=== PATIENT | male | born 1960 | race Caucasian/White ===

== ENCOUNTER 2016-04-18 17:17 | Inpatient (IN) | payer OTHER ==
[~2016-04-18] VITALS: Ht 188 cm; Wt 90.8 kg
[2016-04-18] MEDS ORDERED: LEVAQUIN 750MG / 150ML D5W IV STA (17:47)
[2016-04-18] MEDS ORDERED: SODIUM CHLORIDE 0.9% 1000ML 2,000 ML IV STA (17:47)
[2016-04-18] MEDS ORDERED: CEFEPIME IV 1,000 MG in DEXTROSE 5% 100ML 100 ML IV STA (17:47)
[2016-04-18] MEDS ORDERED: ACETAMINOPHEN 500 MG TAB PO STA (17:47)
[2016-04-18] MEDS ORDERED: OPTIRAY 320 IV PRN (18:00)
--- NOTE | 2016-04-18 18:06 | DIAGNOSTIC IMAGING REPORT ---
CHEST ONE VIEW PORTABLE CLINICAL HISTORY: fever COMPARISON STUDY: No previous studies for comparison. FINDINGS: The heart is at the upper limits of normal in size. There are bilateral airspace opacities involving the left lung base and right mid and lower lung zone. Given the history of fever, the findings are viewed as suspicious for a pneumonia. Imaging subsequent to treatment is recommended in follow-up.[ No significant pleural effusions are visualized. IMPRESSION: Bilateral pulmonary airspace opacities, suspicious for pneumonia given the history of fever. Clinical and radiographic follow-up is recommended. Electronically signed by: Horacio Samaniego M.D. 04/18/2016 6:04 PM Dictated Date/Time: 04/18/2016 6:03 PM
[2016-04-18] MEDS ORDERED: VANCOMYCIN INJ 1,900 MG in SODIUM CHLORIDE 0.9% 500ML 500 ML IV STA (18:13)
[2016-04-18 18:24] LABS: COMPLETE YES; HEMATOCRIT 37.9 % (42-52); IG% 0.1 %; LYMPH % 8.4 %; LYMPH ABS # 0.69 K/uL (1.2-3.4); MEAN CELL VOLUME 87.1 fL (80-100); MEAN CORPUSCULAR HEMOGLOBIN 29.7 pg (25-34); MEAN PLATELET VOLUME 9.7 fL (7.4-10.4); MONO % 6.6 %; NEUT % 84.9 %; PLATELET COUNT 229 K/uL (130-400); RED BLOOD COUNT 4.35 M/uL (4.7-6.1); WHITE BLOOD COUNT 8.18 K/uL (4.8-10.8)
[2016-04-18 18:32] LABS: VENOUS BLOOD GAS PCO2 56 mmHg (38.0-50.0); VENOUS BLOOD GAS PO2 25 mmHg
[2016-04-18 18:33] LABS: PROTHROMBIN TIME (PATIENT) 10.7 SECONDS (9.0-12.0); VEN BLD GAS O2 SATURATION < 60.0 %
[2016-04-18 18:46] LABS: ALT/SGPT 91 U/L (12-78); AST/SGOT 90 U/L (15-37); BLOOD UREA NITROGEN 14 mg/dl (7-18); BUN/CREATININE RATIO 14.5 (10-20); CALCIUM 8.2 mg/dl (8.5-10.1); CARBON DIOXIDE 28 mmol/L (21-32); CHLORIDE 94 mmol/L (98-107); CREATININE 0.96 mg/dl (0.60-1.40); GLUCOSE 161 mg/dl (70-99); SODIUM 132 mmol/L (136-145)
[2016-04-18 19:01] LABS: ALKALINE PHOSPHATASE 55 U/L (45-117); CKMB/CK RATIO 0.9 (0-3.0)
--- NOTE | 2016-04-18 19:13 | DIAGNOSTIC IMAGING REPORT ---
CT ANGIOGRAM OF THE CHEST CLINICAL HISTORY: Fever, shortness of breath. COMPARISON STUDY: Chest x-ray dated 04/18/2016 TECHNIQUE: Following the IV administration of 116 mL of [id number]-320, CT angiogram of the thorax was performed from the thoracic inlet to the lung bases utilizing the pulmonary embolus protocol. Images are reviewed in the axial, sagittal, and coronal planes. IV contrast was administered without complication. MIP imaging was performed. CT DOSE: 635.50 mGycm FINDINGS: There is a partially visualized 2 cm upper pole left renal cyst. There is hepatic steatosis. There are mildly enlarged mediastinal and hilar lymph nodes, likely reactive. Follow-up subsequent to treatment should be considered. There was no evidence of thoracic aortic dilatation. There were no pulmonary artery filling defects to indicate acute pulmonary embolism. No pleural effusions are visualized. The study is somewhat limited due to respiratory motion artifact. There are right upper lobe, right middle lobe, right lower lobe, and left lower lobe airspace opacities, suspicious for multifocal pneumonia. There is lower lobe bronchial wall thickening and mucous plugging. Clinical and imaging follow-up is recommended. IMPRESSION: 1. No CT evidence of acute pulmonary embolism 2. Bilateral pulmonary airspace opacities, suspicious for a multifocal pneumonia. 3. Mediastinal and hilar lymphadenopathy, possibly reactive given the suspected bilateral pneumonia 4. Clinical and imaging follow-up is recommended. 5. Hepatic steatosis Electronically signed by: Horacio Samaniego M.D. 04/18/2016 7:12 PM Dictated Date/Time: 04/18/2016 7:07 PM
[2016-04-18] MEDS ORDERED: METH10CO PO (19:38)
[2016-04-18] MEDS ORDERED: ALBUTEROL 0.083% NEBU SOLN 3 ML VIAL INH STA (19:40)
[2016-04-18] MEDS ORDERED: OSELTAMIVIR PHOSPHATE 75 MG CAP PO STA (19:53)
[2016-04-18 19:54] LABS: URINE APPEARANCE CLEAR (CLEAR); URINE BILIRUBIN NEG (NEG); URINE COLOR YELLOW; URINE EPITHELIAL CELL AUTO 0-5 /lpf (0-5); URINE NITRITE NEG (NEG); URINE PH 5.5 (4.5-7.5); URINE SPECIFIC GRAVITY 1.015 (1.000-1.030); UROBILINOGEN NEG (NEG); ZZUR CULT IF INDIC CLEAN CATCH NO
[2016-04-18 19:57] LABS: MANUAL MICROSCOPIC REQUIRED? NO; REVIEW REQ? NO
[2016-04-18] MEDS ORDERED: CONSULT PHARMACY STA (20:11)
[2016-04-18] MEDS ORDERED: ACETAMINOPHEN 325 MG TAB PO PRN (20:15)
[2016-04-18] MEDS ORDERED: LEVALBUTEROL/IPRATROPIUM NEB INH SCH (20:15)
--- NOTE | 2016-04-18 20:32 | History and Physical ---
History & Physical Date & Time of Service: Apr 18, 2016 at 20:18 Chief Complaint: Oxygen Level Is Low, Tight Chest Primary Care Physician: Domo Simmons M.D. History of Present Illness Source: patient, clinic records, hospital records 55 year old male with history of opioid dependence on Methadone, hypretension, presenting with cough and shortness of breath x [address] Simmons for Primary Care. Patient was at his usual state of health until last Friday when he developed dry cough, fever/chills, malaise. This progressed in the next few days and was noted to have shortness of breath as well. [facility] today and was found to hypoxic, hence directed to the ER. At the ER, patient was 76% on room air, febrile at 38.8. Patient was placed on non rebreather, given Neb treatment and started on Cefepime, Levaquin. O2 sats was 92% on non rebreather. On exam, patient was resting in bed, appears somewhat weak, not in distress. Speaks in sentences with mild effort, no accessory muscle use. States breathing has somewhat improved. Denies chest pain, headache, dizziness, nausea. No other symptoms. Past Medical/Surgical History Medical Problems: (1) Pneumonia Status: Resolved (2) Sepsis Status: Resolved Family History No pertinent family history Social History Smoking Status: Former Smoker Allergies Coded Allergies: No Known Allergies (Unverified , 04/18/16) Home Medications Scheduled Methadone Hcl (Methadone Hcl Intensol), 164 MG PO QAM Review of Systems Constitutional-(+) as noted above Eyes- no acute visual changes ENT- no sinus drainage; no pharyngitis Pulmonary-(+) as noted above Cardiac- no chest pain, no palpitations, no orthopnea, no dependent edema GI- no nausea, no vomiting, no diarrhea, no melena, no hematochezia - no dysuria, no hematuria Musculoskeletal- no arthralgias, no myalgias Derm- no rashes, no new skin lesions, no changing skin lesions Hematologic- no unusual bruising, no unusual bleeding Lymphatics- no adenopathy Endocrine- no polyuria or polydipsia; no heat or cold intolerance Neuro- no headaches, no focal neurologic symptoms Psych- no anxiety, no depression Physical Exam Vital Signs Date Time Temp Pulse Resp B/P Pulse Ox O2 Delivery O2 Flow Rate FiO2 04/18/16 20:00 75 20 144/89 92 Non-Rebreather 15.0 04/18/16 19:45 75 22 145/89 86 Mask 10.0 Nebulizer 04/18/16 19:15 38.0 78 18 107/58 93 Non-Rebreather 15.0 04/18/16 18:27 74 18 141/78 96 Nasal Cannula 15.0 04/18/16 17:58 81 04/18/16 17:48 78 Room Air 04/18/16 17:43 76 Room Air 04/18/16 17:36 38.8 89 18 140/71 76 Room Air General Appearance: WD/WN, no apparent distress Head: normocephalic, atraumatic Eyes: normal inspection, EOMI, sclerae normal ENT: normal ENT inspection, pharynx normal, + pertinent finding (poor hearing) Neck: supple, no adenopathy, thyroid normal, no JVD, trachea midline Respiratory/Chest: chest non-tender, no respiratory distress, no accessory muscle use, + crackles (bilaterally, no wheezing) Cardiovascular: regular rate, rhythm, no edema, no JVD, no murmur Abdomen/GI: normal bowel sounds, non tender, soft Back: normal inspection, no CVA tenderness Extremities/Musculoskelatal: normal inspection, no calf tenderness, normal capillary refill, no pedal edema Neurologic/Psych: + pertinent finding (no focal neuro deficits noted, difficult to perform full neuro exam as patient on non rebreather) Skin: normal color, warm/dry, no rash Lymphatic: no adenopathy Diagnostics Laboratory Results Results Past 24 Hours Test 04/18/16 18:10 04/18/16 18:33 04/18/16 19:30 04/18/16 20:11 Range/Units White Blood Count 8.18 4.8-10.8 K/uL Red Blood Count 4.35 4.7-6.1 M/uL Hemoglobin 12.9 14.0-18.0 g/dL Hematocrit 37.9 42-52 % Mean Corpuscular Volume 87.1 80-100 fL Mean Corpuscular Hemoglobin 29.7 25-34 pg Mean Corpuscular Hemoglobin Concent 34.0 32-36 g/dl Platelet Count 229 130-400 K/uL Mean Platelet Volume 9.7 7.4-10.4 fL Neutrophils (%) (Auto) 84.9 % Lymphocytes (%) (Auto) 8.4 % Monocytes (%) (Auto) 6.6 % Eosinophils (%) (Auto) 0.0 % Basophils (%) (Auto) 0.0 % Neutrophils # (Auto) 6.94 1.4-6.5 K/uL Lymphocytes # (Auto) 0.69 1.2-3.4 K/uL Monocytes # (Auto) 0.54 0.11-0.59 K/uL Eosinophils # (Auto) 0.00 0-0.5 K/uL Basophils # (Auto) 0.00 0-0.2 K/uL RDW Standard Deviation 44.1 36.4-46.3 fL RDW Coefficient of Variation 13.7 11.5-14.5 % Immature Granulocyte % (Auto) 0.1 % Immature Granulocyte # (Auto) 0.01 0.00-0.02 K/uL Prothrombin Time 10.7 9.0-12.0 SECONDS Prothromb Time International Ratio 1.0 0.9-1.1 Venous Blood pH 7.35 7.36-7.41 Venous Blood Partial Pressure CO2 56 38.0-50.0 mmHg Venous Blood Partial Pressure O2 25 mmHg Venous Blood HCO3 30 mmol/L Venous Blood Oxygen Saturation < 60.0 % Venous Blood Base Excess 3.0 mmol/L Sodium Level 132 136-145 mmol/L Potassium Level 4.0 3.5-5.1 mmol/L Chloride Level 94 98-107 mmol/L Carbon Dioxide Level 28 21-32 mmol/L Anion Gap 10.0 3-11 mmol/L Blood Urea Nitrogen 14 7-18 mg/dl Creatinine 0.96 0.60-1.40 mg/dl Est Creatinine Clear Calc Drug Dose 102.3 ml/min Estimated GFR () 103.4 Estimated GFR (Non- 89.3 BUN/Creatinine Ratio 14.5 10-20 Random Glucose 161 70-99 mg/dl Calcium Level 8.2 8.5-10.1 mg/dl Magnesium Level 2.0 1.8-2.4 mg/dl Total Bilirubin 0.5 0.2-1 mg/dl Direct Bilirubin 0.2 0-0.2 mg/dl Aspartate Amino Transf (AST/SGOT) 90 15-37 U/L Alanine Aminotransferase (ALT/SGPT) 91 12-78 U/L Alkaline Phosphatase 55 45-117 U/L Total Creatine Kinase 858 39-308 U/L Creatine Kinase MB 7.4 0.5-3.6 ng/ml Creatine Kinase MB Ratio 0.9 0-3.0 Troponin I < 0.015 0-0.045 ng/ml Total Protein 7.6 6.4-8.2 gm/dl Albumin 3.6 3.4-5.0 gm/dl Influenza Type A Antigen Neg for Influ A NEG Influenza Type B Antigen Neg for Influ B NEG Urine Color YELLOW Urine Appearance CLEAR CLEAR Urine pH 5.5 4.5-7.5 Urine Specific [place] 1.015 1.000-1.030 Urine Protein NEG NEG Urine Glucose (UA) NEG NEG Urine Ketones NEG NEG Urine Occult Blood TRACE NEG Urine Nitrite NEG NEG Urine Bilirubin NEG NEG Urine Urobilinogen NEG NEG Urine Leukocyte Esterase NEG NEG Urine WBC (Auto) 1-5 0-5 /hpf Urine RBC (Auto) 0-4 0-4 /hpf Urine Hyaline Casts (Auto) 1-5 0-5 /lpf Urine Epithelial Cells (Auto) 0-5 0-5 /lpf Urine Bacteria (Auto) NEG NEG Microbiology Results 04/18/16 Blood Culture, Received Pending 04/18/16 Blood Culture, Received Pending Diagnostic Radiology CT chest IMPRESSION: 1. No CT evidence of acute pulmonary embolism 2. Bilateral pulmonary airspace opacities, suspicious for a multifocal pneumonia. 3. Mediastinal and hilar lymphadenopathy, possibly reactive given the suspected bilateral pneumonia 4. Clinical and imaging follow-up is recommended. 5. Hepatic steatosis EKG EKG normal sinus rhythm, prolonged qt 526, no signs of acute ischemia Impression Assessment and Plan 55 year old male with history of opioid dependence on Methadone, hypretension, presenting with cough and shortness of breath x 4 days. ACUTE HYPOXIC RESPIRATORY FAILURE SECONDARY TO MULTIFOCAL PNEUMONIA - management of pneumonia as noted below. - Nebs q4h continue Non rebreather, may need Bipap if tachypneic SEPSIS SECONDARY TO MULTIFOCAL PNEUMONIA - ff up blood, sputum, urine cultures - lactic acid pending - 2 liters given at the ER, continue NSS at 125cc/hr - empiric Vanco, Zosyn, Doxycycline for now (avoid Fluoroquinolones for prolonged QTc of 526) HISTORY OF OPIOID DEPENDENCE - on Methadone dose confirmed with DVT PROPHYLAXIS - Lovenox FULL CODE per patient DISPOSITION pending lives at home with family VTE Prophylaxis VTE Risk Assessment Done? Y/N: Yes Risk Level: Moderate
[2016-04-18] MEDS ORDERED: [UNRECOGNIZED DRUG - OTHER] PRN (20:45)
[2016-04-18] MEDS ORDERED: PIPERACILL/TAZOBAC CONSULT ACTIVE PRN (20:45)
[2016-04-18] MEDS ORDERED: VANCOMYCIN CONSULT ACTIVE PRN (20:45)
[2016-04-18 21:00] VITALS: BP 139/77; PULSE 67; TEMP 37; O2SAT 95; Ht 188 cm; Wt 90.8 kg
[2016-04-18] MEDS ORDERED: PIPERACILL/TAZOBAC IV 4.5 GM in DEXTROSE 5% 100ML IV ONE (21:45)
[2016-04-18 21:55] VITALS: PULSE 65; O2SAT 96
[2016-04-18 22:00] VITALS: BP 127/72; PULSE 65; O2SAT 96
--- NOTE | 2016-04-18 22:09 | Pharmacy Progress Note ---
Pharmacy Antibiotic Consult Date of Service: Apr 18, 2016. Pharmacy Dosing Scope Pharmacy is consulted to initiate vancomycin, Zosyn,and doxycycline IV dosing therapy, order appropriate labs and adjust drug dose/frequency. Subjective The patient is a 55 year old male admitted on Apr 18, 2016 at 20:02. Objective Height (Feet): 6 Height (Inches): 2.00 Weight (Kilograms): 93.800 Lab Results (24hrs): Laboratory Tests Test 04/18/16 18:10 BUN/Creatinine Ratio 14.5 Blood Urea Nitrogen 14 mg/dl Creatinine 0.96 mg/dl White Blood Count 8.18 K/uL Red Blood Count 4.35 M/uL Hemoglobin 12.9 g/dL Hematocrit 37.9 % Mean Corpuscular Volume 87.1 fL Mean Corpuscular Hemoglobin 29.7 pg Mean Corpuscular Hemoglobin Concent 34.0 g/dl Platelet Count 229 K/uL Mean Platelet Volume 9.7 fL Neutrophils (%) (Auto) 84.9 % Lymphocytes (%) (Auto) 8.4 % Monocytes (%) (Auto) 6.6 % Eosinophils (%) (Auto) 0.0 % Basophils (%) (Auto) 0.0 % Neutrophils # (Auto) 6.94 K/uL Lymphocytes # (Auto) 0.69 K/uL Monocytes # (Auto) 0.54 K/uL Eosinophils # (Auto) 0.00 K/uL Basophils # (Auto) 0.00 K/uL Micro Results: 04/18 serology neg influenza A&B 04/18 nasal swab pending 04/18 blood x2 pending 04/18 clean catch urine pending Recent Pertinent Medications Item Value Date Time Piperacillin Sod/ 120 ml @ 240 mls/hr 04/19/16 0400 Tazobactam Sod Q6H/IV 4.5 gm/Dextrose Vancomycin HCl 528 ml @ 200 mls/hr 04/19/16 0200 1400 mg/Sodium Q8@0200,1000,1800/IV Chloride Piperacillin Sod/ 120 ml @ 200 mls/hr 04/18/16 2145 Tazobactam Sod NOW ONCE/IV 4.5 gm/Dextrose Doxycycline 110 ml @ 55 mls/hr 04/18/162128 Hyclate 100 mg/ Q12/IV Dextrose Oseltamivir 75 mg 04/18/161952 Phosphate NOW STAT/PO 04/18/162003 (Tamiflu Cap) Vancomycin HCl 538 ml @ 200 mls/hr 04/18/16 1813 1900 mg/Sodium ONE STAT/IV 04/18/16 1904 Chloride Cefepime HCl 1000 111.3 ml @ 200 mls/hr 04/18/16 1747 mg/Dextrose NOW STAT/IV 04/18/16 1823 Assessment & Plan Loading dose: vancomycin 1900 mg IV X 1 dose (~20 mg/kg modified load) then: vancomycin 1400 mg IV every 8 hours. Goal peak level estimate: between 25-40 mcg/mL. Goal trough level estimate: between 15-20 mcg/mL. Trough has been ordered for: 04/20/16 before 0200 dose. Doxycycline 100 mg IV q12h, no adjustment needed for renal function. Zosyn 4.5 Gm IV q6h for sepsis/pneumonia, each dose to run over 30 minutes. ( Did not use extended infusion due to multiple IV meds/doses) Pharmacy will continue to follow and will adjust dose/frequency as necessary. Thank you
[2016-04-18] MEDS: NSS + 20MEQ KCL 1000ML 1,000 ML IV SCH (22:12)
[2016-04-18] MEDS ORDERED: LEVALBUTEROL 1.25MG/3ML NEB INH PRN (22:15)
[2016-04-18] MEDS ORDERED: INFLUENZA VIRUS QUAD VACCINE 0.5 ML SYR IM. ONE (22:15)
[2016-04-18] MEDS ORDERED: INFLUENZA ADMINISTRATION CHARGE ONE (22:15)
[2016-04-18 22:51] VITALS: O2SAT 95
[2016-04-18] MEDS: DOXYCYCLINE HYCLATE 100 MG in DEXTROSE 5% 100ML IV SCH (23:19)
[2016-04-18] MEDS: IPRATROPIUM BROMIDE NEB SOLN 0.02% 2.5 ML VIAL INH SCH (23:38)
[2016-04-18] MEDS: LEVALBUTEROL 1.25MG/0.5ML NEB INH SCH (23:38)
[2016-04-18 23:40] VITALS: PULSE 68; O2SAT 97
--- NOTE | 2016-04-18 23:55 | EMERGENCY ROOM VISIT NOTE ---
History Report prepared by Archana: Alexandria Truong Under the Supervision of: Dr. Landry Malloy D.O. First contact with patient: 17:40 Chief Complaint: RESPIRATORY PROBLEMS Stated Complaint: OXYGEN LEVEL IS LOW, TIGHT CHEST History of Present Illness The patient is a 55 year old male who presents to the Emergency Room with complaints of worsening shortness of breath that started 4 days ago. The patient is also experiencing a persistent productive cough that also started 4 days ago. The patient is also experiencing a headache, rhinorrhea, sore throat, and joint aches. Additionally, the patient is experiencing chest pain with coughing but otherwise denies any chest pain. He denies nausea, vomiting, abdominal pain, and lower extremity pain or edema. The patient's states that the patient developed a fever yesterday. She also noticed increased confusion today. The patient's states that she tried to hydrate him with Gatorade. The patient denies any recent sick contacts, but his states that they have 9 kids at home so she is not sure. The patient's states that the patient was on life support in [place] several years ago for pneumonia and sepsis. The patient's states that the patient does not have any history of blood clots. The patient denies any history of asthma or COPD. Source of History: patient, spouse/significant other () Onset: 4 days ago Position: chest Quality: other (shortness of breath) Timing: worsening Associated Symptoms: + chest pain (only with coughing ), + cough (productive ), + headache, + sorethroat, No abdominal pain, No nausea, No vomiting Note: rhinorrhea, joint aches, no lower extremity pain or edema Review of Systems See HPI for pertinent positives & negatives. A total of 10 systems reviewed and were otherwise negative. Past Medical & Surgical Medical Problems: (1) Acute respiratory failure with hypoxia (2) Pneumonia (3) Sepsis Family History No pertinent family history Social History Smoking Status: Former Smoker Marital Status: Housing Status: lives with family Current/Historical Medications Scheduled Methadone Hcl (Methadone Hcl Intensol), 164 MG PO QAM Allergies Coded Allergies: No Known Allergies (Unverified , 04/18/16) Physical Exam Vital Signs Date Time Temp Pulse Resp B/P Pulse Ox O2 Delivery O2 Flow Rate FiO2 04/18/16 20:00 75 20 144/89 92 Non-Rebreather 15.0 04/18/16 19:45 75 22 145/89 86 Mask 10.0 Nebulizer 04/18/16 19:15 38.0 78 18 107/58 93 Non-Rebreather 15.0 04/18/16 18:27 74 18 141/78 96 Nasal Cannula 15.0 04/18/16 17:58 81 04/18/16 17:48 78 Room Air 04/18/16 17:43 76 Room Air 04/18/16 17:36 38.8 89 18 140/71 76 Room Air Physical Exam GENERAL: alert, sitting up in bed, ill appearing, significant distress, non- toxic EYE EXAM: normal conjunctiva OROPHARYNX: no exudate, no erythema, lips, buccal mucosa, and tongue normal and mucous membranes are moist NECK: supple, no nuchal rigidity, no adenopathy, non-tender LUNGS: Diminished at the bases. Normal chest wall mechanics HEART: no murmurs, S1 normal and S2 normal ABDOMEN: abdomen soft, non-tender, normo-active bowel sounds, no masses, no rebound or guarding. BACK: Back is symmetrical on inspection and there is no deformity, no midline tenderness, no CVA tenderness. SKIN: no rashes and no bruising UPPER EXTREMITIES: upper extremities are grossly normal. LOWER EXTREMITIES: No pitting edema, calves equal bilaterally. NEURO EXAM: Alert, following commands, no focal deficits. Medical Decision & Procedures ER Provider Diagnostic Interpretation: Xray results per the radiologist and my interpretation. Other results have been interpreted by the radiologist and reviewed by me. CHEST ONE VIEW PORTABLE IMPRESSION: Bilateral pulmonary airspace opacities, suspicious for pneumonia given the history of fever. Clinical and radiographic follow-up is recommended. Electronically signed by: Horacio Samaniego M.D. 04/18/2016 6:04 PM Dictated Date/Time: 04/18/2016 6:[address] ANGIOGRAM OF THE CHEST IMPRESSION: 1. No CT evidence of acute pulmonary embolism 2. Bilateral pulmonary airspace opacities, suspicious for a multifocal pneumonia. 3. Mediastinal and hilar lymphadenopathy, possibly reactive given the suspected bilateral pneumonia 4. Clinical and imaging follow-up is recommended. 5. Hepatic steatosis Electronically signed by: Horacio Samaniego M.D. 04/18/2016 7:12 PM Dictated Date/Time: 04/18/2016 7:07 PM Laboratory Results 04/18/16 18:10 Red Blood Count 4.35, Mean Corpuscular Volume 87.1, Mean Corpuscular Hemoglobin 29.7, Mean Corpuscular Hemoglobin Concent 34.0, Mean Platelet Volume 9.7, Neutrophils (%) (Auto) 84.9, Lymphocytes (%) (Auto) 8.4, Monocytes (%) (Auto) 6.6, Eosinophils (%) (Auto) 0.0, Basophils (%) (Auto) 0.0, Neutrophils # (Auto) 6.94, Lymphocytes # (Auto) 0.69, Monocytes # (Auto) 0.54, Eosinophils # (Auto) 0.00, Basophils # (Auto) 0.00 04/18/16 18:10 Test 04/18/16 18:10 04/18/16 18:33 04/18/16 19:30 White Blood Count 8.18 K/uL (4.8-10.8) Red Blood Count 4.35 M/uL (4.7-6.1) Hemoglobin 12.9 g/dL (14.0-18.0) Hematocrit 37.9 % (42-52) Mean Corpuscular Volume 87.1 fL (80-100) Mean Corpuscular Hemoglobin 29.7 pg (25-34) Mean Corpuscular Hemoglobin Concent 34.0 g/dl (32-36) Platelet Count 229 K/uL (130-400) Mean Platelet Volume 9.7 fL (7.4-10.4) Neutrophils (%) (Auto) 84.9 % Lymphocytes (%) (Auto) 8.4 % Monocytes (%) (Auto) 6.6 % Eosinophils (%) (Auto) 0.0 % Basophils (%) (Auto) 0.0 % Neutrophils # (Auto) 6.94 K/uL (1.4-6.5) Lymphocytes # (Auto) 0.69 K/uL (1.2-3.4) Monocytes # (Auto) 0.54 K/uL (0.11-0.59) Eosinophils # (Auto) 0.00 K/uL (0-0.5) Basophils # (Auto) 0.00 K/uL (0-0.2) RDW Standard Deviation 44.1 fL (36.4-46.3) RDW Coefficient of Variation 13.7 % (11.5-14.5) Immature Granulocyte % (Auto) 0.1 % Immature Granulocyte # (Auto) 0.01 K/uL (0.00-0.02) Prothrombin Time 10.7 SECONDS (9.0-12.0) Prothromb Time International Ratio 1.0 (0.9-1.1) Venous Blood pH 7.35 (7.36-7.41) Venous Blood Partial Pressure CO2 56 mmHg (38.0-50.0) Venous Blood Partial Pressure O2 25 mmHg Venous Blood HCO3 30 mmol/L Venous Blood Oxygen Saturation < 60.0 % Venous Blood Base Excess 3.0 mmol/L Anion Gap 10.0 mmol/L (3-11) Est Creatinine Clear Calc Drug Dose 102.3 ml/min Estimated GFR () 103.4 Estimated GFR (Non- 89.3 BUN/Creatinine Ratio 14.5 (10-20) Calcium Level 8.2 mg/dl (8.5-10.1) Magnesium Level 2.0 mg/dl (1.8-2.4) Total Bilirubin 0.5 mg/dl (0.2-1) Direct Bilirubin 0.2 mg/dl (0-0.2) Aspartate Amino Transf (AST/SGOT) 90 U/L (15-37) Alanine Aminotransferase (ALT/SGPT) 91 U/L (12-78) Alkaline Phosphatase 55 U/L (45-117) Total Creatine Kinase 858 U/L (39-308) Creatine Kinase MB 7.4 ng/ml (0.5-3.6) Creatine Kinase MB Ratio 0.9 (0-3.0) Troponin I < 0.015 ng/ml (0-0.045) Total Protein 7.6 gm/dl (6.4-8.2) Albumin 3.6 gm/dl (3.4-5.0) Influenza Type A Antigen Neg for Influ A (NEG) Influenza Type B Antigen Neg for Influ B (NEG) Urine Color YELLOW Urine Appearance CLEAR (CLEAR) Urine pH 5.5 (4.5-7.5) Urine Specific [place] 1.015 (1.000-1.030) Urine Protein NEG (NEG) Urine Glucose (UA) NEG (NEG) Urine Ketones NEG (NEG) Urine Occult Blood TRACE (NEG) Urine Nitrite NEG (NEG) Urine Bilirubin NEG (NEG) Urine Urobilinogen NEG (NEG) Urine Leukocyte Esterase NEG (NEG) Urine WBC (Auto) 1-5 /hpf (0-5) Urine RBC (Auto) 0-4 /hpf (0-4) Urine Hyaline Casts (Auto) 1-5 /lpf (0-5) Urine Epithelial Cells (Auto) 0-5 /lpf (0-5) Urine Bacteria (Auto) NEG (NEG) Date/Time Source Procedure Growth Status 04/18/16 00:00 Nasal MRSA DNA Surveillance Screen - Final Specimen Positive for MRSA by DNA Probe Complete Laboratory results per my review. Medications Administered Medications (Trade) Dose Ordered Sig/Juli Route Start Time Stop Time Status Last Admin Dose Admin Cefepime HCl 1000 mg/Dextrose 111.3 ml @ 200 mls/hr NOW STAT IV 04/18/16 17:47 04/18/16 18:20 DC 04/18/16 18:23 200 MLS/HR Sodium Chloride (Nss 1000ml) 2,000 ml @ 999 mls/hr Q2H1M STAT IV 04/18/16 17:47 04/18/16 19:47 DC 04/18/16 18:22 999 MLS/HR Acetaminophen 1000 mg 1,000 mg NOW STAT PO 04/18/16 17:47 04/18/16 17:49 DC 04/18/16 18:22 1,000 MG Vancomycin HCl/ Sodium Chloride (Vancomycin Inj/ Nss 500ml) 538 ml @ 200 mls/hr ONE STAT IV 04/18/16 18:13 04/18/16 20:54 DC 04/18/16 19:04 200 MLS/HR Albuterol Sulfate (Ventolin 0.083% 2.5MG/3ML Neb) 2.5 mg NOW STAT INH 04/18/16 19:40 04/18/16 19:41 DC 04/18/16 19:47 2.5 MG Oseltamivir Phosphate (Tamiflu Cap) 75 mg NOW STAT PO 04/18/16 19:53 04/18/16 19:54 DC 04/18/16 20:04 75 MG ECG Indication: SOB/dyspnea Rate (beats per minute): 76 Rhythm: sinus rhythm Findings: prolonged QT, no ectopy, other (normal axis) ED Course ED COURSE: Vital signs were reviewed and showed febrile. The patients medical record was reviewed The above diagnostic studies were performed and reviewed. ED treatments and interventions as stated above. 174: The patient was evaluated in room A1. A complete history and physical examination was performed. 174: Ordered Tylenol Tab 1000 mg PO, Sodium Chloride 2000 ml @ 999 mls/hr IV, Levofloxacin 750 mg IV, Cefepime HCl 1000 mg/Dextrose 111.3 ml @ 200 mls/hr IV 175: I reassessed the patient. They are putting an IV in currently. 1756: An 18 gauge IV is in place. A code sepsis was called based on the patient' s presentation. 1803: I reevaluated the patient, he is resting comfortably. They are trying to get a second IV site. 1812: Ordered Vancomycin HCl 1900 mg/Sodium Chloride 538 ml @ 200 mls/hr IV 1820: Two 18 gauge IVs are in place. The patient is feeling a little better. 1917: Upon reevaluation, the patient is resting comfortably. I discussed my findings with the patient and his . They understand and agrees with the treatment plan. Based on the patients age, coexisting illnesses, exam and lab findings the decision to treat as an inpatient was made. The patient remained stable while under my care. The patient will be evaluated for further management. 1932: I reviewed the patient's case with Dr. Xu Celaya. She will evaluate the patient for further management. 1938: I reevaluated the patient. He is sleeping, but his oxygen saturation is 88 -89%. 1939: Ordered Albuterol Sulfate 2.5 mg INH 1951: I reassessed the patient. He is receiving a nebulizer treatment now. 1952: Ordered Tamiflu Cap 75 mg PO 1957: I reevaluated the patient. The nebulizer treatment is done and the patient 's oxygen saturation is 91% on the non-rebreather. Medicine is at bedside. Medical Decision Differential diagnoses includes but is not limited to pneumonia, bronchitis, COPD/Asthma exacerbation, pneumothorax, pulmonary embolism, congestive heart failure, acute coronary syndrome Patient is a 55-year-old male brought in by his for confusion and trouble breathing. He was initially brought into outpatient clinic and found to be hypoxic with a pulse ox of 65%. Upon arrival to the ER his pulse ox was 70%. He was immediately placed on nonrebreather. He stayed on nonrebreather throughout the duration of his ER stay. Oxygen saturation on the nonrebreather was 88-93%. He was given 2 L normal saline along with cefepime, vancomycin and Tylenol. No significant leukocytosis on labs. BMP shows a sodium of 132. AST and ALTs slightly elevated. UA was negative. INR was negative. Influenza was negative. He was also given Tamiflu. VBG shows normal pH. CO2 is slightly elevated at 56. Patient remained confused while in the ER. Internal medicine was consulted. He is monitored closely. He was given one neb. He was admitted to internal medicine with hypoxia on nonrebreather. Consults Time Called: 1916 Consulting Physician: Dr. Xu Celaya Returned Call: 1932 I reviewed the patient's case with Dr. Xu Celaya. She will evaluate the patient for further management. Impression Primary Impression: Sepsis Additional Impressions: Pneumonia Hypoxia Critical Care I have personally spent 80 minutes of critical care time in the direct management of this patient. This includes bedside care, interpretation of diagnostic studies, and testing, discussion with consultants, patient, and family members, and other required patient management activities. This 80 minutes is in excess of all separately billable procedures. Scribe Attestation The scribe's documentation has been prepared under my direction and personally reviewed by me in its entirety. I confirm that the note above accurately reflects all work, treatment, procedures, and medical decision making performed by me. Departure Information Dispostion Being Evaluated By Hospitalist Referrals Domo Simmons M.D. (PCP) Patient Instructions [facility] Problem Qualifiers Primary Impression: Sepsis Sepsis type: sepsis due to unspecified organism Qualified Codes: A41.9 - Sepsis, unspecified organism Additional Impressions: Pneumonia Pneumonia type: due to unspecified organism Laterality: bilateral Lung location: unspecified part of lung Qualified Codes: J18.9 - Pneumonia, unspecified organism
[2016-04-19] VITALS (30 sets, daily range): BP systolic 115–151; BP diastolic 60–96; PULSE 65–79; TEMP 36.6–37.3; O2SAT 90–100
--- NOTE | 2016-04-19 02:03 | Progress Note ---
Progress Note Date of Service Apr 19, 2016. Progress Note Sock Mender: Case discussed with Dr. Lockhart. I interviewed the patient's and examined him. Chart reviewed. Bilateral PNA - on broad abx and 100% NRB. He is not in resp. distress and O2 sats are 92-100%. I have added Tamiflu and chest percussion therapy as well as PRN bronchodilators. I have also told his he may require intubation but looks surprisingly comfortable so far. Full dictation/consult to follow.
[2016-04-19] MEDS: VANCOMYCIN INJ 1,400 MG in SODIUM CHLORIDE 0.9% 500ML 500 ML IV SCH ×3 (02:11→17:44)
[2016-04-19] MEDS: LEVALBUTEROL 1.25MG/0.5ML NEB INH SCH ×6 (03:40→23:21)
[2016-04-19] MEDS: IPRATROPIUM BROMIDE NEB SOLN 0.02% 2.5 ML VIAL INH SCH ×6 (03:40→23:21)
[2016-04-19] MEDS: PIPERACILL/TAZOBAC IV 4.5 GM in DEXTROSE 5% 100ML IV SCH ×3 (04:38→17:44)
[2016-04-19 05:53] LABS: COMPLETE YES; HEMATOCRIT 34.5 % (42-52); IG% 0.2 %; LYMPH % 11.4 %; MEAN CELL VOLUME 87.8 fL (80-100); MEAN CORPUSCULAR HEMOGLOBIN 29.3 pg (25-34); MEAN CORPUSCULAR HGB CONC 33.3 g/dl (32-36); MEAN PLATELET VOLUME 9.7 fL (7.4-10.4); MONO % 4.2 %; NEUT % 84.2 %; PLATELET COUNT 197 K/uL (130-400); RED BLOOD COUNT 3.93 M/uL (4.7-6.1); WHITE BLOOD COUNT 6.14 K/uL (4.8-10.8)
[2016-04-19 06:25] LABS: CALCIUM 7.6 mg/dl (8.5-10.1); CREATININE 0.63 mg/dl (0.60-1.40); MAGNESIUM 1.9 mg/dl (1.8-2.4)
[2016-04-19] MEDS: NSS + 20MEQ KCL 1000ML 1,000 ML IV SCH ×3 (06:34→17:24)
--- NOTE | 2016-04-19 07:17 | DIAGNOSTIC IMAGING REPORT ---
CHEST ONE VIEW PORTABLE CLINICAL HISTORY: f/u pna pneumonia COMPARISON STUDY: 04/18/2016 FINDINGS: Progressive consolidative change right base. Unchanging parenchymal infiltrative change left base. Mild stable cardiomegaly. Pulmonary procedure remain clear. IMPRESSION: Progressive consolidative infiltrate right base. Unchanging parenchymal infiltrate left base although a minimal degree of medial consolidative change at the left base may be present Electronically signed by: Aryan Miranda M.D. 04/19/2016 7:16 AM Dictated Date/Time: 04/19/2016 7:12 AM
[2016-04-19] MEDS: DOXYCYCLINE HYCLATE 100 MG in DEXTROSE 5% 100ML IV SCH ×2 (07:50→20:34)
[2016-04-19] MEDS ORDERED: PANTOprazole INJ 40 MG in SYRINGE 0 ML IV SCH (09:00)
[2016-04-19] MEDS ORDERED: SODIUM PHOSPHATE 3 MMOL/1 ML INFUSION IV STA ×2 (09:35→11:05)
[2016-04-19] MEDS ORDERED: SODIUM PHOSPHATE INJ 21 MMOL in SODIUM CHLORIDE 0.9% 500ML 500 ML IV ONE ×2 (10:00→12:00)
[2016-04-19] MEDS ORDERED: CALCIUM GLUCONATE 10% 500 MG in SODIUM CHLORIDE 0.9% 50ML 50 ML IV ONE (10:00)
[2016-04-19] MEDS: ENOXAPARIN 40 MG/0.4 ML SYR SQ SCH (10:04)
[2016-04-19] MEDS: OSELTAMIVIR PHOSPHATE 75 MG CAP PO SCH ×2 (10:06→20:35)
[2016-04-19] MEDS: METHADONE ORAL SOLN 2 MG/1ML PO SCH (10:06)
--- NOTE | 2016-04-19 11:55 | Critical Care Consultation ---
Critical Care Consultation Date of Consultation: Apr 19, 2016. Attending Physician: Mary Lou Wahl., S Reason for Consultation: Acute hypoxic resp failure History of Present Illness 55 y/o M with h/o opioid dependence on methadone , HTN had presented to the ER with respiratory distress. He had developed a cough, fevers and chills and malaise about 4 days ago which seemed to worsen in the last few days and he also developed some respiratory distress. He began to feel short of breath and had first gone to the Urgent care centre where his saturations were very low and he was directed to go to the ER. he was febrile with sats at 76% on presentation . Patient was placed on non rebreather, given Neb treatment and started on Cefepime, Levaquin. Chest Xray revealed bilateral air space opacities and he was transferred to the ICU considering his respiratory distress. CTA was on which was negative for pulmonary embolism He is very hard of hearing and appears to be more oriented and almost at baseline per his . he thinks his breathing is improved and he feel somewhat better. denies any fevers/chills, cough or chest pain. He has chronic back pain and is on methadone . He has a h/o pneumonia about 8 years ago at which time he was intubated while at [facility] [place] Past Medical/Surgical History Pneumonia HTN Family History No pertinent family history Social History Smoking Status: Former Smoker Marital Status: Housing Status: lives with family Allergies Coded Allergies: No Known Allergies (Unverified , 04/18/16) Home Medications Scheduled Methadone Hcl (Methadone Hcl Intensol), 164 MG PO QAM Current Inpatient Medications Current Inpatient Medications Medications (Trade) Dose Ordered Sig/Juli Route Start Time Stop Time Status Last Admin Dose Admin Ioversol 125 ml 125 ml UD PRN IV 04/18/16 18:00 04/22/16 17:59 Potassium Chloride/Sodium Chloride (Nss + 20meq KCl 1000ml) 1,000 ml @ 125 mls/hr Q8H IV 04/18/16 21:22 05/18/16 21:21 04/19/16 06:34 125 MLS/HR Acetaminophen (Tylenol Tab) 650 mg Q4H PRN PO 04/18/16 20:15 05/18/16 20:14 Methadone HCl (Methadone HCl) 164 mg DAILY PO 04/19/16 09:00 05/03/16 08:59 04/19/16 10:06 164 MG Vancomycin HCl (Consult) 1 ea UD PRN N/A 04/18/16 20:45 05/18/16 20:44 Piperacillin Sod/ Tazobactam Sod (Consult) 1 ea UD PRN N/A 04/18/16 20:45 05/18/16 20:44 Miscellaneous Information 1 ea UD PRN N/A 04/18/16 20:45 05/18/16 20:44 Levalbuterol (Xopenex 1.25MG/ 0.5ML Neb) 1.25 mg Q4R INH 04/19/16 00:00 05/19/16 00:00 04/19/16 07:16 1.25 MG Ipratropium [place] 0.5 mg 0.5 mg Q4R INH 04/19/16 00:00 05/19/16 00:00 04/19/16 07:16 0.5 MG Doxycycline Hyclate 100 mg/ Dextrose 110 ml @ 55 mls/hr Q12 IV 04/18/16 21:29 04/25/16 21:28 04/19/16 07:50 55 MLS/HR Piperacillin Sod/ Tazobactam Sod 4.5 gm/Dextrose 120 ml @ 240 mls/hr Q6H IV 04/19/16 04:00 04/26/16 03:59 04/19/16 10:17 240 MLS/HR Vancomycin HCl/ Sodium Chloride (Vancomycin Inj/ Nss 500ml) 528 ml @ 200 mls/hr Q8@0200,1000,1800 IV 04/19/16 02:00 04/25/16 17:59 04/19/16 10:17 200 MLS/HR Oseltamivir Phosphate (Tamiflu Cap) 75 mg BID PO 04/19/16 09:00 04/24/16 08:59 04/19/16 10:06 75 MG Levalbuterol (Xopenex 1.25MG/ 3ML Neb) 1.25 mg Q2H PRN INH 04/18/16 22:15 05/18/16 22:14 Enoxaparin Sodium (Lovenox Inj) 40 mg DAILY SQ 04/19/16 09:00 05/19/16 08:59 04/19/16 10:04 40 MG Enteral Nutritional Formula 1 can 1 can TID PO 04/19/16 14:00 05/19/16 13:59 Sodium Phosphate/ Sodium Chloride (Sodium Phosphate Inj/Nss 500ml) 507 ml @ 144.857 mls/hr TODAY@1000 ONCE IV 04/19/16 10:00 04/19/16 13:29 04/19/16 10:17 144.857 MLS/HR Pantoprazole Sodium (Protonix Tab) 40 mg QAM PO 04/20/16 09:00 05/20/16 08:59 Review of Systems Constitutional: + fatigue, No chills, No fever ENT: + hearing loss Respiratory: + cough, + shortness of breath Cardiovascular: No PND, No chest pain Abdomen: No nausea, No pain, No vomiting Musculoskeletal: + joint pain, + muscle pain Genitourinary - Male: No hematuria Neurologic: No memory loss Endocrine: No fatigue Physical Exam Date Time Temp Pulse Resp B/P Pulse Ox O2 Delivery O2 Flow Rate FiO2 04/19/16 09:00 68 23 121/75 91 Mask 15.0 04/19/16 08:00 Mask 12.0 04/19/16 08:00 36.8 70 19 120/67 92 Mask 15.0 04/19/16 07:30 65 20 96 Mask 10.0 04/19/16 06:05 65 20 115/70 98 Non-Rebreather 15.0 04/19/16 04:00 37.3 73 19 132/72 97 Non-Rebreather 15.0 04/19/16 04:00 97 Non-Rebreather 15.0 04/19/16 03:00 72 20 96 Non-Rebreather 100 04/19/16 02:00 68 19 135/77 95 Non-Rebreather 15.0 04/19/16 00:01 95 Non-Rebreather 15.0 04/19/16 00:00 37.2 67 24 117/62 96 Non-Rebreather 15.0 04/18/16 23:40 68 22 97 Non-Rebreather 100 04/18/16 22:51 95 Non-Rebreather 15.0 04/18/16 22:00 65 21 127/72 96 Non-Rebreather 15.0 04/18/16 21:55 65 22 96 04/18/16 21:00 37.0 67 20 139/77 95 Non-Rebreather 15.0 04/18/16 20:47 38.0 71 22 130/69 94 04/18/16 20:45 71 22 130/69 94 Non-Rebreather 15.0 04/18/16 20:00 75 20 144/89 92 Non-Rebreather 15.0 04/18/16 19:45 75 22 145/89 86 Mask 10.0 Nebulizer 04/18/16 19:15 38.0 78 18 107/58 93 Non-Rebreather 15.0 04/18/16 18:27 74 18 141/78 96 Nasal Cannula 15.0 04/18/16 17:58 81 04/18/16 17:48 78 Room Air 04/18/16 17:43 76 Room Air 04/18/16 17:36 38.8 89 18 140/71 76 Room Air General Appearance: well-appearing, WD/WN, mild distress, thin Respiratory: rales, other (coarse breath sounds) Cardiovasular: regular rate/rhythm Abdomen: non tender, normal bowel sounds Back: normal inspection Upper Extremities: no edema Lower Extremities: no edema Laboratory Results Last 24 Hours Test 04/18/16 18:10 04/18/16 18:33 04/18/16 19:30 04/18/16 21:10 White Blood Count 8.18 K/uL Red Blood Count 4.35 M/uL Hemoglobin 12.9 g/dL Hematocrit 37.9 % Mean Corpuscular Volume 87.1 fL Mean Corpuscular Hemoglobin 29.7 pg Mean Corpuscular Hemoglobin Concent 34.0 g/dl Platelet Count 229 K/uL Mean Platelet Volume 9.7 fL Neutrophils (%) (Auto) 84.9 % Lymphocytes (%) (Auto) 8.4 % Monocytes (%) (Auto) 6.6 % Eosinophils (%) (Auto) 0.0 % Basophils (%) (Auto) 0.0 % Neutrophils # (Auto) 6.94 K/uL Lymphocytes # (Auto) 0.69 K/uL Monocytes # (Auto) 0.54 K/uL Eosinophils # (Auto) 0.00 K/uL Basophils # (Auto) 0.00 K/uL RDW Standard Deviation 44.1 fL RDW Coefficient of Variation 13.7 % Immature Granulocyte % (Auto) 0.1 % Immature Granulocyte # (Auto) 0.01 K/uL Prothrombin Time 10.7 SECONDS Prothromb Time International Ratio 1.0 Venous Blood pH 7.35 Venous Blood Partial Pressure CO2 56 mmHg Venous Blood Partial Pressure O2 25 mmHg Venous Blood HCO3 30 mmol/L Venous Blood Oxygen Saturation < 60.0 % Venous Blood Base Excess 3.0 mmol/L Sodium Level 132 mmol/L Potassium Level 4.0 mmol/L Chloride Level 94 mmol/L Carbon Dioxide Level 28 mmol/L Anion Gap 10.0 mmol/L Blood Urea Nitrogen 14 mg/dl Creatinine 0.96 mg/dl Est Creatinine Clear Calc Drug Dose 102.3 ml/min Estimated GFR () 103.4 Estimated GFR (Non- 89.3 BUN/Creatinine Ratio 14.5 Random Glucose 161 mg/dl Calcium Level 8.2 mg/dl Magnesium Level 2.0 mg/dl Total Bilirubin 0.5 mg/dl Direct Bilirubin 0.2 mg/dl Aspartate Amino Transf (AST/SGOT) 90 U/L Alanine Aminotransferase (ALT/SGPT) 91 U/L Alkaline Phosphatase 55 U/L Total Creatine Kinase 858 U/L Creatine Kinase MB 7.4 ng/ml Creatine Kinase MB Ratio 0.9 Troponin I < 0.015 ng/ml Total Protein 7.6 gm/dl Albumin 3.6 gm/dl Influenza Type A Antigen Neg for Influ A Influenza Type B Antigen Neg for Influ B Urine Color YELLOW Urine Appearance CLEAR Urine pH 5.5 Urine Specific [place] 1.015 Urine Protein NEG Urine Glucose (UA) NEG Urine Ketones NEG Urine Occult Blood TRACE Urine Nitrite NEG Urine Bilirubin NEG Urine Urobilinogen NEG Urine Leukocyte Esterase NEG Urine WBC (Auto) 1-5 /hpf Urine RBC (Auto) 0-4 /hpf Urine Hyaline Casts (Auto) 1-5 /lpf Urine Epithelial Cells (Auto) 0-5 /lpf Urine Bacteria (Auto) NEG Lactic Acid Level 0.9 mmol/L Test 04/19/16 05:26 White Blood Count 6.14 K/uL Red Blood Count 3.93 M/uL Hemoglobin 11.5 g/dL Hematocrit 34.5 % Mean Corpuscular Volume 87.8 fL Mean Corpuscular Hemoglobin 29.3 pg Mean Corpuscular Hemoglobin Concent 33.3 g/dl Platelet Count 197 K/uL Mean Platelet Volume 9.7 fL Neutrophils (%) (Auto) 84.2 % Lymphocytes (%) (Auto) 11.4 % Monocytes (%) (Auto) 4.2 % Eosinophils (%) (Auto) 0.0 % Basophils (%) (Auto) 0.0 % Neutrophils # (Auto) 5.17 K/uL Lymphocytes # (Auto) 0.70 K/uL Monocytes # (Auto) 0.26 K/uL Eosinophils # (Auto) 0.00 K/uL Basophils # (Auto) 0.00 K/uL RDW Standard Deviation 44.7 fL RDW Coefficient of Variation 13.8 % Immature Granulocyte % (Auto) 0.2 % Immature Granulocyte # (Auto) 0.01 K/uL Sodium Level 139 mmol/L Potassium Level 4.0 mmol/L Chloride Level 104 mmol/L Carbon Dioxide Level 26 mmol/L Anion Gap 9.0 mmol/L Blood Urea Nitrogen 9 mg/dl Creatinine 0.63 mg/dl Est Creatinine Clear Calc Drug Dose 155.9 ml/min Estimated GFR () 129.5 Estimated GFR (Non- 111.7 BUN/Creatinine Ratio 15.0 Random Glucose 103 mg/dl Calcium Level 7.6 mg/dl Phosphorus Level 2.0 mg/dl Magnesium Level 1.9 mg/dl Total Bilirubin 0.4 mg/dl Direct Bilirubin 0.2 mg/dl Aspartate Amino Transf (AST/SGOT) 62 U/L Alanine Aminotransferase (ALT/SGPT) 64 U/L Alkaline Phosphatase 43 U/L Total Protein 6.2 gm/dl Albumin 2.7 gm/dl Diagnostic Results CHEST ONE VIEW PORTABLE CLINICAL HISTORY: fever COMPARISON STUDY: No previous studies for comparison. FINDINGS: The heart is at the upper limits of normal in size. There are bilateral airspace opacities involving the left lung base and right mid and lower lung zone. Given the history of fever, the findings are viewed as suspicious for a pneumonia. Imaging subsequent to treatment is recommended in follow-up.[ No significant pleural effusions are visualized. IMPRESSION: Bilateral pulmonary airspace opacities, suspicious for pneumonia given the history of fever. Clinical and radiographic follow-up is recommended. [~ rep ct add3]] CT ANGIOGRAM OF THE CHEST CLINICAL HISTORY: Fever, shortness of breath. COMPARISON STUDY: Chest x-ray dated 04/18/2016 TECHNIQUE: Following the IV administration of 116 mL of [id number]-320, CT angiogram of the thorax was performed from the thoracic inlet to the lung bases utilizing the pulmonary embolus protocol. Images are reviewed in the axial, sagittal, and coronal planes. IV contrast was administered without complication. MIP imaging was performed. CT DOSE: 635.50 mGycm FINDINGS: There is a partially visualized 2 cm upper pole left renal cyst. There is hepatic steatosis. There are mildly enlarged mediastinal and hilar lymph nodes, likely reactive. Follow-up subsequent to treatment should be considered. There was no evidence of thoracic aortic dilatation. There were no pulmonary artery filling defects to indicate acute pulmonary embolism. No pleural effusions are visualized. The study is somewhat limited due to respiratory motion artifact. There are right upper lobe, right middle lobe, right lower lobe, and left lower lobe airspace opacities, suspicious for multifocal pneumonia. There is lower lobe bronchial wall thickening and mucous plugging. Clinical and imaging follow-up is recommended. IMPRESSION: 1. No CT evidence of acute pulmonary embolism 2. Bilateral pulmonary airspace opacities, suspicious for a multifocal pneumonia. 3. Mediastinal and hilar lymphadenopathy, possibly reactive given the suspected bilateral pneumonia 4. Clinical and imaging follow-up is recommended. 5. Hepatic steatosis [~ rep ct add3]] CHEST ONE VIEW PORTABLE CLINICAL HISTORY: f/u pna pneumonia COMPARISON STUDY: 04/18/2016 FINDINGS: Progressive consolidative change right base. Unchanging parenchymal infiltrative change left base. Mild stable cardiomegaly. Pulmonary procedure remain clear. IMPRESSION: Progressive consolidative infiltrate right base. Unchanging parenchymal infiltrate left base although a minimal degree of medial consolidative change at the left base may be present Electronically signed by: Aryan Miranda M.D. 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 CXR revealed B/l opacities . Neuro: Chronic pain with opioid dependence - Continue home dose of methadone 164 mg Resp: Acute hypoxic resp failure: - Currently on Oxygen mask with 15 L O2 - Continue Atrovent q4h - Continue Xopenex q2h PRN - percussion vest/flutter valve B/l Pneumonia: CXR 04/18:Bilateral pulmonary airspace opacities, suspicious for pneumonia given the history of fever CXR 04/19: Progressive consolidative infiltrate right base. Unchanging parenchymal infiltrate left base although a minimal degree of medial consolidative change at the left base may be present - Continue IV Zosyn, Vancomycin and Doxycycline - Tamiflu 75 mg BID - BC/Sputum cultures pending GI/FEN: - Boost TID - IVF NSS +20 mEq/L KCL - Protonix for GI prophylaxis Renal: electrolytes: Phos at 0.6 - Naphos added - hypocalcemia: calcium chloride added DVT : lovenox/SCDs Full code PICC line today, [place] Dispo: ICU , monitor resp status Resident Physician Supervision Note: I interviewed and examined the patient. Discussed with Dr. Ingram and agree with findings and plan as documented in the note. Any exceptions or clarifications are listed here: I evaluated the patient last night and early this morning. I spoke to his and she reported that besides being weak with a cough and some SOB, her had some confusion prior to admission. In 2007 he had a long hospitalization for PNA at which time he was reintubated 3 or 4 times at [facility] after being [facility] from [facility]. 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 He also has a hx of dysphagia and Hodgkin's lymphoma. ( doesn't mention lymphoma because she feels it's no longer an issue. Together they have 9 children, one of whom is an RN in the operating room here at [facility]. He had no hemoptysis but appetite was poor. Has coughed up some thick secretions. 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 believes his mental status is improved and almost at baseline. He appears comfortable and is able to speak in full sentences but remains on 15L oxymask. Lungs are ronchorous R>L, no wheeze, heart RRR. Abdomen benign. VS, labs, I/O, meds, micro data, cxr reviewed. Assessment and plan are well documented above. He has acute hypoxemic respiratory failure with bilateral pna. He needs aggressive pulmonary toilette with bronchodilators, percussion, flutter and mobilization. Consider mycomyst. Although he has high O2 requirements, he is not in distress. I have advanced his diet to full liquids and added colace. Continue methadone. Villa. Boost added. Continue broad spectrum abx - follow cultures. Sputum grams stain with GPC and GNR. He is ill enough to give him Tamiflu BID for 5 days despite have a neg. influenza PCR. He is still at risk for needing intubation and I discussed that with his . PICC line today, replete, phos and ca. Critical care time 60min. Documented By: Tomasa Vance
[2016-04-19] MEDS ORDERED: BOOST VANILLA PO SCH ×2 (14:00)
[2016-04-19] MEDS ORDERED: PIPERACILL/TAZOBAC IV 4.5 GM in DEXTROSE 5% 100ML IV SCH (14:45)
--- NOTE | 2016-04-19 15:38 | Progress Note ---
Internal Med Progress Note Date of Service: Apr 19, 2016. Provider Documentation: SUBJECTIVE: Patient is a bit confused, oriented x 2 though Not in respiratory distress Denies any chest pain, SOB, fever, chills, abd pain, nausea, vomiting On Ventimask- 92% OBJECTIVE: Vital Signs-as noted below Exam: General-AAOX2, a bit confused HEENT- Venti mask + Neck-Supple, No JVD Lungs-AEBE decreased, Rhonchi +, No crackles Heart-S1, S2 normal, No murmurs Abdomen-Soft, non tender, non distended, BS present Extremities-No edema Lab data as noted below. ASSESSMENT & PLAN: 55 year old male with history of opioid dependence on Methadone, hypertension, presenting with cough and shortness of breath x 4 days. ACUTE HYPOXIC RESPIRATORY FAILURE SECONDARY TO MULTIFOCAL PNEUMONIA - Management of pneumonia as noted below. - Continue with venti mask. Prior hx of severe pneumonia requiring intubation and prolonged hospitalization at [facility] - Nebs QID SEPSIS SECONDARY TO MULTIFOCAL PNEUMONIA -Afebrile -IV fluids -IV antibiotics- Zosyn, Vanco,Doxy (Day 2) (FQs avoided due to prolonged QTC) -Follow up cultures HISTORY OF OPIOID DEPENDENCE - on Methadone - dose confirmed with DVT PROPHYLAXIS - Lovenox SQ FULL CODE per patient DISPOSITION Continue with ICU monitoring Discussed with Record Center Coordinator by bedside lives at home with family Vital Signs: Date Time Temp Pulse Resp B/P Pulse Ox O2 Delivery O2 Flow Rate FiO2 04/19/16 14:00 67 18 120/68 95 Mask 15.0 04/19/16 13:00 72 21 125/75 91 Mask 15.0 04/19/16 12:00 Mask 15.0 04/19/16 12:00 36.9 79 16 122/72 90 Mask 15.0 04/19/16 11:38 67 20 90 Mask 15.0 04/19/16 11:01 77 20 138/96 91 Mask 15.0 04/19/16 10:00 70 14 148/89 94 Mask 15.0 04/19/16 09:00 68 23 121/75 91 Mask 15.0 04/19/16 08:00 Mask 12.0 04/19/16 08:00 Mask 04/19/16 08:00 36.8 70 19 120/67 92 Mask 15.0 04/19/16 07:30 65 20 96 Mask 10.0 04/19/16 06:05 65 20 115/70 98 Non-Rebreather 15.0 04/19/16 04:00 37.3 73 19 132/72 97 Non-Rebreather 15.0 04/19/16 04:00 97 Non-Rebreather 15.0 04/19/16 03:00 72 20 96 Non-Rebreather 100 04/19/16 02:00 68 19 135/77 95 Non-Rebreather 15.0 04/19/16 00:01 95 Non-Rebreather 15.0 04/19/16 00:00 37.2 67 24 117/62 96 Non-Rebreather 15.0 04/18/16 23:40 68 22 97 Non-Rebreather 100 04/18/16 22:51 95 Non-Rebreather 15.0 04/18/16 22:00 65 21 127/72 96 Non-Rebreather 15.0 04/18/16 21:55 65 22 96 04/18/16 21:00 37.0 67 20 139/77 95 Non-Rebreather 15.0 04/18/16 20:47 38.0 71 22 130/69 94 04/18/16 20:45 71 22 130/69 94 Non-Rebreather 15.0 04/18/16 20:00 75 20 144/89 92 Non-Rebreather 15.0 04/18/16 19:45 75 22 145/89 86 Mask 10.0 Nebulizer 04/18/16 19:15 38.0 78 18 107/58 93 Non-Rebreather 15.0 04/18/16 18:27 74 18 141/78 96 Nasal Cannula 15.0 04/18/16 17:58 81 04/18/16 17:48 78 Room Air 04/18/16 17:43 76 Room Air 04/18/16 17:36 38.8 89 18 140/71 76 Room Air Lab Results: Results Past 24 Hours Test 04/18/16 18:10 04/18/16 18:33 04/18/16 19:30 04/18/16 21:10 Range/Units White Blood Count 8.18 4.8-10.8 K/uL Red Blood Count 4.35 4.7-6.1 M/uL Hemoglobin 12.9 14.0-18.0 g/dL Hematocrit 37.9 42-52 % Mean Corpuscular Volume 87.1 80-100 fL Mean Corpuscular Hemoglobin 29.7 25-34 pg Mean Corpuscular Hemoglobin Concent 34.0 32-36 g/dl Platelet Count 229 130-400 K/uL Mean Platelet Volume 9.7 7.4-10.4 fL Neutrophils (%) (Auto) 84.9 % Lymphocytes (%) (Auto) 8.4 % Monocytes (%) (Auto) 6.6 % Eosinophils (%) (Auto) 0.0 % Basophils (%) (Auto) 0.0 % Neutrophils # (Auto) 6.94 1.4-6.5 K/uL Lymphocytes # (Auto) 0.69 1.2-3.4 K/uL Monocytes # (Auto) 0.54 0.11-0.59 K/uL Eosinophils # (Auto) 0.00 0-0.5 K/uL Basophils # (Auto) 0.00 0-0.2 K/uL RDW Standard Deviation 44.1 36.4-46.3 fL RDW Coefficient of Variation 13.7 11.5-14.5 % Immature Granulocyte % (Auto) 0.1 % Immature Granulocyte # (Auto) 0.01 0.00-0.02 K/uL Prothrombin Time 10.7 9.0-12.0 SECONDS Prothromb Time International Ratio 1.0 0.9-1.1 Venous Blood pH 7.35 7.36-7.41 Venous Blood Partial Pressure CO2 56 38.0-50.0 mmHg Venous Blood Partial Pressure O2 25 mmHg Venous Blood HCO3 30 mmol/L Venous Blood Oxygen Saturation < 60.0 % Venous Blood Base Excess 3.0 mmol/L Sodium Level 132 136-145 mmol/L Potassium Level 4.0 3.5-5.1 mmol/L Chloride Level 94 98-107 mmol/L Carbon Dioxide Level 28 21-32 mmol/L Anion Gap 10.0 3-11 mmol/L Blood Urea Nitrogen 14 7-18 mg/dl Creatinine 0.96 0.60-1.40 mg/dl Est Creatinine Clear Calc Drug Dose 102.3 ml/min Estimated GFR () 103.4 Estimated GFR (Non- 89.3 BUN/Creatinine Ratio 14.5 10-20 Random Glucose 161 70-99 mg/dl Calcium Level 8.2 8.5-10.1 mg/dl Magnesium Level 2.0 1.8-2.4 mg/dl Total Bilirubin 0.5 0.2-1 mg/dl Direct Bilirubin 0.2 0-0.2 mg/dl Aspartate Amino Transf (AST/SGOT) 90 15-37 U/L Alanine Aminotransferase (ALT/SGPT) 91 12-78 U/L Alkaline Phosphatase 55 45-117 U/L Total Creatine Kinase 858 39-308 U/L Creatine Kinase MB 7.4 0.5-3.6 ng/ml Creatine Kinase MB Ratio 0.9 0-3.0 Troponin I < 0.015 0-0.045 ng/ml Total Protein 7.6 6.4-8.2 gm/dl Albumin 3.6 3.4-5.0 gm/dl Influenza Type A Antigen Neg for Influ A NEG Influenza Type B Antigen Neg for Influ B NEG Urine Color YELLOW Urine Appearance CLEAR CLEAR Urine pH 5.5 4.5-7.5 Urine Specific [place] 1.015 1.000-1.030 Urine Protein NEG NEG Urine Glucose (UA) NEG NEG Urine Ketones NEG NEG Urine Occult Blood TRACE NEG Urine Nitrite NEG NEG Urine Bilirubin NEG NEG Urine Urobilinogen NEG NEG Urine Leukocyte Esterase NEG NEG Urine WBC (Auto) 1-5 0-5 /hpf Urine RBC (Auto) 0-4 0-4 /hpf Urine Hyaline Casts (Auto) 1-5 0-5 /lpf Urine Epithelial Cells (Auto) 0-5 0-5 /lpf Urine Bacteria (Auto) NEG NEG Lactic Acid Level 0.9 0.4-2.0 mmol/L Test 04/19/16 05:26 04/19/16 06:11 04/19/16 11:44 Range/Units White Blood Count 6.14 4.8-10.8 K/uL Red Blood Count 3.93 4.7-6.1 M/uL Hemoglobin 11.5 14.0-18.0 g/dL Hematocrit 34.5 42-52 % Mean Corpuscular Volume 87.8 80-100 fL Mean Corpuscular Hemoglobin 29.3 25-34 pg Mean Corpuscular Hemoglobin Concent 33.3 32-36 g/dl Platelet Count 197 130-400 K/uL Mean Platelet Volume 9.7 7.4-10.4 fL Neutrophils (%) (Auto) 84.2 % Lymphocytes (%) (Auto) 11.4 % Monocytes (%) (Auto) 4.2 % Eosinophils (%) (Auto) 0.0 % Basophils (%) (Auto) 0.0 % Neutrophils # (Auto) 5.17 1.4-6.5 K/uL Lymphocytes # (Auto) 0.70 1.2-3.4 K/uL Monocytes # (Auto) 0.26 0.11-0.59 K/uL Eosinophils # (Auto) 0.00 0-0.5 K/uL Basophils # (Auto) 0.00 0-0.2 K/uL RDW Standard Deviation 44.7 36.4-46.3 fL RDW Coefficient of Variation 13.8 11.5-14.5 % Immature Granulocyte % (Auto) 0.2 % Immature Granulocyte # (Auto) 0.01 0.00-0.02 K/uL Sodium Level 139 136-145 mmol/L Potassium Level 4.0 3.5-5.1 mmol/L Chloride Level 104 98-107 mmol/L Carbon Dioxide Level 26 21-32 mmol/L Anion Gap 9.0 3-11 mmol/L Blood Urea Nitrogen 9 7-18 mg/dl Creatinine 0.63 0.60-1.40 mg/dl Est Creatinine Clear Calc Drug Dose 155.9 ml/min Estimated GFR () 129.5 Estimated GFR (Non- 111.7 BUN/Creatinine Ratio 15.0 10-20 Random Glucose 103 70-99 mg/dl Calcium Level 7.6 8.5-10.1 mg/dl Phosphorus Level 2.0 2.5-4.9 mg/dl Magnesium Level 1.9 1.8-2.4 mg/dl Total Bilirubin 0.4 0.2-1 mg/dl Direct Bilirubin 0.2 0-0.2 mg/dl Aspartate Amino Transf (AST/SGOT) 62 15-37 U/L Alanine Aminotransferase (ALT/SGPT) 64 12-78 U/L Alkaline Phosphatase 43 45-117 U/L Total Protein 6.2 6.4-8.2 gm/dl Albumin 2.7 3.4-5.0 gm/dl Bedside Glucose 94 105 70-99 mg/dl Microbiology Results 04/18/16 Blood Culture, Received Pending 04/18/16 Blood Culture, Received Pending 04/19/16 Gram Stain - Final, Resulted 04/19/16 Sputum Culture, Resulted Pending 04/18/16 Urine Culture, Received Pending
[2016-04-19 17:09] LABS: ISTAT ALLEN TEST Pass; ISTAT ARTERIAL BLOOD GAS HCO3 28 meq/L (19-24); ISTAT ARTERIAL BLOOD GAS PCO2 51 mmHg (35-46); ISTAT ARTERIAL BLOOD GAS PO2 66 mmHg (80-95); ISTAT ARTERIAL BLOOD GAS pH 7.34 (7.35-7.45); ISTAT CARBON DIOXIDE 29 mEq/l (24-31); ISTAT DELIVERY SYSTEM Other; ISTAT FIO2 0 %; ISTAT SITE L Radial
[2016-04-19] MEDS ORDERED: ACETYLCYSTEINE 20% INHAL SOLN ***DISPENSED BY RESP. INH SCH (18:00)
[2016-04-19] MEDS: BOOST VANILLA PO SCH ×2 (19:00)
[2016-04-19] MEDS: ACETYLCYSTEINE 20% INHAL SOLN ***DISPENSED BY RESP. INH SCH (20:00)
[2016-04-19] MEDS: DOCUSATE SODIUM 100 MG CAP PO SCH (20:34)
[2016-04-20] VITALS (35 sets, daily range): BP systolic 123–168; BP diastolic 66–106; PULSE 56–75; TEMP 36.5–37.2; O2SAT 89–98
[2016-04-20] MEDS: VANCOMYCIN INJ 1,400 MG in SODIUM CHLORIDE 0.9% 500ML 500 ML IV SCH (01:27)
[2016-04-20] MEDS: PIPERACILL/TAZOBAC IV 4.5 GM in DEXTROSE 5% 100ML IV SCH ×3 (01:29→16:47)
[2016-04-20] MEDS ORDERED: VANCOMYCIN TROUGH SCH (01:30)
[2016-04-20] MEDS: LEVALBUTEROL 1.25MG/0.5ML NEB INH SCH ×6 (04:35→23:47)
[2016-04-20] MEDS: IPRATROPIUM BROMIDE NEB SOLN 0.02% 2.5 ML VIAL INH SCH ×6 (04:35→23:47)
[2016-04-20 06:06] LABS: BASO % 0.1 %; BASO ABS # 0.01 K/uL (0-0.2); COMPLETE YES; EOS % 0.1 %; HEMATOCRIT 33.1 % (42-52); IG% 0.6 %; LYMPH % 17.7 %; MEAN CELL VOLUME 86.9 fL (80-100); MEAN CORPUSCULAR HEMOGLOBIN 29.7 pg (25-34); MEAN CORPUSCULAR HGB CONC 34.1 g/dl (32-36); MEAN PLATELET VOLUME 9.1 fL (7.4-10.4); MONO % 9.6 %; NEUT % 71.9 %; PLATELET COUNT 191 K/uL (130-400); RED BLOOD COUNT 3.81 M/uL (4.7-6.1); WHITE BLOOD COUNT 6.77 K/uL (4.8-10.8)
[2016-04-20 06:36] LABS: BUN/CREATININE RATIO 11.1 (10-20); CALCIUM 8.1 mg/dl (8.5-10.1); CREATININE 0.56 mg/dl (0.60-1.40); MAGNESIUM 1.9 mg/dl (1.8-2.4)
[2016-04-20 06:40] LABS: PHOSPHORUS 2.7 mg/dl (2.5-4.9)
[2016-04-20] MEDS: ACETYLCYSTEINE 20% INHAL SOLN ***DISPENSED BY RESP. INH SCH ×3 (08:38→19:45)
[2016-04-20] MEDS ORDERED: PRAMIPEXOLE DIHYDROCHLORIDE 0.5 MG TAB PO SCH (09:00)
[2016-04-20] MEDS ORDERED: BOOST VANILLA ONE ×2 (09:02)
[2016-04-20] MEDS: DOXYCYCLINE HYCLATE 100 MG in DEXTROSE 5% 100ML IV SCH (09:12)
[2016-04-20] MEDS: NSS + 20MEQ KCL 1000ML 1,000 ML IV SCH ×3 (09:12→21:38)
[2016-04-20] MEDS: DOCUSATE SODIUM 100 MG CAP PO SCH ×2 (09:13→21:18)
[2016-04-20] MEDS: ENOXAPARIN 40 MG/0.4 ML SYR SQ SCH (09:13)
[2016-04-20] MEDS: PANTOprazole SOD 40 MG TAB PO SCH (09:13)
[2016-04-20] MEDS: OSELTAMIVIR PHOSPHATE 75 MG CAP PO SCH ×2 (09:13→21:18)
[2016-04-20] MEDS: SENNA 8.6 MG TAB PO SCH (09:14)
[2016-04-20] MEDS: VANCOMYCIN INJ 1,500 MG in SODIUM CHLORIDE 0.9% 500ML 500 ML IV SCH ×3 (09:14→23:06)
[2016-04-20] MEDS: BOOST VANILLA PO SCH ×2 (09:15)
--- NOTE | 2016-04-20 09:16 | Pharmacy Progress Note ---
Pharmacy Antibiotic Prog Note Date of Service: Apr 20, 2016. Subjective: The patient is currently receiving vancomycin 1400 mg iv q 8 hrs, zosyn 4.5 gm iv q 8 hrs and doxycycline 100 mg iv q 12 hrs to sepsis/PNA The patient is currently on day #3 of V therapy. Objective: Height (Feet): 6 Height (Inches): 2.00 Weight (Kilograms): 96.200 Lab Results (24hrs): Laboratory Tests Test 04/20/16 05:56 BUN/Creatinine Ratio 11.1 Blood Urea Nitrogen 6 mg/dl Creatinine 0.56 mg/dl White Blood Count 6.77 K/uL Red Blood Count 3.81 M/uL Hemoglobin 11.3 g/dL Hematocrit 33.1 % Mean Corpuscular Volume 86.9 fL Mean Corpuscular Hemoglobin 29.7 pg Mean Corpuscular Hemoglobin Concent 34.1 g/dl Platelet Count 191 K/uL Mean Platelet Volume 9.1 fL Neutrophils (%) (Auto) 71.9 % Lymphocytes (%) (Auto) 17.7 % Monocytes (%) (Auto) 9.6 % Eosinophils (%) (Auto) 0.1 % Basophils (%) (Auto) 0.1 % Neutrophils # (Auto) 4.86 K/uL Lymphocytes # (Auto) 1.20 K/uL Monocytes # (Auto) 0.65 K/uL Eosinophils # (Auto) 0.01 K/uL Basophils # (Auto) 0.01 K/uL Micro Results: Item Value Date Time Gram Stain - Final Resulted 04/19/16 0240 Sputum Expectorated Sputum Urine Culture Received 04/18/16 1930 Urine , Clean Catch Pending Blood Culture - Preliminary Resulted 04/18/16 1810 Blood NO GROWTH TO DATE. Blood Culture - Preliminary Resulted 04/18/16 1756 Blood NO GROWTH TO DATE. MRSA DNA Surveillance Screen - Final Complete 04/18/16 0000 Nasal Specimen Positive for MRSA by DNA Probe Assessment & Plan: Patient currently on vancomycin, zosyn, and doxycycline for possible sepsis/ PNA. BC x 2 are no growth, MRSA nasal swab positive, UC and sputum pending, negative influenza A/B. Vancomycin: * Trough level this am was subtherapeutic at ~10 mcg/ml (goal 15-20 mcg/ml for PNA) * Will adjust maintenance dose to 1500 mg (~15 mg/kg) q 7 hrs to achieve an estimated trough of about ~15 mcg/ml * Estimated kinetics based upon level: t1/2~ 5 hrs, ke~0.15 hr-1, CrCl~175 ml/ min * Will plan to obtain a trough prior to the 0600 dose on 04/21 to ensure therapeutic Zosyn: * 4.5 gm iv q 8 hrs appropriate for CrCl >20 ml/min - no changes necessary Doxycycline: * 100 mg iv q 12 hrs - no adjustment needed for renal function Pharmacy will continue to follow and will adjust dose/frequency as necessary. Thank you
[2016-04-20] MEDS: METHADONE ORAL SOLN 2 MG/1ML PO SCH (09:46)
--- NOTE | 2016-04-20 09:46 | DIAGNOSTIC IMAGING REPORT ---
CHEST ONE VIEW PORTABLE CLINICAL HISTORY: pneumonia COMPARISON STUDY: 04/19/2016 FINDINGS: The cardiac and mediastinal contours remain stable. There are bilateral airspace opacities with worsening right upper lobe consolidation. There has been interval placement of a right-sided PICC catheter. The tip projects near the level of the atriocaval junction.[ IMPRESSION: Bilateral airspace opacities consistent with a multifocal pneumonia. Interval placement of a right-sided PICC catheter, the tip of which projects near the atriocaval junction Electronically signed by: Horacio Samaniego M.D. 04/20/2016 9:44 AM Dictated Date/Time: 04/20/2016 9:43 AM
--- NOTE | 2016-04-20 11:09 | CRITICAL CARE PROGRESS NOTE ---
DATE: 04/20/2016 DATE: 04/20/2016. SUBJECTIVE: There were no acute events overnight. Last evening, the patient coughed up some thick sputum after a Mucomyst treatment. He is more alert and appropriate today, although feels like he has been up all night. He is getting chest percussion and frequent bronchodilators. He feels like his breathing is better, but he is coughing less. PHYSICAL EXAMINATION: VITAL SIGNS: Maximum temperature 37.2, blood pressure 137-168/70s-80s, oxygen saturation 92-98%, heart rate 60-70, respiratory rate 14-22, oxygen saturation 92-99% on 15 liters OxyMask. GENERAL: He is awake, alert, oriented to person and place. He is less easily startled or impulsive today. LUNGS: Have improved breath sounds at the right base and rhonchi bilaterally, right greater than left. HEART: Regular rate and rhythm. ABDOMEN: Soft, nondistended, nontender with active bowel sounds. EXTREMITIES: Warm. No edema. LABORATORY DATA: White blood cell count 6.77, hemoglobin 11.3, hematocrit 33.1, platelets 191. Sodium 138, potassium 4, chloride 101, CO2 30, BUN 6, creatinine 0.56. MEDICATIONS: Acetaminophen, Mucomyst, Colace, doxycycline day 2, Lovenox, Boost, Atrovent, Xopenex, methadone, Tamiflu, Protonix, Zosyn, potassium, MiraLax, Senokot, vancomycin. Portable chest x-ray from today shows worsening right upper lobe consolidation. EKG shows normal sinus rhythm. Nonspecific ST-T wave abnormality, corrected QT interval 380 milliseconds. MICROBIOLOGY DATA was reviewed. Sputum Gram stain has gram positive cocci, gram positive bacilli and moderate gram negative bacilli. IMPRESSION: 1. Acute hypoxemic respiratory failure secondary to bilateral multifocal pneumonia. 2. Metabolic encephalopathy. 3. Chronic opioid dependence secondary to back pain. 4. History of Hodgkin's lymphoma. 5. Constipation. 6. Prolonged QTc, resolved. PLAN: 1. Change doxycycline to Levaquin for better pulmonary penetration. This will also cover pseudomonas and atypical organisms. Follow QTc. 2. Continue bronchodilators. Added Mucomyst last evening q. 8 hours. Continue percussion therapy, flutter valve. 3. Consider intubation with bronchoscopy secondary to worsening chest x-ray, although clinically he looks a little bit better. He just drank some Boost so certainly will not intubate him now. Check an arterial blood gas. 4. Continue Zosyn and vancomycin as well as Tamiflu. Provide DVT prophylaxis. 5. Add MiraLax. I inadvertently ordered Mirapex and this was given before I noticed the error. Watch for any side effects. I will discuss this with his . His was updated at the bedside today when I saw him. This was prior to his chest x-ray which appears worse, particularly in the right upper lobe. We discussed intubation this morning as well. I will update her later in the day today. I tried to find out why he was so difficult to extubate the last time he was on the ventilator and she could not be specific but it seems he was reintubated at least 3 times. ARIANA
[2016-04-20] MEDS: LEVOFLOXACIN / D5W 750 MG in PREMIXED IN D5W 150 ML IV SCH (11:45)
--- NOTE | 2016-04-20 12:41 | Progress Note ---
Internal Med Progress Note Date of Service: Apr 20, 2016. Provider Documentation: SUBJECTIVE: Patient is clinically better cough, SOB has improved. Still on venti mask. Mental status is better- oriented x 2 today Not in respiratory distress Denies any chest pain, SOB, fever, chills, abd pain, nausea, vomiting On Ventimask- 92% OBJECTIVE: Vital Signs-as noted below Exam: General-AAOX2, a bit confused HEENT- Venti mask + Neck-Supple, No JVD Lungs-AEBE decreased, Rhonchi +, No crackles Heart-S1, S2 normal, No murmurs Abdomen-Soft, non tender, non distended, BS present Extremities-No edema Lab data as noted below. ASSESSMENT & PLAN: 55 year old male with history of opioid dependence on Methadone, hypertension, presenting with cough and shortness of breath x 4 days. ACUTE HYPOXIC RESPIRATORY FAILURE SECONDARY TO MULTIFOCAL PNEUMONIA - Management of pneumonia as noted below. - Continue with venti mask. 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 HISTORY OF OPIOID DEPENDENCE - On Methadone - Dose confirmed with DVT PROPHYLAXIS - Lovenox SQ FULL CODE per patient DISPOSITION Continue with ICU monitoring Discussed with [employer] Lives at home with family Vital Signs: Date Time Temp Pulse Resp B/P Pulse Ox O2 Delivery O2 Flow Rate FiO2 04/20/16 12:00 36.5 63 14 131/72 91 Mask 15.0 04/20/16 12:00 Mask 15.0 04/20/16 11:25 66 20 96 Mask 15.0 04/20/16 11:00 64 13 139/78 95 Mask 15.0 04/20/16 10:00 61 14 130/75 95 Mask 15.0 04/20/16 09:00 64 14 131/74 90 Mask 15.0 04/20/16 08:38 61 20 97 Mask 15.0 04/20/16 08:00 36.8 65 16 126/79 97 Mask 15.0 04/20/16 08:00 Mask 15.0 04/20/16 07:00 64 17 127/71 95 Mask 15.0 04/20/16 06:00 36.7 67 13 137/83 98 15.0 04/20/16 05:26 70 14 142/81 97 04/20/16 05:01 73 22 168/106 92 04/20/16 05:00 67 12 94 04/20/16 04:35 71 20 96 Mask 15.0 04/20/16 04:08 93 Mask 15.0 100 04/20/16 04:00 66 16 141/76 98 04/20/16 03:00 71 15 137/81 95 15.0 04/20/16 02:00 69 16 137/68 94 04/20/16 01:00 69 15 135/66 91 04/20/16 00:00 37.2 75 18 130/72 93 04/20/16 00:00 93 Mask 15.0 100 04/19/16 23:21 74 20 93 Mask 15.0 04/19/16 23:00 68 15 124/60 94 04/19/16 22:00 73 22 128/66 97 04/19/16 21:58 73 24 128/66 96 Mask 15.0 04/19/16 21:00 73 18 121/62 93 Mask 15.0 04/19/16 20:15 74 20 93 Mask 15.0 04/19/16 20:00 94 Mask 15.0 04/19/16 20:00 36.6 73 20 122/68 90 Mask 15.0 04/19/16 19:03 76 16 132/66 90 Mask 15.0 04/19/16 18:05 74 16 151/82 95 Mask 15.0 04/19/16 17:58 71 20 96 Mask 15.0 04/19/16 17:30 74 100 100 04/19/16 17:00 65 16 133/81 93 Mask 15.0 04/19/16 16:00 94 Mask 15.0 04/19/16 16:00 36.6 69 16 121/67 91 Mask 15.0 04/19/16 15:05 74 20 93 Mask 15.0 04/19/16 15:03 69 18 142/77 94 Mask 15.0 04/19/16 14:00 67 18 120/68 95 Mask 15.0 04/19/16 13:00 72 21 125/75 91 Mask 15.0 Lab Results: Results Past 24 Hours Test 04/19/16 16:54 04/19/16 16:55 04/19/16 20:42 04/19/16 23:15 Range/Units Bedside Glucose 88 129 101 70-99 mg/dl Blood Gas Sample Site L Radial Bedside Blood Gas pH (LAB) 7.34 7.35-7.45 Bedside Blood Gas pCO2 (LAB) 51 35-46 mmHg Bedside Blood Gas pO2 (LAB) 66 80-95 mmHg Bedside Blood Gas HCO3 (LAB) 28 19-24 meq/L Bedside Blood Gas Total CO2 29 24-31 mEq/l Bedside Blood Gas Base Excess (LAB) 2.0 -9-1.8 meq/L Bedside Blood Gas O2 Saturation 91.0 90-95 % Fidel Test Pass Oxygen Delivery Device Other Bedside FiO2 0 % Test 04/20/16 01:25 04/20/16 05:56 04/20/16 11:44 Range/Units Vancomycin Level Trough 9.9 SEE COMMENT mcg/ml White Blood Count 6.77 4.8-10.8 K/uL Red Blood Count 3.81 4.7-6.1 M/uL Hemoglobin 11.3 14.0-18.0 g/dL Hematocrit 33.1 42-52 % Mean Corpuscular Volume 86.9 80-100 fL Mean Corpuscular Hemoglobin 29.7 25-34 pg Mean Corpuscular Hemoglobin Concent 34.1 32-36 g/dl Platelet Count 191 130-400 K/uL Mean Platelet Volume 9.1 7.4-10.4 fL Neutrophils (%) (Auto) 71.9 % Lymphocytes (%) (Auto) 17.7 % Monocytes (%) (Auto) 9.6 % Eosinophils (%) (Auto) 0.1 % Basophils (%) (Auto) 0.1 % Neutrophils # (Auto) 4.86 1.4-6.5 K/uL Lymphocytes # (Auto) 1.20 1.2-3.4 K/uL Monocytes # (Auto) 0.65 0.11-0.59 K/uL Eosinophils # (Auto) 0.01 0-0.5 K/uL Basophils # (Auto) 0.01 0-0.2 K/uL RDW Standard Deviation 43.9 36.4-46.3 fL RDW Coefficient of Variation 13.7 11.5-14.5 % Immature Granulocyte % (Auto) 0.6 % Immature Granulocyte # (Auto) 0.04 0.00-0.02 K/uL Sodium Level 138 136-145 mmol/L Potassium Level 4.0 3.5-5.1 mmol/L Chloride Level 101 98-107 mmol/L Carbon Dioxide Level 30 21-32 mmol/L Anion Gap 7.0 3-11 mmol/L Blood Urea Nitrogen 6 7-18 mg/dl Creatinine 0.56 0.60-1.40 mg/dl Est Creatinine Clear Calc Drug Dose 175.3 ml/min Estimated GFR () 135.9 Estimated GFR (Non- 117.3 BUN/Creatinine Ratio 11.1 10-20 Random Glucose 97 70-99 mg/dl Calcium Level 8.1 8.5-10.1 mg/dl Phosphorus Level 2.7 2.5-4.9 mg/dl Magnesium Level 1.9 1.8-2.4 mg/dl Bedside Glucose 145 70-99 mg/dl
[2016-04-20 15:01] LABS: ISTAT ALLEN TEST Pass; ISTAT ARTERIAL BLOOD GAS HCO3 30 meq/L (19-24); ISTAT ARTERIAL BLOOD GAS PCO2 54 mmHg (35-46); ISTAT ARTERIAL BLOOD GAS PO2 58 mmHg (80-95); ISTAT ARTERIAL BLOOD GAS pH 7.35 (7.35-7.45); ISTAT CARBON DIOXIDE 32 mEq/l (24-31); ISTAT DELIVERY SYSTEM SimpleMask; ISTAT SITE L Radial
[2016-04-21] VITALS (30 sets, daily range): BP systolic 131–165; BP diastolic 77–98; PULSE 55–74; TEMP 36.4–36.8; O2SAT 89–98
[2016-04-21] MEDS: PIPERACILL/TAZOBAC IV 4.5 GM in DEXTROSE 5% 100ML IV SCH ×2 (02:00→11:09)
[2016-04-21] MEDS: LEVALBUTEROL 1.25MG/0.5ML NEB INH SCH ×6 (03:16→23:18)
[2016-04-21] MEDS: IPRATROPIUM BROMIDE NEB SOLN 0.02% 2.5 ML VIAL INH SCH ×6 (03:16→23:18)
[2016-04-21 05:28] LABS: BASO % 0.2 %; BASO ABS # 0.01 K/uL (0-0.2); COMPLETE YES; EOS % 1.3 %; HEMATOCRIT 33.9 % (42-52); IG% 0.4 %; LYMPH % 20.4 %; LYMPH ABS # 0.94 K/uL (1.2-3.4); MEAN CELL VOLUME 87.4 fL (80-100); MEAN CORPUSCULAR HEMOGLOBIN 28.9 pg (25-34); MEAN PLATELET VOLUME 9.4 fL (7.4-10.4); MONO % 10.8 %; NEUT % 66.9 %; PLATELET COUNT 201 K/uL (130-400); RED BLOOD COUNT 3.88 M/uL (4.7-6.1); WHITE BLOOD COUNT 4.61 K/uL (4.8-10.8)
[2016-04-21] MEDS ORDERED: VANCOMYCIN TROUGH ONE (05:30)
[2016-04-21] MEDS: NSS + 20MEQ KCL 1000ML 1,000 ML IV SCH ×2 (05:47→13:20)
[2016-04-21 06:04] LABS: BUN/CREATININE RATIO 13.3 (10-20); CALCIUM 8.3 mg/dl (8.5-10.1); CREATININE 0.49 mg/dl (0.60-1.40); POTASSIUM 4.1 mmol/L (3.5-5.1)
[2016-04-21 06:09] LABS: PHOSPHORUS 3.3 mg/dl (2.5-4.9)
[2016-04-21] MEDS: VANCOMYCIN INJ 1,500 MG in SODIUM CHLORIDE 0.9% 500ML 500 ML IV SCH (06:09)
[2016-04-21] MEDS: ACETYLCYSTEINE 20% INHAL SOLN ***DISPENSED BY RESP. INH SCH ×3 (07:34→19:56)
--- NOTE | 2016-04-21 07:41 | DIAGNOSTIC IMAGING REPORT ---
SINGLE VIEW CHEST CLINICAL HISTORY: Follow-up pneumonia. FINDINGS: An AP, portable, upright chest radiograph is compared to study dated 04/20/2016 and correlated with chest CT dated 04/18/2016. The examination is degraded by portable technique and patient rotation. A right PICC line is unchanged in position. The cardiomediastinal silhouette is unremarkable. Elevation of the right hemidiaphragm is unchanged. Airspace consolidation throughout the right lung and at the left lung base has not significantly changed from yesterday. Trace pleural effusions are suspected. No pneumothorax is seen. The bony thorax is grossly intact. Degenerative change is noted throughout the thoracic spine. IMPRESSION: Multifocal bilateral airspace consolidation, right greater than left is unchanged from yesterday and typical in appearance for multifocal pneumonia. Radiographic follow-up to resolution is recommended. Electronically signed by: Benjamín Valenzuela M.D. 04/21/2016 7:40 AM Dictated Date/Time: 04/21/2016 7:38 AM
[2016-04-21] MEDS: OSELTAMIVIR PHOSPHATE 75 MG CAP PO SCH ×2 (11:08→21:18)
[2016-04-21] MEDS: METHADONE ORAL SOLN 2 MG/1ML PO SCH (11:08)
[2016-04-21] MEDS: PANTOprazole SOD 40 MG TAB PO SCH (11:08)
[2016-04-21] MEDS: POLYETHYLENE (MIRALAX) 17 GM PACK PO SCH (11:09)
[2016-04-21] MEDS: DOCUSATE SODIUM 100 MG CAP PO SCH ×2 (11:09→21:18)
[2016-04-21] MEDS: SENNA 8.6 MG TAB PO SCH (11:09)
[2016-04-21] MEDS: ENOXAPARIN 40 MG/0.4 ML SYR SQ SCH (11:09)
[2016-04-21] MEDS: LEVOFLOXACIN / D5W 750 MG in PREMIXED IN D5W 150 ML IV SCH (11:10)
--- NOTE | 2016-04-21 11:39 | Pharmacy Progress Note ---
Pharmacy Antibiotic Prog Note Date of Service: Apr 21, 2016. Subjective: The patient is currently receiving vancomycin 1500 mg iv q 7 hrs, levaquin 750 mg iv daily, zosyn 4.5 gm iv q 8 hrs, and tamiflu 75 mg bid The patient is currently on day # 4 of IV therapy. Objective: Height (Feet): 6 Height (Inches): 2.00 Weight (Kilograms): 96.200 Levels: Item Value Date Time Vancomycin Level Trough 20.5 mcg/ml 04/21/16 0523 Lab Results (24hrs): Laboratory Tests Test 04/21/16 05:23 BUN/Creatinine Ratio 13.3 Blood Urea Nitrogen 7 mg/dl Creatinine 0.49 mg/dl White Blood Count 4.61 K/uL Red Blood Count 3.88 M/uL Hemoglobin 11.2 g/dL Hematocrit 33.9 % Mean Corpuscular Volume 87.4 fL Mean Corpuscular Hemoglobin 28.9 pg Mean Corpuscular Hemoglobin Concent 33.0 g/dl Platelet Count 201 K/uL Mean Platelet Volume 9.4 fL Neutrophils (%) (Auto) 66.9 % Lymphocytes (%) (Auto) 20.4 % Monocytes (%) (Auto) 10.8 % Eosinophils (%) (Auto) 1.3 % Basophils (%) (Auto) 0.2 % Neutrophils # (Auto) 3.08 K/uL Lymphocytes # (Auto) 0.94 K/uL Monocytes # (Auto) 0.50 K/uL Eosinophils # (Auto) 0.06 K/uL Basophils # (Auto) 0.01 K/uL Micro Results: Item Value Date Time Gram Stain - Final Complete 04/19/16 0240 Sputum Expectorated Sputum Urine Culture - Final Complete 04/18/16 1930 Urine , Clean Catch NO GROWTH - LESS THAN 1,000 COLONIES/ML Blood Culture - Preliminary Resulted 04/18/16 1810 Blood NO GROWTH TO DATE. Blood Culture - Preliminary Resulted 04/18/16 1756 Blood NO GROWTH TO DATE. MRSA DNA Surveillance Screen - Final Complete 04/18/16 0000 Nasal Specimen Positive for MRSA by DNA Probe Assessment & Plan: Patient receiving vancomycin, levaquin, and zosyn for sepsis/PNA. Was previously on doxycycline now changed to levaquin for better pulmonary penetration and additional coverage. Sputum from 04/19 with many Gm+ cocci, moderate Gm- bacilli and rare Gm+ bacilli. Nasal swab positive for MRSA. Vancomycin: * Trough level this am was ~20.5 mcg/ml (upper end of goal range of 15-20 mcg/ ml for PNA) * Will slightly decrease dose to 1350 mg (~14 mg/kg) iv q 7 hrs to achieve a trough within therapeutic range * Renal function appears to remain stable, today Scr 0.49 mg/dL (CrCl ~200 ml/ min) * Plan to obtain trough in next 2-3 days if vancomycin is to continued Zosyn: * 4.5 gm iv q 8 hrs appropriate for CrCl >20 ml/min - no changes necessary Levaquin: * 750 mg iv q 24 hrs appropriate for CrCl >50 ml/min - no changes necessary Pharmacy will continue to follow and will adjust dose/frequency as necessary. Thank you
--- NOTE | 2016-04-21 12:28 | Progress Note ---
Internal Med Progress Note Date of Service: Apr 21, 2016. Provider Documentation: SUBJECTIVE: Patient is clinically better cough, SOB has improved. Still on venti mask Mental status is better- oriented x 2 today. Denies any chest pain, SOB, fever, chills, abd pain, nausea, vomiting On Ventimask- 97%, but drops TO 85% while sitting Eager to be discharged OBJECTIVE: Vital Signs-as noted below Exam: General-AAOX2, no respiratory distress HEENT- Venti mask + Hard of hearing + Neck-Supple, No JVD Lungs-AEBE decreased, Rhonchi +, No crackles Heart-S1, S2 normal, No murmurs Abdomen-Soft, non tender, non distended, BS present Extremities-No edema Lab data as noted below. ASSESSMENT & PLAN: 55 year old male with history of opioid dependence on Methadone, hypertension, presenting with cough and shortness of breath x 4 days. ACUTE HYPOXIC RESPIRATORY FAILURE SECONDARY TO MULTIFOCAL PNEUMONIA : - Management of pneumonia as noted below. - Continue with venti mask - 97%, but drops to 87% . Prior hx of severe pneumonia requiring intubation and prolonged hospitalization at [facility] - May require bronchoscopy as CXR worse- right upper lobe consolidation and still requiring venti mask. But as clinically improved, will hold off for now. - Nebs QID SEPSIS SECONDARY TO MULTIFOCAL PNEUMONIA Sepsis resolved -Afebrile -IV fluids -IV antibiotics- Zosyn, Vanco,Doxy (Day 4)--> Doxy changed to levofloxacin (QTC - normal) -Blood cultures- negative -CXR on 04/20/16- B/L Opacities, Worse right upper lobe consolidation , but clinically better -May require bronchoscopy as CXR worse- right upper lobe consolidation and still requiring venti mask. But as clinically improved, will hold off for now. -Pulmonary on board. Appreciate inputs. HISTORY OF OPIOID DEPENDENCE - On Methadone - Dose confirmed with DVT PROPHYLAXIS - Lovenox SQ FULL CODE per patient DISPOSITION Continue with ICU monitoring Discussed with Weather Reporter /Family by bedside. Lives at home with family Vital Signs: Date Time Temp Pulse Resp B/P Pulse Ox O2 Delivery O2 Flow Rate FiO2 04/21/16 12:00 Mask 12.0 04/21/16 11:40 61 16 94 Mask 12.0 04/21/16 11:01 61 18 140/87 93 Mask 12.0 04/21/16 10:07 74 25 165/98 97 Mask 15.0 04/21/16 08:01 36.4 68 16 139/84 89 Mask 15.0 04/21/16 08:00 Mask 12.0 04/21/16 07:35 60 20 93 Mask 12.0 04/21/16 07:01 58 14 161/88 91 Mask 12.0 04/21/16 06:01 59 11 155/82 98 Mask 12.0 04/21/16 05:01 61 13 145/85 94 Mask 12.0 04/21/16 04:04 89 Mask 12.0 100 04/21/16 04:01 59 12 150/82 97 Mask 13.0 04/21/16 03:16 58 16 95 Mask 15.0 04/21/16 03:07 61 16 131/85 98 Mask 15.0 04/21/16 03:00 60 15 131/85 97 Mask 15.0 04/21/16 01:00 60 17 140/83 95 Mask 15.0 04/21/16 00:25 36.8 65 14 142/87 97 Mask 15.0 04/21/16 00:22 89 Mask 12.0 100 04/20/16 23:47 62 18 96 Mask 15.0 04/20/16 23:00 60 16 136/86 96 Mask 15.0 04/20/16 22:00 61 15 137/81 96 Mask 15.0 04/20/16 21:00 62 13 136/84 93 04/20/16 20:13 89 Mask 15.0 100 04/20/16 20:01 36.8 62 20 140/100 93 Mask 15.0 04/20/16 19:52 57 20 95 Mask 10.0 04/20/16 19:46 58 20 133/80 95 04/20/16 19:00 57 14 133/80 94 04/20/16 18:00 62 21 132/82 94 Mask 10.0 04/20/16 17:00 64 16 136/82 92 Mask 10.0 04/20/16 16:01 56 20 94 Mask 12.0 04/20/16 16:00 Mask 12.0 04/20/16 16:00 36.8 61 16 123/76 97 Mask 12.0 04/20/16 15:00 58 14 125/82 93 Mask 12.0 04/20/16 14:00 61 16 130/76 96 Mask 12.0 04/20/16 13:00 62 15 131/76 96 Mask 13.0 Lab Results: Results Past 24 Hours Test 04/20/16 14:48 04/21/16 05:23 Range/Units Blood Gas Sample Site L Radial Bedside Blood Gas pH (LAB) 7.35 7.35-7.45 Bedside Blood Gas pCO2 (LAB) 54 35-46 mmHg Bedside Blood Gas pO2 (LAB) 58 80-95 mmHg Bedside Blood Gas HCO3 (LAB) 30 19-24 meq/L Bedside Blood Gas Total CO2 32 24-31 mEq/l Bedside Blood Gas Base Excess (LAB) 4.0 -9-1.8 meq/L Bedside Blood Gas O2 Saturation 89.0 90-95 % Fidel Test Pass Oxygen Delivery Device SimpleMask White Blood Count 4.61 4.8-10.8 K/uL Red Blood Count 3.88 4.7-6.1 M/uL Hemoglobin 11.2 14.0-18.0 g/dL Hematocrit 33.9 42-52 % Mean Corpuscular Volume 87.4 80-100 fL Mean Corpuscular Hemoglobin 28.9 25-34 pg Mean Corpuscular Hemoglobin Concent 33.0 32-36 g/dl Platelet Count 201 130-400 K/uL Mean Platelet Volume 9.4 7.4-10.4 fL Neutrophils (%) (Auto) 66.9 % Lymphocytes (%) (Auto) 20.4 % Monocytes (%) (Auto) 10.8 % Eosinophils (%) (Auto) 1.3 % Basophils (%) (Auto) 0.2 % Neutrophils # (Auto) 3.08 1.4-6.5 K/uL Lymphocytes # (Auto) 0.94 1.2-3.4 K/uL Monocytes # (Auto) 0.50 0.11-0.59 K/uL Eosinophils # (Auto) 0.06 0-0.5 K/uL Basophils # (Auto) 0.01 0-0.2 K/uL RDW Standard Deviation 43.9 36.4-46.3 fL RDW Coefficient of Variation 13.8 11.5-14.5 % Immature Granulocyte % (Auto) 0.4 % Immature Granulocyte # (Auto) 0.02 0.00-0.02 K/uL Sodium Level 141 136-145 mmol/L Potassium Level 4.1 3.5-5.1 mmol/L Chloride Level 102 98-107 mmol/L Carbon Dioxide Level 32 21-32 mmol/L Anion Gap 7.0 3-11 mmol/L Blood Urea Nitrogen 7 7-18 mg/dl Creatinine 0.49 0.60-1.40 mg/dl Est Creatinine Clear Calc Drug Dose 200.4 ml/min Estimated GFR () 143.6 Estimated GFR (Non- 123.9 BUN/Creatinine Ratio 13.3 10-20 Random Glucose 105 70-99 mg/dl Calcium Level 8.3 8.5-10.1 mg/dl Phosphorus Level 3.3 2.5-4.9 mg/dl Magnesium Level 2.0 1.8-2.4 mg/dl Vancomycin Level Trough 20.5 SEE COMMENT mcg/ml
[2016-04-21] MEDS: VANCOMYCIN INJ 1,350 MG in SODIUM CHLORIDE 0.9% 250ML 250 ML IV SCH ×2 (13:19→20:16)
--- NOTE | 2016-04-21 16:14 | CRITICAL CARE PROGRESS NOTE ---
DATE: 04/21/2016 HISTORY OF PRESENT ILLNESS: Mr. Sotomayor is a 55-year-old father of 9 kids with a history of opioid dependence from chronic back pain. He presented to the Emergency Department on April 18 after being at an urgent care center where he was found to be hypoxemic and febrile. He was seen in the Emergency Department and found to have multifocal pneumonia requiring a 100% nonrebreather facemask. He was admitted to the intensive care unit and started on Zosyn, vancomycin and doxycycline. He had a prolonged QT interval and was mildly encephalopathic. He was placed on q. 4 hour bronchodilators as well as q. 8 hours Mucomyst with chest percussion therapy. Over the course of the next 24 hours, his chest x-ray worsened; however, his clinical picture did not change. He was never tachycardic, hypotensive or in acute respiratory distress. There were no acute events overnight. Today, he was out of bed and sitting in a chair for a while. His oxygen saturations seem to vary and he is presently on a 6 liter nasal cannula. His daughter, who was at the bedside and who is an RN in the operating room here at [facility] feels that he is less confused. His agrees. He complained of being hungry. I should also note that he is very hard of hearing (practically deaf) and in order to communicate with him, it is best to have his hearing aid in and to face him directly so he can read lips. He is not coughing up any secretions. He denies shortness of breath. PHYSICAL EXAMINATION: VITAL SIGNS: Maximum temperature 36.8, heart rate 50s-70s, respiratory rate 17-20, blood pressure 130-155/80s, oxygen saturations 90% on 6 liters nasal cannula. 24-hour fluid balance positive 178 mL. GENERAL: He is awake, alert and oriented to person and place. NEUROLOGIC: He is less impulsive and moves all 4 extremities. He can carry on a conversation by reading lips. LUNGS: Have rales and occasional rhonchi from the right base to the midlung field. Left lung is clear with the exception of very minimal rales in the base. HEART: Regular rate and rhythm. ABDOMEN: Soft, nondistended, nontender. Active bowel sounds. EXTREMITIES: No edema. LABORATORY DATA: White blood cell count 4.61, hemoglobin 11.2, hematocrit 33.9, platelets 201, sodium 141, potassium 4.1, chloride 102, CO2 32, BUN 7, creatinine 0.49. Blood sugar 105, calcium 8.3. HIV negative. Influenza negative. Urine legionella antigen pending. IMAGING DATA: Portable chest x-ray from this morning was reviewed and shows multifocal bilateral airspace consolidation, right greater than left, unchanged compared to yesterday. MEDICATIONS AND INFUSIONS: Acetaminophen, acetylcysteine, Colace, Lovenox, Atrovent, Xopenex, Levaquin day 2, methadone, Tamiflu day 3, Protonix, Zosyn day 3, normal saline with 20 mEq of potassium per liter at 125 mL per hour, senna, vancomycin day 3. MICROBIOLOGY: Blood cultures April 18, no growth to date. Urine cultures April 18, no growth. Expectorated sputum April 19 culture, moderate normal sacha. IMPRESSION: 1. Acute hypoxemic respiratory failure. 2. Multifocal pneumonia. 3. Prolonged QT interval, resolved. 4. Hard of hearing. 5. Metabolic encephalopathy, improved. 6. Methicillin-resistant Staphylococcus aureus positive in the nares. 7. History of clostridium difficile colitis during a prolonged hospitalization for pneumonia in 2006. PLAN: NEURO: Continue methadone. He is on his outpatient dose presently. PULMONARY: Continue aggressive pulmonary toilet with flutter valve, chest percussion, bronchodilators, and Mucomyst. Mobilize. I discussed intubation and bronchoscopy with he and his yesterday and again this morning. He seems to be improving this afternoon and is on 6 liters nasal cannula. I will hold on that for now. INFECTIOUS DISEASE: no organism has been recovered. Continue Levaquin, Zosyn and vancomycin. Urinary legionella antigen is pending. Change Zosyn to cefepime. I do not think he needs the anaerobic coverage. CARDIOVASCULAR: No acute active issues. GI: I ordered him a diet today and he is getting Boost. Continue Protonix for GI prophylaxis. RENAL: Net fluid balance is fairly even. Decrease IV fluids to 75 mL per hour until he is eating well. HEMATOLOTY: No acute active issues. Continue Lovenox for DVT prophylaxis. The patient's care was discussed in detail with his and daughter. He can be a little bit difficult to communicate with due to his hearing loss but he reads lips fairly well. He may be ready for transfer out of the ICU later today or tomorrow. Thank you for asking me to see this nice gentleman. Please call me with any questions or concerns. ARIANA
[2016-04-21] MEDS: CEFEPIME IV 2,000 MG in DEXTROSE 5% 100ML 100 ML IV SCH (20:16)
[2016-04-22] VITALS (28 sets, daily range): BP systolic 148–179; BP diastolic 85–103; PULSE 52–71; TEMP 36.4–36.5; O2SAT 86–98
[2016-04-22] MEDS: NSS + 20MEQ KCL 1000ML 1,000 ML IV SCH ×3 (01:38→23:18)
[2016-04-22] MEDS: LEVALBUTEROL 1.25MG/0.5ML NEB INH SCH ×6 (03:32→23:27)
[2016-04-22] MEDS: IPRATROPIUM BROMIDE NEB SOLN 0.02% 2.5 ML VIAL INH SCH ×6 (03:32→23:27)
[2016-04-22] MEDS: VANCOMYCIN INJ 1,350 MG in SODIUM CHLORIDE 0.9% 250ML 250 ML IV SCH ×4 (03:34→23:16)
[2016-04-22] MEDS: CEFEPIME IV 2,000 MG in DEXTROSE 5% 100ML 100 ML IV SCH ×3 (04:37→20:26)
[2016-04-22 05:43] LABS: BASO % 0.2 %; BASO ABS # 0.01 K/uL (0-0.2); COMPLETE YES; EOS % 1.2 %; HEMATOCRIT 35.3 % (42-52); LYMPH % 20.4 %; LYMPH ABS # 1.01 K/uL (1.2-3.4); MEAN CELL VOLUME 86.1 fL (80-100); MEAN CORPUSCULAR HEMOGLOBIN 28.5 pg (25-34); MEAN CORPUSCULAR HGB CONC 33.1 g/dl (32-36); MEAN PLATELET VOLUME 9.2 fL (7.4-10.4); MONO % 11.7 %; NEUT % 64.5 %; PLATELET COUNT 229 K/uL (130-400); WHITE BLOOD COUNT 4.94 K/uL (4.8-10.8)
[2016-04-22 06:08] LABS: CALCIUM 8.2 mg/dl (8.5-10.1); CREATININE 0.48 mg/dl (0.60-1.40); MAGNESIUM 2.2 mg/dl (1.8-2.4); PHOSPHORUS 3.3 mg/dl (2.5-4.9); POTASSIUM 3.9 mmol/L (3.5-5.1)
--- NOTE | 2016-04-22 07:32 | DIAGNOSTIC IMAGING REPORT ---
CHEST ONE VIEW PORTABLE CLINICAL HISTORY: pnea pneumonia COMPARISON STUDY: 04/21/2016 FINDINGS: Progressive consolidative infiltrative change right hemithorax. Left lung is generally clear. The plaque atelectasis left base. Central catheters. Vena cava. IMPRESSION: Somewhat progressive consolidative change right hemithorax Electronically signed by: Aryan Miranda M.D. 04/22/2016 7:31 AM Dictated Date/Time: 04/22/2016 7:30 AM
[2016-04-22] MEDS: ACETYLCYSTEINE 20% INHAL SOLN ***DISPENSED BY RESP. INH SCH ×3 (08:39→19:42)
[2016-04-22] MEDS ORDERED: BISACODYL 5 MG TABEC PO ONE (09:00)
[2016-04-22] MEDS ORDERED: MAGNESIUM HYDROXIDE SUSP 30 ML UDC PO PRN (09:00)
[2016-04-22 10:08] LABS: LEGIONELLA ANTIGEN NOT DETECTED
[2016-04-22] MEDS: ENOXAPARIN 40 MG/0.4 ML SYR SQ SCH (10:30)
[2016-04-22] MEDS: OSELTAMIVIR PHOSPHATE 75 MG CAP PO SCH ×2 (10:31→20:37)
[2016-04-22] MEDS: SENNA 8.6 MG TAB PO SCH (10:31)
[2016-04-22] MEDS: DOCUSATE SODIUM 100 MG CAP PO SCH ×2 (10:31→20:37)
[2016-04-22] MEDS: POLYETHYLENE (MIRALAX) 17 GM PACK PO SCH (10:31)
[2016-04-22] MEDS: METHADONE HCL 10 MG TAB PO SCH ×3 (10:33→20:38)
--- NOTE | 2016-04-22 11:18 | Critical Care Progress Note ---
Critical Care Progress Note Date of Service Apr 22, 2016. ICU Day ICU Day Number: [address] Spence Subjective Patient states that he feels like he is better today but does not particularly like the mask as it gives him anxiety no pain however notes that the catheter is very uncomfortable - still without bm since admission questions and concerns were addressed Objective General: not in acute distress, resting in bed, mask is on and 92% Skin: no rashes noted, no suspicious lesions, no areas of inflammations/ lacerations/ erythema noted CVS: S1/ S2 noted, RRR, no rubs/ murmurs noted, no cyanosis RVS: coarse breath sounds in particular with expiratory, no wheezes noted, no accessory muscle use Neck:inspection WNL, full ROM of neck ABD: BSx4, no pain/ tenderness on palpation, slight distention MSK: inspection of all limbs WNL, motor and sensation intact in all limbs, no swelling/ pain on palpation of joints NVS: alert and oriented Lymph: No lymphadenopathy palpable Assessment & Plan 1. Acute hypoxemic respiratory failure secondary to multifocal PNA 2. Prolonged QTc ( >500) has resolved 3. MRSA positive 4. History of clostridium difficile colitis during a prolonged hospitalization for pneumonia in 2006. 5. Narcotic controlled chronic lower back pain NVS - alert - continue to monitor for signs of delirium - methadone 40 mg q 6 h from once daily with hope for better pain control CVS - continue to monitor - EKG as QTc has not been checked since the patient has been on Leva RVS - will trial patient on high flow with NC as has difficulty with the mask - CXR is relatively unchanged - flutter valave, percussion, bronchodilators and mucomyst continued. ID - has been on four full days of abx - Cefepime changed from zosyn 03/22 - Levaquin changed from doxy 03/22 - Vanco day 05/20 - legionella pending - no isolates noted on cultures as of yet GI - currently on docusate and senna - additionally add scheduled bisacoydal until BM then PRN - Milk of mag prn - protonix d/c - Boost available and advance diet as tolerated RENAL - net negative - d/c catheter - continue to monitor I&O FEN - continue to monitor BMP HEME - Lovenox for DVt prophylaxis - Access: PICC Resident Physician Supervision Note: Dr. Lockwood was resident physician during care of patient. I separately evaluated patient and did history and exam. I discussed the case with the resident and generally agree with the findings and plan. Issue likely has pre-existing structural lung disease given significant pneumonia with prolonged hospitalization. Malignancy is not out of the differential at this point, at this time I would continue antibiotics for 10-14 day course. He still gets rather hypoxic with minimal exertion, will keep him in the unit for at least 1 more day and hope his pulmonary status continues to improve. Would not de-escalate at this time, patient is at risk for pseudomonas , we'll continue the to antipseudomonal's as well as MRSA coverage. I have personally spent 35 minutes of critical care time in the direct management of this patient. This is a life/limb threatening event. This includes time spent evaluating patient, direct bedside care, chart review, placing orders, interpretation of diagnostic studies, discussion with consultants, patient, and family members, as well as other required patient management activities. This time is exclusive of all separately billable procedures, and teaching time and separate from and in addition to any other critical care service time. Documented By: Sonny Spence, DO Data Medications: Current Inpatient Medications Medications (Trade) Dose Ordered Sig/Juli Route Start Time Stop Time Status Last Admin Dose Admin Ioversol 125 ml 125 ml UD PRN IV 04/18/16 18:00 04/22/16 17:59 Potassium Chloride/Sodium Chloride (Nss + 20meq KCl 1000ml) 1,000 ml @ 75 mls/hr [id number] IV 04/18/16 21:22 05/18/16 21:21 04/22/16 01:38 75 MLS/HR Acetaminophen (Tylenol Tab) 650 mg Q4H PRN PO 04/18/16 20:15 05/18/16 20:14 Vancomycin HCl (Consult) 1 ea UD PRN N/A 04/18/16 20:45 05/18/16 20:44 Levalbuterol (Xopenex 1.25MG/ 0.5ML Neb) 1.25 mg Q4R INH 04/19/16 00:00 05/19/16 00:00 04/22/16 07:23 1.25 MG Ipratropium Preston (Atrovent 0.02% 0.5MG/2.5ML Neb) 0.5 mg Q4R INH 04/19/16 00:00 05/19/16 00:00 04/22/16 07:23 0.5 MG Oseltamivir Phosphate (Tamiflu Cap) 75 mg BID PO 04/19/16 09:00 04/24/16 08:59 04/22/16 10:31 75 MG Levalbuterol (Xopenex 1.25MG/ 3ML Neb) 1.25 mg Q2H PRN INH 04/18/16 22:15 05/18/16 22:14 04/19/16 17:58 1.25 MG Enoxaparin Sodium (Lovenox Inj) 40 mg DAILY SQ 04/19/16 09:00 05/19/16 08:59 04/22/16 10:30 40 MG Docusate Sodium (coLACE CAP) 100 mg BID PO 04/19/16 21:00 05/19/16 20:59 04/22/16 10:31 100 MG Acetylcysteine (Mucomyst 20% Inh Soln) 3 ml TIDR INH 04/19/16 21:00 05/19/16 20:59 04/22/16 08:39 3 ML Senna (Senokot Tab) 8.6 mg QAM PO 04/20/16 09:00 05/20/16 08:59 04/22/16 10:31 8.6 MG Polyethylene 17 gm 17 gm DAILY PO 04/21/16 09:00 05/21/16 08:59 04/22/16 10:31 17 GM Levofloxacin 750 mg/Prmx 150 ml @ 100 mls/hr Q24H IV 04/20/16 12:00 04/27/16 10:59 04/21/16 11:10 100 MLS/HR Vancomycin HCl 1350 mg/Sodium Chloride 277 ml @ 125 mls/hr Q7H IV 04/21/16 13:00 04/25/16 12:59 04/22/16 10:32 125 MLS/HR Cefepime HCl/ Dextrose (Maxipime IV/D5 100ml) 112.5 ml @ 200 mls/hr Q8H IV 04/21/16 20:00 04/28/16 19:59 04/22/16 04:37 200 MLS/HR Methadone HCl (Dolophine Tab) 40 mg Q6H PO 04/22/16 09:00 05/06/16 08:59 04/22/16 10:33 40 MG Bisacodyl (Dulcolax Tab) 5 mg BID PO 04/22/16 21:00 05/22/16 20:59 Magnesium Hydroxide (Milk Of Magnesia Susp) 30 ml Q6H PRN PO 04/22/16 09:00 05/22/16 08:59 I & O: 24-Hour Column 04/22/16 07:59 Intake Total 4355 ml Output Total 6250 ml Balance -1895 ml Vital Signs: Date Time Temp Pulse Resp B/P Pulse Ox O2 Delivery O2 Flow Rate FiO2 04/22/16 10:55 Mask 04/22/16 10:50 60 16 150/90 94 High Flow Oxygen 04/22/16 08:00 High Flow Oxygen 04/22/16 08:00 63 16 174/94 98 High Flow Oxygen 04/22/16 07:23 63 20 91 Mask 10.0 04/22/16 06:01 59 17 158/86 93 04/22/16 05:01 67 20 166/92 92 04/22/16 04:26 94 Mask 10.0 04/22/16 04:01 36.5 67 19 156/85 89 04/22/16 03:33 60 16 91 Mask 10.0 04/22/16 03:01 57 23 174/89 88 Mask 10.0 04/22/16 02:01 67 18 179/91 94 Mask 10.0 04/22/16 01:01 63 14 159/86 97 Mask 10.0 04/22/16 00:13 94 Mask 10.0 04/22/16 00:01 59 18 165/87 94 Mask 10.0 04/21/16 23:18 55 14 94 Mask 10.0 04/21/16 23:01 57 22 153/78 95 Mask 10.0 04/21/16 22:01 61 14 133/77 94 Mask 10.0 04/21/16 21:00 62 21 138/82 95 Mask 10.0 04/21/16 20:21 95 Mask 12.0 96 04/21/16 20:01 36.4 61 17 161/87 93 Mask 10.0 04/21/16 19:56 58 18 94 Mask 10.0 04/21/16 18:01 63 16 147/83 95 Mask 10.0 04/21/16 17:00 73 25 90 Nasal Cannula 6.0 04/21/16 16:01 36.4 66 15 143/77 90 Nasal Cannula 6.0 04/21/16 16:00 Nasal Cannula 6.0 Humidified Oxygen 04/21/16 15:05 65 20 92 Nasal Cannula 6.0 04/21/16 14:01 63 17 134/84 95 Mask 10.0 04/21/16 13:01 66 20 150/79 94 Mask 12.0 04/21/16 12:01 36.6 73 16 153/82 96 Mask 12.0 04/21/16 12:00 Mask 12.0 04/21/16 11:40 61 16 94 Mask 12.0 Laboratory Results: Last 24 Hours Test 04/21/16 12:37 04/22/16 05:24 HIV (1&2) Ab and P24 Ag, 4th Gener NEG White Blood Count 4.94 K/uL Red Blood Count 4.10 M/uL Hemoglobin 11.7 g/dL Hematocrit 35.3 % Mean Corpuscular Volume 86.1 fL Mean Corpuscular Hemoglobin 28.5 pg Mean Corpuscular Hemoglobin Concent 33.1 g/dl Platelet Count 229 K/uL Mean Platelet Volume 9.2 fL Neutrophils (%) (Auto) 64.5 % Lymphocytes (%) (Auto) 20.4 % Monocytes (%) (Auto) 11.7 % Eosinophils (%) (Auto) 1.2 % Basophils (%) (Auto) 0.2 % Neutrophils # (Auto) 3.18 K/uL Lymphocytes # (Auto) 1.01 K/uL Monocytes # (Auto) 0.58 K/uL Eosinophils # (Auto) 0.06 K/uL Basophils # (Auto) 0.01 K/uL RDW Standard Deviation 41.8 fL RDW Coefficient of Variation 13.1 % Immature Granulocyte % (Auto) 2.0 % Immature Granulocyte # (Auto) 0.10 K/uL Sodium Level 143 mmol/L Potassium Level 3.9 mmol/L Chloride Level 104 mmol/L Carbon Dioxide Level 34 mmol/L Anion Gap 5.0 mmol/L Blood Urea Nitrogen 8 mg/dl Creatinine 0.48 mg/dl Est Creatinine Clear Calc Drug Dose 204.5 ml/min Estimated GFR () 144.8 Estimated GFR (Non- 124.9 BUN/Creatinine Ratio 17.0 Random Glucose 107 mg/dl Calcium Level 8.2 mg/dl Phosphorus Level 3.3 mg/dl Magnesium Level 2.2 mg/dl
--- NOTE | 2016-04-22 12:57 | Progress Note ---
Internal Med Progress Note Date of Service: Apr 22, 2016. Provider Documentation: SUBJECTIVE: Patient is clinically better --> cough, SOB has improved. Venti mask --> High flow oxygen Awake, alert, oriented x 3. OOB to chair No BM since admission Denies any chest pain, SOB, fever, chills, abd pain, nausea, vomiting On high flow oxygen - 95% Eager to be discharged OBJECTIVE: Vital Signs-as noted below Exam: General-AAOX3, no respiratory distress HEENT- High flow oxygen + Hard of hearing + Neck-Supple, No JVD Lungs-AEBE decreased, Rhonchi +, No crackles Heart-S1, S2 normal, No murmurs Abdomen-Soft, non tender, non distended, BS present Extremities-No edema Lab data as noted below. ASSESSMENT & PLAN: 55 year old male with history of opioid dependence on Methadone, hypertension, presenting with cough and shortness of breath x 4 days. ACUTE HYPOXIC RESPIRATORY FAILURE SECONDARY TO MULTIFOCAL PNEUMONIA : - Unable to wean him off ventimask--> changed to high flow oxygen today. Unclear etiology of prolonged need for higher concentration of oxygen. May be severity of multifocal pneumonia ? Prior hx of severe pneumonia requiring intubation and prolonged hospitalization at [facility] - Management of pneumonia as noted below. - May require bronchoscopy as CXR worse- right upper lobe consolidation and still requiring high flow oxygen. But as clinically improved, will hold off for now per d/w pulmonary - Nebs QID SEPSIS SECONDARY TO MULTIFOCAL PNEUMONIA Sepsis resolved -Afebrile -IV fluids -IV antibiotics- Zosyn--> Changed to IV Cefepime, Vanco (Day 05/20), Doxy--> changed to levofloxacin on 04/19/16 (QTC normalized) -Blood cultures- negative -CXR on 04/20/16- B/L Opacities, Worse right upper lobe consolidation , but clinically better -May require bronchoscopy as CXR worse- right upper lobe consolidation and still requiring high flow oxygen. But as clinically improved, will hold off for now. -Pulmonary on board. Appreciate inputs. -ID on board. HISTORY OF OPIOID DEPENDENCE - On Methadone - Dose confirmed with CONSTIPATION No BM since admission On docusate/Senna , added bisacodyl DVT PROPHYLAXIS - Lovenox SQ FULL CODE per patient DISPOSITION Continue with ICU monitoring Discussed with family by bedside Still requiring high flow oxygen, difficult to wean him off Lives at home with family Vital Signs: Date Time Temp Pulse Resp B/P Pulse Ox O2 Delivery O2 Flow Rate FiO2 04/22/16 12:22 63 16 95 High Flow Oxygen 04/22/16 12:00 High Flow Oxygen 04/22/16 11:05 69 16 95 Nasal Cannula 50.0 04/22/16 10:55 Mask 04/22/16 10:50 60 16 150/90 94 High Flow Oxygen 04/22/16 08:00 High Flow Oxygen 04/22/16 08:00 63 16 174/94 98 High Flow Oxygen 04/22/16 07:23 63 20 91 Mask 10.0 04/22/16 06:01 59 17 158/86 93 04/22/16 05:01 67 20 166/92 92 04/22/16 04:26 94 Mask 10.0 04/22/16 04:01 36.5 67 19 156/85 89 04/22/16 03:33 60 16 91 Mask 10.0 04/22/16 03:01 57 23 174/89 88 Mask 10.0 04/22/16 02:01 67 18 179/91 94 Mask 10.0 04/22/16 01:01 63 14 159/86 97 Mask 10.0 04/22/16 00:13 94 Mask 10.0 04/22/16 00:01 59 18 165/87 94 Mask 10.0 04/21/16 23:18 55 14 94 Mask 10.0 04/21/16 23:01 57 22 153/78 95 Mask 10.0 04/21/16 22:01 61 14 133/77 94 Mask 10.0 04/21/16 21:00 62 21 138/82 95 Mask 10.0 04/21/16 20:21 95 Mask 12.0 96 04/21/16 20:01 36.4 61 17 161/87 93 Mask 10.0 04/21/16 19:56 58 18 94 Mask 10.0 04/21/16 18:01 63 16 147/83 95 Mask 10.0 04/21/16 17:00 73 25 90 Nasal Cannula 6.0 04/21/16 16:01 36.4 66 15 143/77 90 Nasal Cannula 6.0 04/21/16 16:00 Nasal Cannula 6.0 Humidified Oxygen 04/21/16 15:05 65 20 92 Nasal Cannula 6.0 04/21/16 14:01 63 17 134/84 95 Mask 10.0 04/21/16 13:01 66 20 150/79 94 Mask 12.0 Lab Results: Results Past 24 Hours Test 04/22/16 05:24 Range/Units White Blood Count 4.94 4.8-10.8 K/uL Red Blood Count 4.10 4.7-6.1 M/uL Hemoglobin 11.7 14.0-18.0 g/dL Hematocrit 35.3 42-52 % Mean Corpuscular Volume 86.1 80-100 fL Mean Corpuscular Hemoglobin 28.5 25-34 pg Mean Corpuscular Hemoglobin Concent 33.1 32-36 g/dl Platelet Count 229 130-400 K/uL Mean Platelet Volume 9.2 7.4-10.4 fL Neutrophils (%) (Auto) 64.5 % Lymphocytes (%) (Auto) 20.4 % Monocytes (%) (Auto) 11.7 % Eosinophils (%) (Auto) 1.2 % Basophils (%) (Auto) 0.2 % Neutrophils # (Auto) 3.18 1.4-6.5 K/uL Lymphocytes # (Auto) 1.01 1.2-3.4 K/uL Monocytes # (Auto) 0.58 0.11-0.59 K/uL Eosinophils # (Auto) 0.06 0-0.5 K/uL Basophils # (Auto) 0.01 0-0.2 K/uL RDW Standard Deviation 41.8 36.4-46.3 fL RDW Coefficient of Variation 13.1 11.5-14.5 % Immature Granulocyte % (Auto) 2.0 % Immature Granulocyte # (Auto) 0.10 0.00-0.02 K/uL Sodium Level 143 136-145 mmol/L Potassium Level 3.9 3.5-5.1 mmol/L Chloride Level 104 98-107 mmol/L Carbon Dioxide Level 34 21-32 mmol/L Anion Gap 5.0 3-11 mmol/L Blood Urea Nitrogen 8 7-18 mg/dl Creatinine 0.48 0.60-1.40 mg/dl Est Creatinine Clear Calc Drug Dose 204.5 ml/min Estimated GFR () 144.8 Estimated GFR (Non- 124.9 BUN/Creatinine Ratio 17.0 10-20 Random Glucose 107 70-99 mg/dl Calcium Level 8.2 8.5-10.1 mg/dl Phosphorus Level 3.3 2.5-4.9 mg/dl Magnesium Level 2.2 1.8-2.4 mg/dl
[2016-04-22] MEDS: LEVOFLOXACIN / D5W 750 MG in PREMIXED IN D5W 150 ML IV SCH (13:00)
[2016-04-22] MEDS ORDERED: SODIUM CHLORIDE 0.65% NA SOLN 45 ML (OCEAN) ONE (20:24)
[2016-04-22] MEDS ORDERED: NURSING DECISION MEDICATION ORDER SCH (20:30)
[2016-04-22] MEDS ORDERED: NURSING VERBAL MED ORDER ONE (20:45)
[2016-04-22] MEDS ORDERED: BISACODYL 5 MG TABEC PO SCH (21:00)
[2016-04-22] MEDS ORDERED: SODIUM CHLORIDE 0.65% NA SOLN 45 ML (OCEAN) PRN (21:00)
[2016-04-22] MEDS ORDERED: LORAZEPAM 2 MG/ML 1 ML VIAL IV PRN (22:45)
[2016-04-23] VITALS (20 sets, daily range): BP systolic 124–176; BP diastolic 74–101; PULSE 54–76; TEMP 36–37; O2SAT 89–95
[2016-04-23] MEDS: IPRATROPIUM BROMIDE NEB SOLN 0.02% 2.5 ML VIAL INH SCH ×6 (03:47→23:07)
[2016-04-23] MEDS: LEVALBUTEROL 1.25MG/0.5ML NEB INH SCH ×6 (03:47→23:07)
[2016-04-23] MEDS: CEFEPIME IV 2,000 MG in DEXTROSE 5% 100ML 100 ML IV SCH ×3 (03:54→20:04)
[2016-04-23] MEDS: METHADONE HCL 10 MG TAB PO SCH ×4 (03:54→20:48)
[2016-04-23] MEDS ORDERED: VANCOMYCIN TROUGH SCH (06:30)
[2016-04-23 06:41] LABS: BASO % 0.1 %; BASO ABS # 0.01 K/uL (0-0.2); COMPLETE YES; EOS % 1.4 %; HEMATOCRIT 36.5 % (42-52); IG% 3.1 %; LYMPH % 15.3 %; LYMPH ABS # 1.28 K/uL (1.2-3.4); MEAN CELL VOLUME 84.3 fL (80-100); MEAN CORPUSCULAR HEMOGLOBIN 28.9 pg (25-34); MEAN CORPUSCULAR HGB CONC 34.2 g/dl (32-36); MEAN PLATELET VOLUME 9.6 fL (7.4-10.4); MONO % 9.3 %; NEUT % 70.8 %; PLATELET COUNT 275 K/uL (130-400); RED BLOOD COUNT 4.33 M/uL (4.7-6.1); WHITE BLOOD COUNT 8.37 K/uL (4.8-10.8)
[2016-04-23] MEDS: VANCOMYCIN INJ 1,350 MG in SODIUM CHLORIDE 0.9% 250ML 250 ML IV SCH ×3 (06:45→20:44)
[2016-04-23] MEDS: ACETYLCYSTEINE 20% INHAL SOLN ***DISPENSED BY RESP. INH SCH ×3 (07:20→19:50)
[2016-04-23 07:23] LABS: BUN/CREATININE RATIO 16.2 (10-20); CALCIUM 8.8 mg/dl (8.5-10.1); CREATININE 0.55 mg/dl (0.60-1.40); MAGNESIUM 2.3 mg/dl (1.8-2.4)
[2016-04-23] MEDS: BOOST VANILLA PO SCH ×6 (08:38→20:44)
[2016-04-23] MEDS: POLYETHYLENE (MIRALAX) 17 GM PACK PO SCH (08:45)
[2016-04-23] MEDS: DOCUSATE SODIUM 100 MG CAP PO SCH ×2 (08:45→20:49)
[2016-04-23] MEDS: SENNA 8.6 MG TAB PO SCH (08:45)
[2016-04-23] MEDS: ENOXAPARIN 40 MG/0.4 ML SYR SQ SCH (08:46)
--- NOTE | 2016-04-23 10:50 | Critical Care Progress Note ---
Critical Care Progress Note Date of Service Apr 23, 2016. Attending Dr. Spence Subjective patient is feeling better this morning, was able to tolerate NC overnight Denies any pain at this time questions and concerns were addressed Objective General: not in acute distress, resting in bed, mask is on and 92% Skin: no rashes noted, no suspicious lesions, no areas of inflammations/ lacerations/ erythema noted CVS: S1/ S2 noted, RRR, no rubs/ murmurs noted, no cyanosis RVS: coarse breath sounds in particular with expiratory, no wheezes noted, no accessory muscle use Neck:inspection WNL, full ROM of neck ABD: BSx4, no pain/ tenderness on palpation, slight distention MSK: inspection of all limbs WNL, motor and sensation intact in all limbs, no swelling/ pain on palpation of joints NVS: alert and oriented Lymph: No lymphadenopathy palpable Assessment & Plan 1. Acute hypoxemic respiratory failure secondary to multifocal PNA 2. Prolonged QTc ( >500) has resolved 3. MRSA positive 4. History of clostridium difficile colitis during a prolonged hospitalization for pneumonia in 2006. 5. Narcotic controlled chronic lower back pain NVS - alert - continue to monitor for signs of delirium - methadone 40 mg q 6 h from once daily with hope for better pain control CVS - continue to monitor RVS - Tolerating 4 L on NC - CXR - will repeat with acute change - flutter valave, percussion, bronchodilators and mucomyst continued. ID - has been on four full days of abx - Cefepime changed from zosyn 04/23 - Levaquin changed from doxy 04/23 - Vanco day 06/23 - legionella and HIV negative - no isolates noted on cultures as of yet GI - currently on docusate and senna - additionally add scheduled bisacoydal until BM then PRN - Milk of mag prn - protonix d/c - Boost available and advance diet as tolerated RENAL - net negative - d/c catheter - continue to monitor I&O FEN - continue to monitor BMP HEME - Lovenox for DVt prophylaxis - Access: PICC Patient is hemodynamically stable and candidate for downgrade Resident Physician Supervision Note: Dr. Lockwood was resident physician during care of patient. I separately evaluated patient and did history and exam. I discussed the case with the resident and generally agree with the findings and plan. Patient continues to improve. Significant oxygen requirements at this time however will benefit from ambulation and pulmonary rehabilitation. Again at this point I would continue antibiotics course for 10-14 day. Given likely structural lung disease. Without adequate specimen would continue broad- spectrum as he could very well be at risk for MRSA as well as pseudomonal organisms. Documented By: Sonny Spence DO Data Medications: Current Inpatient Medications Medications (Trade) Dose Ordered Sig/Juli Route Start Time Stop Time Status Last Admin Dose Admin Potassium Chloride/Sodium Chloride (Nss + 20meq KCl 1000ml) 1,000 ml @ 75 mls/hr [id number] IV 04/18/16 21:22 05/18/16 21:21 04/22/16 23:18 75 MLS/HR Acetaminophen (Tylenol Tab) 650 mg Q4H PRN PO 04/18/16 20:15 05/18/16 20:14 Vancomycin HCl (Consult) 1 ea UD PRN N/A 04/18/16 20:45 04/28/16 20:44 Levalbuterol (Xopenex 1.25MG/ 0.5ML Neb) 1.25 mg Q4R INH 04/19/16 00:00 05/19/16 00:00 04/23/16 07:20 1.25 MG Ipratropium [place] (Atrovent 0.02% 0.5MG/2.5ML Neb) 0.5 mg Q4R INH 04/19/16 00:00 05/19/16 00:00 04/23/16 07:19 0.5 MG Levalbuterol (Xopenex 1.25MG/ 3ML Neb) 1.25 mg Q2H PRN INH 04/18/16 22:15 05/18/16 22:14 04/19/16 17:58 1.25 MG Enoxaparin Sodium (Lovenox Inj) 40 mg DAILY SQ 04/19/16 09:00 05/19/16 08:59 04/23/16 08:46 40 MG Docusate Sodium (coLACE CAP) 100 mg BID PO 04/19/16 21:00 05/19/16 20:59 04/23/16 08:45 100 MG Acetylcysteine (Mucomyst 20% Inh Soln) 3 ml TIDR INH 04/19/16 21:00 05/19/16 20:59 04/23/16 07:20 3 ML Senna (Senokot Tab) 8.6 mg QAM PO 04/20/16 09:00 05/20/16 08:59 04/23/16 08:45 8.6 MG Polyethylene 17 gm 17 gm DAILY PO 04/21/16 09:00 05/21/16 08:59 04/23/16 08:45 17 GM Levofloxacin 750 mg/Prmx 150 ml @ 100 mls/hr Q24H IV 04/20/16 12:00 04/28/16 11:59 04/22/16 13:00 100 MLS/HR Vancomycin HCl 1350 mg/Sodium Chloride 277 ml @ 125 mls/hr Q7H IV 04/21/16 13:00 04/28/16 20:00 04/23/16 06:45 125 MLS/HR Cefepime HCl/ Dextrose (Maxipime IV/D5 100ml) 112.5 ml @ 200 mls/hr Q8H IV 04/21/16 20:00 04/28/16 19:59 04/23/16 03:54 200 MLS/HR Methadone HCl (Dolophine Tab) 40 mg Q6H PO 04/22/16 09:00 05/06/16 08:59 04/23/16 08:49 40 MG Magnesium Hydroxide (Milk Of Magnesia Susp) 30 ml Q6H PRN PO 04/22/16 09:00 05/22/16 08:59 Sodium Chloride ([place] Nasal [place]) 1 sprays PRN PRN NA 04/22/16 21:00 05/22/16 20:59 Enteral Nutritional Formula (Boost) 1 can TID PO 04/23/16 09:00 05/23/16 08:59 04/23/16 08:38 1 CAN I & O: 24-Hour Column 04/23/16 08:00 Intake Total 3493 ml Output Total 5650 ml Balance -2157 ml Vital Signs: Date Time Temp Pulse Resp B/P Pulse Ox O2 Delivery O2 Flow Rate FiO2 04/23/16 07:20 57 14 92 Nasal Cannula 4.0 04/23/16 06:01 59 11 166/90 92 04/23/16 05:01 58 16 148/92 91 04/23/16 04:02 73 21 174/94 92 04/23/16 04:00 93 Nasal Cannula 4.0 04/23/16 04:00 36.7 04/23/16 03:47 65 14 91 Nasal Cannula 4.0 04/23/16 03:01 58 20 153/101 89 04/23/16 02:01 54 18 154/98 92 04/23/16 01:01 54 15 158/84 90 04/23/16 00:01 59 18 148/94 93 04/22/16 23:59 36.4 04/22/16 23:59 91 Nasal Cannula 4.0 04/22/16 23:27 58 16 91 Nasal Cannula 4.0 04/22/16 23:01 52 16 161/95 93 04/22/16 22:01 57 14 155/93 91 04/22/16 21:01 61 19 159/86 93 04/22/16 20:02 65 14 159/95 95 04/22/16 20:00 92 Nasal Cannula 4.0 04/22/16 20:00 36.4 04/22/16 19:55 71 18 86 Room Air 04/22/16 19:01 59 13 172/90 92 04/22/16 18:00 58 16 160/94 92 Nasal Cannula 4.0 04/22/16 16:00 High Flow Oxygen 04/22/16 16:00 71 16 148/103 94 04/22/16 15:42 56 20 95 Nasal Cannula 40.0 04/22/16 14:16 67 16 152/88 98 High Flow Oxygen 04/22/16 12:22 63 16 95 High Flow Oxygen 04/22/16 12:00 High Flow Oxygen 04/22/16 11:05 69 16 95 Nasal Cannula 50.0 04/22/16 10:55 Mask 04/22/16 10:50 60 16 150/90 94 High Flow Oxygen Laboratory Results: Last 24 Hours Test 04/23/16 06:23 White Blood Count 8.37 K/uL Red Blood Count 4.33 M/uL Hemoglobin 12.5 g/dL Hematocrit 36.5 % Mean Corpuscular Volume 84.3 fL Mean Corpuscular Hemoglobin 28.9 pg Mean Corpuscular Hemoglobin Concent 34.2 g/dl Platelet Count 275 K/uL Mean Platelet Volume 9.6 fL Neutrophils (%) (Auto) 70.8 % Lymphocytes (%) (Auto) 15.3 % Monocytes (%) (Auto) 9.3 % Eosinophils (%) (Auto) 1.4 % Basophils (%) (Auto) 0.1 % Neutrophils # (Auto) 5.92 K/uL Lymphocytes # (Auto) 1.28 K/uL Monocytes # (Auto) 0.78 K/uL Eosinophils # (Auto) 0.12 K/uL Basophils # (Auto) 0.01 K/uL RDW Standard Deviation 39.7 fL RDW Coefficient of Variation 12.9 % Immature Granulocyte % (Auto) 3.1 % Immature Granulocyte # (Auto) 0.26 K/uL Sodium Level 139 mmol/L Potassium Level 4.0 mmol/L Chloride Level 103 mmol/L Carbon Dioxide Level 28 mmol/L Anion Gap 8.0 mmol/L Blood Urea Nitrogen 9 mg/dl Creatinine 0.55 mg/dl Est Creatinine Clear Calc Drug Dose 178.5 ml/min Estimated GFR () 136.9 Estimated GFR (Non- 118.1 BUN/Creatinine Ratio 16.2 Random Glucose 121 mg/dl Calcium Level 8.8 mg/dl Magnesium Level 2.3 mg/dl Vancomycin Level Trough 15.3 mcg/ml
--- NOTE | 2016-04-23 10:51 | Pharmacy Progress Note ---
Pharmacy Antibiotic Prog Note Date of Service: Apr 23, 2016. Subjective: The patient is currently receiving: * Vancomycin 1350mg IV Q 7 hours; Day # 6 * Cefepime 2gm IV Q 8 hours; Day # 3 (after receiving Zosyn x 3 days) * Levofloxacin 750mg IV Q 24 hrs; Day # 4 (after receiving Doxycycline x 3 days) * All abx therapy started 3 PM The patient is currently on day # 6 of IV ABX therapy for multifocal PNX Objective: Height (Feet): 6 Height (Inches): 2.00 Weight (Kilograms): 92.500 Levels: Item Value Date Time Vancomycin Level Trough 15.3 mcg/ml 04/23/16 0623 Lab Results (24hrs): Laboratory Tests Test 04/23/16 06:23 BUN/Creatinine Ratio 16.2 Blood Urea Nitrogen 9 mg/dl Creatinine 0.55 mg/dl White Blood Count 8.37 K/uL Red Blood Count 4.33 M/uL Hemoglobin 12.5 g/dL Hematocrit 36.5 % Mean Corpuscular Volume 84.3 fL Mean Corpuscular Hemoglobin 28.9 pg Mean Corpuscular Hemoglobin Concent 34.2 g/dl Platelet Count 275 K/uL Mean Platelet Volume 9.6 fL Neutrophils (%) (Auto) 70.8 % Lymphocytes (%) (Auto) 15.3 % Monocytes (%) (Auto) 9.3 % Eosinophils (%) (Auto) 1.4 % Basophils (%) (Auto) 0.1 % Neutrophils # (Auto) 5.92 K/uL Lymphocytes # (Auto) 1.28 K/uL Monocytes # (Auto) 0.78 K/uL Eosinophils # (Auto) 0.12 K/uL Basophils # (Auto) 0.01 K/uL Micro Results: 04/18 positive MRSA nasal swab 04/18 negative Influenza A/B Ag 04/18 urine cx: no growth 04/18: BLCX's x 2: no growth to date 04/19: sputum: moderate normal sacha Assessment & Plan: * Renal fxn appears stable based on SCr, BUN and U.O. * Vitals stable; hypertensive at times, mild bradycardia noted this AM, sat well (low 90's) on 4L NC * Afebrile, WBC and neut # within normal limits * No growth noted in cultures thus far * Per loft worker, Dr Spence, pt will need 10 days ABX therapy, not likely to deescalate his regimen based upon prior h/o prolonged recovery from PNX VANCOMYCIN * Trough level drawn this AM prior to 6th maintenance dose * Trough level is therapeutic, 15.3mcg/mL * Prior doses hung at appropriate times * No change in regimen required at this time as goal trough 15-20mcg/mL * Will reorder trough level in 3-5 days if therapy is to continue CEFEPIME + LEVOFLOXACIN * no changes in dose required at this time, eCrCl > 100cc/min * QTc 453 04/22/16 Pharmacy will continue to follow and will adjust dose/frequency as necessary. Thank you
[2016-04-23] MEDS: LEVOFLOXACIN / D5W 750 MG in PREMIXED IN D5W 150 ML IV SCH (13:55)
--- NOTE | 2016-04-23 18:20 | Progress Note ---
Medicine Progress Note Date & Time of Visit: Apr 23, 2016 at 18:20. Subjective patient states he feels improved today less cough, no sputum walked in the halls with o2 via NC, tolerated well no chest pain, headache, dizziness denies other symptoms Objective Last 8 Hrs Date Time Temp Pulse Resp B/P Pulse Ox O2 Delivery O2 Flow Rate FiO2 04/23/16 16:00 36.7 62 14 161/97 94 Nasal Cannula 4.0 04/23/16 16:00 94 Nasal Cannula 4.0 04/23/16 15:56 76 14 92 Nasal Cannula 4.0 04/23/16 14:00 66 18 157/98 90 Nasal Cannula 4.0 04/23/16 12:22 72 14 94 Nasal Cannula 4.0 04/23/16 12:00 95 Nasal Cannula 4.0 04/23/16 12:00 37.0 62 18 162/99 95 Nasal Cannula 4.0 Physical Exam: General- oriented x 3, not in distress, speaks in sentences with no effort Eyes-anicteric ENT- oropharynx clear Neck- supple, no JVD, no adenopathy Lungs- mild scattered wheeze on the right, clear on the left Heart- regular rhythm; no murmurs Abdomen- normal bowel sounds, soft, nontender Extremities- no pretibial edema, no calf tenderness; peripheral pulses intact Neuro- alert, oriented x 3; no gross focal deficits Skin- warm & dry Laboratory Results: Last 24 Hours Test 04/23/16 06:23 White Blood Count 8.37 K/uL Red Blood Count 4.33 M/uL Hemoglobin 12.5 g/dL Hematocrit 36.5 % Mean Corpuscular Volume 84.3 fL Mean Corpuscular Hemoglobin 28.9 pg Mean Corpuscular Hemoglobin Concent 34.2 g/dl Platelet Count 275 K/uL Mean Platelet Volume 9.6 fL Neutrophils (%) (Auto) 70.8 % Lymphocytes (%) (Auto) 15.3 % Monocytes (%) (Auto) 9.3 % Eosinophils (%) (Auto) 1.4 % Basophils (%) (Auto) 0.1 % Neutrophils # (Auto) 5.92 K/uL Lymphocytes # (Auto) 1.28 K/uL Monocytes # (Auto) 0.78 K/uL Eosinophils # (Auto) 0.12 K/uL Basophils # (Auto) 0.01 K/uL RDW Standard Deviation 39.7 fL RDW Coefficient of Variation 12.9 % Immature Granulocyte % (Auto) 3.1 % Immature Granulocyte # (Auto) 0.26 K/uL Sodium Level 139 mmol/L Potassium Level 4.0 mmol/L Chloride Level 103 mmol/L Carbon Dioxide Level 28 mmol/L Anion Gap 8.0 mmol/L Blood Urea Nitrogen 9 mg/dl Creatinine 0.55 mg/dl Est Creatinine Clear Calc Drug Dose 178.5 ml/min Estimated GFR () 136.9 Estimated GFR (Non- 118.1 BUN/Creatinine Ratio 16.2 Random Glucose 121 mg/dl Calcium Level 8.8 mg/dl Magnesium Level 2.3 mg/dl Vancomycin Level Trough 15.3 mcg/ml Assessment & Plan 55 year old male with history of opioid dependence on Methadone, hypertension, presenting with cough and shortness of breath x 4 days. ACUTE HYPOXIC RESPIRATORY FAILURE SECONDARY TO MULTIFOCAL PNEUMONIA : - improving, now on 4 liters via nasal cannula continue weaning - Management of pneumonia as noted below. SEPSIS SECONDARY TO MULTIFOCAL PNEUMONIA Sepsis resolved -Afebrile -IV antibiotics- Zosyn Doxycycline--> Changed to IV Cefepime, Vanco, Levaquin - (+) Nasal MRSA Blood cultures- negative Sputum culture: normal sacha Urine culture: negative - improving - continue antibiotics, nebs, mucomyst will consult ID HISTORY OF OPIOID DEPENDENCE - On Methadone changed to Methadone 40mg QID CONSTIPATION continue Laxatives DVT PROPHYLAXIS - Lovenox SQ FULL CODE per patient DISPOSITION pending anticipate d/c home when medically stable may need o2 supplementation Current Inpatient Medications: Current Inpatient Medications Medications (Trade) Dose Ordered Sig/Juli Route Start Time Stop Time Status Last Admin Dose Admin Potassium Chloride/Sodium Chloride (Nss + 20meq KCl 1000ml) 1,000 ml @ 75 mls/hr [id number] IV 04/18/16 21:22 05/18/16 21:21 04/22/16 23:18 75 MLS/HR Acetaminophen (Tylenol Tab) 650 mg Q4H PRN PO 04/18/16 20:15 05/18/16 20:14 Vancomycin HCl (Consult) 1 ea UD PRN N/A 04/18/16 20:45 04/28/16 20:44 Levalbuterol (Xopenex 1.25MG/ 0.5ML Neb) 1.25 mg Q4R INH 04/19/16 00:00 05/19/16 00:00 04/23/16 15:56 1.25 MG Ipratropium [place] (Atrovent 0.02% 0.5MG/2.5ML Neb) 0.5 mg Q4R INH 04/19/16 00:00 05/19/16 00:00 04/23/16 15:56 0.5 MG Levalbuterol (Xopenex 1.25MG/ 3ML Neb) 1.25 mg Q2H PRN INH 04/18/16 22:15 05/18/16 22:14 04/19/16 17:58 1.25 MG Enoxaparin Sodium (Lovenox Inj) 40 mg DAILY SQ 04/19/16 09:00 05/19/16 08:59 04/23/16 08:46 40 MG Docusate Sodium (coLACE CAP) 100 mg BID PO 04/19/16 21:00 05/19/16 20:59 04/23/16 08:45 100 MG Acetylcysteine (Mucomyst 20% Inh Soln) 3 ml TIDR INH 04/19/16 21:00 05/19/16 20:59 04/23/16 15:56 3 ML Senna (Senokot Tab) 8.6 mg QAM PO 04/20/16 09:00 05/20/16 08:59 04/23/16 08:45 8.6 MG Polyethylene 17 gm 17 gm DAILY PO 04/21/16 09:00 05/21/16 08:59 04/23/16 08:45 17 GM Levofloxacin 750 mg/Prmx 150 ml @ 100 mls/hr Q24H IV 04/20/16 12:00 04/28/16 11:59 04/23/16 13:55 100 MLS/HR Vancomycin HCl 1350 mg/Sodium Chloride 277 ml @ 125 mls/hr Q7H IV 04/21/16 13:00 04/28/16 20:00 04/23/16 13:56 125 MLS/HR Cefepime HCl/ Dextrose (Maxipime IV/D5 100ml) 112.5 ml @ 200 mls/hr Q8H IV 04/21/16 20:00 04/28/16 19:59 04/23/16 13:55 200 MLS/HR Methadone HCl (Dolophine Tab) 40 mg Q6H PO 04/22/16 09:00 05/06/16 08:59 04/23/16 16:03 40 MG Magnesium Hydroxide (Milk Of Magnesia Susp) 30 ml Q6H PRN PO 04/22/16 09:00 05/22/16 08:59 Sodium Chloride ([place] Nasal [place]) 1 sprays PRN PRN NA 04/22/16 21:00 05/22/16 20:59 Enteral Nutritional Formula (Boost) 1 can TID PO 04/23/16 09:00 05/23/16 08:59 04/23/16 14:00 1 CAN Clonidine HCl ([place] Tab) 0.1 mg Q6H PRN PO 04/23/16 18:30 05/23/16 18:29 UNV
[2016-04-23] MEDS ORDERED: LORAZEPAM 2 MG/ML 1 ML VIAL IV PRN ×2 (20:30→20:45)
[2016-04-23] MEDS ORDERED: LORAZEPAM INJ 0.5 MG in SYRINGE 0.75 ML IV PRN (20:45)
[2016-04-24] VITALS (9 sets, daily range): BP systolic 144–168; BP diastolic 84–92; PULSE 62–85; TEMP 36.3–36.7; O2SAT 90–93
[2016-04-24] MEDS: CLONIDINE HCL 0.1 MG TAB PO PRN ×3 (00:10→20:53)
[2016-04-24] MEDS: METHADONE HCL 10 MG TAB PO SCH ×4 (03:17→20:54)
[2016-04-24] MEDS: CEFEPIME IV 2,000 MG in DEXTROSE 5% 100ML 100 ML IV SCH ×3 (03:19→19:51)
[2016-04-24] MEDS: LEVALBUTEROL 1.25MG/0.5ML NEB INH SCH ×5 (03:29→19:26)
[2016-04-24] MEDS: IPRATROPIUM BROMIDE NEB SOLN 0.02% 2.5 ML VIAL INH SCH ×4 (03:29→19:26)
[2016-04-24] MEDS: VANCOMYCIN INJ 1,350 MG in SODIUM CHLORIDE 0.9% 250ML 250 ML IV SCH ×3 (03:52→17:15)
[2016-04-24] MEDS ORDERED: NURSING VERBAL MED ORDER ONE (06:15)
[2016-04-24 06:45] LABS: MEAN CELL VOLUME 85.8 fL (80-100); MEAN CORPUSCULAR HEMOGLOBIN 29.2 pg (25-34); MEAN CORPUSCULAR HGB CONC 34.1 g/dl (32-36); MEAN PLATELET VOLUME 9.7 fL (7.4-10.4); PLATELET COUNT 318 K/uL (130-400); RED BLOOD COUNT 4.31 M/uL (4.7-6.1); WHITE BLOOD COUNT 11.03 K/uL (4.8-10.8)
[2016-04-24 07:19] LABS: CREATININE 0.56 mg/dl (0.60-1.40)
[2016-04-24 07:20] LABS: BUN/CREATININE RATIO 19.2 (10-20); CALCIUM 8.8 mg/dl (8.5-10.1); POTASSIUM 4.3 mmol/L (3.5-5.1)
[2016-04-24] MEDS: ACETYLCYSTEINE 20% INHAL SOLN ***DISPENSED BY RESP. INH SCH ×3 (07:47→19:26)
[2016-04-24] MEDS: DOCUSATE SODIUM 100 MG CAP PO SCH ×2 (08:17→20:54)
[2016-04-24] MEDS: SENNA 8.6 MG TAB PO SCH (08:17)
[2016-04-24] MEDS: BOOST VANILLA PO SCH ×6 (08:17→19:52)
[2016-04-24] MEDS: POLYETHYLENE (MIRALAX) 17 GM PACK PO SCH (08:18)
[2016-04-24] MEDS: ENOXAPARIN 40 MG/0.4 ML SYR SQ SCH (08:18)
--- NOTE | 2016-04-24 10:47 | Progress Note ---
Progress Note Date of Service Apr 24, 2016. Progress Note ID consult dictated #[id number] A/P: 1. Pna 2. Leukocytosis -continue with current IV abx, all culture negative, if pt is to transition to po abx would suggest po levaquin and doxy to complete 7-10 days -would suggest hcv ab testing with h/o opiate use and elevated lfts on admission -cxr improving, continue supportive care, supplemental O2 -thank you
--- NOTE | 2016-04-24 11:10 | INFECT. DISEASE CONSULTATION ---
DATE OF CONSULTATION: 04/24/2016 REQUESTING PHYSICIAN: Dr. Montalvo. REASON FOR CONSULTATION: Pneumonia. HISTORY OF PRESENT ILLNESS: This is a 55-year-old gentleman who was admitted to the hospital on 04/18/2016 after he had acute onset of cough, fever, chills and general malaise. He was seen at an urgent care center prior on the day of admission and was found to be hypoxic. He was subsequently sent to the Emergency Room. In the ER, he was hypoxic with a pulse ox of 76% on room air. He was also found to have a fever. He was started on empiric antibiotics consisting of cefepime and Levaquin in the Emergency Room. He also was given supplemental oxygen. He remains on oxygen at 4 liters on my examination today. He did undergo blood and sputum cultures. His sputum culture was normal sacha. His blood cultures are negative and final. He has been on multiple antibiotics. Currently, he is on vancomycin, cefepime and Levaquin. He also did receive a course of Tamiflu from 04/19/2016 to 04/23/2016 for suspected influenza. He had his most recent x-ray on 04/22/2016 which did show pneumonia in the right lung, improved from his initial imaging on arrival to the hospital. On my examination, the patient is resting comfortably and does not offer any complaints. PAST MEDICAL HISTORY: Significant for pneumonia. He also has a history of opiate dependence and is currently on chronic methadone maintenance. He also has a history of hypertension. SURGICAL HISTORY: Unknown. FAMILY HISTORY: Noncontributory. SOCIAL HISTORY: Significant for history of tobacco use and opioid dependence. ALLERGIES: He has no known drug allergies. CURRENT MEDICATIONS: Include subcu heparin, lorazepam, clonidine, Boost, methadone, milk of magnesia, cefepime, vancomycin, MiraLax, Levaquin, Senokot, Colace, Mucomyst, Lovenox, Xopenex, Atrovent and Tylenol. PHYSICAL EXAMINATION: VITAL SIGNS: The patient is afebrile and has been since admission on 04/18/2016, pulse 80, respiratory rate 18, blood pressure 166/88, oxygen saturation is 92% on 4 liters nasal cannula. GENERAL: He is resting comfortably on my examination on nasal cannula oxygen. LUNGS: Clear bilaterally. HEART: Regular. ABDOMEN: Soft. EXTREMITIES: There is no lower extremity edema. SKIN: Without rash. LABORATORY STUDIES: CBC today reveals a white blood cell count of 11, hemoglobin 12.6, platelets are 318. Chemistry panel: Sodium is 140, potassium 4.3, chloride 104, bicarbonate 29, BUN 11, creatinine 0.5, glucose is 99. LFTs on admission: AST was mildly elevated at 90, ALT 91, this did improve on 04/19/2016. They have not been repeated. Lactic acid was 0.9 on admission. Urinalysis was unremarkable. Most recent vancomycin trough on 04/23/2016 was 15.3. Flu swab was negative. Legionella antigen is negative. HIV test is negative. Blood cultures are negative and final from 04/18/2016. A urine culture from 04/18/2016 was negative and final. Sputum culture from 04/19/2016 is negative. IMAGING: As reviewed previously. He did have a CTA in the ER which was negative for PE but did show bilateral multifocal pneumonia. Most recent chest x-ray shows infiltrate on the right but clearing of the left lung. ASSESSMENT AND PLAN: Pneumonia. He can be continued on antibiotics. It appears that he has been on antibiotics since 04/19/2016; I would give a total of 7 days. Certainly, he can remain on IV antibiotics for now. If there is a desire to switch to p.o. antibiotics, my recommendation would be to convert his Levaquin to oral Levaquin and add doxycycline, although no MRSA was identified. He can complete a 7- to 10-day course. He may need to continue with supplemental oxygen. Thank you for this consultation.
[2016-04-24] MEDS: LEVOFLOXACIN / D5W 750 MG in PREMIXED IN D5W 150 ML IV SCH (11:12)
[2016-04-24] MEDS ORDERED: AMLODIPINE BESYLATE 5 MG TAB PO ONE (13:45)
--- NOTE | 2016-04-24 15:15 | Progress Note ---
Medicine Progress Note Date & Time of Visit: Apr 24, 2016 at 15:12. Subjective patient seen sitting up in bed, appears comfortable states he feels improved today no dyspnea,no cough/sputum, no chest pain denies headache, dizziness, nausea Objective Last 8 Hrs Date Time Temp Pulse Resp B/P Pulse Ox O2 Delivery O2 Flow Rate FiO2 04/24/16 12:00 Nasal Cannula 4.0 04/24/16 11:45 85 18 93 Nasal Cannula 4.0 04/24/16 11:20 36.3 65 20 168/89 92 Nasal Cannula 5.0 04/24/16 08:00 Nasal Cannula 4.0 04/24/16 07:48 80 18 92 Nasal Cannula 4.0 04/24/16 07:48 36.5 62 20 166/88 91 Nasal Cannula 5.0 Physical Exam: General- oriented x 3, not in distress, speaks in sentences with no effort Eyes-anicteric Neck-no JVD Lungs- mild scattered rhonchi on the right, clear on the left Heart- normal rate, regular rhythm; no murmurs Abdomen- normal bowel sounds, soft, nontender Extremities- no pretibial edema, no calf tenderness Neuro- alert, oriented x 3; no gross focal deficits Skin- warm & dry Laboratory Results: Last 24 Hours Test 04/24/16 06:12 White Blood Count 11.03 K/uL Red Blood Count 4.31 M/uL Hemoglobin 12.6 g/dL Hematocrit 37.0 % Mean Corpuscular Volume 85.8 fL Mean Corpuscular Hemoglobin 29.2 pg Mean Corpuscular Hemoglobin Concent 34.1 g/dl RDW Standard Deviation 41.7 fL RDW Coefficient of Variation 13.2 % Platelet Count 318 K/uL Mean Platelet Volume 9.7 fL Nucleated RBC Absolute Count (auto) 0.02 K/uL Nucleated Red Blood Cells % 0.1 % Sodium Level 140 mmol/L Potassium Level 4.3 mmol/L Chloride Level 104 mmol/L Carbon Dioxide Level 29 mmol/L Anion Gap 7.0 mmol/L Blood Urea Nitrogen 11 mg/dl Creatinine 0.56 mg/dl Est Creatinine Clear Calc Drug Dose 175.3 ml/min Estimated GFR () 135.9 Estimated GFR (Non- 117.3 BUN/Creatinine Ratio 19.2 Random Glucose 99 mg/dl Calcium Level 8.8 mg/dl Assessment & Plan 55 year old male with history of opioid dependence on Methadone, hypertension, presenting with cough and shortness of breath x 4 days. ACUTE HYPOXIC RESPIRATORY FAILURE SECONDARY TO MULTIFOCAL PNEUMONIA : - improving, now on 4 liters via nasal cannula continue weaning off oxygen - Management of pneumonia as noted below. SEPSIS SECONDARY TO MULTIFOCAL PNEUMONIA Sepsis resolved -Afebrile -IV antibiotics- Zosyn Doxycycline--> Changed to IV Cefepime, Vanco, Levaquin - (+) Nasal MRSA Blood cultures- negative Sputum culture: normal sacha Urine culture: negative -continues to improve - continue antibiotics, nebs, mucomyst - appreciate ID consult HYPERTENSION Amlodipine 5mg po daily started monitor BP AHA diet PRN Clonidine HISTORY OF OPIOID DEPENDENCE - On Methadone changed to Methadone 40mg QID CONSTIPATION continue Laxatives DVT PROPHYLAXIS - Lovenox SQ FULL CODE per patient DISPOSITION pending anticipate d/c home when medically stable may need o2 supplementation Current Inpatient Medications: Current Inpatient Medications Medications (Trade) Dose Ordered Sig/Juli Route Start Time Stop Time Status Last Admin Dose Admin Acetaminophen (Tylenol Tab) 650 mg Q4H PRN PO 04/18/16 20:15 05/18/16 20:14 Vancomycin HCl (Consult) 1 ea UD PRN N/A 04/18/16 20:45 04/28/16 20:44 Levalbuterol (Xopenex 1.25MG/ 0.5ML Neb) 1.25 mg Q4R INH 04/19/16 00:00 05/19/16 00:00 04/24/16 11:45 1.25 MG Ipratropium [place] (Atrovent 0.02% 0.5MG/2.5ML Neb) 0.5 mg Q4R INH 04/19/16 00:00 05/19/16 00:00 04/24/16 11:45 0.5 MG Levalbuterol (Xopenex 1.25MG/ 3ML Neb) 1.25 mg Q2H PRN INH 04/18/16 22:15 05/18/16 22:14 04/19/16 17:58 1.25 MG Enoxaparin Sodium (Lovenox Inj) 40 mg DAILY SQ 04/19/16 09:00 05/19/16 08:59 04/24/16 08:18 40 MG Docusate Sodium (coLACE CAP) 100 mg BID PO 04/19/16 21:00 05/19/16 20:59 04/24/16 08:17 100 MG Acetylcysteine (Mucomyst 20% Inh Soln) 3 ml TIDR INH 04/19/16 21:00 05/19/16 20:59 04/24/16 07:47 3 ML Senna (Senokot Tab) 8.6 mg QAM PO 04/20/16 09:00 05/20/16 08:59 04/24/16 08:17 8.6 MG Polyethylene 17 gm 17 gm DAILY PO 04/21/16 09:00 05/21/16 08:59 04/23/16 08:45 17 GM Levofloxacin 750 mg/Prmx 150 ml @ 100 mls/hr Q24H IV 04/20/16 12:00 04/28/16 11:59 04/24/16 11:12 100 MLS/HR Vancomycin HCl 1350 mg/Sodium Chloride 277 ml @ 125 mls/hr Q7H IV 04/21/16 13:00 04/28/16 20:00 04/24/16 11:12 125 MLS/HR Cefepime HCl/ Dextrose (Maxipime IV/D5 100ml) 112.5 ml @ 200 mls/hr Q8H IV 04/21/16 20:00 04/28/16 19:59 04/24/16 11:12 200 MLS/HR Methadone HCl (Dolophine Tab) 40 mg Q6H PO 04/22/16 09:00 05/06/16 08:59 04/24/16 14:41 40 MG Magnesium Hydroxide (Milk Of Magnesia Susp) 30 ml Q6H PRN PO 04/22/16 09:00 05/22/16 08:59 Sodium Chloride ([place] Nasal [place]) 1 sprays PRN PRN NA 04/22/16 21:00 05/22/16 20:59 Enteral Nutritional Formula (Boost) 1 can TID PO 04/23/16 09:00 05/23/16 08:59 04/24/16 14:00 1 CAN Clonidine HCl 0.1 mg 0.1 mg Q6H PRN PO 04/23/16 18:30 05/23/16 18:29 04/24/16 08:17 0.1 MG Lorazepam/Syringe (Ativan Inj/ Syringe) 1 ml @ 1 mls/min Q4H PRN IV 04/23/16 20:45 05/23/16 20:44 Lorazepam (Ativan Inj) 0.5 mg Q4H PRN IV 04/23/16 20:45 05/23/16 20:44 04/23/16 22:55 0.5 MG Heparin Sodium (Porcine) (Heparin 10 Unit/ ml 5 ml Flush) 5 ml PRN PRN FLUSH 04/24/16 06:30 05/24/16 06:29 04/24/16 06:34 5 ML Amlodipine Besylate (Norvasc Tab) 5 mg QAM PO 04/25/16 09:00 05/25/16 08:59
[2016-04-24] MEDS ORDERED: IPRATROPIUM BROMIDE NEB SOLN 0.02% 2.5 ML VIAL INH SCH ×2 (18:00)
[2016-04-24] MEDS ORDERED: LEVALBUTEROL 1.25MG/0.5ML NEB INH SCH ×2 (18:00)
[2016-04-25] VITALS (9 sets, daily range): BP systolic 143–171; BP diastolic 78–91; PULSE 60–82; TEMP 36.4–36.6; O2SAT 90–93
[2016-04-25] MEDS: VANCOMYCIN INJ 1,350 MG in SODIUM CHLORIDE 0.9% 250ML 250 ML IV SCH ×3 (01:21→17:01)
[2016-04-25] MEDS: METHADONE HCL 10 MG TAB PO SCH ×3 (03:00→17:01)
[2016-04-25] MEDS: CEFEPIME IV 2,000 MG in DEXTROSE 5% 100ML 100 ML IV SCH ×2 (04:38→12:35)
[2016-04-25] MEDS: IPRATROPIUM BROMIDE NEB SOLN 0.02% 2.5 ML VIAL INH SCH ×2 (07:16→14:48)
[2016-04-25] MEDS: ACETYLCYSTEINE 20% INHAL SOLN ***DISPENSED BY RESP. INH SCH ×2 (07:16→14:48)
[2016-04-25] MEDS: LEVALBUTEROL 1.25MG/0.5ML NEB INH SCH ×2 (07:16→14:48)
[2016-04-25] MEDS: SENNA 8.6 MG TAB PO SCH (07:51)
[2016-04-25] MEDS: POLYETHYLENE (MIRALAX) 17 GM PACK PO SCH (07:51)
[2016-04-25] MEDS: DOCUSATE SODIUM 100 MG CAP PO SCH (07:51)
[2016-04-25] MEDS: ENOXAPARIN 40 MG/0.4 ML SYR SQ SCH (07:53)
[2016-04-25] MEDS ORDERED: AMLODIPINE BESYLATE 5 MG TAB PO SCH (09:00)
[2016-04-25] MEDS: BOOST VANILLA PO SCH ×4 (09:00→14:00)
[2016-04-25] MEDS ORDERED: ALTEPLASE, RECOMBINANT 1 MG/ML 2 ML VIAL IV ONE (09:30)
[2016-04-25] MEDS ORDERED: LEVOFLOXACIN 750 MG TAB PO SCH (11:00)
--- NOTE | 2016-04-25 15:33 | Progress Note ---
Medicine Progress Note Date & Time of Visit: Apr 25, 2016 at 15:26. Subjective patient seen resting in bed, comfortable ambulated in the halls today with PT, tolerated well on 4 liters, denies shortness of breath, cough no chest pain, abdominal pain denies other symptoms states he is ready and would like to be discharged today family at bedside, comfortable with discharge today as well Objective Last 8 Hrs Date Time Temp Pulse Resp B/P Pulse Ox O2 Delivery O2 Flow Rate FiO2 04/25/16 14:48 82 18 91 Nasal Cannula 4.0 04/25/16 12:20 36.5 60 20 153/88 92 Nasal Cannula 4.0 04/25/16 12:00 Nasal Cannula 04/25/16 08:15 36.4 63 20 165/91 91 Nasal Cannula 4.0 04/25/16 08:00 Nasal Cannula Physical Exam: General- oriented x 3, not in distress, speaks in sentences with no effort Lungs- mild crackles at the right base, clear on the left; no wheezing Heart- normal rate, regular rhythm; no murmurs Abdomen- normal bowel sounds, soft, nontender Extremities- no pretibial edema, no calf tenderness Neuro- alert, oriented x 3; no gross focal deficits Skin- warm & dry Assessment & Plan 55 year old male with history of opioid dependence on Methadone, hypertension, presenting with cough and shortness of breath x 4 days. ACUTE HYPOXIC RESPIRATORY FAILURE SECONDARY TO MULTIFOCAL PNEUMONIA : - remains stable on 4 liters via nasal cannula - Management of pneumonia as noted below. SEPSIS SECONDARY TO MULTIFOCAL PNEUMONIA Sepsis resolved -Afebrile -IV antibiotics- Zosyn Doxycycline--> Changed to IV Cefepime, Vanco, Levaquin ( received x 7 days) - (+) Nasal MRSA Blood cultures- negative Sputum culture: normal sacha Urine culture: negative -continues to improve - ID Dr. Acuña consulted - recommend Levaquin and Doxycycline PO x 3 more days to complete 10 day antibiotic course HYPERTENSION asymptomatic Amlodipine 5mg po daily started monitor BP AHA diet HISTORY OF OPIOID DEPENDENCE - On Methadone continue outpatient regimen and follow up CONSTIPATION given Laxatives DVT PROPHYLAXIS - Lovenox SQ FULL CODE per patient DISPOSITION d/c home today ff up with PCP in 3-5 days Current Inpatient Medications: Current Inpatient Medications Medications (Trade) Dose Ordered Sig/Juli Route Start Time Stop Time Status Last Admin Dose Admin Acetaminophen (Tylenol Tab) 650 mg Q4H PRN PO 04/18/16 20:15 05/18/16 20:14 Vancomycin HCl (Consult) 1 ea UD PRN N/A 04/18/16 20:45 04/28/16 20:44 Levalbuterol (Xopenex 1.25MG/ 3ML Neb) 1.25 mg Q2H PRN INH 04/18/16 22:15 05/18/16 22:14 04/19/16 17:58 1.25 MG Enoxaparin Sodium (Lovenox Inj) 40 mg DAILY SQ 04/19/16 09:00 05/19/16 08:59 04/25/16 07:53 40 MG Docusate Sodium (coLACE CAP) 100 mg BID PO 04/19/16 21:00 05/19/16 20:59 04/25/16 07:51 100 MG Acetylcysteine (Mucomyst 20% Inh Soln) 3 ml TIDR INH 04/19/16 21:00 05/19/16 20:59 04/25/16 14:48 3 ML Senna (Senokot Tab) 8.6 mg QAM PO 04/20/16 09:00 05/20/16 08:59 04/25/16 07:51 8.6 MG Polyethylene 17 gm 17 gm DAILY PO 04/21/16 09:00 05/21/16 08:59 04/25/16 07:51 17 GM Vancomycin HCl 1350 mg/Sodium Chloride 277 ml @ 125 mls/hr Q7H IV 04/21/16 13:00 04/28/16 20:00 04/25/16 07:46 125 MLS/HR Cefepime HCl/ Dextrose (Maxipime IV/D5 100ml) 112.5 ml @ 200 mls/hr Q8H IV 04/21/16 20:00 04/28/16 19:59 04/25/16 12:35 200 MLS/HR Methadone HCl (Dolophine Tab) 40 mg Q6H PO 04/22/16 09:00 05/06/16 08:59 04/25/16 07:52 40 MG Magnesium Hydroxide (Milk Of Magnesia Susp) 30 ml Q6H PRN PO 04/22/16 09:00 05/22/16 08:59 Sodium Chloride ([place] Nasal [place]) 1 sprays PRN PRN NA 04/22/16 21:00 05/22/16 20:59 Enteral Nutritional Formula (Boost) 1 can TID PO 04/23/16 09:00 05/23/16 08:59 04/24/16 19:52 1 CAN Clonidine HCl 0.1 mg 0.1 mg Q6H PRN PO 04/23/16 18:30 05/23/16 18:29 04/24/16 20:53 0.1 MG Lorazepam/Syringe (Ativan Inj/ Syringe) 1 ml @ 1 mls/min Q4H PRN IV 04/23/16 20:45 05/23/16 20:44 Lorazepam (Ativan Inj) 0.5 mg Q4H PRN IV 04/23/16 20:45 05/23/16 20:44 04/23/16 22:55 0.5 MG Heparin Sodium (Porcine) (Heparin 10 Unit/ ml 5 ml Flush) 5 ml PRN PRN FLUSH 04/24/16 06:30 05/24/16 06:29 04/24/16 23:55 5 ML Amlodipine Besylate (Norvasc Tab) 5 mg QAM PO 04/25/16 09:00 05/25/16 08:59 04/25/16 07:52 5 MG Ipratropium [place] (Atrovent 0.02% 0.5MG/2.5ML Neb) 0.5 mg Q6RWA INH 04/24/16 21:00 05/24/16 20:59 04/25/16 14:48 0.5 MG Levalbuterol (Xopenex 1.25MG/ 0.5ML Neb) 1.25 mg Q6RWA INH 04/24/16 21:00 05/24/16 20:59 04/25/16 14:48 1.25 MG Levofloxacin (Levaquin Tab) 750 mg DAILY@11 PO 04/25/16 11:00 04/28/16 19:59 04/25/16 12:35 750 MG
[2016-04-25] MEDS ORDERED: XPNINS1255 INH (15:43)
[2016-04-25] MEDS ORDERED: MRLP17 PO (15:43)
[2016-04-25] MEDS ORDERED: ATRINS INH (15:43)
[2016-04-25] MEDS ORDERED: LEVO1TAB34 PO (15:43)
[2016-04-25] MEDS ORDERED: NRV5 PO (15:43)
[2016-04-25] MEDS ORDERED: DXY100 PO (15:43)
[2016-04-25] MEDS ORDERED: MCMIN20ML INH (15:43)
[2016-04-25] MEDS ORDERED: CLC100 PO (15:43)
--- NOTE | 2016-04-25 15:54 | Discharge Instructions ---
Discharge Instructions Date of Service Apr 25, 2016. Admission Reason for Admission: Acute Respiratory Failure With Hypoxia Discharge Discharge Diagnosis / Problem: ACUTE RESPIRATORY FAILURE, BILATERAL PNEUMONIA Discharge Goals Goal(s): Diagnostic testing, Therapeutic intervention Activity Recommendations Activity Limitations: as noted below (NO HEAVY EXERTION UNTIL RE-EVALUATED BY PRIMARY CARE PHYSICIAN) . Instructions / Follow-Up Instructions / Follow-Up PLEASE REVIEW YOUR NEW MEDICATION LIST AND FOLLOW INSTRUCTIONS CAREFULLY. CALL PRIMARY CARE PHYSICIAN OR RETURN TO ER IMMEDIATELY IF WITH RECURRENCE OF SYMPTOMS, SHORTNESS OF BREATH, FEVER/CHILLS, COUGH, DIARRHEA. FOLLOW UP WITH DR. BROWN ON FRIDAY APRIL 29, 2016 AT 9:50 AM. Current Hospital Diet Patient's current hospital diet: AHA Diet (Heart Healthy) Discharge Diet Recommended Diet: AHA Diet (Heart Healthy) Pending Studies Studies pending at discharge: yes List of pending studies: REPEAT IMAGING OF THE CHEST ADVISED BY PRIMARY CARE PHYSICIAN Medical Emergencies . Who to Call and When: Medical Emergencies: If at any time you feel your situation is an emergency, please call 911 immediately. . Non-Emergent Contact Non-Emergency issues call your: Primary Care Provider Call Non-Emergent contact if: you have a fever, you have any medication questions . Past History Medical & Surgical History: (1) Acute respiratory failure with hypoxia (2) Hypoxia (3) Sciatica (4) Sepsis (5) Depression (6) Pneumonia (7) Neuropathy (8) Biceps tendon rupture (9) Lumbosacral neuritis (10) Unexplained weight loss . "Provider Documentation" section prepared by Parvez Montalvo. VTE Core Measure Inpt VTE Proph given/why not?: Enoxaparin (Lovenox) [place] Drug Monitoring Program Search Results: patient reviewed within database
--- NOTE | 2016-04-25 16:03 | Discharge Summary ---
Discharge Summary Date of Service Apr 25, 2016. Discharge Summary Admission Date: Apr 18, 2016 at 20:02 Discharge Date: Apr 25, 2016 Discharge Disposition: Home Principal Diagnosis: ACUTE HYPOXIC RESPIRATORY FAILURE SECONDARY TO MULTIFOCAL PNEUMONIA Secondary Diagnoses/Problems: PLEASE REFER TO HOSPITAL COURSE BELOW Procedures: PICC LINE PLACEMENT; CT ANGIOGRAM OF THE CHEST CLINICAL HISTORY: Fever, shortness of breath. COMPARISON STUDY: Chest x-ray dated 04/18/2016 TECHNIQUE: Following the IV administration of 116 mL of Optiray-320, CT angiogram of the thorax was performed from the thoracic inlet to the lung bases utilizing the pulmonary embolus protocol. Images are reviewed in the axial, sagittal, and coronal planes. IV contrast was administered without complication. MIP imaging was performed. CT DOSE: 635.50 mGycm FINDINGS: There is a partially visualized 2 cm upper pole left renal cyst. There is hepatic steatosis. There are mildly enlarged mediastinal and hilar lymph nodes, likely reactive. Follow-up subsequent to treatment should be considered. There was no evidence of thoracic aortic dilatation. There were no pulmonary artery filling defects to indicate acute pulmonary embolism. No pleural effusions are visualized. The study is somewhat limited due to respiratory motion artifact. There are right upper lobe, right middle lobe, right lower lobe, and left lower lobe airspace opacities, suspicious for multifocal pneumonia. There is lower lobe bronchial wall thickening and mucous plugging. Clinical and imaging follow-up is recommended. IMPRESSION: 1. No CT evidence of acute pulmonary embolism 2. Bilateral pulmonary airspace opacities, suspicious for a multifocal pneumonia. 3. Mediastinal and hilar lymphadenopathy, possibly reactive given the suspected bilateral pneumonia 4. Clinical and imaging follow-up is recommended. 5. Hepatic steatosis Consultations: PRODUCT ASSEMBLER/PULMONARY: DR. VILLA, INFECTIOUS DISEASE DR. VICTOR Pending Studies/Follow-Up: REPEAT CT CHEST IN ~4 WEEKS TO ENSURE RESOLUTION OF PNEUMONIA; MONITOR BP ( AMLODIPINE STARTED); PLEASE REFER TO HOSPITAL COURSE BELOW. Medication Reconciliation New Medications: Doxycycline Hyclate (Doxycycline Hyclate) 100 Mg Cap 1 CAP PO BID for 3 Days, #6 CAP 0 Refills Levofloxacin (Levaquin) 500 Mg Tab 500 MG PO DAILY for 3 Days, #3 TAB Acetylcysteine (Acetylcysteine) 1 Ml Soln 3 ML INH TIDR for 5 Days, #15 UNIT 1 Refill Amlodipine Besylate (Amlodipine Besylate) 5 Mg Tab 5 MG PO QAM for 30 Days, #30 TAB 2 Refills Docusate Sodium (Docusate Sodium) 100 Mg Cap 100 MG PO BID for 7 Days, #14 CAP 2 Refills Ipratropium [place] (Ipratropium [place]) 0.5 Mg/2.5 Ml Nebu 0.5 MG INH Q6RWA for 5 Days, #30 UNITS 2 Refills may use q4h as needed for shortness of breath, wheezing Levalbuterol (Levalbuterol) 1.25 Mg/0.5 Ml Nebu 1.25 MG INH Q6RWA for 5 Days, #30 UNITS 2 Refills may use q4h as needed for shortness of breath, wheezing Polyethylene (Miralax) 17 Gm Pow 17 GM PO DAILY for 7 Days, #7 PKT 2 Refills Continued Medications: Methadone Hcl (Methadone Hcl Intensol) 10 Mg/Ml Con 164 MG PO QAM Admission Information HPI (per Admitting provider): 55 year old male with history of opioid dependence on Methadone, hypretension, presenting with cough and shortness of breath x [address] Brown for Primary Care. Patient was at his usual state of health until last Friday when he developed dry cough, fever/chills, malaise. This progressed in the next few days and was noted to have shortness of breath as well. Patient [facility] today and was found to hypoxic, hence directed to the ER. At the ER, patient was 76% on room air, febrile at 38.8. Patient was placed on non rebreather, given Neb treatment and started on Cefepime, Levaquin. O2 sats was 92% on non rebreather. On exam, patient was resting in bed, appears somewhat weak, not in distress. Speaks in sentences with mild effort, no accessory muscle use. States breathing has somewhat improved. Denies chest pain, headache, dizziness, nausea. No other symptoms. Physical Exam (per Admitting): General Appearance: WD/WN, no apparent distress Head: normocephalic, atraumatic Eyes: normal inspection, EOMI, sclerae normal ENT: normal ENT inspection, pharynx normal, + pertinent finding (poor hearing) Neck: supple, no adenopathy, thyroid normal, no JVD, trachea midline Respiratory/Chest: chest non-tender, no respiratory distress, no accessory muscle use, + crackles (bilaterally, no wheezing) Cardiovascular: regular rate, rhythm, no edema, no JVD, no murmur Abdomen/GI: normal bowel sounds, non tender, soft Back: normal inspection, no CVA tenderness Extremities/Musculoskelatal: normal inspection, no calf tenderness, normal capillary refill, no pedal edema Neurologic/Psych: + pertinent finding (no focal neuro deficits noted, difficult to perform full neuro exam as patient on non rebreather) Skin: normal color, warm/dry, no rash Lymphatic: no adenopathy Hospital Course 55 year old male with history of opioid dependence on Methadone, hypertension, presenting with cough and shortness of breath x 4 days. ACUTE HYPOXIC RESPIRATORY FAILURE SECONDARY TO MULTIFOCAL PNEUMONIA - admitted with oxygen saturation of 76% on room air, placed on 15Liter Non rebreather admitted to the ICU for close monitoring, stayed there for 5 days - gradually weaned off, remains stable on 4 liters via nasal cannula - Management of pneumonia as noted below. SEPSIS SECONDARY TO MULTIFOCAL PNEUMONIA - Sepsis resolved - was given IV antibiotics- initially Vanco, Zosyn and Doxycycline--> Changed to IV Cefepime, Vanco, Levaquin (received x 7 days) - CT chest: IMPRESSION: 1. No CT evidence of acute pulmonary embolism 2. Bilateral pulmonary airspace opacities, suspicious for a multifocal pneumonia. 3. Mediastinal and hilar lymphadenopathy, possibly reactive given the suspected bilateral pneumonia 4. Clinical and imaging follow-up is recommended. 5. Hepatic steatosis - (+) Nasal MRSA Blood cultures- negative Sputum culture: normal sacha Urine culture: negative -continued to improve - ID Dr. Victor consulted - recommend Levaquin and Doxycycline PO x 3 more days to complete 10 day antibiotic course repeat CT scan of the chest in ~4 weeks to ensure resolution HYPERTENSION asymptomatic Amlodipine 5mg po daily started monitor BP AHA diet HISTORY OF OPIOID DEPENDENCE - On Methadone continue outpatient regimen and follow up CONSTIPATION given Laxatives DVT PROPHYLAXIS - Lovenox SQ FULL CODE per patient DISPOSITION d/c home ff up with PCP in 3-5 days Total time spent on discharge = 50 minutes This includes examination of the patient, discharge planning, medication reconciliation, and communication with other providers. Discharge Instructions Discharge Instructions Date of Service Apr 25, 2016. Admission Reason for Admission: Acute Respiratory Failure With Hypoxia Discharge Discharge Diagnosis / Problem: ACUTE RESPIRATORY FAILURE, BILATERAL PNEUMONIA Discharge Goals Goal(s): Diagnostic testing, Therapeutic intervention Activity Recommendations Activity Limitations: as noted below (NO HEAVY EXERTION UNTIL RE-EVALUATED BY PRIMARY CARE PHYSICIAN) . Instructions / Follow-Up Instructions / Follow-Up PLEASE REVIEW YOUR NEW MEDICATION LIST AND FOLLOW INSTRUCTIONS CAREFULLY. CALL PRIMARY CARE PHYSICIAN OR RETURN TO ER IMMEDIATELY IF WITH RECURRENCE OF SYMPTOMS, SHORTNESS OF BREATH, FEVER/CHILLS, COUGH, DIARRHEA. FOLLOW UP WITH DR. BROWN ON FRIDAY APRIL 29, 2016 AT 9:50 AM. Current Hospital Diet Patient's current hospital diet: AHA Diet (Heart Healthy) Discharge Diet Recommended Diet: AHA Diet (Heart Healthy) Pending Studies Studies pending at discharge: yes List of pending studies: REPEAT IMAGING OF THE CHEST ADVISED BY PRIMARY CARE PHYSICIAN Medical Emergencies . Who to Call and When: Medical Emergencies: If at any time you feel your situation is an emergency, please call 911 immediately. . Non-Emergent Contact Non-Emergency issues call your: Primary Care Provider Call Non-Emergent contact if: you have a fever, you have any medication questions . Past History Medical & Surgical History: (1) Acute respiratory failure with hypoxia (2) Hypoxia (3) Sciatica (4) Sepsis (5) Depression (6) Pneumonia (7) Neuropathy (8) Biceps tendon rupture (9) Lumbosacral neuritis (10) Unexplained weight loss . "Provider Documentation" section prepared by Parvez Montalvo. VTE Core Measure Inpt VTE Proph given/why not?: Enoxaparin (Lovenox) [place] Drug [place] Search Results: patient reviewed within database
[2016-04-25] MEDS ORDERED: NURSING VERBAL MED ORDER ONE (17:45)
[2016-04-25] MEDS ORDERED: METHADONE HCL 10 MG TAB PO ONE (19:00)
[2016-04-29 09:29] LABS: ISTAT CREATININE 0.7 mg/dl (0.6-1.3); ISTAT HEMOGLOBIN 13.6 g/dl (14.0-18.0); ISTAT IONIZED CALCIUM 1.08 mmol/l (1.12-1.32)
== END 2016-04-25 19:34 | disposition home or self-care (01) | DRG 871 ==
LOC: ENRESERVDT → ENRESERVTM → C.EDB 17:19 → C.MSICU 20:02 → C.2T 04-23 19:26
PROVIDERS: ADMIT Internal Medicine; ATTEND Internal Medicine
PROC: 02HV33Z Insertion of Infusion Device into Superior Vena Cava, Percutaneous Approach (ICD-10-PCS; principal; 2016-04-20)
DX: A41.9 Sepsis, unspecified organism (principal); J96.01 Acute respiratory failure with hypoxia; J18.9 Pneumonia, unspecified organism; G93.41 Metabolic encephalopathy; F11.20 Opioid dependence, uncomplicated; C85.90 Non-Hodgkin lymphoma, unspecified, unspecified site; Z87.891 Personal history of nicotine dependence; Z79.899 Other long term (current) drug therapy; K76.0 Fatty (change of) liver, not elsewhere classified; E83.51 Hypocalcemia; K59.00 Constipation, unspecified

== ENCOUNTER → 2016-05-23 | Outpatient (CLI) | payer OTHER ==
[~2016-05-23] MED LIST: ATRINS INH; CLC100 PO; DXY100 PO; MCMIN20ML INH; METH10CO PO; MRLP17 PO; NRV5 PO; XPNINS1255 INH
[2016-05-23 17:51] LABS: BASO % 0.7 %; BASO ABS # 0.04 K/uL (0-0.2); COMPLETE YES; EOS % 8.7 %; IG% 0.2 %; LYMPH % 33.9 %; LYMPH ABS # 2.03 K/uL (1.2-3.4); MEAN CELL VOLUME 89.9 fL (80-100); MEAN CORPUSCULAR HEMOGLOBIN 30.1 pg (25-34); MEAN CORPUSCULAR HGB CONC 33.5 g/dl (32-36); MEAN PLATELET VOLUME 10.1 fL (7.4-10.4); MONO % 8.2 %; NEUT % 48.3 %; PLATELET COUNT 326 K/uL (130-400); RED BLOOD COUNT 4.45 M/uL (4.7-6.1); WHITE BLOOD COUNT 5.99 K/uL (4.8-10.8)
[2016-05-23 17:56] LABS: PARTIAL THROMBOPLASTIN RATIO 0.9; PROTHROMBIN TIME (PATIENT) 10.5 SECONDS (9.0-12.0)
[2016-05-23 18:17] LABS: AST/SGOT 32 U/L (15-37); BLOOD UREA NITROGEN 11 mg/dl (7-18); BUN/CREATININE RATIO 12.5 (10-20); CARBON DIOXIDE 30 mmol/L (21-32); CHLORIDE 102 mmol/L (98-107); CREATININE 0.86 mg/dl (0.60-1.40); GLUCOSE 106 mg/dl (70-99); POTASSIUM 4.1 mmol/L (3.5-5.1); SODIUM 139 mmol/L (136-145)
[2016-05-23 18:30] LABS: ALKALINE PHOSPHATASE 66 U/L (45-117); ALT/SGPT 56 U/L (12-78); IMMUNOGLOBULN M 79.5 mg/dL (40-230)
== END | disposition home or self-care (01) ==
LOC: C.LABBFT 11:42
PROVIDERS: ATTEND Internal Medicine Critical Care Medicine
DX: J32.9 Chronic sinusitis, unspecified (principal); J96.00 Acute respiratory failure, unspecified whether with hypoxia or hypercapnia; R05 Cough; R06.02 Shortness of breath; J69.0 Pneumonitis due to inhalation of food and vomit; J18.9 Pneumonia, unspecified organism; D80.1 Nonfamilial hypogammaglobulinemia

== ENCOUNTER → 2016-05-29 | Day surgery (SDC) | payer OTHER ==
[2016-05-29] VITALS (18 sets, daily range): BP systolic 112–171; BP diastolic 63–119; PULSE 51–72; TEMP 36.3–37.1; O2SAT 93–100
[~2016-05-29] MED LIST changes: +FENTANYL CITRATE 100 MCG 2 ML CARP IV ONE; +FENTANYL CITRATE INJ 50 MCG/1 ML 2 ML VIAL IV ONE; +LIDOCAINE HCL 2% LOCAL 50ML VIAL INFIL ONE; +MIDAZOLAM HCL 5 MG/ML 1 ML VIAL IV ONE; +MIDAZOLAM HCL 5 MG/ML 2ML VIAL IV ONE; +NURSING VERBAL MED ORDER ONE; +SODIUM CHLORIDE 0.9% 1000ML 1,000 ML IV SCH
--- NOTE | 2016-05-29 07:35 | History and Physical ---
History & Physical Date May 29, 2016. History of Present Illness The patient is a 55 year old male with complaints of Past Medical/Surgical History Medical Problems: (1) Acute respiratory failure with hypoxia (2) Biceps tendon rupture (3) Depression (4) Lumbosacral neuritis (5) Neuropathy (6) Pneumonia (7) Sciatica (8) Sepsis (9) Unexplained weight loss Additional History Hepatic Disease: No Endocrine Disorder: No Kidney Disease: No Hypertension: Yes Heart Disease: No Bleeding Tendencies: No Infectious Diseases: No Other: opioid dependence, Thoracic neuritis Allergies Coded Allergies: No Known Allergies (Unverified , 04/18/16) Home Medications Scheduled Acetylcysteine (Acetylcysteine), 3 ML INH TIDR Amlodipine Besylate (Amlodipine Besylate), 5 MG PO QAM Docusate Sodium (Docusate Sodium), 100 MG PO BID Doxycycline Hyclate (Doxycycline Hyclate), 1 CAP PO BID Ipratropium [place] (Ipratropium [place]), 0.5 MG INH Q6RWA Levalbuterol (Levalbuterol), 1.25 MG INH Q6RWA Methadone Hcl (Methadone Hcl Intensol), 164 MG PO QAM Polyethylene (Miralax), 17 GM PO DAILY Physical Examination Skin: warm/dry, no rash Eyes: normal inspection, EOMI, sclerae normal ENT: normal ENT inspection, pharynx normal Head: normocephalic, atraumatic Neck: supple, no adenopathy, trachea midline Respiratory/Chest: lungs clear, normal breath sounds, no respiratory distress Cardiovascular: regular rate, rhythm, no edema, no murmur Abdomen / GI: normal bowel sounds, non tender Back: normal inspection Extremities: normal inspection, normal range of motion Neurologic/Psych: no motor/sensory deficits, alert, normal reflexes, oriented x 3 Diagnosis hypoxic respiratory insufficiency with possible atypical infection ASA Classification: ASA Class II Plan of Treatment bronchoscopy with BAL and conscious sedation
--- NOTE | 2016-05-29 09:12 | History & Physical Bridge Note ---
H&P Re-Evaluation Bridge Note: I have examined the patient, reviewed the History & Physical and in the interval since the performance of the History & Physical I have noted the following changes of clinical significance: No changes noted
--- NOTE | 2016-05-29 09:13 | Bronchoscopy Procedure Note ---
Bronchoscopy Procedure Note Procedure: Bronchoscopy, conscious sedation, BAL RML Consent: Obtained through the patient placed into the chart Preprocedural diagnosis: chronic cough Postprocedural diagnosis: chronic cough Start time: 1055 End time: 1111 Total time: 16 min Analgesia: 2% liquid lidocaine: Via nebulizer 4% gel lidocaine: Via right naris 2% liquid lidocaine: Via bronchoscopy Sedation: Versed IV: 9 mg Fentanyl IV: 225 g Procedure: The Olympus video bronchoscope was used for this procedure initially attempted to pass the scope via the right naris but was unable so bit block was placed and the scope was then inserted via the mouth and retro-flexed to view the posterior naris. Posterior naris/posterior oropharynx: Anatomically within normal limits but signs of chronic rhinitis with bilateral erythema of the inferior and medial turbinate Glottis: Anatomically within normal limits Vocal cords: Proper abduction and abduction, anatomically within normal limits Subglottis/trachea/Michelle: Anatomically within normal limits but mild mucus appreciated throughout Right bronchial tree: Right mainstem bronchus: Anatomically within normal limits Right upper lobe: Anatomically within normal limits Bronchus intermedius: Accessory bronchus going to the RB6 subsegment Right middle lobe: Anatomically within normal limits Right lower lobe: Anatomically within normal limits Findings: diffuse mucus plugs Left bronchial tree: Left mainstem bronchus: Anatomically within normal limits Left upper lobe: Anatomically within normal limits Lingula: Anatomically within normal limits Left lower lobe: Anatomically within normal limits Findings: diffuse mucus plugs Bronchial alveolar lavage: 60cc lavage of the RML performed Complications: None Follow-up: [facility] then the [place] [facility]
--- NOTE | 2016-05-29 10:11 | Procedure Note ---
Pre-Mod Sedation Assessment General Date of Moderate Sedation: May 29, 2016. Vital Signs: Vital Signs Past 12 Hours Date Time Temp Pulse Resp B/P Pulse Ox O2 Delivery O2 Flow Rate FiO2 05/29/16 09:15 36.3 63 18 155/81 97 Room Air Review Cardiovascular: regular rate, rhythm, no edema, no gallop, no JVD, no murmur, normal peripheral pulses Abdomen: normal bowel sounds, non tender, soft, no organomegaly, no pulsatile mass, normal rectal exam Lungs: chest non-tender, lungs clear, normal breath sounds, no respiratory distress, no accessory muscle use Airway Class: I Pre-Sedation Airway Assessment Oral Cavity: WNL Able to Visualize Vocal Cords: Yes Short Thick Neck: No Hx of Sleep Apnea: No Smoking Status: Former Smoker Mallampati Classification: Class II ASA Classification: Class III Procedure Planning Contraindications-for Mod Sed: None Yes Notes The planned sedation has been discussed with the patient and consent obtained. I have identified the patient, determined the appropriateness of sedation and have assessed the patient immediately prior to the procedure. All medicine(s) and interventions are by my order.
--- NOTE | 2016-05-29 11:33 | Procedure Note ---
Post-Moderate Sedation Plan General Date of Moderate Sedation May 29, 2016. Vital Signs: Vital Signs Past 12 Hours Date Time Temp Pulse Resp B/P Pulse Ox O2 Delivery O2 Flow Rate FiO2 05/29/16 10:25 60 18 168/106 97 Room Air 10.0 28 05/29/16 09:15 36.3 63 18 155/81 97 Room Air Review - Discharge Plan Post Moderate Sedation Plan: On clinical assessment, the patient appears to have tolerated the conscious sedation without complications. Patient is recovering as anticipated. Patient will continue to be monitored by nursing and may be discharged when conscious sedation discharge criteria are met.
--- NOTE | 2016-05-29 11:49 | Discharge Instructions ---
Discharge Instructions Date of Service May 29, 2016. Admission Reason for Admission: Aspiration Pneumonia; Chronic Sinusitis; Sob Discharge Discharge Diagnosis / Problem: Chronic Cough Discharge Goals Goal(s): Diagnostic testing Activity Recommendations Activity Limitations: resume your previous activity . Instructions / Follow-Up Instructions / Follow-Up Follow-Up in the [facility] Current Hospital Diet Patient's current hospital diet: Discharge Diet Recommended Diet: N/A Procedures Procedures Performed: Bronchoscopy with BAL RML Pending Studies Studies pending at discharge: yes List of pending studies: Microbiology, fungal and AFB analysis of the right middle lobe bronchial lavage Medical Emergencies . Who to Call and When: Medical Emergencies: If at any time you feel your situation is an emergency, please call 911 immediately. . Non-Emergent Contact Non-Emergency issues call your: Dispatcher Relay Call Non-Emergent contact if: temperature is above 101.5 . . "Provider Documentation" section prepared by Jose C Peña. . VTE Core Measure Inpt VTE Proph given/why not?: Treatment not indicated
[2016-06-24 21:19] LABS: HERPES SIMPLEX CULT SOURCE RESPIRATORY-RML BAL; HERPES SIMPLEX VIRUS CULT NOT ISOLATED (NOT ISOLATED)
== END | disposition home or self-care (01) ==
LOC: C.ACU 08:37
PROVIDERS: ATTEND Internal Medicine Critical Care Medicine
DX: R05 Cough (principal); I10 Essential (primary) hypertension; Z87.01 Personal history of pneumonia (recurrent)

== ENCOUNTER → 2016-06-03 | Outpatient (CLI) | payer OTHER ==
[~2016-06-03] MED LIST changes: -FENTANYL CITRATE 100 MCG 2 ML CARP IV ONE; -FENTANYL CITRATE INJ 50 MCG/1 ML 2 ML VIAL IV ONE; -LIDOCAINE HCL 2% LOCAL 50ML VIAL INFIL ONE; -MIDAZOLAM HCL 5 MG/ML 1 ML VIAL IV ONE; -MIDAZOLAM HCL 5 MG/ML 2ML VIAL IV ONE; -NURSING VERBAL MED ORDER ONE; -SODIUM CHLORIDE 0.9% 1000ML 1,000 ML IV SCH
--- NOTE | 2016-06-03 11:25 | DIAGNOSTIC IMAGING REPORT ---
SINUS CT WITHOUT CONTRAST CLINICAL HISTORY: Chronic sinusitis. COMPARISON STUDY: None. Technique: Helical axial images of the sinuses were obtained without IV contrast. Coronal reformats were viewed. CT DOSE: 602.51 mGy.cm FINDINGS: Visualized portions of the intracranial contents are unremarkable. Orbits are unremarkable. There is no fluid within the mastoid air cells. Middle ears are clear. There is moderate mucosal thickening of the ethmoid and left sphenoid sinuses with mild mucosal thickening of the frontal and maxillary sinuses. Ostiomeatal complexes are patent. Sphenoethmoidal recesses are narrowed as are the frontoethmoidal recesses. There is no mass or air-fluid level within the nasal cavity or the sinuses. There is mild rightward deviation of the nasal septum. IMPRESSION: 1. Mild to moderate mucosal thickening of the sinuses, most evident within the left sphenoid and ethmoid sinuses. No air-fluid levels or bony destruction. 2. Mild rightward deviation of the nasal septum with spur formation. Electronically signed by: Amadou Ng M.D. 06/03/2016 11:23 AM Dictated Date/Time: 06/03/2016 11:19 AM
== END | disposition home or self-care (01) ==
LOC: C.CTS 10:37
PROVIDERS: ATTEND Internal Medicine Critical Care Medicine
DX: J32.9 Chronic sinusitis, unspecified (principal)

== ENCOUNTER → 2016-07-03 | Outpatient (CLI) | payer OTHER ==
--- NOTE | 2016-07-03 14:36 | DIAGNOSTIC IMAGING REPORT ---
FLUOROSCOPIC SNIFF TEST CLINICAL HISTORY: Elevated right hemidiaphragm. COMPARISON STUDY: Chest x-ray dated 04/22/2016. Fluoroscopy time: 0.5 minutes. FINDINGS: Dynamic fluoroscopic imaging of the diaphragm is performed during respiration. There is asymmetric elevation of the right hemidiaphragm as compared to left. There is paradoxical motion of the right hemidiaphragm consistent with diaphragmatic paralysis. Left diaphragmatic excursion is normal. 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 Electronically signed by: Benjamín Valenzuela M.D. 07/03/2016 2:35 PM Dictated Date/Time: 07/03/2016 2:33 PM
== END | disposition home or self-care (01) ==
LOC: C.RAD 14:18
PROVIDERS: ATTEND Internal Medicine Critical Care Medicine
DX: J98.6 Disorders of diaphragm (principal)

== ENCOUNTER 2016-07-04 15:12 | Emergency (ER) | payer OTHER ==
[~2016-07-04] VITALS: Ht 185.4 cm; Wt 95.3 kg
[2016-07-04 15:16] VITALS: TEMP 36.5; Ht 185.4 cm; Wt 95.3 kg
[2016-07-04] MEDS ORDERED: ONDANSETRON INJ 2 MG/ML 2 ML VIAL IV STA (15:22)
[2016-07-04] MEDS ORDERED: SODIUM CHLORIDE 0.9% 1000ML 1,000 ML IV STA (15:22)
[2016-07-04 16:04] LABS: BASO % 0.4 %; BASO ABS # 0.03 K/uL (0-0.2); COMPLETE YES; EOS % 2.1 %; HEMATOCRIT 39.8 % (42-52); IG% 0.1 %; LYMPH % 19.2 %; LYMPH ABS # 1.56 K/uL (1.2-3.4); MEAN CELL VOLUME 87.1 fL (80-100); MEAN CORPUSCULAR HEMOGLOBIN 30.2 pg (25-34); MEAN CORPUSCULAR HGB CONC 34.7 g/dl (32-36); MEAN PLATELET VOLUME 9.6 fL (7.4-10.4); MONO % 7.5 %; NEUT % 70.7 %; PLATELET COUNT 314 K/uL (130-400); RED BLOOD COUNT 4.57 M/uL (4.7-6.1); WHITE BLOOD COUNT 8.14 K/uL (4.8-10.8)
[2016-07-04 16:17] LABS: ALT/SGPT 62 U/L (12-78); AST/SGOT 32 U/L (15-37); BLOOD UREA NITROGEN 10 mg/dl (7-18); BUN/CREATININE RATIO 11.2 (10-20); CALCIUM 9.1 mg/dl (8.5-10.1); CARBON DIOXIDE 28 mmol/L (21-32); CHLORIDE 106 mmol/L (98-107); CREATININE 0.86 mg/dl (0.60-1.40); GLUCOSE 93 mg/dl (70-99); SODIUM 141 mmol/L (136-145)
[2016-07-04 16:20] LABS: ALKALINE PHOSPHATASE 61 U/L (45-117)
--- NOTE | 2016-07-04 16:31 | DIAGNOSTIC IMAGING REPORT ---
PA CHEST WITH ABDOMINAL SERIES CLINICAL HISTORY: Nausea and vomiting. FINDINGS: A PA chest radiograph is compared to study dated 04/22/2016 and correlated with chest CT dated 04/18/2016. The examination is degraded by patient rotation. The cardiomediastinal silhouette is unremarkable. There is mild elevation of the right hemidiaphragm and bibasilar atelectasis. No airspace consolidation or pleural effusion is identified. Biapical scarring is observed. No pneumothorax is seen. The skeletal structures are osteopenic. Degenerative change is noted in the thoracic spine. Supine and erect abdominal radiographs are obtained. No prior studies are available for comparison at the time of dictation. There is a nonobstructed abdominal bowel gas pattern. Mild to moderate colonic fecal retention is observed. No intraperitoneal free air is seen. There are no abnormal abdominal calcifications. There is mild lumbosacral spondylosis. The bony pelvis appears intact. IMPRESSION: 1. Bibasilar atelectasis with no acute cardiopulmonary abnormality. 2. Nonobstructed abdominal bowel gas pattern. Electronically signed by: Benjamín Valenzuela M.D. 07/04/2016 4:29 PM Dictated Date/Time: 07/04/2016 4:27 PM
[2016-07-04 16:41] LABS: URINE APPEARANCE CLEAR (CLEAR); URINE BILIRUBIN NEG (NEG); URINE COLOR DK YELLOW; URINE NITRITE NEG (NEG); URINE SPECIFIC GRAVITY 1.019 (1.000-1.030); UROBILINOGEN NEG (NEG); ZZUR CULT IF INDIC CLEAN CATCH NO
[2016-07-04 16:48] LABS: MANUAL MICROSCOPIC REQUIRED? NO; REVIEW REQ? NO
[2016-07-04 17:27] VITALS: BP 138/75; PULSE 87; O2SAT 97
--- NOTE | 2016-07-04 18:00 | EMERGENCY ROOM VISIT NOTE ---
History Report prepared by Archana: Mariposa Gutierrez Under the Supervision of: Tamanna GayleO. 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 The patient was feeling nauseous all day. He went to an outpatient appointment with pathology and vomited once in the office. He was sent to the ED for further evaluation. The patient denies feeling nauseated at this time. He does report experiencing diarrhea over the past 3 days. He denies abdominal pain, urinary symptoms, cough , rhinorrhea, sore throat, and fevers greater than 100.4. He is not currently taking any antibiotics. No previous abdominal surgeries. He does have a history of aspiration pneumonia with previous intubation. 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 A total of 10 systems reviewed and were otherwise negative. Past Medical & Surgical Medical Problems: (1) Acute respiratory failure with hypoxia (2) Biceps tendon rupture (3) Depression (4) Lumbosacral neuritis (5) Neuropathy (6) Pneumonia (7) Sciatica (8) Sepsis (9) Unexplained weight loss Family History No pertinent family history Social History Smoking Status: Never Smoker Marital Status: Housing Status: lives with family Current/Historical Medications Scheduled Amlodipine Besylate (Amlodipine Besylate), 5 MG PO QAM Methadone Hcl (Methadone Hcl Intensol), 164 MG PO QAM Allergies Coded Allergies: No Known Allergies (Unverified , 07/04/16) Physical Exam Vital Signs Date Time Temp Pulse Resp B/P Pulse Ox O2 Delivery O2 Flow Rate FiO2 07/04/16 17:27 87 20 138/75 97 07/04/16 15:16 36.5 73 20 142/97 94 Room Air Physical Exam GENERAL: alert, sitting up in bed, well appearing, hard of hearing, well nourished, no distress, non-toxic EYE EXAM: normal conjunctiva OROPHARYNX: no exudate, no erythema, lips, buccal mucosa, and tongue normal and mucous membranes are moist NECK: supple, no nuchal rigidity, no adenopathy, non-tender LUNGS: Clear to auscultation. Normal chest wall mechanics HEART: no murmurs, S1 normal and S2 normal ABDOMEN: abdomen soft, non-tender, normo-active bowel sounds, no masses, no rebound or guarding. BACK: Back is symmetrical on inspection and there is no deformity, no midline tenderness, no CVA tenderness. SKIN: no rashes and no bruising UPPER EXTREMITIES: upper extremities are grossly normal. LOWER EXTREMITIES: No pitting edema. NEURO EXAM: Normal sensorium, cranial nerves II-XII grossly intact, normal speech, no gross weakness of arms, no gross weakness of legs. Medical Decision & Procedures ER Provider Diagnostic Interpretation: Radiology results as stated below per my review and the radiologist's interpretation: PA CHEST WITH ABDOMINAL SERIES CLINICAL HISTORY: Nausea and vomiting. FINDINGS: A PA chest radiograph is compared to study dated 04/22/2016 and correlated with chest CT dated 04/18/2016. The examination is degraded by patient rotation. The cardiomediastinal silhouette is unremarkable. There is mild elevation of the right hemidiaphragm and bibasilar atelectasis. No airspace consolidation or pleural effusion is identified. Biapical scarring is observed. No pneumothorax is seen. The skeletal structures are osteopenic. Degenerative change is noted in the thoracic spine. Supine and erect abdominal radiographs are obtained. No prior studies are available for comparison at the time of dictation. There is a nonobstructed abdominal bowel gas pattern. Mild to moderate colonic fecal retention is observed. No intraperitoneal free air is seen. There are no abnormal abdominal calcifications. There is mild lumbosacral spondylosis. The bony pelvis appears intact. IMPRESSION: 1. Bibasilar atelectasis with no acute cardiopulmonary abnormality. 2. Nonobstructed abdominal bowel gas pattern. Electronically signed by: Benjamín Valenzuela M.D. 07/04/2016 4:29 PM Dictated Date/Time: 07/04/2016 4:27 PM Laboratory Results 07/04/16 15:50 Red Blood Count 4.57, Mean Corpuscular Volume 87.1, Mean Corpuscular Hemoglobin 30.2, Mean Corpuscular Hemoglobin Concent 34.7, Mean Platelet Volume 9.6, Neutrophils (%) (Auto) 70.7, Lymphocytes (%) (Auto) 19.2, Monocytes (%) (Auto) 7.5, Eosinophils (%) (Auto) 2.1, Basophils (%) (Auto) 0.4, Neutrophils # (Auto) 5.76, Lymphocytes # (Auto) 1.56, Monocytes # (Auto) 0.61, Eosinophils # (Auto) 0.17, Basophils # (Auto) 0.03 07/04/16 15:50 Test 07/04/16 15:50 07/04/16 16:26 White Blood Count 8.14 K/uL (4.8-10.8) Red Blood Count 4.57 M/uL (4.7-6.1) Hemoglobin 13.8 g/dL (14.0-18.0) Hematocrit 39.8 % (42-52) Mean Corpuscular Volume 87.1 fL (80-100) Mean Corpuscular Hemoglobin 30.2 pg (25-34) Mean Corpuscular Hemoglobin Concent 34.7 g/dl (32-36) Platelet Count 314 K/uL (130-400) Mean Platelet Volume 9.6 fL (7.4-10.4) Neutrophils (%) (Auto) 70.7 % Lymphocytes (%) (Auto) 19.2 % Monocytes (%) (Auto) 7.5 % Eosinophils (%) (Auto) 2.1 % Basophils (%) (Auto) 0.4 % Neutrophils # (Auto) 5.76 K/uL (1.4-6.5) Lymphocytes # (Auto) 1.56 K/uL (1.2-3.4) Monocytes # (Auto) 0.61 K/uL (0.11-0.59) Eosinophils # (Auto) 0.17 K/uL (0-0.5) Basophils # (Auto) 0.03 K/uL (0-0.2) RDW Standard Deviation 41.8 fL (36.4-46.3) RDW Coefficient of Variation 13.1 % (11.5-14.5) Immature Granulocyte % (Auto) 0.1 % Immature Granulocyte # (Auto) 0.01 K/uL (0.00-0.02) Anion Gap 7.0 mmol/L (3-11) Est Creatinine Clear Calc Drug Dose 109.7 ml/min Estimated GFR () 113.1 Estimated GFR (Non- 97.6 BUN/Creatinine Ratio 11.2 (10-20) Calcium Level 9.1 mg/dl (8.5-10.1) Total Bilirubin 0.3 mg/dl (0.2-1) Direct Bilirubin < 0.1 mg/dl (0-0.2) Aspartate Amino Transf (AST/SGOT) 32 U/L (15-37) Alanine Aminotransferase (ALT/SGPT) 62 U/L (12-78) Alkaline Phosphatase 61 U/L (45-117) Total Protein 8.1 gm/dl (6.4-8.2) Albumin 4.2 gm/dl (3.4-5.0) Lipase 90 U/L (73-393) Urine Color DK YELLOW Urine Appearance CLEAR (CLEAR) Urine pH 5.0 (4.5-7.5) Urine Specific Rattan 1.019 (1.000-1.030) Urine Protein TRACE (NEG) Urine Glucose (UA) NEG (NEG) Urine Ketones NEG (NEG) Urine Occult Blood NEG (NEG) Urine Nitrite NEG (NEG) Urine Bilirubin NEG (NEG) Urine Urobilinogen NEG (NEG) Urine Leukocyte Esterase NEG (NEG) Urine WBC (Auto) 1-5 /hpf (0-5) Urine RBC (Auto) 0-4 /hpf (0-4) Urine Hyaline Casts (Auto) 5-10 /lpf (0-5) Urine Epithelial Cells (Auto) 5-10 /lpf (0-5) Urine Bacteria (Auto) NEG (NEG) Laboratory results per my review. Medications Administered Medications (Trade) Dose Ordered Sig/Juli Route Start Time Stop Time Status Last Admin Dose Admin Ondansetron HCl 4 mg 4 mg NOW STAT IV 07/04/16 15:22 07/04/16 15:24 DC 07/04/16 16:29 4 MG Sodium Chloride (Nss 1000ml) 1,000 ml @ 999 mls/hr Q1H1M STAT IV 07/04/16 15:22 07/04/16 16:22 DC 07/04/16 16:28 999 MLS/HR ED Course ED COURSE: Vital signs were reviewed and showed normal vitals. The patients medical record was reviewed The above diagnostic studies were performed and reviewed. ED treatments and interventions as stated above. 1522: The patient was evaluated in room C3. A complete history and physical examination was performed. 1522: NSS 1000 ml @ 999 mls/hr IV, Zofran 4 mg IV 1631: I updated the patient. 1657: Upon reevaluation, the patient is feeling better and resting comfortably. I discussed my findings with the patient and he understands and agrees with the treatment plan. Based on the patients age, coexisting illnesses, exam and lab findings the decision to treat as an outpatient was made. The patient remained stable while under my care. The patient appeared well at the time of discharge. Medical Decision Differential diagnoses includes but is not limited to gastritis, peptic ulcer disease, GERD, gallbladder disease, pancreatitis, small bowel obstruction, acute coronary syndrome, pericarditis, ischemic bowel, irritable bowel disease, irritable bowel syndrome, appendicitis, diverticulitis, malignancy, hernia, urinary tract infection, torsion, perforation, trauma, infectious. Medication Reconciliation: I attest that I have personally reviewed the patient' s current medication list. Patient is a 56-year-old male who presents the ER for an episode of vomiting associated with nausea today which has resolved. Denies any abdominal pain and no previous abdominal surgeries. Vitals are unremarkable. His abdominal exam is completely benign. CBC along with BMP, LFTs, bilirubin and lipase are normal. UA was negative. He has absolutely no abdominal complaints and denies any nausea currently. Obstruction series shows no obvious obstruction or free air. Based on the patient's symptoms he was discharged follow-up with his primary care doctor for repeat abdominal check tomorrow. Discussed with Pt concerning signs and symptoms to watch out for. Pt was instructed to follow up with their PCP and discussed with the patient their option to return to the ED at anytime for persistent or worsening symptoms. The appropriate anticipatory guidance and out-patient management, including indications for return to the emergency department, were explained at length to the patient and understood. Impression Primary Impression: Nausea & vomiting Scribe Attestation The scribe's documentation has been prepared under my direction and personally reviewed by me in its entirety. I confirm that the note above accurately reflects all work, treatment, procedures, and medical decision making performed by me. Departure Information Dispostion Home / Self-Care Referrals No Doctor, Assigned (PCP) Forms HOME CARE DOCUMENTATION FORM, IMPORTANT VISIT INFORMATION Patient Instructions ED Nausea Vomiting, My [facility] Additional Instructions Please follow up with your primary care doctor with in the next 24 hours. Any worsening of your symptoms, please return to the ED immediately. This includes fevers greater than 100.4, persistent nausea vomiting, unable to move your bowels, persistent diarrhea, or any other concerning signs or symptoms from your stand point. Problem Qualifiers Primary Impression: Nausea & vomiting Vomiting type: unspecified Vomiting Intractability: non-intractable Qualified Codes: R11.2 - Nausea with vomiting, unspecified
== END 2016-07-04 17:29 | disposition home or self-care (01) ==
LOC: C.EDB 15:14 → C.EDC 17:29
DX: R11.2 Nausea with vomiting, unspecified (principal); F32.9 Major depressive disorder, single episode, unspecified; M54.17 Radiculopathy, lumbosacral region; Z87.01 Personal history of pneumonia (recurrent); M54.30 Sciatica, unspecified side

== ENCOUNTER → 2016-07-29 | Outpatient (CLI) | payer OTHER ==
[~2016-07-29] MED LIST changes: -ATRINS INH; -CLC100 PO; -DXY100 PO; -MCMIN20ML INH; -MRLP17 PO; -XPNINS1255 INH
--- NOTE | 2016-07-29 13:21 | DIAGNOSTIC IMAGING REPORT ---
VIDEO SWALLOW HISTORY: Dysphagia. Aspiration pneumonitis. J69.0 Aspiration pneumonia appt ached [id number] TECHNIQUE: Video fluoroscopic evaluation of swallowing was performed in the AP and lateral projections by the speech pathology staff. The patient is fed nectar-thick and thin liquid barium, a barium coated wafer, and barium pudding. FLUOROSCOPY TIME: 2 minutes. COMPARISON STUDY: 07/13/2007 FINDINGS: Intermittent trace penetration. Trace aspiration with no significant cough reflex with thin liquids. No aspiration with thicker liquids. IMPRESSION: 1. Aspiration and intermittent penetration with thin liquids. 2. Please see the speech pathologist report for detailed findings and recommendations. Electronically signed by: Aryan Miranda M.D. 07/29/2016 1:20 PM Dictated Date/Time: 07/29/2016 1:19 PM
--- NOTE | 2016-07-29 14:51 | SWALLOWING EVALUATION ---
HISTORY: This 56 year old man was referred for a video swallow study at [facility] in order to rule out aspiration and identify the safest consistencies for optimal oral intake. The patient was referred for the study after and outpatient assessment here at [facility] where dysphagia was identified. He denies any specific swallowing difficulty and reports he has not had any recurrent pneumonia. Per EMR review, he was admitted earlier this year (April 2016) with respiratory failure and had multifactorial pneumonia. Prior to this, the patient reported his last episode of pneumonia was in 2010. PMH is significant for: opioid dependence, hypertension, sciatica, depression, sepsis, neuropathy, tendon rupture in biceps, and lumbosacral neuritis. Current diet is regular. The patient participated in a previous video swallow study in 2007. A mechanical soft diet and thin liquids was recommended. There was evidence of laryngeal penetration without aspiration. Of note, the patient appeared to be highly anxious, impulsive, and tangential. He required frequent redirection to task and had some difficulty following more complex directions. He is hard of hearing and wears hearing aids. PROCEDURE: The patient was seen in the Radiology Department of [facility] for the VFSS. Cursory examination of the oral cavity revealed natural dentition. Movement of the articulators was wnl. The patient was seated on a stool and was viewed in both the Anterior-Posterior (A-P) and Lateral planes. Volitional phonation exercises completed in the A-P plane revealed bilateral vocal fold movement and vocal intensity within functional limits. In the lateral plane, the patient was given the following boluses: 1 tsp. thin liquid barium x 2, single swallow thin liquid barium self-presented from a cup, sequential swallows of thin liquid barium self-presented from a straw, 1 tsp. nectar-thick liquid barium, single swallow nectar-thick liquid barium self-presented from a cup, and 1 tsp. barium pudding. The patient was then repositioned into the A-P plane and given the following boluses: 1 tsp. barium pudding, and 1 club cracker with barium paste. RESULTS: Oral Stage: Lip closure was adequate. The patient was unable to maintain a cohesive liquid bolus upon command as evidenced by premature spillage of less than half the bolus. Mastication was mildly slow. Lingual motion for bolus transport was brisk. There was trace retention lining the tongue and palate after the swallow. The initiation of the pharyngeal swallow triggered when the bolus head reached pyriforms. Pharyngeal Stage: Soft palate elevation was complete. Laryngeal elevation revealed partial superior movement of the thyroid cartilage and partial approximation of the arytenoids to the epiglottic base. Anterior hyoid excursion and epiglottic deflection were partially reduced. Laryngeal vestibular closure was incomplete, as evidenced by a narrow (and at times wide) column of contrast located in a vestibule at the height of the swallow. The pharyngeal stripping wave was present yet diminished. Pharyngeal contraction was incomplete. There was partial distention and duration of the opening to the pharyngoesophageal segment (PES). Tongue base retraction was reduced, with a narrow column of contrast located between the tongue base and pharyngeal wall. There was a collection of retention located in the valleculae, along the posterior pharyngeal wall, and in the pyriforms after the swallow. There was laryngeal penetration of thin liquids to the level of the vocal folds, with evidence of SILENT aspiration below the vocal folds with larger cup sips (impulsive with large gulps) and with serial swallows via straw. When small cup sips were taken, there was no evidence of aspiration. He continued to have laryngeal penetration but this was not as significant as with larger sips. There was laryngeal penetration without aspiration of nectar thick liquids. A liquid wash was effective to assist in clearing a majority of the pharyngeal retention of both the pudding and cracker boluses. He required verbal and demonstration cues in order to keep his chin in a neutral position for the study but was unable to complete, therefore tactile cues were utilized. Did not attempt to complete a chin tuck maneuver, as the patient was having difficulty following complex directions for the study. Aspiration is attributed to his delayed swallow reflex and generalized pharyngeal weakness. Esophageal stage: There was complete esophageal clearance. SUMMARY/RECOMMENDATIONS: This patient presents with mild to moderate eduard-pharyngeal dysphagia. He is a HIGH risk for aspiration due to his impulsivity and aforementioned pharyngeal weakness. The following is recommended: 1. Regular diet and thin liquids. 2. STRICT Aspiration precautions. NO straws. Fully upright while eating and 30 minutes after meals. Stringent oral care to include brushing all surfaces of the mouth and tongue prior to and after meals, as well as before bed. This is to reduce oral bacteria that can be aspirated in saliva. 3. Safe swallow strategies: Small bites, SMALL single sips of liquids. Alternate solids and liquids. Slow rate. Eat meals in a distraction free area. 4. Continue with outpatient speech therapy to focus on implementing diet and safe swallow strategy recommendations. A summary of the results and recommendations was discussed with the patient and he immediately following the study with verbal understanding. Thank you for referral of this patient. Please contact me at if any additional information is needed.
== END | disposition home or self-care (01) ==
LOC: C.RAD 11:17
PROVIDERS: ATTEND Internal Medicine Critical Care Medicine
DX: J69.0 Pneumonitis due to inhalation of food and vomit (principal)

== ENCOUNTER 2017-02-27 15:04 | Emergency (ER) | payer OTHER ==
[~2017-02-27] VITALS: Ht 185.4 cm; Wt 95.0 kg
[2017-02-27 15:06] VITALS: TEMP 36.4; Ht 185.4 cm; Wt 95.0 kg
--- NOTE | 2017-02-27 16:36 | EMERGENCY ROOM VISIT NOTE ---
ED Visit Note First contact with patient: 16:08 CHIEF COMPLAINT: Infection of the right third toe HISTORY OF PRESENT ILLNESS: This 56-year-old male patient presents to the emergency department a few hours after they noticed a hard, red, tender area on the tip of the right third toe. The patient states last summer, he dropped a brick on his right toes. He states he suffered a fracture of the right second toe, and he has been experiencing some redness and decreased sensation in the right third toe. He was at his pain management appointment today with Dr. Coughlin, and pointed out the open wound on the toe. His pain management doctor advised him to be evaluated here in the emergency department, as he was unwilling to give the patient his pain injection until osteomyelitis was ruled out. It is slowly getting larger, more painful and tender. No fever, chills, or loss of appetite. There has been mild drainage from the area. The patient has not seen his PCP for evaluation of wound. Tetanus is not up to date. He states he was unaware of the open wound with drainage until his appointment today. The patient is not diabetic. He denies history of neuropathy. The patient has no history of subcutaneous abscesses. REVIEW OF SYSTEMS: A 10 system review of systems was performed with positives and pertinent negatives listed in the history of present illness. All other systems were reviewed and are negative. ALLERGIES: None MEDICATIONS: Amlodipine, methadone PMH: Hypertension SOCIAL HISTORY: The patient lives locally with family. He denies drug, alcohol , tobacco use. PHYSICAL EXAM: Vital Signs: Reviewed Nurse's notes, vital signs stable, patient is afebrile. GENERAL: This is a 56-year-old white male, no acute distress, non toxic in appearance, well-developed well-nourished. HEART: RRR, no murmurs, gallops, or rubs noted. LUNGS: CTA bilaterally. SKIN: There is an erythematous indurated area on the right third which measures about 1 cm in diameter. It is not fluctuant and there is an ulcerated area in the middle which is draining clear fluid. There is a zone of inflammation around it but no lymphangitis. No obvious cellulitis noted on examination, specifically, the areas of concern on CT scan. Erythema overlying the distal aspect of the right 3rd toe, not radiating to the proximal toe or into the foot. Capillary refill less than 2 seconds. MUSCULOSKELETAL: There is no limitation of the range of motion of the right toe, foot, or ankle. RADIOLOGY: RIGHT THIRD TOE 3 VIEWS HISTORY: right middle toe infection, trauma several months ago COMPARISON: None. FINDINGS: There is no fracture or dislocation. Soft tissue swelling within the distal right third toe. There is erosion of the distal tuft of the right third toe with sclerosis within the residual distal phalanx. Punctate focus of soft tissue gas appears to correspond to the soft tissue ulceration seen within the distal toe. No radiopaque foreign bodies. IMPRESSION: Erosion/destruction of the distal tuft of the right third toe consistent with osteomyelitis. Electronically signed by: Jak Dumas M.D. 02/27/2017 5:08 PM Dictated Date/Time: 02/27/2017 5:[address] SCAN OF THE RIGHT FOREFOOT WITHOUT IV CONTRAST CLINICAL HISTORY: Osteomyelitis. COMPARISON STUDY: Radiographs of the right third toe dated 02/27/2017. TECHNIQUE: High-resolution CT scan of the right forefoot is performed. Images are reviewed in the axial, sagittal, and coronal planes. IV contrast was not administered for this examination. A dose lowering technique was utilized adhering to the principles of ALARA. CT DOSE: 175.94 mGy.cm FINDINGS: The skeletal structures appear osteopenic. No acute fracture is seen. Moderate arthritic change is present throughout the midfoot. There is erosive change identified involving the tuft of the third distal phalanx. The appearance is typical for osteomyelitis. No additional foci of erosive change are identified throughout the forefoot. There is overlying soft tissue edema in the third toe, likely representing cellulitis. A small ulceration is suggested at the tip of the third toe. There is no evidence of organized fluid collection on this unenhanced examination to suggest abscess. Moderate soft tissue edema is seen in the forefoot, greatest along the plantar surface. IMPRESSION: 1. Erosive change is seen involving the tuft of the third distal phalanx. The appearance is typical for osteomyelitis. Clinical correlation will be required. 2. No additional foci of bony abnormality are identified. No fracture is seen. 3. Soft tissue edema is present in the forefoot, greatest in the third toe. This likely represents cellulitis. Clinical correlation will be required. Dictated: 02/27/2017 7:04 PM Transcribed: 02/27/2017 7:26 PM [email or web address] Electronically signed by: Benjamín Valenzuela M.D. 02/27/2017 7:29 PM Dictated Date/Time: 02/27/2017 7:04 PM EMERGENCY DEPARTMENT COURSE: I examined the patient. X-ray was ordered and performed. This did show signs of probable osteomyelitis. I discussed the case with Dr. Harmon, who did see and evaluate the patient. Labs were drawn and CT scan was ordered, as the clinical examination is not terribly impressive for severe infection. The patient was given a dose of Zosyn. He was also given a Tdap vaccination, as his is not up to date. CT findings were also consistent with osteomyelitis. I did consult with orthopedics. I spoke with Dr. Munguia regarding patient condition, physical examination findings, lab and imaging evaluation, and treatment provided here in the ED. He does feel that the patient can be appropriately managed outpatient with oral antibiotics as there are no obvious signs of cellulitis. He states he will follow-up with the patient within the next week, or sooner if the patient begins experiencing worsening symptoms. Discharge instructions reviewed, the patient was provided with home packs for the Augmentin and Bactrim he will be started on. The patient was discharged home in stable condition. I attest that I have personally reviewed the patient's current medication list. Patient was found to have normal blood pressure on screening and does not require follow-up. DIFFERENTIAL DIAGNOSIS: Abscess, infection, osteomyelitis, cellulitis, sepsis, malignancy, and others DIAGNOSIS: Infection of the distal phalanx of the right third toe, possible osteomyelitis Problem List Medical Problems: (1) Pneumonia Status: Resolved (2) Sepsis Status: Resolved Current/Historical Medications Scheduled Amlodipine Besylate (Amlodipine Besylate), 5 MG PO QAM Amoxicillin & Pot Clavulanate (Augmentin 875-125 mg), 1 TAB PO BID Methadone Hcl (Methadone Hcl Intensol), 164 MG PO QAM Sulfa/Trimethoprim (Bactrim Ds 800MG/160MG), 1 TAB PO BID Allergies Coded Allergies: No Known Allergies (Unverified , 02/27/17) Vital Signs Date Time Temp Pulse Resp B/P (MAP) Pulse Ox O2 Delivery O2 Flow Rate FiO2 02/27/17 20:53 82 140/89 02/27/17 18:50 70 18 163/99 96 Room Air 02/27/17 17:40 66 18 166/94 93 Room Air 02/27/17 15:06 36.4 73 18 142/80 100 Room Air Laboratory Results 02/27/17 18:20 Red Blood Count 4.44, Mean Corpuscular Volume 93.7, Mean Corpuscular Hemoglobin 32.0, Mean Corpuscular Hemoglobin Concent 34.1, Mean Platelet Volume 9.5, Neutrophils (%) (Auto) 56.5, Lymphocytes (%) (Auto) 27.5, Monocytes (%) (Auto) 9.0, Eosinophils (%) (Auto) 6.3, Basophils (%) (Auto) 0.5, Neutrophils # (Auto) 5.18, Lymphocytes # (Auto) 2.53, Monocytes # (Auto) 0.83, Eosinophils # (Auto) 0.58, Basophils # (Auto) 0.05 02/27/17 18:20 Test 02/27/17 18:20 White Blood Count 9.19 K/uL (4.8-10.8) Red Blood Count 4.44 M/uL (4.7-6.1) Hemoglobin 14.2 g/dL (14.0-18.0) Hematocrit 41.6 % (42-52) Mean Corpuscular Volume 93.7 fL (80-100) Mean Corpuscular Hemoglobin 32.0 pg (25-34) Mean Corpuscular Hemoglobin Concent 34.1 g/dl (32-36) Platelet Count 387 K/uL (130-400) Mean Platelet Volume 9.5 fL (7.4-10.4) Neutrophils (%) (Auto) 56.5 % Lymphocytes (%) (Auto) 27.5 % Monocytes (%) (Auto) 9.0 % Eosinophils (%) (Auto) 6.3 % Basophils (%) (Auto) 0.5 % Neutrophils # (Auto) 5.18 K/uL (1.4-6.5) Lymphocytes # (Auto) 2.53 K/uL (1.2-3.4) Monocytes # (Auto) 0.83 K/uL (0.11-0.59) Eosinophils # (Auto) 0.58 K/uL (0-0.5) Basophils # (Auto) 0.05 K/uL (0-0.2) RDW Standard Deviation 46.4 fL (36.4-46.3) RDW Coefficient of Variation 13.6 % (11.5-14.5) Immature Granulocyte % (Auto) 0.2 % Immature Granulocyte # (Auto) 0.02 K/uL (0.00-0.02) Erythrocyte Sedimentation Rate 21 mm/hr (0-14) Anion Gap 7.0 mmol/L (3-11) Est Creatinine Clear Calc Drug Dose 134.7 ml/min Estimated GFR () 123.1 Estimated GFR (Non- 106.2 BUN/Creatinine Ratio 16.1 (10-20) Calcium Level 9.3 mg/dl (8.5-10.1) C-Reactive Protein 0.59 mg/dl (0-0.29) Medications Administered Medications (Trade) Dose Ordered Sig/Juli Route Start Time Stop Time Status Last Admin Dose Admin Piperacillin Sod/ Tazobactam Sod (Zosyn Iv) 3.375 gm NOW STAT IV 02/27/17 17:37 02/27/17 17:41 DC 02/27/17 18:49 3.375 GM Diphtheria/ Pertussis/Tetanus Vacc (Adacel Inj) 0.5 ml ONCE ONCE IM. 02/27/17 19:00 02/27/17 19:01 DC 02/27/17 19:07 0.5 ML Departure Information Impression Primary Impression: Osteomyelitis Dispostion Home / Self-Care Condition GOOD Prescriptions Sulfa/Trimethoprim (Bactrim Ds 800MG/160MG) Tab 1 TAB PO BID for 10 Days, #20 TAB Prov: Sierra Burks PA-C 02/27/17 Amoxicillin & Pot Clavulanate (Augmentin 875-125 mg) 1 Tab Tab 1 TAB PO BID for 10 Days, #20 TAB Prov: Sierra Burks PA-C 02/27/17 Referrals Domo Simmons M.D. (PCP) Kimani Munguia D.O. Patient Instructions My [facility], Osteomyelitis Dc Additional Instructions You were seen in the ED today for skin/bone infection of the right 3rd toe. Imaging was suspicious for osteomyelitis, however, clinical examination was not significant for cellulitis or obvious deep infection. Amoxicillin Clavulanate (Augmentin) 875mg: Take one pill twice daily for 10 days for your infection. All antibiotics can cause diarrhea. If this occurs and you feel worse or it does not resolve in 1-2 days follow up with your doctor or return to the Emergency Department as this could be signs of serious underlying problems. Any medication can cause an allergic reaction, stop the pills immediately and return to the ER for rash, hives, breathing difficulties, or swelling. Trimethoprim-Sulfamethoxazole(Bactrim DS): Take one pill twice daily for 10 days for your toe infection. All antibiotics can cause diarrhea. If this occurs and you feel worse or it does not resolve in 1-2 days follow up with your doctor or return to the Emergency Department as this could be signs of serious underlying problems. Any medication can cause an allergic reaction, stop the pills immediately and return to the ER for rash, hives, breathing difficulties, or swelling. Ibuprofen(Motrin, Advil) may be used for fever or pain. Use 600mg every six hours as needed. Take with food. Avoid using more than 2400mg in a 24 hour period. Do not use 2400mg per day for more than three consecutive days without physician direction. Prolonged inappropriate use can lead to stomach upset or ulcers. (AND/OR) Acetaminophen(Tylenol) may be used for fever or pain. Use 1000mg every six hours as needed. Avoid using more than 3000mg in a 24 hour period. Please follow-up with Dr. Munguia within the next week. As discussed, if you experience any worsening redness, swelling, purulent drainage, fever, chills, nausea, or vomiting, you should contact his office immediately, and if he is unable to see you quickly, come to the ED for further evaluation and work-up. Call [facility] tomorrow morning to schedule the follow-up. Problem Qualifiers Primary Impression: Osteomyelitis Osteomyelitis type: subacute Osteomyelitis location: foot Laterality: right Qualified Codes: M86.271 - Subacute osteomyelitis, right ankle and foot
--- NOTE | 2017-02-27 17:10 | DIAGNOSTIC IMAGING REPORT ---
RIGHT THIRD TOE 3 VIEWS HISTORY: right middle toe infection, trauma several months ago COMPARISON: None. FINDINGS: There is no fracture or dislocation. Soft tissue swelling within the distal right third toe. There is erosion of the distal tuft of the right third toe with sclerosis within the residual distal phalanx. Punctate focus of soft tissue gas appears to correspond to the soft tissue ulceration seen within the distal toe. No radiopaque foreign bodies. IMPRESSION: Erosion/destruction of the distal tuft of the right third toe consistent with osteomyelitis. Electronically signed by: Jak Dumas M.D. 02/27/2017 5:08 PM Dictated Date/Time: 02/27/2017 5:07 PM
[2017-02-27] MEDS ORDERED: PIPERACILLIN/TAZOBACTAM 3.375 GM/100ML D5W IV STA (17:37)
--- NOTE | 2017-02-27 17:40 | EMERGENCY ROOM VISIT NOTE ---
ED Visit Note First contact with patient: 16:08 Patient was seen by our PA/SPECIAL NEEDS LIBRARIAN. I was involved in the patient's care and did evaluate the patient myself. I was involved in the care throughout the ER stay. The patient presents with discomfort and drainage from his toe that has been ongoing for months. On exam, there was some mild erythema distally with some subtle crusted drainage. No real warmth to touch, no pain to palpation. Films of the toe suggest possible osteomyelitis. The patient will have a CT of the toe to look further for the possibility of osteomyelitis. Laboratory testing has been ordered, and antibiotics will be given. A culture of the area has been obtained. Orthopedics will likely be consulted.
[2017-02-27 18:38] LABS: BASO % 0.5 %; BASO ABS # 0.05 K/uL (0-0.2); EOS % 6.3 %; EOS ABS # 0.58 K/uL (0-0.5); HEMATOCRIT 41.6 % (42-52); HEMOGLOBIN 14.2 g/dL (14.0-18.0); IG# 0.02 K/uL (0.00-0.02); LYMPH % 27.5 %; LYMPH ABS # 2.53 K/uL (1.2-3.4); MEAN CELL VOLUME 93.7 fL (80-100); MEAN CORPUSCULAR HGB CONC 34.1 g/dl (32-36); MEAN PLATELET VOLUME 9.5 fL (7.4-10.4); MONO ABS # 0.83 K/uL (0.11-0.59); NEUT % 56.5 %; NEUT ABS # 5.18 K/uL (1.4-6.5); PLATELET COUNT 387 K/uL (130-400); RED CELL DISTRIBUTION WIDTH CV 13.6 % (11.5-14.5); RED CELL DISTRIBUTION WIDTH SD 46.4 fL (36.4-46.3); WHITE BLOOD COUNT 9.19 K/uL (4.8-10.8)
[2017-02-27 18:50] VITALS: O2SAT 96
[2017-02-27] MEDS ORDERED: DIPHTHERIA/TETANUS/PERTUSSIS 0.5 ML SYR/VIAL IM. ONE (19:00)
[2017-02-27 19:21] LABS: CALCIUM 9.3 mg/dl (8.5-10.1); CREATININE 0.7 mg/dl (0.60-1.40)
--- NOTE | 2017-02-27 19:26 | DIAGNOSTIC IMAGING REPORT ---
CT SCAN OF THE RIGHT FOREFOOT WITHOUT IV CONTRAST CLINICAL HISTORY: Osteomyelitis. COMPARISON STUDY: Radiographs of the right third toe dated 02/27/2017. TECHNIQUE: High-resolution CT scan of the right forefoot is performed. Images are reviewed in the axial, sagittal, and coronal planes. IV contrast was not administered for this examination. A dose lowering technique was utilized adhering to the principles of ALARA. CT DOSE: 175.94 mGy.cm FINDINGS: The skeletal structures appear osteopenic. No acute fracture is seen. Moderate arthritic change is present throughout the midfoot. There is erosive change identified involving the tuft of the third distal phalanx. The appearance is typical for osteomyelitis. No additional foci of erosive change are identified throughout the forefoot. There is overlying soft tissue edema in the third toe, likely representing cellulitis. A small ulceration is suggested at the tip of the third toe. There is no evidence of organized fluid collection on this unenhanced examination to suggest abscess. Moderate soft tissue edema is seen in the forefoot, greatest along the plantar surface. IMPRESSION: 1. Erosive change is seen involving the tuft of the third distal phalanx. The appearance is typical for osteomyelitis. Clinical correlation will be required. 2. No additional foci of bony abnormality are identified. No fracture is seen. 3. Soft tissue edema is present in the forefoot, greatest in the third toe. This likely represents cellulitis. Clinical correlation will be required. Dictated: 02/27/2017 7:04 PM Transcribed: 02/27/2017 7:26 PM [email or web address] Electronically signed by: Benjamín Valenzuela M.D. 02/27/2017 7:29 PM Dictated Date/Time: 02/27/2017 7:04 PM
[2017-02-27] MEDS ORDERED: AMOX875T PO (20:25)
[2017-02-27] MEDS ORDERED: AMOXICIL/CLAVU 875MG HOME PACK PO STA (20:25)
[2017-02-27] MEDS ORDERED: SULF800T23 PO (20:25)
[2017-02-27] MEDS ORDERED: SEPTRA DS HOME PACK 1 EA VIAL PO STA (20:25)
[2017-02-27 20:53] VITALS: BP 140/89; PULSE 82
== END 2017-02-27 20:50 | disposition home or self-care (01) ==
LOC: C.EDB 15:05 → C.EDD 20:50
DX: M86.271 Subacute osteomyelitis, right ankle and foot (principal); I10 Essential (primary) hypertension; Z79.899 Other long term (current) drug therapy; Z23 Encounter for immunization; Z87.01 Personal history of pneumonia (recurrent)

== ENCOUNTER → 2017-03-26 | Outpatient (CLI) | payer OTHER ==
[~2017-03-26] MED LIST changes: +AMLO-110 PO; -METH10CO PO; +METHADONE PO; +MIRT30TA2 PO; +MULT-506 PO; -NRV5 PO; +OPTIRAY 320 IV PRN
--- NOTE | 2017-03-26 16:00 | DIAGNOSTIC IMAGING REPORT ---
(CHEST) THORAX WITH CLINICAL HISTORY: 56 years-old Male presenting with ABNORMAL XRAY *CALL REPORT*. TECHNIQUE: Multidetector CT imaging of the chest was performed after the administration of intravenous contrast. IV contrast: 94 mL of Optiray 320. A dose lowering technique was used consistent with the principles of ALARA (as low as reasonably achievable). COMPARISON: Chest x-ray performed on 03/25/[address] from 04/18/2016. CT DOSE (mGy.cm): The estimated cumulative dose is 654.90 mGycm. FINDINGS: Uke Operator topogram: Unremarkable. On soft tissue windows, normal thyroid. Right gynecomastia. Fatty atrophy of the right subscapularis likely relates to chronic rotator cuff tear. Multiple pathologically enlarged mediastinal lymph nodes in the precarinal, subcarinal, and prevascular regions. An index node measures 13 mm in the short axis anterior to the left mainstem bronchus (series 4 image 119). Pathologically enlarged bilateral hilar lymph nodes, left greater than right. Normal aorta. Normal heart size. No pericardial or pleural effusion. Hepatic steatosis and hepatomegaly suspected. On lung windows, multifocal patchy groundglass and solid nodular opacities. Overall there has been significantly decreased peribronchovascular opacities in the right lung. There has been some clearance of patchy opacities from the left lower lobe though many of the left lung opacities are new from prior. Opacities are most dense in the left lung. Central airways patent. Mild bronchial wall thickening. On bone windows, degenerative changes of the spine. An anchor is noted in the left humeral head. IMPRESSION: 1. Multifocal nodular opacities most concerning for infectious bronchiolitis. These affect all 5 lobes but are most dense in the left lobe. Atypical infectious agents to be considered such as mycoplasma and mycobacterium among other etiologies. 2. Mediastinal and hilar lymphadenopathy. These could be reactive, however, given their pathologic enlargement, these should be followed to resolution. Electronically signed by: Jordan Soriano M.D. 03/26/2017 3:59 PM Dictated Date/Time: 03/26/2017 3:45 PM
== END | disposition home or self-care (01) ==
LOC: C.CTS 14:56
PROVIDERS: ATTEND Orthopaedic Surgery Sports Medicine
DX: R93.8 Abnormal findings on diagnostic imaging of other specified body structures (principal); M86.9 Osteomyelitis, unspecified; L97.90 Non-pressure chronic ulcer of unspecified part of unspecified lower leg

== ENCOUNTER → 2017-03-28 | Day surgery (SDC) | payer OTHER ==
--- NOTE | 2017-03-25 13:11 | PAT Medication Instructions ---
Service Date Mar 25, 2017. Current Home Medication List Amlodipine (Norvasc), 5 MG PO QAM Mirtazapine Soltab (Remeron Soltab), 30 MG PO HS Multivitamin (Multivitamin), 1 TAB PO QAM [Methadone], 164 MG PO QAM Medication Instructions For Your Scheduled Surgery - Check with surgeon and prescribing physician for instructions: [Methadone], 164 MG PO QAM - Hold the following medications the morning of surgery: Multivitamin (Multivitamin), 1 TAB PO QAM - Take the following medications the morning of surgery with a sip of water: Amlodipine (Norvasc), 5 MG PO QAM - Take the following medications as scheduled the night before surgery: Mirtazapine Soltab (Remeron Soltab), 30 MG PO HS If you have any questions please call us at [phone] or [phone] or [phone]
--- NOTE | 2017-03-25 14:13 | DIAGNOSTIC IMAGING REPORT ---
CHEST 2 VIEWS ROUTINE HISTORY: Preop. COMPARISON: Chest 07/04/2016. FINDINGS: Chronic interstitial thickening at the left lung base. The heart is normal in size. The right lung is clear. No pleural effusions. No pneumothorax. There is a small new focal irregular density within the periphery of the left upper lobe. IMPRESSION: There is a new small focal irregular density within the left upper lobe. Chest CT is recommended for further characterization. These findings were called/faxed to the referring physician's office following dictation. Electronically signed by: Jak Dumas M.D. 03/25/2017 2:11 PM Dictated Date/Time: 03/25/2017 2:07 PM
[2017-03-25 14:40] LABS: INR 0.9 (0.9-1.1); PTT PATIENT 22.9 SECONDS (21.0-31.0)
[2017-03-25 16:04] LABS: BLOOD UREA NITROGEN 14 mg/dl (7-18); CALCIUM 9.3 mg/dl (8.5-10.1); CARBON DIOXIDE 29 mmol/L (21-32); CREATININE 0.78 mg/dl (0.60-1.40); GLUCOSE 81 mg/dl (70-99); POTASSIUM 4.2 mmol/L (3.5-5.1); SODIUM 137 mmol/L (136-145)
[2017-03-26 10:42] VITALS: Ht 185.4 cm; Wt 95.3 kg
[~2017-03-28] VITALS: Ht 185.4 cm; Wt 95.3 kg
[~2017-03-28] MED LIST changes: +ATROPINE SULFATE 0.1 MG/ML 5ML SYR IV PRN; +BACITRACIN 50000 UNIT VIAL ONE; +BACITRACIN OINT 15 GM TUBE ONE; +BUPIVACAINE 0.5 % 5 MG/1 ML MPF 30ML VIAL ONE; +CLINDAMYCIN 600 MG/54 ML D5W IV SCH; +EpHEDrine SULFATE INJ 50 MG/ML AMP IV PRN; +FENTANYL CITRATE INJ 50 MCG/1 ML 2 ML VIAL IV PRN; +FENTANYL CITRATE INJ 50 MCG/1 ML 2 ML VIAL ONE; +HYDROmorphone INJ 1 MG/ML SYR IV PRN; +LABETALOL HCL IV 5 MG/ML 20ML IV PRN; +LACTATED RINGER'S 1000ML 1,000 ML IV SCH; +LIDOCAINE HCL 1% 20 ML VIAL ONE; +MEPERIDINE HCL 25 MG/ML CARP IV PRN; +MIDAZOLAM HCL 1 MG/ML 2ML VIAL ONE; +ONDANSETRON INJ 2 MG/ML 2 ML VIAL IV PRN; -OPTIRAY 320 IV PRN; +PROPOFOL IV EMULSION 10 MG/ML 20 ML VIAL IV ONE
--- NOTE | 2017-03-28 07:39 | HISTORY & PHYSICAL EXAMINATION ---
DATE OF ADMISSION: 03/28/2017 SUBJECTIVE AND CHIEF COMPLAINT: Right third toe ulceration. HISTORY OF PRESENT ILLNESS: This is a patient who has had approximately 6- to 8-month history of an ulceration at the distal aspect of the third toe. It has been treated conservatively and it began to heal; however, even after healed it would open back up. He had been treated with debridement and by mouth antibiotics; however, he was not making any progress and a CT scan of the right third toe demonstrated bony destruction of the distal phalanx of the third toe, suggesting osteomyelitis of the distal phalanx of the third toe. He is now being set up for surgical treatment. PAST MEDICAL HISTORY: History of an [place] in April of 2007, coronary artery disease, history of severe respiratory distress with a hospitalization at [facility] in [place], history of pneumonia, history of use of oxygen treatment home and hiatal hernia. PAST SURGICAL HISTORY: Hernia repair, right shoulder surgery x2, and left shoulder surgery x2. CURRENT MEDICATIONS: Multivitamin 1 p.o. daily, amlodipine 10 mg 1 p.o. daily, and methadone 164 mg 1 p.o. daily. ALLERGIES: No known drug allergies. SOCIAL HISTORY: The patient denies alcohol and tobacco use. OBJECTIVE PHYSICAL EXAMINATION: GENERAL: The patient is alert and oriented x3. He is in no acute distress. He is a well-dressed, well-nourished 56-year-old male whose affect is appropriate. He is hard of hearing. HEART: He has a regular rhythm and rate. LUNGS: Clear to auscultation bilateral. EXTREMITIES: Dorsalis pedis and posterior tib pulses are +1/4. MUSCULOSKELETAL: The patient has a compensated gait favoring the right lower extremity. Upon inspection of right lower extremity has moderate swelling of the distal aspect of the third toe, he has an ulceration at the distal tip of the third toe. There is no tenderness noted. He has slight decrease in range of motion and decreased strength, right toe flexion and extension. NEUROLOGIC: Sensation normal and intact distally. X-RAY EXAM: CT of the right foot demonstrates bony destruction of the right third toe distal phalanx, suggesting osteomyelitis. ASSESSMENT AND DIAGNOSES: 1. Right third toe ulceration. 2. Right third toe distal phalanx osteomyelitis. PLAN: Above assessment was discussed with the patient. At this time, it was recommended the patient undergo a right third toe partial amputation to the DIP joint and possibly partially the middle phalanx of the right third toe. All potential risks, benefits, complications, alternatives and rehab have been discussed with the patient. At this time, he wishes to proceed with the surgery as indicated. He will be scheduled for the surgery on 03/28/2017.
[2017-03-28 07:40] VITALS: BP 132/74; PULSE 75; TEMP 36.6; O2SAT 93
[2017-03-28 15:16] VITALS: BP 134/75; PULSE 66; TEMP 36.8; O2SAT 94
--- NOTE | 2017-03-28 19:05 | [facility] Post Operative Brief Note ---
Immediate Operative Summary Operative Date Mar 28, 2017. Pre-Operative Diagnosis osteomyelitis of right third toe Post-Operative Diagnosis osteomyelitis of right third toe Procedure(s) Performed partial amputation of right third toe Surgeon Dr. Munguia Product Design Engineer Surgeon(s) None Estimated Blood Loss 0.5ml Findings Consistent with Post-Op Diagnosis Specimens A. partial 3rd toe, right foot (permanent) Drains None Anesthesia Type MAC (local right 3rd toe) Complication(s) none Disposition Accompanied Pt To Recover: no Disposition: Recovery Room / PACU
--- NOTE | 2017-03-28 19:22 | Discharge Instructions ---
Discharge Instructions Date of Service Mar 28, 2017. Admission Reason for Admission: Right 3rd Toe Osteomyelitis Discharge Discharge Diagnosis / Problem: Right 3rd Toe Osteomyelitis Discharge Goals Goal(s): Decrease discomfort, Improve function Activity Recommendations Activity Limitations: per Instructions/Follow-up section Weightbearing Status: Right partial (heel WB in post-op shoe) . Instructions / Follow-Up Instructions / Follow-Up ACTIVITY RECOMMENDATIONS: Limitations: Heel weight bearing only if able to tolerate. SPECIAL CARE INSTRUCTIONS: * Some drainage onto the dressing is normal and is no cause for alarm. * Some swelling is natural especially after walking. * When resting, keep your foot elevated above the level of your heart. * Call [facility] if you notice: -Increased drainage -Fever over 101 degrees F -Severe constant pain BANDAGE: * Leave bandage/cast in place unless otherwise directed. * Keep bandage/cast dry at all times. PIN CARE: * Leave pins alone. * If pins come loose or fall out, notify physician. FOLLOW UP VISIT WITH DR. CARO If appointment is not already scheduled: Please call [facility] after you get home today to schedule a follow-up appointment for [address] Caro at . Current Hospital Diet Patient's current hospital diet: Discharge Diet Recommended Diet: Regular Diet Procedures Procedures Performed: partial amputation of right third toe Pending Studies Studies pending at discharge: no Medical Emergencies . Who to Call and When: Medical Emergencies: If at any time you feel your situation is an emergency, please call [phone] immediately. . Non-Emergent Contact Non-Emergency issues call your: Surgeon Call Non-Emergent contact if: temperature is above 100.5, your pain is worsening, wound has increased drainage . "Provider Documentation" section prepared by Kimani Caro. . VTE Core Measure Inpt VTE Proph given/why not?: Treatment not indicated
[2017-03-28 19:32] VITALS: PULSE 55
--- NOTE | 2017-03-28 19:43 | OPERATIVE REPORT ---
DATE OF OPERATION: 03/28/2017 PREOPERATIVE DIAGNOSIS: Right third toe osteomyelitis of distal phalanx. POSTOPERATIVE DIAGNOSIS: Same. PROCEDURE: Right third toe partial amputation involving the distal phalanx and a portion of the middle phalanx. SURGEON: Dr. Munguia. PROCUREMENT COORDINATOR: None. ANESTHESIA: Local with sedation. SPECIMENS: Right third toe. DRAINS: None. COMPLICATIONS: None. BLOOD LOSS: Less than 1 mL PERTINENT HISTORY: This is a 56-year-old gentleman who has had ongoing osteomyelitis of his right third toe. He attempted conservative management including antibiotics and shoe wear modification. He had persistent osteomyelitis confirmed with radiographs and MRI scan, and the patient was then scheduled for partial amputation of his right third toe as indicated. All potential risks, benefits, complications, alternatives, rehab, potential for incomplete relief of symptoms, need for surgery, DVT, PE, , persistent pain, swelling, scarring, weakness, neurovascular injury, wound complications were discussed with the patient and his family, and the patient decided to proceed with the procedure as indicated. PROCEDURE IN DETAIL: The patient was taken to the operative suite and placed supine on the operating room table. After reviewing consent and identification of proper operative site, the patient was sedated and the right foot was then sterilely prepped with Betadine and alcohol, followed by performance of a digital block of the right third toe with approximately 8 mL of 1% lidocaine plain. Next, superficial cutaneous nerves were then blocked with approximately 6 mL of 0.5% Marcaine plain on the dorsal mid foot, making certain to attempt aspiration before injection of the local anesthetic. Next, the right lower extremity was then sterilely prepped and draped in usual fashion, elevated, partially exsanguinated with an Esmarch bandage and Esmarch tourniquet was applied over sterile surgical towel at the level of the ankle. Next, a 15 blade scalpel was then used to make a transverse incision in the dorsum of the right third toe, just proximal to the distal aspect of the middle phalanx. The incision was deepened through the skin and subcutaneous tissues through the extensor and through the periosteum. Next, mid lateral incisions were made with a 15 blade scalpel, connecting the incisions plantar, just proximal to the chronic ulceration of the third toe. Next, the distal phalanx was then skeletonized and resected and then a bone biting rongeur was used to transect the distal aspect of the middle phalanx of the right third toe. The amputated part was then passed off as specimen. Next, the plantar flap was then revised with a 15 blade scalpel. Copious amount of sterile normal saline with bacitracin irrigant was then used to cleanse the incision. No abscess or purulent material was noted. Next, the plantar flap was then closed using interrupted 4-0 nylon sutures, a combination of horizontal mattress and simple sutures. Finally, a sterile lightly compressive dressing was applied, overwrapped with Coban. The tourniquet was released. The patient was awakened and taken to recovery in stable condition. I attest to the content of the Intraoperative Record and any orders documented therein. Any exception s are noted below.
[2017-03-28 19:58] VITALS: BP 125/82; TEMP 36.6; O2SAT 93
--- NOTE | 2017-03-28 20:06 | Anesthesiology Progress Note ---
Anesthesia Post Op Note Date & Time Mar 28, 2017 at 20:06 Vital Signs Pain Intensity: 0 Vital Signs Past 12 Hours Date Time Temp Pulse Resp B/P (MAP) Pulse Ox O2 Delivery O2 Flow Rate FiO2 03/28/17 19:58 36.6 18 125/82 93 03/28/17 19:32 55 16 80 03/28/17 19:32 55 16 03/28/17 19:31 128/117 03/28/17 19:31 123/74 03/28/17 19:29 36.9 52 20 123/74 (78) 98 Nasal Cannula 03/28/17 19:27 54 12 93 03/28/17 19:27 60 12 03/28/17 19:26 117/96 03/28/17 19:24 54 15 112/69 98 03/28/17 19:24 55 15 03/28/17 19:21 149/129 03/28/17 19:19 59 19 91 03/28/17 19:19 57 19 03/28/17 19:16 123/77 03/28/17 19:14 57 18 98 03/28/17 19:14 57 18 03/28/17 19:10 112/77 03/28/17 19:10 109/73 03/28/17 19:09 55 18 03/28/17 19:09 55 18 96 03/28/17 19:09 36.4 51 16 112/77 95 Oxymask 10 03/28/17 15:16 36.8 66 20 134/75 (94) 94 Room Air Notes Mental Status: alert / awake / arousable, participated in evaluation Pt Amnestic to Procedure: Yes Nausea / Vomiting: adequately controlled Pain: adequately controlled Airway Patency, RR, SpO2: stable & adequate BP & HR: stable & adequate Hydration State: stable & adequate Anesthetic Complications: no major complications apparent
== END | disposition home or self-care (01) ==
LOC: C.ACU 03-25 12:06
PROVIDERS: ATTEND Orthopaedic Surgery Sports Medicine
DX: L97.519 Non-pressure chronic ulcer of other part of right foot with unspecified severity (principal); M86.171 Other acute osteomyelitis, right ankle and foot; I10 Essential (primary) hypertension; I25.2 Old myocardial infarction; I25.10 Atherosclerotic heart disease of native coronary artery without angina pectoris; Z87.01 Personal history of pneumonia (recurrent); Z98.890 Other specified postprocedural states; Z90.89 Acquired absence of other organs

== ENCOUNTER 2021-09-26 02:05 | Inpatient (IN) ==
[2021-09-26] MEDS ORDERED: PIPERACILLIN/TAZOBACTAM 4.5 GM/120 ML BAG IV ONE (02:51)
[2021-09-26] MEDS ORDERED: VANCOMYCIN CONSULT ACTIVE PRN ×2 (02:51→12:48)
[2021-09-26] MEDS ORDERED: VANCOMYCIN HCL 2,500 MG in SODIUM CHLORIDE 0.9% 500 ML IV ONE (02:51)
[2021-09-26] MEDS ORDERED: SODIUM CHLORIDE 0.9% 1000ML 1,000 ML IV SCH (02:53)
[2021-09-26] MEDS ORDERED: KETOROLAC TROMETHAMINE 15 MG/ML VIAL IV ONE (03:09)
[2021-09-26 03:10] LABS: Basophils # (auto) 0.03 K/uL (0-0.2); Basophils % (auto) 0.2 %; Eosinophils # (auto) 0.07 K/uL (0-0.50); Eosinophils % (auto) 0.4 %; Hematocrit (blood only) 40.1 % (40.1-51.0); Hemoglobin 13.3 g/dl (14.0-18.0); Immature Granulocytes # (auto) 0.06 K/uL (0.00-0.02); Immature Granulocytes % (auto) 0.4 %; Lymphocytes # (auto) 1.66 K/uL (1.2-3.4); Lymphocytes % (auto) 10.5 %; Mean Corpuscular Hgb Conc 33.2 g/dL (32.0-36.0); Mean Corpuscular Volume 87.6 fL (80.0-100.0); Mean Platelet Volume 10.6 fL (9.4-12.4); Monocytes # (auto) 1.29 K/uL (0.24-0.82); Monocytes % (auto) 8.2 %; Neutrophils # (auto) 12.68 K/uL (1.4-6.5); Neutrophils % (auto) 80.3 %; Platelet Count 348 K/uL (130-400); RDW Coefficient of Variation 12.8 % (11.5-14.5); RDW Standard Deviation 40.9 fL (36.4-46.3); Red Blood Count 4.58 M/uL (4.63-6.08); White Blood Count 15.79 K/ul (4.8-10.8)
[2021-09-26 03:32] LABS: Albumin Globulin Ratio 0.9 (0.9-2); BUN Creatinine Ratio 19.8 (10-20); Bilirubin,Total 0.5 mg/dl (0.2-1.0); Calcium 9.6 mg/dl (8.5-10.1); Creatinine Clr Calc Pharmacy 89.9 ml/min; Est GFR (Non-African American) 75.9 ml/min; Globulin 4.3 gm/dl (2.5-4.0); Potassium 3.7 mmol/L (3.5-5.1); Total Protein 8.3 gm/dl (6.0-8.3)
[2021-09-26 03:43] LABS: C Reactive Protein 33.59 mg/dl (0-0.5)
[2021-09-26] MEDS ORDERED: OPTIRAY 300 100mL IV ONE (04:31)
--- NOTE | 2021-09-26 05:36 | History & Physical Report ---
Date of Service September 26, 2021 Assessment & Plan (1) Cellulitis: Plan: LLE cellulitis secondary to infected left ankle wound Failed outpatient treatment No overt sepsis for now Anemia possibly from intermittent ankle wound bleed hypertension, stable hyperlipidemia/statin noncompliance DM2 on oral medications suboptimal control as of recent hemoglobin A1c of 7.6 in September 2021 chronic pain on methadone past tobacco abuse GMF CS, Doxycycline, Cefepime Elevate left lower extremity Orthopedics consult Re: Infected left ankle wound with secondary cellulitis N.p.o. until patient seen by orthopedics in a.m. in anticipation of procedure. Basal insulin adjusted for n.p.o. status, ISS BG goal 1 10-1 40 DVT prophylaxis. SCDs Re: Intermittently bleeding ankle wound Full code Text document was generated using [employer] voice recognition software. It may contain grammatical or spelling errors. Kindly contact undersigned for clarification of any documentation item in question. History of Present Illness Chief Complaint: Worsening left leg infection Primary Care Provider: Mariposa Quan PA-C History obtained from patient and records. Medical history significant for hypertension, hyperlipidemia/statin noncompliance, DM2 on oral medications, chronic pain on methadone, past tobacco abuse. Last confinement April 2016 for respiratory failure secondary to multifocal pneumonia. Last week, patient noted a wound to the back of his left ankle. Not sure how he got the wound. Wound bleeding from time to time Subsequent progression to involve the left leg and foot. No fever, no chills, no chest pain, shortness of breath. Patient seen at [facility] 2 days ago. Bactrim prescribed for left leg cellulitis/wound. Outpatient D-dimer was normal. Patient advised to go to ER for worsening symptoms. Patient brought to ER by for worsening left leg swelling. Bloody pus drainage noted by patient. IV vancomycin and Zosyn administered at the ER. 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 Allergies Allergy/AdvReac Type Severity Reaction Status Date / Time No Known Allergies Allergy Unverified 03/28/17 15:10 Home Medications Medication Instructions Recorded Confirmed Type empagliflozin 25 mg tablet 25 mg PO DAILY 09/26/21 09/26/21 History (Jardiance) lisinopril 5 mg tablet 5 mg PO DAILY 09/26/21 09/26/21 History metformin 500 mg tablet,extended 500 mg PO DAILY 09/26/21 09/26/21 History release 24 hr methadone 40 mg soluble tablet 164 mg PO QAM 09/26/21 09/26/21 History multivitamin 1 tab PO DAILY 09/26/21 09/26/21 History sulfamethoxazole 800 800 tab PO BID 09/26/21 09/26/21 History mg-trimethoprim 160 mg tablet Past Med/Surg History Social History Smoking Status: Never smoker Preferred Language: Taiwanese Feels Safe at Home: Yes Review of Systems Review of Systems: As per HPI, all other systems reviewed and negative Physical Exam Physical Exam: GENERAL: Comfortable, slightly anxious, slightly hard of hearing, pleasant, no respiratory distress SKIN: Normal color, warm HEENT: Partial alopecia, bespectacled, pink palpebral conjunctivae, no ptosis, dry buccal mucosa NECK : Supple, no tenderness CHEST : CTA, no tenderness HEART : RRR, no obvious murmurs ABDOMEN: Some distention, nontender EXTREMITIES : Fleshy wound with serosanguineous drainage over left ankle, tender indurated LLE extending to foot, NEUROLOGIC : Coherent, no facial asymmetry, no other gross focality Results & Data Results & Data ([facility]) Vital Signs (Past 12 Hours) Vital Signs Temp Pulse Pulse Resp BP BP Pulse Ox 09/26/21 05:09 60 17 131/66 92 09/26/21 03:31 64 18 122/62 92 09/26/21 02:08 37 C 70 22 143/80 H 94 O2 Del Method 09/26/21 05:09 Room Air 09/26/21 03:31 Room Air 09/26/21 02:08 Room Air Laboratory Results Laboratory Results WBC 15.79 K/ul (4.8-10.8) H 09/26/21 02:28 RBC 4.58 M/uL (4.63-6.08) L 09/26/21 02:28 Hgb 13.3 g/dl (14.0-18.0) L 09/26/21 02:28 Hct 40.1 % (40.1-51.0) 09/26/21 02:28 MCV 87.6 fL (80.0-100.0) 09/26/21 02:28 MCH 29.0 pg (25.0-34.0) 09/26/21 02:28 MCHC 33.2 g/dL (32.0-36.0) 09/26/21 02: RDW Std Deviation 40.9 fL (36.4-46.3) 09/26/21 02: RDW Coeff of Mp 12.8 % (11.5-14.5) 09/26/21 02:28 Plt Count 348 K/uL (130-400) 09/26/21 02:28 MPV 10.6 fL (9.4-12.4) 09/26/21 02:28 Immature Gran % (Auto) 0.4 % 09/26/21 02:28 Neut % (Auto) 80.3 % 09/26/21 02:28 Lymph % (Auto) 10.5 % 09/26/21 02:28 [place] % (Auto) 8.2 % 09/26/21 02:28 Eos % (Auto) 0.4 % 09/26/21 02:28 Baso % (Auto) 0.2 % 09/26/21 02:28 Neut # (Auto) 12.68 K/uL (1.4-6.5) H 09/26/21 02:28 Lymph # (Auto) 1.66 K/uL (1.2-3.4) 09/26/21 02:28 [place] # (Auto) 1.29 K/uL (0.24-0.82) H 09/26/21 02:28 Eos # (Auto) 0.07 K/uL (0-0.50) 09/26/21 02:28 Baso # (Auto) 0.03 K/uL (0-0.2) 09/26/21 02:28 Immature Gran # (Auto) 0.06 K/uL (0.00-0.02) H 09/26/21 02:28 ESR 77 mm/hr (0-20) H 09/26/21 02:28 Sodium 133 mmol/L (136-145) L 09/26/21 02:28 Potassium 3.7 mmol/L (3.5-5.1) 09/26/21 02:28 Chloride 95 mmol/L (98-107) L 09/26/21 02:28 Carbon Dioxide 27 mmol/L (21-32) 09/26/21 02:28 Anion Gap 11 (3-11) 09/26/21 02:28 BUN 21 mg/dl (6-23) 09/26/21 02:28 Creatinine 1.06 mg/dl (0.6-1.4) 09/26/21 02:28 Est Cr Clr Drug Dosing 89.9 ml/min 09/26/21 02:28 Est GFR ( Amer) 88.0 ml/min 09/26/21 02:28 Est GFR (Non-Af Amer) 75.9 ml/min 09/26/21 02:28 BUN/Creatinine Ratio 19.8 (10-20) 09/26/21 02:28 Glucose 118 mg/dl (70-99(Fasting)) H 09/26/21 02:28 Calcium 9.6 mg/dl (8.5-10.1) 09/26/21 02:28 Total Bilirubin 0.5 mg/dl (0.2-1.0) 09/26/21 02:28 AST 19 U/L (13-39) 09/26/21 02:28 ALT 20 U/L (7-52) 09/26/21 02:28 Alkaline Phosphatase 66 U/L (34-104) 09/26/21 02:28 C-Reactive Protein 33.59 mg/dl (0-0.5) H 09/26/21 02:28 Total Protein 8.3 gm/dl (6.0-8.3) 09/26/21 02:28 Albumin 4.0 gm/dl (3.4-5.0) 09/26/21 02:28 Globulin 4.3 gm/dl (2.5-4.0) H 09/26/21 02:28 Albumin/Globulin Ratio 0.9 (0.9-2) 09/26/21 02:28 Procalcitonin 0.30 ng/ml (0-0.5) 09/26/21 02:28 SARS-CoV-2, RNA, NAAT NEGATIVE (NEGATIVE) 09/26/[address] tibia-fibula initial read: No prior studyavailable. Generalized subcutaneous edema and infiltration extending fromthe on the anterior lateral aspect lower extremityto the foot. Plantar calcaneal bone spur. Calcification of the proximal aspect of the Achilles tendon. Thickening and infiltration surrounding the Achilles tendon superior to the calcaneus consistent with inflammation. No discrete ring- enhancing abscess, collection or interstitial gas. No fracture or bone erosion. Joint relationships are maintained. Vascular structures are unremarkable.
[2021-09-26] MEDS ORDERED: SODIUM CHLORIDE 0.9% 1000ML 1,000 ML IV ONE (06:12)
--- NOTE | 2021-09-26 06:20 | Emergency Department Note ---
Impression & Plan Cellulitis and abscess of left leg ED Provider Note CHIEF COMPLAINT: Left lower extremity infection HISTORY OF PRESENT ILLNESS: Luigi Sotomayor is a 61 year old male with history of DM with neuropathy, lumbosacral neuritis on methadone, HTN, among others listed below who presents to the Emergency Department for evaluation of an infection to his left lower extremity which has been worsening over the past 3 days. Initially, the patient noticed redness and swelling to his left calf and was u ltimately diagnosed with cellulitis after visiting [facility] on 09/23/21. He did also have lab work drawn which showed leukocytosis but no elevation in d- dimer to indicate a clot. He was prescribed Bactrim BID x 10 days which he has been taking since that time, however, the pain, redness and swelling has become much worse and he has since developed an abscess that has opened up and began to drain purulent fluid. The patient states that he also feels generally unwell with perceived fevers and intermittent chills. Currently, he rates his discomfort as a 10/10 which becomes much worse with attempts of weight bearing activity. He has not been able to ambulate secondary to this and has required two people to help him get around. He did take a dose of ibuprofen in addition to his methadone without improvement of his symptoms. He otherwise denies having chest pain, respiratory difficulties, abdominal pain, nausea, vomiting, diarrhea or urinary symptoms. The patient did not notice any open wounds or injuries prior to developing these symptoms. He does not have history of previous skin infections or known staph infection in the past. REVIEW OF SYSTEMS: 10 systems were reviewed and were negative unless otherwise stated in HPI as above PHYSICAL EXAM: VITALS: Vitals are noted on the nurse's note and reviewed by myself. Vital signs stable. General: Resting in bed, diaphoretic and flushed, appears tired and very uncomfortable HEENT: Normocephalic, PERRL, EOMI, hearing aids in place, mucous membranes moist, oropharynx clear Neck: Supply, no lymphadenopathy, non-tender, ROM intact without pain Resp: Good inspiratory effort on room air, lung sounds clear bilaterally CV: Regular rate and rhythm, normal S1-S2, peripheral pulses palpated Abd: Soft, non-distended, non-tender to palpation MSK/Integumentary: With attention to the LLE, erythema and edema extending just inferior to the knee down to the ankle and partially into the foot, circumferentially. Most pronounced over the medial aspect. There is an open wound/abscess to the medial ankle/Achilles with purulent discharge. Warm and tender to palpation. ROM of the ankle and foot limited secondary to pain but able to move the toes. Sensation diminished (baseline neuropathy), d/p pulse intact. No tenderness to palpation of the left hip, thigh or knee and ROM remains intact here. No other skin changes, moving all other extremities without apparent pain or difficulty Neuro: Awake, alert and oriented x 3, interacting and answering questions appropriately Differential diagnosis includes cellulitis, abscess, osteomyelitis, necrotizing fasciitis, among others were considered. EMERGENCY DEPARTMENT COURSE: Physical exam and history were performed. Nursing triage notes, EMR, and medication list were personally reviewed. Patient is a 61 year old male with history of DM with neuropathy, lumbosacral neuritis on methadone, HTN, among others listed below who presents to the Emergency Department for evaluation of an infection to his left lower extremity which has been worsening over the past 3 days despite taking Bactrim BID since then. Additional history as described above. See physical exam as noted above. Patient was offered medication. IV access was established and he was given Toradol 15 mg and NSS 1 L. Labs were obtained and reviewed by myself as below. Of note, he did have leukocytosis with a WBC of 15.79 and an neutropenic shift at 12.68. Mild anemia with hemoglobin 13.3. Mild hyponatremia with sodium 133 and hypochloremia with chloride 95. Renal indices stable. LFTs WNL. ESR Was elevated at 77 and CRP elevated at 33.59. Procalcitonin not elevated at 0.30. Blood cultures were obtained and are pending. X-ray of the left ankle was obtained and reviewed by myself. No findings concerning for osteomyelitis. Exam findings were concerning for cellulitis with continued need for IV antibi otics. I discussed the results of the above findings with the patient and his family at bedside. Following draw of blood cultures, he was started on Vancomycin and Zosyn. [facility] the patient's case. He recommended obtaining a CT of the LLE to assess for possible necrotizing fasciitis. CT LLE was obtained and reviewed by stat rad radiologist and myself as below. This did show generalized subcutaneous edema, thickening and infiltration but otherwise no ring-enhancing abscess, collection or interstitial gas. No fracture or bone erosion. Final results pending review by the [facility] radiologist. Dr. Nelson did also review the results of the CT and agreed to evaluate the patient for ongoing management. The patient and his family verbalized understanding and agreement with the treatment plan as above. The chart was completed utilizing [employer] Speech Voice Recognition Software. Grammatical errors, random word insertions, pronoun errors, and incomplete sentences are an occasional consequence of this system due to software limitations, ambient noise, and hardware issues. Any formal questions or concerns about the content, text, or information contained within the body of this dictation should be directly addressed to the provider for clarification. Past Med/Surg History Medical History Acute respiratory failure with hypoxia Aspiration pneumonia Depression Diabetes HTN (hypertension) Neuropathy Opiate dependence, continuous Surgical History (Updated 09/26/21 @ 06:56 by Tangela Cohn PA-C) No pertinent past surgical history Social History Smoking Status: Never smoker Preferred Language: Lao Feels Safe at Home: Yes Allergies Allergies Allergy/AdvReac Type Severity Reaction Status Date / Time No Known Allergies Allergy Unverified 03/28/17 15:10 Home Meds Home Medications Medication Instructions Recorded Confirmed empagliflozin 25 mg tablet 25 mg PO DAILY 09/26/21 09/26/21 (Jardiance) lisinopril 5 mg tablet 5 mg PO DAILY 09/26/21 09/26/21 metformin 500 mg tablet,extended 500 mg PO DAILY 09/26/21 09/26/21 release 24 hr methadone 40 mg soluble tablet 164 mg PO QAM 09/26/21 09/26/21 multivitamin 1 tab PO DAILY 09/26/21 09/26/21 sulfamethoxazole 800 800 tab PO BID 09/26/21 09/26/21 mg-trimethoprim 160 mg tablet Results & Data (ED) Vital Signs Vital Signs - 24 hr 09/26/21 02:08 09/26/21 03:31 09/26/21 05:09 Temperature 37 C Temperature Source Temporal Artery Scan Pulse Rate 70 Pulse Rate [Finger] 64 60 Respiratory Rate 22 18 17 Respiratory Effort / Characteristics Non-Labored Spontaneous Non-Labored Spontaneous Non-Labored Spontaneous Respiratory Depth Normal Normal Normal Blood Pressure 143/80 H Blood Pressure [Right Arm] 122/62 131/66 Blood Pressure Mean 101 Blood Pressure Mean [Right Arm] 82 87 Blood Pressure Position Sitting Blood Pressure Position [Right Arm] Sitting Lying Pulse Oximetry 94 92 92 Oxygen Delivery Method Room Air Room Air Room Air Sepsis Recent Fever Within 48 Hours Yes Sepsis New/Unexplained Change in Mental Status No Sepsis Action Taken by Nursing No Action Required 09/26/21 05:54 Temperature Temperature Source Pulse Rate Pulse Rate [Finger] 65 Respiratory Rate 18 Respiratory Effort / Characteristics Non-Labored Spontaneous Respiratory Depth Normal Blood Pressure Blood Pressure [Right Arm] 136/71 Blood Pressure Mean Blood Pressure Mean [Right Arm] 92 Blood Pressure Position Blood Pressure Position [Right Arm] Lying Pulse Oximetry 92 Oxygen Delivery Method Room Air Sepsis Recent Fever Within 48 Hours Sepsis New/Unexplained Change in Mental Status Sepsis Action Taken by Nursing Laboratory Data Result diagrams: 09/26/21 02:28 09/26/21 02:28 Lab Results 09/26/21 09/26/21 09/26/21 Range/Units 02:28 02:28 02:28 WBC 15.79 H (4.8-10.8) K/ul RBC 4.58 L (4.63-6.08) M/uL Hgb 13.3 L (14.0-18.0) g/dl Hct 40.1 (40.1-51.0) % MCV 87.6 (80.0-100.0) fL MCH 29.0 (25.0-34.0) pg MCHC 33.2 (32.0-36.0) g/dL RDW Std Deviation 40.9 (36.4-46.3) fL RDW Coeff of Mp 12.8 (11.5-14.5) % Plt Count 348 (130-400) K/uL MPV 10.6 (9.4-12.4) fL Immature Gran % (Auto) 0.4 % Neut % (Auto) 80.3 % Lymph % (Auto) 10.5 % Labette % (Auto) 8.2 % Eos % (Auto) 0.4 % Baso % (Auto) 0.2 % Neut # (Auto) 12.68 H (1.4-6.5) K/uL Lymph # (Auto) 1.66 (1.2-3.4) K/uL Labette # (Auto) 1.29 H (0.24-0.82) K/uL Eos # (Auto) 0.07 (0-0.50) K/uL Baso # (Auto) 0.03 (0-0.2) K/uL Immature Gran # (Auto) 0.06 H (0.00-0.02) K/uL ESR 77 H (0-20) mm/hr Sodium 133 L (136-145) mmol/L Potassium 3.7 (3.5-5.1) mmol/L Chloride 95 L (98-107) mmol/L Carbon Dioxide 27 (21-32) mmol/L Anion Gap 11 (3-11) BUN 21 (6-23) mg/dl Creatinine 1.06 (0.6-1.4) mg/dl Est Cr Clr Drug Dosing 89.9 ml/min Est GFR ( Amer) 88.0 ml/min Est GFR (Non-Af Amer) 75.9 ml/min BUN/Creatinine Ratio 19.8 (10-20) Glucose 118 H (70-99(Fasting)) mg/dl Calcium 9.6 (8.5-10.1) mg/dl Magnesium (1.7-2.4) mg/dl Total Bilirubin 0.5 (0.2-1.0) mg/dl AST 19 (13-39) U/L ALT 20 (7-52) U/L Alkaline Phosphatase 66 (34-104) U/L C-Reactive Protein 33.59 H (0-0.5) mg/dl Total Protein 8.3 (6.0-8.3) gm/dl Albumin 4.0 (3.4-5.0) gm/dl Globulin 4.3 H (2.5-4.0) gm/dl Albumin/Globulin Ratio 0.9 (0.9-2) Procalcitonin (0-0.5) ng/ml SARS-CoV-2, RNA, NAAT (NEGATIVE) 09/26/21 09/26/21 09/26/21 Range/Units 02:28 02:28 Unknown WBC (4.8-10.8) K/ul RBC (4.63-6.08) M/uL Hgb (14.0-18.0) g/dl Hct (40.1-51.0) % MCV (80.0-100.0) fL MCH (25.0-34.0) pg MCHC (32.0-36.0) g/dL RDW Std Deviation (36.4-46.3) fL RDW Coeff of Mp (11.5-14.5) % Plt Count (130-400) K/uL MPV (9.4-12.4) fL Immature Gran % (Auto) % Neut % (Auto) % Lymph % (Auto) % Labette % (Auto) % Eos % (Auto) % Baso % (Auto) % Neut # (Auto) (1.4-6.5) K/uL Lymph # (Auto) (1.2-3.4) K/uL Labette # (Auto) (0.24-0.82) K/uL Eos # (Auto) (0-0.50) K/uL Baso # (Auto) (0-0.2) K/uL Immature Gran # (Auto) (0.00-0.02) K/uL ESR (0-20) mm/hr Sodium (136-145) mmol/L Potassium (3.5-5.1) mmol/L Chloride (98-107) mmol/L Carbon Dioxide (21-32) mmol/L Anion Gap (3-11) BUN (6-23) mg/dl Creatinine (0.6-1.4) mg/dl Est Cr Clr Drug Dosing ml/min Est GFR ( Amer) ml/min Est GFR (Non-Af Amer) ml/min BUN/Creatinine Ratio (10-20) Glucose (70-99(Fasting)) mg/dl Calcium (8.5-10.1) mg/dl Magnesium 1.9 (1.7-2.4) mg/dl Total Bilirubin (0.2-1.0) mg/dl AST (13-39) U/L ALT (7-52) U/L Alkaline Phosphatase (34-104) U/L C-Reactive Protein (0-0.5) mg/dl Total Protein (6.0-8.3) gm/dl Albumin (3.4-5.0) gm/dl Globulin (2.5-4.0) gm/dl Albumin/Globulin Ratio (0.9-2) Procalcitonin 0.30 (0-0.5) ng/ml SARS-CoV-2, RNA, NAAT NEGATIVE (NEGATIVE) Administered Medications Discontinued Medications Piperacillin Sod/Tazobactam Sod (Zosyn) 4.5 gm in 120 mls @ 240 mls/hr IV NOW ONE Stop: 09/26/21 03:20 Last Infusion: 09/26/21 04:01 Dose: 0 mls/hr Documented By: Admin: 09/26/21 03:22 Dose: 240 mls/hr Documented By: CC Vancomycin HCl 2,500 mg/ (Sodium Chloride) 550 mls @ 200 mls/hr IV NOW ONE Stop: 09/26/21 05:35 Last Admin: 09/26/21 04:32 Dose: 200 mls/hr Documented By: CC Sodium Chloride (Nss 1000ml) 1,000 mls @ 999 mls/hr IV .Q1H1M MARILYN Stop: 09/26/21 03:53 Last Infusion: 09/26/21 04:37 Dose: 0 mls/hr Documented By: Admin: 09/26/21 03:15 Dose: 999 mls/hr Documented By: ASHTYN Ioversol (Optiray 300 100ml) 100 ml IV ONCE ONE Stop: 09/26/21 04:32 Last Admin: 09/26/21 04:31 Dose: 86 ml Documented By: INEZ Ketorolac Tromethamine (Ketorolac Tromethamine 15 Mg/Ml Vial) 15 mg IV NOW ONE Stop: 09/26/21 03:10 Last Admin: 09/26/21 03:18 Dose: 15 mg Documented By: ASHTYN Imaging Data My Impression: Left ankle x-ray per my view without acute osseous abnormality Radiologist's Impression: Preliminary Findings Only See Final Report For Complete Findings CT EXTREMITY LEFT LOWER: No prior study available. Generalized subcutaneous edema and infiltration extending from the on the anterior lateral aspect lower extremity to the foot. Plantar calcaneal bone spur. Calcification of the proximal aspect of the Achilles tendon. Thickening and infiltration surrounding the Achilles tendon superior to the calcaneus consistent with inflammation. No discrete ring- enhancing abscess, collection or interstitial gas. No fracture or bone erosion. Joint relationships are maintained. Vascular structures are unremarkable. Radiologist: Dimitris William M.D. Final results pending review by the [facility] radiologist. Discharge Plan Visit Data Chief Complaint: Leg Injury/Pain Stated Complaint: LEFT LEG CELLULITIS ED Provider: Vianey Braxton ED Midlevel Provider: Tangela Cohn Discharge Problem: Cellulitis and abscess of left leg Patient Disposition: Admitted As Inpatient Forms Stand Alone Forms: My [facility] Prescriptions Prescriptions: No Action sulfamethoxazole-trimethoprim 800-160 mg tablet 800 tab PO BID Rx Instructions: for 10 days lisinopril 5 mg tablet 5 mg PO DAILY metformin 500 mg tablet extended release 24 hr 500 mg PO DAILY Rx Instructions: 4 tabs daily w meals Jardiance 25 mg tablet 25 mg PO DAILY multivitamin Tablet 1 tab PO DAILY methadone 40 mg Tablet,Soluble 164 mg PO QAM Referrals Referrals: Mariposa Quan PA-C [Primary Care Provider] -
[2021-09-26] MEDS ORDERED: PROMETHAZINE HCL 12.5 MG in SODIUM CHLORIDE 0.9% 50 ML IV PRN (06:21)
[2021-09-26] MEDS ORDERED: hydrOXYzine HCl 10 MG TAB PO PRN (06:22)
--- NOTE | 2021-09-26 07:13 | CT Scan Report ---
CT tib/fib LT w con HISTORY: Left lower leg cellulitis with abscess, assess for nec fasc TECHNIQUE: Multiaxial CT images of the left lower leg were performed following the intravenous admini stration of 86 cc of Optiray 300 and reformatted in the sagittal and coronal plane. COMPARISON STUDY: Left ankle radiograph 09/26/2021. FINDINGS: There is diffuse subcutaneous edema throughout the left lower leg with mild skin thickening . This suggests a cellulitis. The muscle compartments appear intact. No soft tissue gas identified. N o fracture or dislocation within the left tibia or fibula. No bony destructive change to suggest an o steomyelitis. The major vascular structures enhance normally. Small amount of fluid surrounding the m ajority of the Achilles tendon which is partially loculated. This measures up to 5 mm in thickness an d is best seen on axial image 370. There is also mild thickening of the Achilles tendon. Plantar heel spur. Small amount of calcification at the distal attachment of the Achilles tendon. IMPRESSION: 1. Diffuse subcutaneous edema/infiltration within the left lower leg with associated skin thickening. This favors a cellulitis. 2. Mild fusiform thickening of the Achilles tendon with a small amount of partially loculated fluid s urrounding the Achilles tendon which measures up to 5 mm in thickness. This could represent a paraten dinitis or possibly a small developing abscess. 3. No soft tissue gas identified within the left lower leg. 4. No evidence for osteomyelitis. ACT 112: Negative or not required by law. Electronically signed by: Jak Dumas M.D. 09/26/2021 7:11 AM
--- NOTE | 2021-09-26 08:25 | XRay Report ---
XR ankle LT min 3V routine CLINICAL HISTORY: infection, assess for osteomyelitis. Left ankle swelling. COMPARISON STUDY: None. FINDINGS: No acute fracture or dislocation within the left ankle. There is diffuse soft tissue swelli ng. No erosive changes to suggest an osteomyelitis. Irregularity at the medial malleolus likely repre sents old avulsion injuries. No soft tissue gas identified. There is a plantar heel spur. Calcificati on of the distal Achilles tendon. Soft tissue swelling posteriorly within the heel/lower leg. Mild de generative changes of the tibiotalar joint. There is an old, healed distal fibular fracture. IMPRESSION: 1. No evidence for osteomyelitis within the left ankle. 2. No acute fracture or dislocation. 3. Diffuse soft tissue swelling most pronounced posteriorly. ACT 112: Negative or not required by law. Electronically signed by: Jak Dumas M.D. 09/26/2021 8:23 AM
[2021-09-26] MEDS ORDERED: ACETAMINOPHEN 325 MG TAB PO PRN (08:58)
[2021-09-26] MEDS ORDERED: GLUCOSE 10 TAB/TUBE PO PRN (08:58)
[2021-09-26] MEDS ORDERED: DEXTROSE 50% 50 ML SYRINGE IV PRN (08:58)
[2021-09-26] MEDS ORDERED: GLUCOSE 40% GEL 15 GM TUBE PO PRN (08:58)
[2021-09-26] MEDS ORDERED: GLUCAGON FOR INJ 1 MG VIAL SQ PRN (08:58)
[2021-09-26] MEDS ORDERED: CARBOHYDRATES FOR HYPOGLYCEMIA PO PRN (08:58)
[2021-09-26] MEDS ORDERED: KETOROLAC TROMETHAMINE 15 MG/ML VIAL IV PRN (09:00)
[2021-09-26] MEDS ORDERED: DOXYCYCLINE HYCLATE 100 MG CAP PO STA (09:36)
[2021-09-26] MEDS: INSULIN ASPART PER UNIT SC SCH ×4 (10:41→21:32)
[2021-09-26] MEDS: LANTUS PER UNIT CHARGE SQ SCH (11:09)
[2021-09-26] MEDS: CEFEPIME 2,000 MG in SYRINGE 0 ML IV SCH ×2 (11:23→18:02)
[2021-09-26] MEDS: MULTIVITAMIN TAB PO SCH (11:23)
[2021-09-26] MEDS: lisinopril 5 MG TAB PO SCH (11:24)
[2021-09-26] MEDS ORDERED: KETOROLAC 30 MG/ML VIAL IV ONE (12:29)
[2021-09-26] MEDS ORDERED: Nursing to Pharmacy Communication SCH ×2 (12:30→15:30)
--- NOTE | 2021-09-26 12:39 | Hospitalist Progress Note ---
Date of Service September 26, 2021 Assessment & Plan (1) Cellulitis: (2) Opiate dependence, continuous: (3) Depression: (4) HTN (hypertension): (5) DMII (diabetes mellitus, type 2): (6) Anemia: Plan LLE cellulitis secondary to infected left ankle wound Failed outpatient treatment--PO abx since Friday. No overt sepsis for now Anemia possibly from intermittent ankle wound bleed vs dilution with IVF overnight. hypertension, chronic, stable hyperlipidemia/statin noncompliance DM2 on oral medications suboptimal control as of recent hemoglobin A1c of 7.6 in September 2021 chronic pain on methadone past tobacco abuse Cultures are pending. Cont cefepime and change doxycycline to vancomycin given the extent of infection and purulence as well as the possibility of developing abscess. Elevate left lower extremity Ice/Toradol as needed, cont home methadone. Orthopedics consult Re: Infected left ankle wound with secondary cellulitis N.p.o. until patient seen by orthopedics in a.m. in anticipation of procedure. SCDs without Lovenox given bleeding ankle wound and possible upcoming procedure. Maria Luisa Mcnair DO [facility] Hospitalist Admission and Anticipated Discharge Date Admission Date: September 26, 2021 Subjective 61 yo diabetic man presents with a severe pruritic cellulitis with an open wound over his left Achilles tendon. Erythema is up into the medial upper thigh. He is not septic but is reporting severe pain. He has cefepime and doxycycline on board. He is on methadone which has been held while NPO pending orthopedic evaluation. Review of Systems Review of Systems: All systems were reviewed and negative except as indicated above. Physical Exam Physical Exam: CONSTITUTIONAL: WNWD, vitals as above, NAD EYES: normal conjunctivae, no scleral icterus ENT: external ear and nose normal, MMM NECK: trachea midline RESPIRATORY: clear to auscultation bilaterally, no crackles, rales or wheezes, normal respiratory effort CARDIOVASCULAR: regular rate and rhythm, S1 and 2 heard without murmurs, gallops or rubs, no JVD, no peripheral edema CHEST: inspection of chest was normal GASTROINTESTINAL: soft, nontender, ND, no guarding MUSCULOSKELETAL: strength 5/5 throughout, head is normocephalic and atraumatic, SKIN: +erythema extending from medial left foot continuously up to medial left thigh. There is an open wound over his left Achilles tendon that has purulent drainage present. The left and foot are red and hot and swollen. NEUROLOGIC: CN 2-12 grossly intact, no sensory deficit, normal cognition, normal speech, no tremor PSYCHIATRIC: alert cooperative and oriented to person, place and time. Euthymic mood, makes good eye contact, language grossly intact, recent and remote memory grossly intact. Results & Data Results & Data ([facility]) Vital Signs (Past 12 Hours) Vital Signs Temp Pulse Pulse Resp BP BP Pulse Ox 09/26/21 08:58 37.1 C 83 20 143/70 H 94 09/26/21 08:00 52 L 14 114/83 97 09/26/21 06:50 53 L 14 134/63 96 09/26/21 05:54 65 18 136/71 92 09/26/21 05:09 60 17 131/66 92 09/26/21 03:31 64 18 122/62 92 09/26/21 02:08 37 C 70 22 143/80 H 94 O2 Del Method O2 Flow Rate 09/26/21 08:58 Nasal Cannula 2 09/26/21 08:00 Nasal Cannula 2 09/26/21 06:50 Room Air 09/26/21 05:54 Room Air 09/26/21 05:09 Room Air 09/26/21 03:31 Room Air 09/26/21 02:08 Room Air Laboratory Results Short CBC 09/26/21 Range/Units 02:28 WBC 15.79 H (4.8-10.8) K/ul Hgb 13.3 L (14.0-18.0) g/dl Hct 40.1 (40.1-51.0) % Plt Count 348 (130-400) K/uL BMP 09/26/21 02:28 Sodium 133 L Potassium 3.7 Chloride 95 L Carbon Dioxide 27 BUN 21 Creatinine 1.06 Glucose 118 H Calcium 9.6 Liver Function 09/26/21 Range/Units 02:28 Total Bilirubin 0.5 (0.2-1.0) mg/dl AST 19 (13-39) U/L ALT 20 (7-52) U/L Alkaline Phosphatase 66 (34-104) U/L Albumin 4.0 (3.4-5.0) gm/dl Diagnostic Findings Ankle X-Ray 09/26/21 02:51 XR ankle LT min 3V routine CLINICAL HISTORY: infection, assess for osteomyelitis. Left ankle swelling. COMPARISON STUDY: None. FINDINGS: No acute fracture or dislocation within the left ankle. There is diffuse soft tissue swelling. No erosive changes to suggest an osteomyelitis. Irregularity at the medial malleolus likely represents old avulsion injuries. No soft tissue gas identified. There is a plantar heel spur. Calcification of the distal Achilles tendon. Soft tissue swelling posteriorly within the heel/lower leg. Mild degenerative changes of the tibiotalar joint. There is an old, healed distal fibular fracture. IMPRESSION: 1. No evidence for osteomyelitis within the left ankle. 2. No acute fracture or dislocation. 3. Diffuse soft tissue swelling most pronounced posteriorly. ACT 112: Negative or not required by law. Electronically signed by: Jak Dumas M.D. 09/26/2021 8:[address] 09/26/21 04:01 CT tib/fib LT w con HISTORY: Left lower leg cellulitis with abscess, assess for nec fasc TECHNIQUE: Multiaxial CT images of the left lower leg were performed following the intravenous administration of 86 cc of Optiray 300 and reformatted in the sagittal and coronal plane. COMPARISON STUDY: Left ankle radiograph 09/26/2021. FINDINGS: There is diffuse subcutaneous edema throughout the left lower leg with mild skin thickening. This suggests a cellulitis. The muscle compartments appear intact. No soft tissue gas identified. No fracture or dislocation within the left tibia or fibula. No bony destructive change to suggest an osteomyelitis. The major vascular structures enhance normally. Small amount of fluid surrounding the majority of the Achilles tendon which is partially loculated. This measures up to 5 mm in thickness and is best seen on axial image 370. There is also mild thickening of the Achilles tendon. Plantar heel spur. Small amount of calcification at the distal attachment of the Achilles tendon. IMPRESSION: 1. Diffuse subcutaneous edema/infiltration within the left lower leg with associated skin thickening. This favors a cellulitis. 2. Mild fusiform thickening of the Achilles tendon with a small amount of partially loculated fluid surrounding the Achilles tendon which measures up to 5 mm in thickness. This could represent a paratendinitis or possibly a small devel oping abscess. 3. No soft tissue gas identified within the left lower leg. 4. No evidence for osteomyelitis. ACT 112: Negative or not required by law. Electronically signed by: Jak Dumas M.D. 09/26/2021 7:11 AM Medications Administered Current Inpatient Medications Acetaminophen (Acetaminophen 325 Mg Tab) 650 mg PO Q4H PRN PRN Reason: pain/fever Stop: 10/26/21 08:57 Dextrose (Dextrose 50% 50 Ml Syringe) 25 - 50 ml IV UD PRN; Protocol PRN Reason: Hypoglycemia Protocol Stop: 10/26/21 08:57 Doxycycline Hyclate (Doxycycline Hyclate 100 Mg Cap) 100 mg PO BID MARILYN; Protocol Stop: 10/03/21 20:59 Glucagon (Glucagon For Inj 1 Mg Vial) 1 mg SQ UD PRN; Protocol PRN Reason: Hypoglycemia Protocol Stop: 10/26/21 08:57 Glucose (Glucose 40% Gel 15 Gm Tube) 15 - 30 gm PO UD PRN; Protocol PRN Reason: Hypoglycemia Protocol Stop: 10/26/21 08:57 Glucose (Glucose 10 Tab/Tube) 4 - 8 tab PO UD PRN; Protocol PRN Reason: Hypoglycemia Treatment Stop: 10/26/21 08:57 Hydroxyzine HCl (Hydroxyzine Hcl 10 Mg Tab) 10 mg PO QID PRN PRN Reason: Anxiety Stop: 10/26/21 06:21 Sodium Chloride (Nss 1000ml) 1,000 mls @ 75 mls/hr IV .[id number] ONE Stop: 09/26/21 19:31 Last Admin: 09/26/21 08:03 Dose: 75 mls/hr Promethazine HCl 12.5 mg/ (Sodium Chloride) 50.5 mls @ 202 mls/hr IV Q6H PRN PRN Reason: Nausea And Vomiting Stop: 10/26/21 06:20 Cefepime HCl 2,000 mg/ Syringe 20 mls @ 5 mls/min IV Q8H MARILYN; Protocol Stop: 10/03/21 09:59 Last Admin: 09/26/21 11:23 Dose: 5 mls/min Insulin Aspart (Insulin Aspart Per Unit) 0 units SC Q6 MARILYN Stop: 10/26/21 17:59 Insulin Glargine (Lantus Per Unit Charge) 5 units SQ DAILYBB [facility] Stop: 10/26/21 09:44 Last Admin: 09/26/21 11:09 Dose: Not Given Ketorolac Tromethamine (Ketorolac Tromethamine 15 Mg/Ml Vial) 15 mg IV Q6H PRN PRN Reason: Pain Stop: 10/01/21 08:59 Lisinopril (Lisinopril 5 Mg Tab) 5 mg PO DAILY [facility] Stop: 10/26/21 09:59 Last Admin: 09/26/21 11:24 Dose: 5 mg Methadone HCl (Methadone Oral Soln 2 Mg/Ml) 164 mg PO QAM MARILYN; Protocol Stop: 10/10/21 08:59 Miscellaneous (Carbohydrates For Hypoglycemia ) 15 - 30 gm PO UD PRN PRN Reason: Hypoglycemia Protocol Stop: 10/26/21 08:57 Multivitamins (Multivitamin Tab) [facility] Stop: 10/26/21 09:59 Last Admin: 09/26/21 11:23 Dose: 1 tab (1) Cellulitis Site of cellulitis: extremity Site of cellulitis of extremity: lower extremit y Laterality: left Qualified Code(s): L03.116 - Cellulitis of left lower limb
[2021-09-26] MEDS ORDERED: VANCOMYCIN HCL 2,000 MG in SODIUM CHLORIDE 0.9% 500 ML IV ONE (12:48)
--- NOTE | 2021-09-26 13:43 | Orthopedic Consultation ---
Date of Service September 26, 2021 Assessment & Plan (1) Cellulitis and abscess of left leg: (2) Diabetic ankle ulcer: -Will need surgical irrigation/debridement of wound and likely wound vac placement. -Can have diet today, NPO after midnight -Recommend MRI of L ankle w/o contrast; order placed -Will need higher than typical narcotic requirements for pain control given chronic methodone. Defer to primary team. Dispo: Remain inpatient. OR tomorrow with either Dr. Eli or Dr. Ramesh. Pt seen and discussed w/ Dr. Ramirez. History of Present Illness Reason for Consultation: Infected LLE wound . Requesting Physician: Maria Luisa Mcnair DO . Attending Physician: Maria Luisa Mcnair DO Pt is a 61 y/o/m with PMHx of uncontrolled DM II with neuropathy, lumbosacral neuritis on chronic methodone, HTN who was admitted this morning d/t infected LLE wound. Pt had noticed a wound around his left Achilles approximately a week ago and is unsure how he developed the wound. The wound became progressively more painful with bloody/purulent discharge developing approximately 3 days ago. He initially went to urgent care where he was placed on PO Bactrim DS on 09/23. Despite this he continued to clinically worsen and started developing fevers at home overnight on 09/25 with ongoing bloody/purulent discharge. He then went to [facility] ED for evaluation. He was given Vanc/zosyn in ED and CT of LLE was obtained which was consistent with cellulitis and a possible abscess forming adjacent to his L Achilles tendon. We are consulted for management of wound. Seen at bedside. Endorses severe left ankle pain with any movement. Denies subjective fever, chills, dizziness/lightheadeness, nausea, chest pain, SOB. Allergies Allergy/AdvReac Type Severity Reaction Status Date / Time No Known Allergies Allergy Unverified 03/28/17 15:10 Home Medications Medication Instructions Recorded Confirmed Type empagliflozin 25 mg tablet 25 mg PO DAILY 09/26/21 09/26/21 History (Jardiance) lisinopril 5 mg tablet 5 mg PO DAILY 09/26/21 09/26/21 History metformin 500 mg tablet,extended 500 mg PO DAILY 09/26/21 09/26/21 History release 24 hr methadone 40 mg soluble tablet 164 mg PO QAM 09/26/21 09/26/21 History multivitamin 1 tab PO DAILY 09/26/21 09/26/21 History sulfamethoxazole 800 800 tab PO BID 09/26/21 09/26/21 History mg-trimethoprim 160 mg tablet Past Med/Surg History Medical History Acute respiratory failure with hypoxia Aspiration pneumonia Depression Diabetes HTN (hypertension) Neuropathy Opiate dependence, continuous Surgical History (Updated 09/26/21 @ 06:56 by Tangela Cohn PA-C) No pertinent past surgical history Social History Smoking Status: Never smoker Hx Alcohol Use: No Preferred Language: Setswana [employer] Education Required: No Beliefs That Will Affect Care: None Current Living Situation: Spouse Feels Safe at Home: Yes Safety Concerns: Feels Safe At This Time Assistive Devices: Hearing Aid - Right and Walker Review of Systems All systems reviewed & are unremarkable except as noted in HPI & below. Physical Exam General: Pleasant 61 y/o/m in NAD. AAO x4 LLE: There is a approximately 3 cm x 3 cm wound overlying his left Achilles tendon. There is some bloody/purulent drainage with additional pus able to be expressed. There is necrosis of superficial tissue and surrounding epidermolysis. Diffuse ankle swelling and erythema with severely guarded ROM secondary to pain and swelling. Ankle and foot are globally tender. Good refill. Results & Data Results & Data Laboratory Results Reviewed . Diagnostic Findings CT images reviewed. MRI pending . PG Care Time/CCT Total # of Minutes Spent Total Time Spent with Patient: Total time spent is greater than 50% in coordination of care (as documented) at patient's floor/unit and/or counseling patient: Coding Level of Care Code 93720 Inpt Consult Level 4 Diagnoses Cellulitis and abscess of left leg L03.116; L02.416 Diabetic ankle ulcer E11.622; L97.309
--- NOTE | 2021-09-26 14:15 | Pharmacy Report ---
Pharmacy PK ABX Note - Date of Service September 26, 2021 - Assessment and Plan Assessment 61 year old M receiving VANCOMYCIN/CEFEPIME for treatment of CELLULITIS. Pertinent microbiologic data includes: N/A. Day # 1 of antimicrobial therapy. Plan Vancomycin * Loading dose: 2500 mg IV x 1 * Maintenance dose: 1000 mg IV every 12 hours * Regimen is predicted to achieve target AUC/ARNULFO of 400-600 mg/L.hr * Trough level ordered for: 09/28/21 Pharmacy will continue to follow and will adjust dose/frequency as necessary. Thank you. Pharmacy has transitioned to AUC monitoring for vancomycin. AUC/ARNULFO is the preferred PK/PD target and is associated with decreased risk of nephrotoxicity compared to traditional trough targets.
[2021-09-26] MEDS: METHADONE ORAL SOLN 2 MG/ML PO SCH (16:46)
[2021-09-26] MEDS: PATIENT'S OWN CONTROLLED MED 1 PO SCH (16:52)
[2021-09-26] MEDS: VANCOMYCIN HCL 1,000 MG in SODIUM CHLORIDE 0.9% 250 ML IV SCH (17:32)
--- NOTE | 2021-09-26 17:59 | Magnetic Resonance Report ---
MRI OF THE LEFT ANKLE WITHOUT CONTRAST CLINICAL HISTORY: Left Leg Cellulitis, wound, possible abscess COMPARISON STUDY: Left ankle radiographs and CT of the left tibia and fibula September 26, 2021. TECHNIQUE: Utilizing a 1.5 Ashlee magnet and dedicated coil, multiplanar, multi echo imaging of the le ft ankle was performed without intravenous contrast. FINDINGS: Alignment of the left ankle is anatomic. There is no marrow edema to suggest osteomyelitis within the left ankle or hindfoot. No acute fracture is present. Note is made of extensive subcutaneo us edema of the left lower leg, ankle and visualized portions of the left foot suggestive of cellulit is. There is a wound of the medial left ankle. This is shown on axial image 14 of 46 and is adjacent to the medial aspect of the Achilles tendon. Note is made of loculated fluid surrounding the Achilles tendon. No well-defined capsule is identified. Evaluation for abscess is suboptimal on this unenhanc ed examination. No additional fluid collections are identified with the exception of suspected small ganglion cyst along anterior aspect of the distal left tibia. There is no tibiotalar or subtalar join t effusion. Visualized portions of the flexor, extensor and peroneal tendons are intact. Ligaments of the left ankle suboptimally assessed on this exam. IMPRESSION: 1. Medial left ankle wound, adjacent to loculated fluid surrounding the Achilles tendon. This favors direct extension and suggests Achilles paratenonitis, likely infectious. No well-defined capsule. The refore, this may reflect phlegmon. However, a developing abscess could appear similar. 2. No evidence for acute osteomyelitis within the left ankle. 3. Extensive subcutaneous edema of the left ankle and hindfoot suggestive of cellulitis. ACT 112: Negative or not required by law. Electronically signed by: Amadou Ng M.D. 09/26/2021 5:57 PM
[2021-09-26] MEDS ORDERED: INSULIN ASPART PER UNIT SC SCH (18:00)
[2021-09-26] MEDS ORDERED: DOXYCYCLINE HYCLATE 100 MG CAP PO SCH (21:00)
[2021-09-26] MEDS: oxyCODONE HCL IR 5 MG TAB (IMMEDIATE RELEASE) PO PRN (21:29)
[2021-09-27] MEDS: CEFEPIME 2,000 MG in SYRINGE 0 ML IV SCH ×3 (03:02→17:35)
[2021-09-27] MEDS: VANCOMYCIN HCL 1,000 MG in SODIUM CHLORIDE 0.9% 250 ML IV SCH (03:04)
[2021-09-27 06:23] LABS: Basophils # (auto) 0.03 K/uL (0-0.2); Basophils % (auto) 0.2 %; Eosinophils # (auto) 0.16 K/uL (0-0.50); Eosinophils % (auto) 1.3 %; Hematocrit (blood only) 37.6 % (40.1-51.0); Hemoglobin 12.2 g/dl (14.0-18.0); Immature Granulocytes # (auto) 0.03 K/uL (0.00-0.02); Immature Granulocytes % (auto) 0.2 %; Lymphocytes # (auto) 1.34 K/uL (1.2-3.4); Lymphocytes % (auto) 10.8 %; Mean Corpuscular Hemoglobin 28.6 pg (25.0-34.0); Mean Corpuscular Hgb Conc 32.4 g/dL (32.0-36.0); Mean Corpuscular Volume 88.1 fL (80.0-100.0); Monocytes # (auto) 1.13 K/uL (0.24-0.82); Monocytes % (auto) 9.1 %; Neutrophils % (auto) 78.4 %; Platelet Count 304 K/uL (130-400); RDW Coefficient of Variation 13.1 % (11.5-14.5); RDW Standard Deviation 41.9 fL (36.4-46.3); Red Blood Count 4.27 M/uL (4.63-6.08); White Blood Count 12.39 K/ul (4.8-10.8)
[2021-09-27 06:43] LABS: BUN Creatinine Ratio 23.3 (10-20); Calcium 8.7 mg/dl (8.5-10.1); Creatinine Clr Calc Pharmacy 110.4 ml/min; Est GFR (African American) 109.2 ml/min; Est GFR (Non-African American) 94.3 ml/min; Potassium 4.5 mmol/L (3.5-5.1)
[2021-09-27] MEDS: INSULIN ASPART PER UNIT SC SCH ×3 (06:50→20:57)
[2021-09-27] MEDS: LANTUS PER UNIT CHARGE SQ SCH (06:50)
[2021-09-27 07:07] LABS: Estimated Average Glucose 171 mg/dl; Hemoglobin A1C 7.6 % (4.5-5.6)
[2021-09-27] MEDS: lisinopril 5 MG TAB PO SCH (09:43)
[2021-09-27] MEDS: MULTIVITAMIN TAB PO SCH (09:43)
[2021-09-27] MEDS: METHADONE ORAL SOLN 2 MG/ML PO SCH (09:44)
[2021-09-27] MEDS: PATIENT'S OWN CONTROLLED MED 1 PO SCH (09:44)
--- NOTE | 2021-09-27 13:51 | Hospitalist Progress Note ---
Date of Service September 27, 2021 Assessment & Plan (1) Diabetic ankle ulcer: (2) Cellulitis: (3) Opiate dependence, continuous: (4) Depression: (5) HTN (hypertension): (6) DMII (diabetes mellitus, type 2): (7) Anemia: Plan Diabetic ankle ulcer LLE cellulitis LLE cellulitis secondary to infected left ankle wound Failed outpatient treatment--PO abx since Friday No overt sepsis for now Wound culture from 09/26/21 growing staphylococcus species, preliminary. Blood culture without growth OR today for wound I&D Continue vancomycin, cefepime Elevate LLE, ice/toradol as needed. Continue home methadone Hypertension - chronic, stable Hyperlipidemia - Statin noncompliance DM2 on oral medications - suboptimal control as of recent hemoglobin A1c of 7.6 in September 2021 Chronic pain - on methadone Past tobacco abuse DVT Ppx: SCDs Code status: FULL PCP: Kadeem Dispo: Admitted to med/surg Patient seen in collaboration with Dr. Camp. Please see addendum. Admission and Anticipated Discharge Date Admission Date: September 26, 2021 Supervising Physician Co-Signing Physician Notes This is an attending cosign note for full reports and documentation please see the full dictation by BRAN following is a synopsis.Patient presented here for left lower extremity cellulitis with left ankle wound. Patient failed outpatient therapy. Head atraumatic chest largely clear abdomen soft. Alert. Patient supposed to go to the OR today. Continue with antibiotics wound care. Subjective Seen and examined in 312. Patient continues to have pain and drainage from posterior left ankle over Achilles tendon. Patient sweaty and uncomfortable on exam. Due for methadone. Afebrile. Denies any headache, congestion, chest pain, shortness of breath, nausea, vomiting, abdominal pain, dysuria, diarrhea or constipation. Due for OR today for I&D of wound. Review of Systems Review of Systems: All systems were reviewed and negative except as indicated above. Physical Exam Physical Exam: Gen: WD/WN, NAD, lying in bed, A&Ox3, diaphoretic HEENT: Normocephalic, atraumatic, conjunctivae moist, sclerae anicteric, mucous membranes moist Lung: Clear to Auscultation bilaterally, no wheezes/rales/rhonchi Heart: Regular rate, regular rhythm, no murmurs, rubs, or gallops Abdomen: Soft, NT, ND +BS x 4 Extremities: no edema. LLE wound with dressing in place, some serous weeping noted. Erythema extending to mid-calf Skin: Warm, no rash Results & Data Results & Data ([facility]) Vital Signs (Past 12 Hours) Vital Signs Temp Pulse Resp BP Pulse Ox O2 Del Method O2 Flow Rate 09/27/21 13:00 36.8 C 62 20 144/79 H 95 Room Air 09/27/21 06:57 56 L 18 128/71 95 Nasal Cannula 2 Laboratory Results Short CBC 09/27/21 Range/Units 05:58 WBC 12.39 H (4.8-10.8) K/ul Hgb 12.2 L (14.0-18.0) g/dl Hct 37.6 L (40.1-51.0) % Plt Count 304 (130-400) K/uL BMP 09/27/21 05:58 Sodium 136 Potassium 4.5 D Chloride 104 Carbon Dioxide 23 BUN 20 Creatinine 0.86 Glucose 113 H Calcium 8.7 Diagnostic Findings Ankle X-Ray 09/26/21 02:51 XR ankle LT min 3V routine CLINICAL HISTORY: infection, assess for osteomyelitis. Left ankle swelling. COMPARISON STUDY: None. FINDINGS: No acute fracture or dislocation within the left ankle. There is diffuse soft tissue swelling. No erosive changes to suggest an osteomyelitis. Irregularity at the medial malleolus likely represents old avulsion injuries. No soft tissue gas identified. There is a plantar heel spur. Calcification of the distal Achilles tendon. Soft tissue swelling posteriorly within the heel/lower leg. Mild degenerative changes of the tibiotalar joint. There is an old, healed distal fibular fracture. IMPRESSION: 1. No evidence for osteomyelitis within the left ankle. 2. No acute fracture or dislocation. 3. Diffuse soft tissue swelling most pronounced posteriorly. ACT 112: Negative or not required by law. Electronically signed by: Jak Dumas M.D. 09/26/2021 8:[address] 09/26/21 04:01 CT tib/fib LT w con HISTORY: Left lower leg cellulitis with abscess, assess for nec fasc TECHNIQUE: Multiaxial CT images of the left lower leg were performed following the intravenous administration of 86 cc of Optiray 300 and reformatted in the sagittal and coronal plane. COMPARISON STUDY: Left ankle radiograph 09/26/2021. FINDINGS: There is diffuse subcutaneous edema throughout the left lower leg with mild skin thickening. This suggests a cellulitis. The muscle compartments appear intact. No soft tissue gas identified. No fracture or dislocation within the left tibia or fibula. No bony destructive change to suggest an osteomyelitis. The major vascular structures enhance normally. Small amount of fluid surrounding the majority of the Achilles tendon which is partially loculated. This measures up to 5 mm in thickness and is best seen on axial image 370. There is also mild thickening of the Achilles tendon. Plantar heel spur. Small amount of calcification at the distal attachment of the Achilles tendon. IMPRESSION: 1. Diffuse subcutaneous edema/infiltration within the left lower leg with associated skin thickening. This favors a cellulitis. 2. Mild fusiform thickening of the Achilles tendon with a small amount of partially loculated fluid surrounding the Achilles tendon which measures up to 5 mm in thickness. This could represent a paratendinitis or possibly a small developing abscess. 3. No soft tissue gas identified within the left lower leg. 4. No evidence for osteomyelitis. ACT 112: Negative or not required by law. Electronically signed by: Jak Dumas M.D. 09/26/2021 7:11 AM Ankle MRI 09/26/21 13:34 MRI OF THE LEFT ANKLE WITHOUT CONTRAST CLINICAL HISTORY: Left Leg Cellulitis, wound, possible abscess COMPARISON STUDY: Left ankle radiographs and CT of the left tibia and fibula September 26, 2021. TECHNIQUE: Utilizing a 1.5 Ashlee magnet and dedicated coil, multiplanar, multi echo imaging of the left ankle was performed without intravenous contrast. FINDINGS: Alignment of the left ankle is anatomic. There is no marrow edema to suggest osteomyelitis within the left ankle or hindfoot. No acute fracture is present. Note is made of extensive subcutaneous edema of the left lower leg, ankle and visualized portions of the left foot suggestive of cellulitis. There is a wound of the medial left ankle. This is shown on axial image 14 of 46 and is adjacent to the medial aspect of the Achilles tendon. Note is made of loculated fluid surrounding the Achilles tendon. No well-defined capsule is identified. Evaluation for abscess is suboptimal on this unenhanced examination. No additional fluid collections are identified with the exception of suspected small ganglion cyst along anterior aspect of the distal left tibia. There is no tibiotalar or subtalar joint effusion. Visualized portions of the flexor, extensor and peroneal tendons are intact. Ligaments of the left ankle suboptimally assessed on this exam. IMPRESSION: 1. Medial left ankle wound, adjacent to loculated fluid surrounding the Achilles tendon. This favors direct extension and suggests Achilles paratenonitis, likely infectious. No well-defined capsule. Therefore, this may reflect phlegmon. However, a developing abscess could appear similar. 2. No evidence for acute osteomyelitis within the left ankle. 3. Extensive subcutaneous edema of the left ankle and hindfoot suggestive of c ellulitis. ACT 112: Negative or not required by law. Electronically signed by: Amadou Ng M.D. 09/26/2021 5:57 PM (1) Cellulitis Laterality: left Site of cellulitis: extremity Site of cellulitis of extremity: lower extremity Qualified Code(s): L03.116 - Cellulitis of left lower limb
--- NOTE | 2021-09-27 13:55 | Anesthesiology Consultation ---
Date of Service September 27, 2021 Assessment & Plan Chart Review Chart Review: Acceptable Risk for Surgery and Patient NOT seen in Pre Admission Testing Consults Requested none ASA ASA3 Proposed Anesthesia Anesthesia Type: General Risk / Benefits Reviewed With: PT / POA / Parent / Guardian, Accepts Plan and Informed Consent Obtained History Surgery Operation Date: 09/27/21 07:00 Proposed Procedures p Left Ankle Abscess Incision and Drainage - Dell Ramesh MD Height/Weight Height: 6 ft Weight: 97.3 kg Allergies Allergy/AdvReac Type Severity Reaction Status Date / Time No Known Allergies Allergy Unverified 03/28/17 15:10 Medications Home Medications Medication Instructions Recorded Confirmed Last Taken empagliflozin 25 mg tablet 25 mg PO DAILY 09/26/21 09/26/21 Unknown (Jardiance) lisinopril 5 mg tablet 5 mg PO DAILY 09/26/21 09/26/21 Unknown metformin 500 mg tablet,extended 500 mg PO DAILY 09/26/21 09/26/21 Unknown release 24 hr methadone 40 mg soluble tablet 164 mg PO QAM 09/26/21 09/26/21 Unknown multivitamin 1 tab PO DAILY 09/26/21 09/26/21 Unknown sulfamethoxazole 800 800 tab PO BID 09/26/21 09/26/21 Unknown mg-trimethoprim 160 mg tablet Active Medications Generic Name Dose Route Start Last Admin Trade Name Josephine PRN Reason Stop Dose Admin Acetaminophen 650 mg 09/26/21 08:58 09/26/21 21:26 Acetaminophen 325 Mg Tab PO 10/26/21 08:57 650 mg Q4H PRN Administration pain/fever Cefepime HCl 2,000 mg/ Syringe 20 mls @ 5 mls/min 09/26/21 10:00 09/27/21 09:46 IV 10/03/21 09:59 5 mls/min Q8H MARILYN Administration Protocol Insulin Aspart 0 units 09/27/21 06:00 09/27/21 12:40 Insulin Aspart Per Unit SC 10/27/21 05:59 Not Given Q6 MARILYN Insulin Glargine 5 units 09/26/21 09:45 09/27/21 06:50 Lantus Per Unit Charge SQ 10/26/21 09:44 Not Given DAILYBB MARILYN Lisinopril 5 mg 09/26/21 10:00 09/27/21 09:43 Lisinopril 5 Mg Tab PO 10/26/21 09:59 5 mg DAILY MARILYN Administration Methadone HCl 164 mg 09/26/21 16:00 09/27/21 09:44 Methadone Oral Soln 2 Mg/Ml PO 10/10/21 15:59 164 mg QAM MARILYN Administration Protocol Multivitamins 1 tab 09/26/21 10:00 09/27/21 09:43 Multivitamin Tab PO 10/26/21 09:59 1 tab QAM MARILYN Administration Non-Formulary Medication 1 each 09/26/21 16:00 09/27/21 09:44 Patient's Own Controlled Med 1 PO 10/10/21 15:59 82 ml DAILY MARILYN Administration Oxycodone HCl 5 - 10 mg 09/26/21 18:10 09/26/21 21:29 Oxycodone Hcl Ir 5 Mg Tab (Immediate Release) PO 10/10/21 18:09 10 mg Q6H PRN Administration Pain NPO Date Last Intake of Fluids: 09/26/21 Time Last Intake of Fluids: 18:30 Date Last Intake of Solids: 09/26/21 Time Last Intake of Solids: 18:30 Past Medical History Medical History Acute respiratory failure with hypoxia Aspiration pneumonia Depression Diabetes HTN (hypertension) Neuropathy Opiate dependence, continuous Exercise / Class Metabolic Activity II 4-5 Yardwork/Stairs/Walk up hill Past Surgical History Surgical History (Updated 09/26/21 @ 06:56 by Tangela Cohn PA-C) No pertinent past surgical history Past Anesthesia History No Hx of Anesthesia Complications and No Family Hx of Anesthesia Complications History of PONV No Hx of PONV and No Hx of Motion Sickness Social History Smoking Status: Never smoker Hx Alcohol Use: No Physical Exam Vital Signs Last Vital Signs Temp 36.8 C 09/27/21 13:00 Pulse 62 09/27/21 13:00 Resp 20 09/27/21 13:00 BP 144/79 H 09/27/21 13:00 Pulse Ox 95 09/27/21 13:00 O2 Del Method 09/27/21 13:00 O2 Flow Rate 2 09/27/21 06:57 ENMT Mouth: no dentition abnormality Thyromental Distance: > or= 3.5 Finger Breadths Mallampati Class: II Neck normal visual inspection Respiratory normal respiratory effort Auscultation: lungs clear to auscultation bilaterally Cardiovascular Rate/Rhythm: regular rate and regular rhythm Psychiatric Orientation: alert Testing Laboratory Results 09/27/21 05:58 09/27/21 05:58 Hemoglobin A1c 7.6 % (4.5-5.6) H 09/27/21 05:58 09/26/21 04:02 Gram Stain - Final Leg,Left Wound Culture - Preliminary Staphylococcus species 09/26/21 03:24 Aerobic Blood Culture - Preliminary Blood No growth in Aerobic bottle after 24 hours. Anaerobic Blood Culture - Preliminary No growth in Anaerobic bottle after 24 hours. 09/26/21 02:28 Aerobic Blood Culture - Preliminary Blood No growth in Aerobic bottle after 24 hours. Anaerobic Blood Culture - Preliminary No growth in Anaerobic bottle after 24 hours. 09/27/21 09/27/21 12:24 06:21 POC Glucose 112 H 127 H
[2021-09-27] MEDS ORDERED: ATROPINE SULFATE 0.1 MG/ML 10ML SYR IV PRN (13:56)
[2021-09-27] MEDS ORDERED: ONDANSETRON INJ 2 MG/ML 2 ML VIAL IV PRN (13:56)
[2021-09-27] MEDS ORDERED: ePHEDrine sulfate 50 MG/ML AMP IV PRN (13:56)
[2021-09-27] MEDS ORDERED: PROPOFOL IV EMULSION 10 MG/ML 20 ML VIAL IV ONE (14:11)
--- NOTE | 2021-09-27 14:15 | History & Physical Bridge Note ---
Date of Service September 27, 2021 History & Physical Bridge Note I have examined the patient, reviewed the History & Physical and in the interval since the performance of the History & Physical I have noted the following changes of clinical significance: no changes noted. Patient was independently evaluated and counseled. I agree with Dr. Ramirez's assessment and plan. I discussed that he requires surgical irrigation and debridement, possible wound closure, likely wound VAC application. He may need additional surgery to get this wound cleaned and closed. He may also require prolonged vacuum-assisted closure as an outpatient. The risks of surgery were discussed in detail, and these risks include but not limited to infection, neurovascular injury, loss of function, need for repeat or revision surgery, pain syndromes, blood clots and complications related anesthesia. He has appropriate questions, was accompanied by his and daughter who is a nurse, demonstrated good understanding, and wanted proceed with surgery. Informed consent was obtained today in the preop holding area.
[2021-09-27] MEDS ORDERED: MIDAZOLAM HCL 1 MG/ML 2ML VIAL ONE (14:17)
[2021-09-27] MEDS ORDERED: KETAMINE 50 MG/5 ML SYRINGE ONE (14:18)
[2021-09-27] MEDS ORDERED: ONDANSETRON INJ 2 MG/ML 2 ML VIAL ONE (14:34)
[2021-09-27] MEDS ORDERED: GLYCOPYRROLATE 0.2 MG/ML VIAL ONE (14:42)
--- NOTE | 2021-09-27 15:33 | Post Operative Brief Note ---
PG Immediate Post Op with CF Date of Surgery September 27, 2021 Pre & Post Diagnosis Operation Date: 09/27/21 07:00 Pre-Op Diagnosis: Open wound and abscess of left achilles Post-Op Diagnosis: Open wound and abscess of left achilles I identified the patient and participated in the time-out.: Yes Procedure Operation Date: 09/27/21 07:00 Actual Procedures p Left Ankle wound and abscess Incision and Drainage with wound vac application - Dell Ramesh MD Surgeon Dell Ramesh MD Prison Teacher Sonny Winn PA-C Estimated Blood Loss 25 Findings Consistent with Post-Op Diagnosis Specimens Specimen Description: Culture set #1 Left achilles wound. Culture set #2 Left achilles wound.
[2021-09-27] MEDS: fentaNYL citrate 100 MCG/2 ML VIAL IV PRN ×4 (15:44→15:59)
[2021-09-27] MEDS ORDERED: KETOROLAC 30 MG/ML VIAL ONE (16:04)
[2021-09-27] MEDS ORDERED: KETOROLAC TROMETHAMINE 15 MG/ML VIAL IV STA (16:04)
--- NOTE | 2021-09-27 16:18 | Anesthesiology Progress Note ---
Date of Service September 27, 2021 Anesthesia Post Procedure Vital Signs Vital Signs: Temp Pulse Pulse Resp BP Pulse Ox O2 Del Method 09/27/21 16:13 36.4 C L 59 L 14 133/69 92 Room Air 09/27/21 16:00 61 17 133/69 94 Room Air 09/27/21 15:50 59 L 16 132/72 93 Room Air 09/27/21 15:40 57 L 15 126/61 97 Oxymask 09/27/21 15:34 36.1 C L 66 15 116/66 97 Oxymask 09/27/21 13:00 36.8 C 62 20 144/79 H 95 Room Air 09/27/21 06:57 56 L 18 128/71 95 Nasal Cannula 09/26/21 22:28 37.4 C 55 L 18 131/63 93 Nasal Cannula 09/26/21 17:53 147/83 H O2 Flow Rate 09/27/21 16:13 09/27/21 16:00 09/27/21 15:50 09/27/21 15:40 4 09/27/21 15:34 4 09/27/21 13:00 09/27/21 06:57 2 09/26/21 22:28 2 09/26/21 17:53 Pain Intensity Left Lower Leg: Pain Intensity: 4 Transfer of Care Handoff Completed per policy Notes Mental Status: alert / awake / arousable Patient Amnestic to Procedure: Yes Nausea / Vomiting: adequately controlled Pain: adequately controlled Airway Patency, RR, SpO2: stable & adequate BP & HR: stable & adequate Hydration State: stable & adequate Anesthetic Complications: no major complications apparent
--- NOTE | 2021-09-27 17:27 | Operative Report ---
PG Post Operative Report Pre & Post Diagnosis Operation Date: 09/27/21 07:00 Pre-Op Diagnosis: Open wound and abscess of left achilles Post-Op Diagnosis: Open wound and abscess of left achilles I identified the patient and participated in the time-out.: Yes Procedure Operation Date: 09/27/21 07:00 Actual Procedures p Left Ankle wound and abscess Incision and Drainage with wound vac application - Dell Ramesh MD Surgeon Dell Ramesh MD Coil Former Sonny Winn PA-C Estimated Blood Loss 25 Findings See Below The ulcerated medial Achilles wound was overlying and pocket of purulent material. This extended down in to the anterior region with respect to the Achilles. There is extensive fat necrosis in this area. The infection material did not violate the joint nor periosteum. Thorough irrigation was performed. The ulcerated skin was not viable and would not hold suture. It was debrided sharply. This left a quarter size wound that could not be closed. For that reason a silver impregnated vacuum-assisted closure was performed. VAC pressure was 125 mmHg with excellent seal. Specimens 2 deep cultures Anesthesia Type General Complications none Disposition Accompanied Patient To Recovery: No Disposition: Recovery Room Indications 61-year-old male who developed a wound after performing lawn care. Progressed to surrounding erythema. He was admitted to the hospital with a complicated full-thickness wound near his Achilles. He was seen by my partner, Dr. Ramirez, who recommended surgical management to decompress the wound. Advanced imaging showed a deep abscess about the Achilles tendon. We discussed these findings with the patient and his and his daughter who is a nurse in the preoperative area. We discussed the risks and benefit of surgical intervention. We discussed that he may need additional surgery to eradicate his infection. We also discussed potential for a wound VAC that may be on for several weeks to months to obtain final wound closure. Discussed the risks of this surgery include not limited to infection, neurovascular injury, need for repeat or revision surgeries, loss of function, pain syndromes, blood clots complication related anesthesia. They asked appropriate questions, demonstrated a good understanding, and desired to proceed with surgery. Informed consent was confirmed in the preop area. Description of Procedure On the day of surgery, the patient was greeted in the preoperative holding area. The informed consent was reviewed and confirmed by myself and the patient. The patient identified the surgical site and was marked by me. The patient was then turned over to anesthesia. He was taken to the operating room, and placed supine on the operating room table. Anesthesia was induced. The airway was secured. Patient was turned over to us. A bump was placed under the contralateral hip to allow more external rotation of his left lower extremity. The left lower extremities then prepped and draped usual sterile fashion. A nonsterile tourniquet placed high in the thigh. The limb was held in elevation while surgical timeout was performed. Procedure, laterality, and equipment were all confirmed. Antibiotics have been infused. All were in agreement to proceed. The tourniquet is inflated to 250 mmHg for less than 30 minutes. I proceeded with an incision extending from the ulcer proximally and distally. This was just medial to the Achilles tendon. The ulcerated skin was not viable. It fell apart. There were several sinus tracts that compromised its integrity. The ulcerated skin was ellipsed sharply. Full-thickness wound was then explored. The peritenon from the Achilles was opened and this allowed reflux of purulent material. Cultures were taken deeply here. Thorough irrigation was completed. All devitalized tissue was removed sharply. The nearby superficial branch of the saphenous nerve was visible and in continuity. It was directly involved in the infectious region. It was protected throughout but appeared to be in distress. Wants clean tissue margins obtained. Another 2 L of irrigation was run through the wound. Instruments were changed out. We placed clean towels under the limb. We then began closure using 2-0 nylon suture in a vertical mattress fashion. This approximated wound edges well. The ellipse region nearly approximated but I felt it was too much tension. For that reason, wound VAC was applied. We used silver impregnated VAC to protect the nearby Achilles tendon. About a quarter size full-thickness open wound just on the medial side of the Achilles tendon was left unclosed. The proximal and distal extensions of the wound were directly closed. Wound VAC was placed the combination of incisional VAC and deep wound VAC over the defect. Was placed 125mmHg with good seal. Patient tolerated procedure well, was extubated in the operating room without complication, and transferred to the recovery area in stable condition. Disposition: He returned to his hospital room as an inpatient and remain there for parenteral antibiotic therapy. We will await culture results for tailoring our antibiotic selection. Based on exam this weekend, he could potentially go to outpatient care with wound VAC changes through the wound care center. He can follow-up in orthopedics as well. He may require a delayed primary closure procedure versus chronic wound VAC therapy to close this, depending on initial exams. He should remain an inpatient until normalized laboratory values and a solid antibiotic plan is established. If the wound and erythema does not make progress this week and, he may require serial irrigation debridement within 72- 96 hours. Physician assistant to the dean attestation: Sonny Winn PA-C was present and scrubbed for the duration of the case. He was essential to prepping/draping, patient positioning, retraction, and assistance with wound closure. I attest to the content of the Intraoperative Record and any orders documented therein. Any exceptions are noted below.
[2021-09-27] MEDS: VANCOMYCIN HCL 1,250 MG in SODIUM CHLORIDE 0.9% 250 ML IV SCH (18:13)
[2021-09-28] MEDS: oxyCODONE HCL IR 5 MG TAB (IMMEDIATE RELEASE) PO PRN ×2 (00:16→21:17)
[2021-09-28] MEDS: CEFEPIME 2,000 MG in SYRINGE 0 ML IV SCH (01:36)
[2021-09-28] MEDS ORDERED: VANCOMYCIN LEVEL ONE (03:30)
[2021-09-28 03:58] LABS: Hematocrit (blood only) 38.6 % (40.1-51.0); Hemoglobin 12.7 g/dl (14.0-18.0); Mean Corpuscular Hemoglobin 28.8 pg (25.0-34.0); Mean Corpuscular Hgb Conc 32.9 g/dL (32.0-36.0); Mean Corpuscular Volume 87.5 fL (80.0-100.0); Mean Platelet Volume 9.9 fL (9.4-12.4); Platelet Count 330 K/uL (130-400); RDW Coefficient of Variation 12.9 % (11.5-14.5); RDW Standard Deviation 41.6 fL (36.4-46.3); Red Blood Count 4.41 M/uL (4.63-6.08); White Blood Count 11.94 K/ul (4.8-10.8)
[2021-09-28 04:35] LABS: Calcium 8.8 mg/dl (8.5-10.1); Creatinine Clr Calc Pharmacy 115.8 ml/min; Est GFR (African American) 111.4 ml/min; Est GFR (Non-African American) 96.1 ml/min; Potassium 4.6 mmol/L (3.5-5.1)
[2021-09-28] MEDS: VANCOMYCIN HCL 1,250 MG in SODIUM CHLORIDE 0.9% 250 ML IV SCH (05:23)
[2021-09-28] MEDS ORDERED: CALCIUM CARBONATE 500 MG CHEWABLE TAB PO PRN (05:52)
[2021-09-28] MEDS ORDERED: CALCIUM CARBONATE 500 MG CHEWABLE TAB ONE (05:55)
[2021-09-28] MEDS: LANTUS PER UNIT CHARGE SQ SCH (06:20)
--- NOTE | 2021-09-28 07:50 | Orthopedic Progress Note ---
Date of Service September 28, 2021 Assessment & Plan (1) Cellulitis and abscess of left leg: (2) Diabetic ankle ulcer: POD 1 Making expected progress - Continue empiric abx and let cultures direct - PWBing LLE in CAM boot for ADLs only, crutches as needed - Cont VAC 125mmHg - wound care consult for ongoing needs Dispo: Depending on cultures and abx needs. Potential for fdc wound care with VAC therapy for small medial achilles wound. No plan for return to OR at this time. Subjective Reports improvement in pain. Tolerating antibiotics. No complaints Review of Systems All systems reviewed & are unremarkable except as noted in HPI & below. Physical Exam Gen: NAD, pleasant, VAC functional, leg elevated LLE: erythema much improved, DNVI. Tight ROM through ankle DF/PF as expected with VAC dressing Results & Data Results & Data Laboratory Results . Laboratory Tests 09/27/21 09/28/21 05:58 03:29 WBC 12.39 H 11.94 H Diagnostic Findings . PG Care Time/CCT Total # of Minutes Spent Total Time Spent with Patient: Total time spent is greater than 50% in coordination of care (as documented) at patient's floor/unit and/or counseling patient: Coding Level of Care Code 83506 Post Operative Follow-Up Diagnoses Cellulitis and abscess of left leg L03.116; L02.416 Diabetic ankle ulcer E11.622; L97.309
[2021-09-28] MEDS: INSULIN ASPART PER UNIT SC SCH ×4 (08:09→20:56)
[2021-09-28] MEDS ORDERED: POLYETHYLENE (MIRALAX) 17 GM PACK ONE (08:15)
[2021-09-28] MEDS ORDERED: ALUMINUM/MAGNESIUM SUSP 30 ML UDC PO PRN (08:36)
[2021-09-28] MEDS: PANTOprazole 40 MG TAB PO SCH (09:15)
[2021-09-28] MEDS: MULTIVITAMIN TAB PO SCH (09:15)
[2021-09-28] MEDS: lisinopril 5 MG TAB PO SCH (09:16)
[2021-09-28] MEDS: METHADONE ORAL SOLN 2 MG/ML PO SCH (09:16)
[2021-09-28] MEDS: PATIENT'S OWN CONTROLLED MED 1 PO SCH (09:19)
[2021-09-28] MEDS ORDERED: VANCOMYCIN CONSULT ACTIVE PRN (11:25)
--- NOTE | 2021-09-28 11:40 | Pharmacy Report ---
Pharmacy PK ABX Note - Date of Service September 28, 2021 - Assessment and Plan Assessment 61 year old M receiving VANCOMYCIN/CEFEPIME for treatment of CELLULITIS. Pertinent microbiologic data includes: L leg culture growing MSSA. Infectious disease recommends continuing vancomycin/cefepime until OR cultures finalize. Day # 3 of antimicrobial therapy. Plan Vancomycin * Loading dose: 2500 mg IV x 1 * Maintenance dose: 1250 mg IV every 8 hours * Regimen is predicted to achieve target AUC/ARNULFO of 400-600 mg/L.hr * Trough level ordered for: 09/30/21 Pharmacy will continue to follow and will adjust dose/frequency as necessary. Thank you. Pharmacy has transitioned to AUC monitoring for vancomycin. AUC/ARNULFO is the preferred PK/PD target and is associated with decreased risk of nephrotoxicity compared to traditional trough targets.
[2021-09-28] MEDS ORDERED: CEFEPIME 2,000 MG in SYRINGE 0 ML IV SCH (12:00)
--- NOTE | 2021-09-28 13:20 | Hospitalist Progress Note ---
Date of Service September 28, 2021 Assessment & Plan (1) Diabetic ankle ulcer: (2) Cellulitis: (3) Opiate dependence, continuous: (4) Depression: (5) HTN (hypertension): (6) DMII (diabetes mellitus, type 2): (7) Anemia: Plan Diabetic ankle ulcer LLE cellulitis LLE cellulitis secondary to infected left ankle wound Failed outpatient treatment--PO abx since Friday POD#1 s/p I&D by Dr. Ramesh Wound culture from 09/26/21 growing staphylococcus species, preliminary. Follow for final Per ID consult: "Recommend de-escalation to Ancef and add Flagyl for possible anaerobic growth pending finalization of wound cultures from the OR. If there is no bone involvement, consider treating 2 to 4 weeks potentially with an oral antibiotic depending on susceptibilities and clinical improvement." Elevate LLE, ice/Toradol as needed. Continue home methadone Hypertension - chronic, stable Hyperlipidemia - Statin noncompliance DM2 on oral medications - suboptimal control as of recent hemoglobin A1c of 7.6 in September 2021 Chronic pain - on methadone Past tobacco abuse DVT Ppx: SCDs for now Code status: FULL PCP: Kadeem Dispo: Admitted to med/surg Patient seen in collaboration with Dr. Camp. Please see addendum. Admission and Anticipated Discharge Date Admission Date: September 26, 2021 Supervising Physician Co-Signing Physician Notes This is an attending cosign note for full reports and documentation please see the full dictation by BRAN following is a synopsis.Patient presented here for left lower extremity cellulitis with left ankle wound. Patient failed outpatient therapy. Head atraumatic chest largely clear abdomen soft. Alert. Patient supposed to go to the OR today. Continue with antibiotics wound care. Subjective Seen and examined in 312. Patient more comfortable today with ankle elevated, wound VAC in place. Denies any new symptom development overnight. Afebrile. Denies any headache, congestion, chest pain, shortness of breath, nausea, vomiting, abdominal pain, dysuria, diarrhea or constipation. Some anxiety following ID consult due to questions but able to discuss and answer all questions to patient's satisfaction. Review of Systems Review of Systems: All systems were reviewed and negative except as indicated above. Physical Exam Physical Exam: Gen: WD/WN, NAD, lying in bed, A&Ox3, anxious HEENT: Normocephalic, atraumatic, conjunctivae moist, sclerae anicteric, mucous membranes moist Lung: Clear to Auscultation bilaterally, no wheezes/rales/rhonchi Heart: Regular rate, regular rhythm, no murmurs, rubs, or gallops Abdomen: Soft, NT, ND +BS x 4 Extremities: no edema. LLE wound with dressing in place, + wound VAC with serosanguinous output Skin: Warm, no rash Results & Data Results & Data ([facility]) Vital Signs (Past 12 Hours) Vital Signs Temp Pulse Pulse Resp BP Pulse Ox O2 Del Method 09/28/21 10:47 36.8 C 72 16 161/84 H 92 Room Air 09/28/21 07:44 37.0 C 56 L 16 148/64 H 91 Room Air 09/28/21 03:05 36.9 C 69 18 150/75 H 94 Room Air Laboratory Results Short CBC 09/28/21 Range/Units 03:29 WBC 11.94 H (4.8-10.8) K/ul Hgb 12.7 L (14.0-18.0) g/dl Hct 38.6 L (40.1-51.0) % Plt Count 330 (130-400) K/uL BMP 09/28/21 03:29 Sodium 133 L Potassium 4.6 Chloride 99 Carbon Dioxide 22 BUN 23 Creatinine 0.82 Glucose 172 H Calcium 8.8 Diagnostic Findings Ankle X-Ray 09/26/21 02:51 XR ankle LT min 3V routine CLINICAL HISTORY: infection, assess for osteomyelitis. Left ankle swelling. COMPARISON STUDY: None. FINDINGS: No acute fracture or dislocation within the left ankle. There is diffuse soft tissue swelling. No erosive changes to suggest an osteomyelitis. Irregularity at the medial malleolus likely represents old avulsion injuries. No soft tissue gas identified. There is a plantar heel spur. Calcification of the distal Achilles tendon. Soft tissue swelling posteriorly within the heel/lower leg. Mild degenerative changes of the tibiotalar joint. There is an old, healed distal fibular fracture. IMPRESSION: 1. No evidence for osteomyelitis within the left ankle. 2. No acute fracture or dislocation. 3. Diffuse soft tissue swelling most pronounced posteriorly. ACT 112: Negative or not required by law. Electronically signed by: Jak Dumas M.D. 09/26/2021 8:[address] 08/17/22 04:01 CT tib/fib LT w con HISTORY: Left lower leg cellulitis with abscess, assess for nec fasc TECHNIQUE: Multiaxial CT images of the left lower leg were performed following the intravenous administration of 86 cc of Optiray 300 and reformatted in the sagittal and coronal plane. COMPARISON STUDY: Left ankle radiograph 09/26/2021. FINDINGS: There is diffuse subcutaneous edema throughout the left lower leg with mild skin thickening. This suggests a cellulitis. The muscle compartments appear intact. No soft tissue gas identified. No fracture or dislocation within the left tibia or fibula. No bony destructive change to suggest an osteomyelitis. The major vascular structures enhance normally. Small amount of fluid surrounding the majority of the Achilles tendon which is partially loculated. This measures up to 5 mm in thickness and is best seen on axial image 370. There is also mild thickening of the Achilles tendon. Plantar heel spur. Small amount of calcification at the distal attachment of the Achilles tendon. IMPRESSION: 1. Diffuse subcutaneous edema/infiltration within the left lower leg with associated skin thickening. This favors a cellulitis. 2. Mild fusiform thickening of the Achilles tendon with a small amount of partially loculated fluid surrounding the Achilles tendon which measures up to 5 mm in thickness. This could represent a paratendinitis or possibly a small developing abscess. 3. No soft tissue gas identified within the left lower leg. 4. No evidence for osteomyelitis. ACT 112: Negative or not required by law. Electronically signed by: Jak Dumas M.D. 09/26/2021 7:11 AM Ankle MRI 09/26/21 13:34 MRI OF THE LEFT ANKLE WITHOUT CONTRAST CLINICAL HISTORY: Left Leg Cellulitis, wound, possible abscess COMPARISON STUDY: Left ankle radiographs and CT of the left tibia and fibula September 26, 2021. TECHNIQUE: Utilizing a 1.5 Ashlee magnet and dedicated coil, multiplanar, multi echo imaging of the left ankle was performed without intravenous contrast. FINDINGS: Alignment of the left ankle is anatomic. There is no marrow edema to suggest osteomyelitis within the left ankle or hindfoot. No acute fracture is present. Note is made of extensive subcutaneous edema of the left lower leg, ankle and visualized portions of the left foot suggestive of cellulitis. There is a wound of the medial left ankle. This is shown on axial image 14 of 46 and is adjacent to the medial aspect of the Achilles tendon. Note is made of loculated fluid surrounding the Achilles tendon. No well-defined capsule is identified. Evaluation for abscess is suboptimal on this unenhanced examination. No additional fluid collections are identified with the exception of suspected small ganglion cyst along anterior aspect of the distal left tibia. There is no tibiotalar or subtalar joint effusion. Visualized portions of the flexor, exten sor and peroneal tendons are intact. Ligaments of the left ankle suboptimally assessed on this exam. IMPRESSION: 1. Medial left ankle wound, adjacent to loculated fluid surrounding the Achilles tendon. This favors direct extension and suggests Achilles paratenonitis, likely infectious. No well-defined capsule. Therefore, this may reflect phlegmon. However, a developing abscess could appear similar. 2. No evidence for acute osteomyelitis within the left ankle. 3. Extensive subcutaneous edema of the left ankle and hindfoot suggestive of cellulitis. ACT 112: Negative or not required by law. Electronically signed by: Amadou Ng M.D. 09/26/2021 5:57 PM (1) Cellulitis Laterality: left Site of cellulitis: extremity Site of cellulitis of extremity: lower extremity Qualified Code(s): L03.116 - Cellulitis of left lower limb
[2021-09-28] MEDS ORDERED: VANCOMYCIN HCL 1,250 MG in SODIUM CHLORIDE 0.9% 250 ML IV SCH (14:00)
[2021-09-28] MEDS ORDERED: ceFAZolin 2000MG 2,000 MG/15 ML SYR IV SCH (14:00)
[2021-09-28] MEDS: metroNIDAZOLE 500 MG TAB PO SCH ×2 (15:06→20:13)
[2021-09-28] MEDS: ceFAZolin 2000MG 2,000 MG/15 ML SYR IV SCH ×2 (15:06→21:18)
[2021-09-28] MEDS: HEPARIN SOD 5,000 UNIT/0.5 ML VIAL SQ SCH (20:14)
[2021-09-29] MEDS: LANTUS PER UNIT CHARGE SQ SCH (06:11)
[2021-09-29] MEDS: ceFAZolin 2000MG 2,000 MG/15 ML SYR IV SCH ×3 (06:12→22:21)
[2021-09-29] MEDS: HEPARIN SOD 5,000 UNIT/0.5 ML VIAL SQ SCH ×3 (06:13→22:21)
[2021-09-29 08:50] LABS: Hematocrit (blood only) 42.1 % (40.1-51.0); Hemoglobin 14.2 g/dl (14.0-18.0); Mean Corpuscular Hgb Conc 33.7 g/dL (32.0-36.0); Mean Corpuscular Volume 85.9 fL (80.0-100.0); Mean Platelet Volume 9.3 fL (9.4-12.4); Platelet Count 406 K/uL (130-400); RDW Coefficient of Variation 12.4 % (11.5-14.5); RDW Standard Deviation 38.8 fL (36.4-46.3); White Blood Count 9.35 K/ul (4.8-10.8)
[2021-09-29 09:23] LABS: BUN Creatinine Ratio 28.2 (10-20); Calcium 9.6 mg/dl (8.5-10.1); Creatinine Clr Calc Pharmacy 133.8 ml/min; Est GFR (African American) 118.2 ml/min; Potassium 4.8 mmol/L (3.5-5.1)
[2021-09-29] MEDS: lisinopril 5 MG TAB PO SCH (09:27)
[2021-09-29] MEDS: metroNIDAZOLE 500 MG TAB PO SCH ×3 (09:28→20:36)
[2021-09-29] MEDS: METHADONE ORAL SOLN 2 MG/ML PO SCH (09:28)
[2021-09-29] MEDS: PATIENT'S OWN CONTROLLED MED 1 PO SCH (09:29)
[2021-09-29] MEDS: PANTOprazole 40 MG TAB PO SCH (09:30)
[2021-09-29] MEDS: MULTIVITAMIN TAB PO SCH (09:30)
[2021-09-29] MEDS: INSULIN ASPART PER UNIT SC SCH ×4 (09:38→20:49)
--- NOTE | 2021-09-29 11:53 | Orthopedic Progress Note ---
Date of Service September 29, 2021 Assessment & Plan (1) Diabetic ankle ulcer: Overall he seems to be doing fairly well. The cultures have grown out MSSA. He is on IV Ancef. He can be partial weightbearing in a cam walker boot. He will likely need wound care for VAC changes.He is orthopedically stable for discharge when medically ready. Pineda Meyers was seen and examined at bedside this morning. Overall is doing very well. He says his leg feels much better since the procedure. He is receiving IV Ancef. He has no complaints. . Review of Systems All systems reviewed & are unremarkable except as noted in HPI & below. Physical Exam On physical examination of his left leg, the VAC sponges to suction. The Yves wrap is clean and dry. He has active motion of his toes and his ankle. . Results & Data Results & Data Laboratory Results . Diagnostic Findings . PG Care Time/CCT Total # of Minutes Spent Total Time Spent with Patient: Total time spent is greater than 50% in coordination of care (as documented) at patient's floor/unit and/or counseling patient: Coding Level of Care Code 57043 Post Operative Follow-Up Diagnoses Diabetic ankle ulcer E11.622; L97.309
--- NOTE | 2021-09-29 12:30 | Hospitalist Progress Note ---
Date of Service September 29, 2021 Assessment & Plan (1) Diabetic ankle ulcer: (2) Cellulitis: (3) Opiate dependence, continuous: (4) Depression: (5) HTN (hypertension): (6) DMII (diabetes mellitus, type 2): (7) Anemia: Plan Diabetic ankle ulcer LLE cellulitis LLE cellulitis secondary to infected left ankle wound Failed outpatient treatment--PO abx since Friday POD#2 s/p I&D by Dr. Ramesh Wound culture from 09/26/21 growing MSSAswitch to oxacillin Per ID consult:. If there is no bone involvement, consider treating 2 to 4 weeks potentially with an oral antibiotic depending on susceptibilities and clinical improvement."MRI does not suggest any evidence of osteomyelitis Elevate LLE, ice/Toradol as needed. Continue home methadone Hypertension - chronic, stable Hyperlipidemia - Statin noncompliance DM2 on oral medications - suboptimal control as of recent hemoglobin A1c of 7.6 in September 2021 Chronic pain - on methadone Past tobacco abuse DVT Ppx: SCDs for now Code status: FULL PCP: Kadeem Dispo: Admitted to med/surg Admission and Anticipated Discharge Date Admission Date: September 26, 2021 Subjective Seen and examined in 312. Patient more comfortable today with ankle elevated, wound VAC in place. States he feels much better today. Eating food. Left leg is nonswollen today. Denies any new symptom development overnight. Afebrile. Denies any headache, congestion, chest pain, shortness of breath, nausea, vomiting, abdominal pain, dysuria, diarrhea or constipation. Review of Systems Review of Systems: All systems were reviewed and negative except as indicated above. Physical Exam Physical Exam: Gen: WD/WN, NAD, lying in bed, A&Ox3, anxious HEENT: Normocephalic, atraumatic, conjunctivae moist, sclerae anicteric, mucous membranes moist Lung: Clear to Auscultation bilaterally, no wheezes/rales/rhonchi Heart: Regular rate, regular rhythm, no murmurs, rubs, or gallops Abdomen: Soft, NT, ND +BS x 4 Extremities: no edema. LLE wound with dressing in place, + wound VAC with serosanguinous outputmuch reduced from yesterday Skin: Warm, no rash Results & Data Results & Data ([facility]) Vital Signs (Past 12 Hours) Vital Signs Temp Pulse Resp BP Pulse Ox O2 Del Method 09/29/21 08:18 36.5 C 54 L 17 158/88 H 98 Room Air (1) Cellulitis Site of cellulitis: extremity Site of cellulitis of extremity: lower extremity Laterality: left Qualified Code(s): L03.116 - Cellulitis of left lower limb
--- NOTE | 2021-09-29 17:12 | Communication Note ---
Date of Service: September 29, 2021 LLE diabetic ankle ulcer with cellulitis
[2021-09-30] MEDS ORDERED: VANCOMYCIN LEVEL ONE (05:30)
[2021-09-30] MEDS: LANTUS PER UNIT CHARGE SQ SCH (06:24)
[2021-09-30] MEDS: HEPARIN SOD 5,000 UNIT/0.5 ML VIAL SQ SCH ×3 (06:26→21:22)
[2021-09-30] MEDS: ceFAZolin 2000MG 2,000 MG/15 ML SYR IV SCH ×3 (06:26→21:23)
[2021-09-30 07:27] LABS: Hematocrit (blood only) 42.3 % (40.1-51.0); Hemoglobin 13.9 g/dl (14.0-18.0); Mean Corpuscular Hemoglobin 28.4 pg (25.0-34.0); Mean Corpuscular Hgb Conc 32.9 g/dL (32.0-36.0); Mean Corpuscular Volume 86.5 fL (80.0-100.0); Mean Platelet Volume 9.6 fL (9.4-12.4); Platelet Count 426 K/uL (130-400); RDW Coefficient of Variation 12.6 % (11.5-14.5); RDW Standard Deviation 39.4 fL (36.4-46.3); Red Blood Count 4.89 M/uL (4.63-6.08); White Blood Count 8.47 K/ul (4.8-10.8)
[2021-09-30 07:45] LABS: Calcium 9.4 mg/dl (8.5-10.1); Creatinine Clr Calc Pharmacy 113.1 ml/min; Est GFR (African American) 110.3 ml/min; Est GFR (Non-African American) 95.2 ml/min; Potassium 4.3 mmol/L (3.5-5.1)
--- NOTE | 2021-09-30 08:20 | Orthopedic Progress Note ---
Date of Service September 30, 2021 Assessment & Plan (1) Diabetic ankle ulcer: He is currently on Ancef 2 g every 8 hours. He is orthopedically stable for discharge when medically ready. He is already been seen by infectious disease. He is set up to have wound care on his left ankle at 730 tomorrow morning. It may be best to keep him in the hospital today on the antibiotics and then discharge home after seen by wound care tomorrow. He can be partial weightbearing in a cam walker boot. He will follow-up in the office with Dr. Ramesh. Pineda Meyers was seen and examined at bedside this morning. Overall is doing very well. Is not having too much pain in the left ankle. He has been receiving IV antibiotics. He has no complaints.. Review of Systems All systems reviewed & are unremarkable except as noted in HPI & below. Physical Exam On physical examination of the left ankle, the VAC is to suction. I did take down the dressing. He has active dorsiflexion plantarflexion of his left ankle.. Results & Data Results & Data Laboratory Results . Diagnostic Findings . PG Care Time/CCT Total # of Minutes Spent Total Time Spent with Patient: Total time spent is greater than 50% in coordination of care (as documented) at patient's floor/unit and/or counseling patient: Coding Level of Care Code 00409 Post Operative Follow-Up Diagnoses Diabetic ankle ulcer E11.622; L97.309
[2021-09-30] MEDS: PATIENT'S OWN CONTROLLED MED 1 PO SCH (09:28)
[2021-09-30] MEDS: METHADONE ORAL SOLN 2 MG/ML PO SCH (09:28)
[2021-09-30] MEDS: MULTIVITAMIN TAB PO SCH (09:29)
[2021-09-30] MEDS: PANTOprazole 40 MG TAB PO SCH (09:29)
[2021-09-30] MEDS: lisinopril 5 MG TAB PO SCH (09:29)
[2021-09-30] MEDS: metroNIDAZOLE 500 MG TAB PO SCH ×3 (09:29→21:22)
[2021-09-30] MEDS: INSULIN ASPART PER UNIT SC SCH ×4 (09:30→21:23)
--- NOTE | 2021-09-30 18:02 | Hospitalist Progress Note ---
Date of Service September 30, 2021 Assessment & Plan (1) Diabetic ankle ulcer: (2) Cellulitis: (3) Opiate dependence, continuous: (4) Depression: (5) HTN (hypertension): (6) DMII (diabetes mellitus, type 2): (7) Anemia: Plan Diabetic ankle ulcer Open wound and abscess of left achilles LLE cellulitis secondary to infected left ankle wound Failed outpatient treatment--PO abx since Friday MRI Left ankle with no osteomyelitis but cellulitis POD#3 s/p I&D with wound vac application by Dr. Ramesh on 09/27 Wound culture 09/26 and OR clx 09/27 growing MSSAswitched to ancef and flagyl per ID. Plan for 2-4 weeks. ID and ortho recommendations noted Hypertension - chronic, stable on lisinopril DM2 on oral medications - suboptimal control as of recent hemoglobin A1c of 7.6 in September 2021 Chronic pain - on methadone Past tobacco abuse DVT ppx: sc heparin Dispo: Anticipate discharge tomorrow after wound care eval. Will need wound vac at discharge. Admission and Anticipated Discharge Date Admission Date: September 26, 2021 Subjective Feels fine. Denies any pain. States he worked with PT well. No fever, chills, chest pain, SOB, N/V. Feels ready to get discharged. Physical Exam Physical Exam: General: Lying comfortably in bed, not in distress, on room air HEENT: EOMI, CHAUNCEY, MMM Chest: Clear breath sounds bilaterally, no wheezes or crackles CVS: Regular rate and rhythm, normal heart sounds, no murmur Abdomen: Soft, non tender, not distended, normal bowel sounds Neuro: Awake, alert, oriented, conversing well, non focal Extremities: No edema. Left foot covered with dressing and wound vac. Results & Data Results & Data ([facility]) Vital Signs (Past 12 Hours) Vital Signs Temp Pulse Resp BP Pulse Ox O2 Del Method 09/30/21 15:23 36.5 C 47 L 16 125/76 93 Room Air 09/30/21 07:51 Room Air 09/30/21 07:59 36.7 C 50 L 20 171/85 H 96 Room Air Laboratory Results Short CBC 09/30/21 Range/Units 06:59 WBC 8.47 (4.8-10.8) K/ul Hgb 13.9 L (14.0-18.0) g/dl Hct 42.3 (40.1-51.0) % Plt Count 426 H (130-400) K/uL BMP 09/30/21 06:59 Sodium 137 Potassium 4.3 Chloride 101 Carbon Dioxide 28 BUN 21 Creatinine 0.84 Glucose 142 H Calcium 9.4 Medications Administered Current Inpatient Medications Acetaminophen (Acetaminophen 325 Mg Tab) 650 mg PO Q4H PRN PRN Reason: pain/fever Stop: 10/26/21 08:57 Last Admin: 09/26/21 21:26 Dose: 650 mg Al Hydrox/Mg Hydrox/Simethicone (Aluminum/Magnesium Susp 30 Ml Udc) 15 ml PO Q6H PRN PRN Reason: dyspepsia Stop: 10/28/21 08:35 Calcium Carbonate (Calcium Carbonate 500 Mg Chewable Tab) 500 mg PO BID PRN PRN Reason: Indigestion Stop: 10/28/21 05:51 Dextrose (Dextrose 50% 50 Ml Syringe) 25 - 50 ml IV UD PRN; Protocol PRN Reason: Hypoglycemia Protocol Stop: 10/26/21 08:57 Glucagon (Glucagon For Inj 1 Mg Vial) 1 mg SQ UD PRN; Protocol PRN Reason: Hypoglycemia Protocol Stop: 10/26/21 08:57 Glucose (Glucose 40% Gel 15 Gm Tube) 15 - 30 gm PO UD PRN; Protocol PRN Reason: Hypoglycemia Protocol Stop: 10/26/21 08:57 Glucose (Glucose 10 Tab/Tube) 4 - 8 tab PO UD PRN; Protocol PRN Reason: Hypoglycemia Treatment Stop: 10/26/21 08:57 Heparin Sodium (Porcine) (Heparin Sod 5,000 Unit/0.5 Ml Vial) 5,000 units SQ Q8 MARILYN Stop: 10/28/21 21:59 Last Admin: 09/30/21 14:22 Dose: 5,000 units Hydroxyzine HCl (Hydroxyzine Hcl 10 Mg Tab) 10 mg PO QID PRN PRN Reason: Anxiety Stop: 10/26/21 06:21 Promethazine HCl 12.5 mg/ (Sodium Chloride) 50.5 mls @ 202 mls/hr IV Q6H PRN PRN Reason: Nausea And Vomiting Stop: 10/26/21 06:20 Cefazolin Sodium (Ancef 2000mg) 2,000 mg in 15 mls @ 3.75 mls/min IV Q8 MARILYN Stop: 10/05/21 13:59 Last Admin: 09/30/21 14:21 Dose: 3.75 mls/min Insulin Aspart (Insulin Aspart Per Unit) 0 units SC ACHS [facility] Stop: 10/27/21 20:59 Last Admin: 09/30/21 17:39 Dose: Not Given Insulin Glargine (Lantus Per Unit Charge) 5 units SQ DAILYBB MARILYN Stop: 10/26/21 09:44 Last Admin: 09/30/21 06:24 Dose: 5 units Ketorolac Tromethamine (Ketorolac Tromethamine 15 Mg/Ml Vial) 15 mg IV Q6H PRN PRN Reason: Pain Stop: 10/01/21 08:59 Lisinopril (Lisinopril 5 Mg Tab) 5 mg PO DAILY MARILYN Stop: 10/26/21 09:59 Last Admin: 09/30/21 09:29 Dose: 5 mg Methadone HCl (Methadone Oral Soln 2 Mg/Ml) 164 mg PO QAM [facility]; Protocol Stop: 10/10/21 15:59 Last Admin: 09/30/21 09:28 Dose: 164 mg Metronidazole (Metronidazole 500 Mg Tab) 500 mg PO TID MARILYN Stop: 10/05/21 13:59 Last Admin: 09/30/21 14:22 Dose: 500 mg Miscellaneous (Carbohydrates For Hypoglycemia ) 15 - 30 gm PO UD PRN PRN Reason: Hypoglycemia Protocol Stop: 10/26/21 08:57 Last Admin: 09/27/21 17:30 Dose: 15 gm Multivitamins (Multivitamin Tab) 1 tab PO QAM [facility] Stop: 10/26/21 09:59 Last Admin: 09/30/21 09:29 Dose: 1 tab Non-Formulary Medication (Patient's Own Controlled Med 1) 1 each PO DAILY [facility] Stop: 10/10/21 15:59 Last Admin: 09/30/21 09:28 Dose: 82 ml Oxycodone HCl (Oxycodone Hcl Ir 5 Mg Tab (Immediate Release)) 5 - 10 mg PO Q6H PRN PRN Reason: Pain Stop: 10/10/21 18:09 Last Admin: 09/28/21 21:17 Dose: 10 mg Pantoprazole Sodium (Pantoprazole 40 Mg Tab) 40 mg PO QAM MARILYN Stop: 10/28/21 08:59 Last Admin: 09/30/21 09:29 Dose: 40 mg (1) Cellulitis Site of cellulitis: extremity Site of cellulitis of extremity: lower extremity Laterality: left Qualified Code(s): L03.116 - Cellulitis of left lower limb
[2021-10-01] MEDS: LANTUS PER UNIT CHARGE SQ SCH (06:04)
[2021-10-01] MEDS: ceFAZolin 2000MG 2,000 MG/15 ML SYR IV SCH (06:04)
[2021-10-01] MEDS: HEPARIN SOD 5,000 UNIT/0.5 ML VIAL SQ SCH (06:05)
[2021-10-01] MEDS: MULTIVITAMIN TAB PO SCH (08:12)
[2021-10-01] MEDS: PANTOprazole 40 MG TAB PO SCH (08:12)
[2021-10-01] MEDS: lisinopril 5 MG TAB PO SCH (08:13)
[2021-10-01] MEDS: PATIENT'S OWN CONTROLLED MED 1 PO SCH (08:17)
[2021-10-01] MEDS: INSULIN ASPART PER UNIT SC SCH ×2 (08:17→12:50)
[2021-10-01] MEDS: METHADONE ORAL SOLN 2 MG/ML PO SCH (08:17)
[2021-10-01] MEDS: metroNIDAZOLE 500 MG TAB PO SCH ×2 (09:04→13:13)
--- NOTE | 2021-10-01 17:56 | Discharge Summary ---
Date of Service October 01, 2021 Admission HPI Per Admitting Provider History obtained from patient and records. Medical history significant for hypertension, hyperlipidemia/statin noncompliance, DM2 on oral medications, chronic pain on methadone, past tobacco abuse. Last confinement April 2016 for respiratory failure secondary to multifocal pneumonia. Last week, patient noted a wound to the back of his left ankle. Not sure how he got the wound. Wound bleeding from time to time Subsequent progression to involve the left leg and foot. No fever, no chills, no chest pain, shortness of breath. Patient seen at [facility] 2 days ago. Bactrim prescribed for left leg cellulitis/wound. Outpatient D-dimer was normal. Patient advised to go to ER for worsening symptoms. Patient brought to ER by for worsening left leg swelling. Bloody pus drainage noted by patient. IV vancomycin and Zosyn administered at the ER. 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 Admission Exam Per Admitting Provider GENERAL: Comfortable, slightly anxious, slightly hard of hearing, pleasant, no respiratory distress SKIN: Normal color, warm HEENT: Partial alopecia, bespectacled, pink palpebral conjunctivae, no ptosis, dry buccal mucosa NECK : Supple, no tenderness CHEST : CTA, no tenderness HEART : RRR, no obvious murmurs ABDOMEN: Some distention, nontender EXTREMITIES : Fleshy wound with serosanguineous drainage over left ankle, tender indurated LLE extending to foot, NEUROLOGIC : Coherent, no facial asymmetry, no other gross focality Principal Diagnosis left ankle ulcer with cellulitis and abscess and Achilled paratenonitis Discharge Exam General: Lying comfortably in bed, not in distress, on room air HEENT: EOMI, CHAUNCEY, MMM Chest: Clear breath sounds bilaterally, no wheezes or crackles CVS: Regular rate and rhythm, normal heart sounds, no murmur Abdomen: Soft, non tender, not distended, normal bowel sounds Neuro: Awake, alert, oriented, conversing well, non focal Extremities: No edema. Left foot covered with dressing and wound vac. Discharge Data Allergies Allergy/AdvReac Type Severity Reaction Status Date / Time No Known Allergies Allergy Unverified 03/28/17 15:10 Consultations 09/26/21 05:37 ED Decision to Admit Stat 09/26/21 18:42 Consult Infectious Diseases Routine 09/27/21 16:45 Consult Wound Care Provider Routine Procedures Performed Operation Date: 09/27/21 07:00 Actual Procedures p Left Ankle Abscess Incision and Drainage - Dell Ramesh MD Ordered Studies 09/26/21 04:01 CT leg [CT tib/fib LT w con] Urgent 09/26/21 13:34 MRI Ankle [MR ankle LT wo con] Urgent Laboratory Results WBC 8.47 K/ul (4.8-10.8) 09/30/21 06:59 RBC 4.89 M/uL (4.63-6.08) 09/30/21 06:59 Hgb 13.9 g/dl (14.0-18.0) L 09/30/21 06:59 Hct 42.3 % (40.1-51.0) 09/30/21 06:59 MCV 86.5 fL (80.0-100.0) 09/30/21 06:59 MCH 28.4 pg (25.0-34.0) 09/30/21 06:59 MCHC 32.9 g/dL (32.0-36.0) 09/30/21 06:59 RDW Std Deviation 39.4 fL (36.4-46.3) 09/30/21 06:59 RDW Coeff of Mp 12.6 % (11.5-14.5) 09/30/21 06:59 Plt Count 426 K/uL (130-400) H 09/30/21 06:59 MPV 9.6 fL (9.4-12.4) 09/30/21 06:59 Immature Gran % (Auto) 0.2 % 09/27/21 05:58 Neut % (Auto) 78.4 % 09/27/21 05:58 Lymph % (Auto) 10.8 % 09/27/21 05:58 Gibson % (Auto) 9.1 % 09/27/21 05:58 Eos % (Auto) 1.3 % 09/27/21 05:58 Baso % (Auto) 0.2 % 09/27/21 05:58 Neut # (Auto) 9.70 K/uL (1.4-6.5) H 09/27/21 05:58 Lymph # (Auto) 1.34 K/uL (1.2-3.4) 09/27/21 05:58 Gibson # (Auto) 1.13 K/uL (0.24-0.82) H 09/27/21 05:58 Eos # (Auto) 0.16 K/uL (0-0.50) 09/27/21 05:58 Baso # (Auto) 0.03 K/uL (0-0.2) 09/27/21 05:58 Immature Gran # (Auto) 0.03 K/uL (0.00-0.02) H 09/27/21 05:58 ESR 77 mm/hr (0-20) H 09/26/21 02:28 Sodium 137 mmol/L (136-145) 09/30/21 06:59 Potassium 4.3 mmol/L (3.5-5.1) 09/30/21 06:59 Chloride 101 mmol/L (98-107) 09/30/21 06:59 Carbon Dioxide 28 mmol/L (21-32) 09/30/21 06:59 Anion Gap 8 (3-11) 09/30/21 06:59 BUN 21 mg/dl (6-23) 09/30/21 06:59 Creatinine 0.84 mg/dl (0.6-1.4) 09/30/21 06:59 Est Cr Clr Drug Dosing 113.1 ml/min 09/30/21 06:59 Est GFR ( Amer) 110.3 ml/min 09/30/21 06:59 Est GFR (Non-Af Amer) 95.2 ml/min 09/30/21 06:59 BUN/Creatinine Ratio 25.0 (10-20) H 09/30/21 06:59 Glucose 142 mg/dl (70-99(Fasting)) H 09/30/21 06:59 POC Glucose 149 mg/dl (70-99) H 10/01/21 11:50 Estimat Average Glucose 171 mg/dl 09/27/21 05:58 Hemoglobin A1c 7.6 % (4.5-5.6) H 09/27/21 05:58 Calcium 9.4 mg/dl (8.5-10.1) 09/30/21 06:59 Magnesium 1.9 mg/dl (1.7-2.4) 09/26/21 02:28 Total Bilirubin 0.5 mg/dl (0.2-1.0) 09/26/21 02:28 AST 19 U/L (13-39) 09/26/21 02:28 ALT 20 U/L (7-52) 09/26/21 02:28 Alkaline Phosphatase 66 U/L (34-104) 09/26/21 02:28 C-Reactive Protein 33.59 mg/dl (0-0.5) H 09/26/21 02:28 Total Protein 8.3 gm/dl (6.0-8.3) 09/26/21 02:28 Albumin 4.0 gm/dl (3.4-5.0) 09/26/21 02:28 Globulin 4.3 gm/dl (2.5-4.0) H 09/26/21 02:28 Albumin/Globulin Ratio 0.9 (0.9-2) 09/26/21 02:28 Procalcitonin 0.30 ng/ml (0-0.5) 09/26/21 02:28 Vancomycin Trough 8.9 mcg/ml (10-20) L 09/28/21 03:29 SARS-CoV-2, RNA, NAAT NEGATIVE (NEGATIVE) 09/26/21 Unknown Impressions Ankle X-Ray 09/26/21 02:51 XR ankle LT min 3V routine CLINICAL HISTORY: infection, assess for osteomyelitis. Left ankle swelling. COMPARISON STUDY: None. FINDINGS: No acute fracture or dislocation within the left ankle. There is diffuse soft tissue swelling. No erosive changes to suggest an osteomyelitis. Irregularity at the medial malleolus likely represents old avulsion injuries. No soft tissue gas identified. There is a plantar heel spur. Calcification of the distal Achilles tendon. Soft tissue swelling posteriorly within the heel/lower leg. Mild degenerative changes of the tibiotalar joint. There is an old, healed distal fibular fracture. IMPRESSION: 1. No evidence for osteomyelitis within the left ankle. 2. No acute fracture or dislocation. 3. Diffuse soft tissue swelling most pronounced posteriorly. ACT 112: Negative or not required by law. Electronically signed by: Jak Dumas M.D. 09/26/2021 8:[address] 09/26/21 04:01 CT tib/fib LT w con HISTORY: Left lower leg cellulitis with abscess, assess for nec fasc TECHNIQUE: Multiaxial CT images of the left lower leg were performed following the intravenous administration of 86 cc of Optiray 300 and reformatted in the sagittal and coronal plane. COMPARISON STUDY: Left ankle radiograph 09/26/2021. FINDINGS: There is diffuse subcutaneous edema throughout the left lower leg with mild skin thickening. This suggests a cellulitis. The muscle compartments appear intact. No soft tissue gas identified. No fracture or dislocation within the left tibia or fibula. No bony destructive change to suggest an osteomyelitis. The major vascular structures enhance normally. Small amount of fluid surrounding the majority of the Achilles tendon which is partially loculated. This measures up to 5 mm in thickness and is best seen on axial image 370. There is also mild thickening of the Achilles tendon. Plantar heel spur. Small amount of calcification at the distal attachment of the Achilles tendon. IMPRESSION: 1. Diffuse subcutaneous edema/infiltration within the left lower leg with associated skin thickening. This favors a cellulitis. 2. Mild fusiform thickening of the Achilles tendon with a small amount of partially loculated fluid surrounding the Achilles tendon which measures up to 5 mm in thickness. This could represent a paratendinitis or possibly a small developing abscess. 3. No soft tissue gas identified within the left lower leg. 4. No evidence for osteomyelitis. ACT 112: Negative or not required by law. Electronically signed by: Jak Dumas M.D. 09/26/2021 7:11 AM Ankle MRI 09/26/21 13:34 MRI OF THE LEFT ANKLE WITHOUT CONTRAST CLINICAL HISTORY: Left Leg Cellulitis, wound, possible abscess COMPARISON STUDY: Left ankle radiographs and CT of the left tibia and fibula September 26, 2021. TECHNIQUE: Utilizing a 1.5 Ashlee magnet and dedicated coil, multiplanar, multi echo imaging of the left ankle was performed without intravenous contrast. FINDINGS: Alignment of the left ankle is anatomic. There is no marrow edema to suggest osteomyelitis within the left ankle or hindfoot. No acute fracture is present. Note is made of extensive subcutaneous edema of the left lower leg, ankle and visualized portions of the left foot suggestive of cellulitis. There is a wound of the medial left ankle. This is shown on axial image 14 of 46 and is adjacent to the medial aspect of the Achilles tendon. Note is made of loculated fluid surrounding the Achilles tendon. No well-defined capsule is identified. Evaluation for abscess is suboptimal on this unenhanced examination. No additional fluid collections are identified with the exception of suspected small ganglion cyst along anterior aspect of the distal left tibia. There is no tibiotalar or subtalar joint effusion. Visualized portions of the flexor, extensor and peroneal tendons are intact. Ligaments of the left ankle suboptimally assessed on this exam. IMPRESSION: 1. Medial left ankle wound, adjacent to loculated fluid surrounding the Achilles tendon. This favors direct extension and suggests Achilles paratenonitis, likely infectious. No well-defined capsule. Therefore, this may reflect phlegmon. However, a developing abscess could appear similar. 2. No evidence for acute osteomyelitis within the left ankle. 3. Extensive subcutaneous edema of the left ankle and hindfoot suggestive of cellulitis. ACT 112: Negative or not required by law. Electronically signed by: Amadou Ng M.D. 09/26/2021 5:57 PM Hospital Course (1) Diabetic ankle ulcer: (2) Cellulitis: (3) Opiate dependence, continuous: (4) Depression: (5) HTN (hypertension): (6) DMII (diabetes mellitus, type 2): (7) Anemia: Plan Diabetic ankle ulcer with cellulitis, abscess and achilles paratenonitis Failed outpatient treatment--PO abx since Friday MRI Left ankle with no osteomyelitis but cellulitis POD#4 s/p I&D with wound vac application by Dr. Ramesh on 09/27 Wound culture 09/26 and OR clx 09/27 growing MSSAswitched to ancef and flagyl per ID. Discussed with Dr Ortega via tigertext- states no need for IV ABx in absence of bone involvement- recommended cefadroxil and flagyl for 2-4 weeks. Discharging on the same. F/u with PCP, wound clinic and orthopedics. Hypertension - chronic, stable on lisinopril DM2 on oral medications- continue Chronic pain - on methadone Stable and comfortable for discharge. Discussed discharge plan and recommendations to at bedside. If infection not completely resolved in 2 weeks, recommended to extend the antibiotic for 2 more weeks- antibiotic prescribed for total of 4 weeks in case he needs it. Home Health Attestation I certify that this patient is under my care and that I, or a physicians fitter's assistant working with me, had a face to-face encounter that meets the home health [id number] encounter requirements with this patient. The encounter with the patient was in whole, or in part, for the following medical condition, which is the primary reason for home health care (list medical condition): I certify that, based on my findings, the following services are medically necessary home health services: My clinical findings support the need for the above services because: Further, I certify that my clinical findings support that this patient is homebound (i.e. absences from home require considerable and taxing effort and are for medical reasons or restorationism services or infrequently or of short duration when for other reasons) because: Certification for Home Health Services: Based on the above findings, I certify that this patient is confined to the home and needs intermittent shelter care, physical therapy and/or speech therapy or continues to need occupational therapy. The patient is under my care, and I have initiated the establishment of the plan of care. This patient will be followed by a physician who will periodically review the plan of care. Total Time Total Time Spent Total Time Spent (In Minutes): 40 Discharge Plan Discharge Items Patient Disposition: Home - Self-Care Reason For Visit: CELLULITIS Discharge Diagnosis: left ankle ulcer, LLE cellulitis with abscess s/p I and D, MSSA infection Activity: Per Instructions section Non-emergency contact: Primary Care Provider Call non-emergency contact if: you have any medication questions, your symptoms worsen, your pain is not controlled and you have a fever Follow-up/Referrals: Dell Ramesh MD [Surgeon] - 10/10/21 11:45 am Mariposa Quan PA-C [Primary Care Provider] - 10/04/21 9:20 am (Date & Time 10/04/2021 9:20 AM Provider Mariposa Quan PA-C Department [facility] ) Diet: Regular Addtl Attending Provider Instructions: Continue cefadroxil twice daily and flagyl three times daily. Course would be 14-28 days. If symptoms are not completely resolved by 14 days of antibiotic, extend the course to 28 days per ID. Follow up with the wound clinic, orthopedic doctor and family doctor Partial weight bearing with cam walkert boot as tolerated Pending Studies at Discharge: No Stand-Alone Forms: My [facility] [employer], Smoking Cessation Medications and DC Order Prescriptions: New metronidazole 500 mg Tablet 500 mg PO TID Qty: 70 0RF cefadroxil 500 mg capsule 500 mg PO Q12H Qty: 46 0RF Continued lisinopril 5 mg tablet 5 mg PO DAILY metformin 500 mg tablet extended release 24 hr 500 mg PO DAILY Rx Instructions: 4 tabs daily w meals Jardiance 25 mg tablet 25 mg PO DAILY multivitamin Tablet 1 tab PO DAILY methadone 40 mg Tablet,Soluble 164 mg PO QAM Discontinued sulfamethoxazole-trimethoprim 800-160 mg tablet 800 tab PO BID Rx Instructions: for 10 days Discharge Orders: Discharge Order (Routine); Ordered 10/01/21 Ordered By: Puneet Keating Admission Data Admit Date/Time: 09/26/21 06:15 Attending Provider: Puneet Keating Admit Provider: Randy Nelson Primary Care Provider: Mariposa Quan Other Providers: Rosy Ramirez ; Randy Nelson ; Romero Almonte ; Akash Kay ; Zach Ramirez I. ; Jesus Joseph II ; Ashia Ortega ; Aryan Granados ; Dustin Valdez ; Zaida Curtis ; Joy Lucas ; Paulo Shukla ; Ezio Murdock ; Susie Bustillo ; Miguel Weems Other Interventions: Discharge Summary Assessment (RN) Last Done: 10/01/21 11:48
== END 2021-10-01 14:00 | disposition home or self-care (01) | DRG 988 ==
LOC: ED 02:05 → SUATTDRO 06:15 → 3E 06:15

== ENCOUNTER 2022-01-28 12:04 | Observation (INO) ==
--- NOTE | 2022-01-24 08:38 | Anesthesiology Consultation ---
Date of Service January 24, 2022 Assessment & Plan (1) Encounter for pre-operative examination: Chart Review Chart Review: Acceptable Risk for Surgery and Patient NOT seen in Pre Admission Testing - Check BSG AM DOS -COVID screening: Per PAT nursing assessment on 01/23/22. No known COVID-19 positive contacts or current COVID-19 related symptoms. Travel screen negative. Patient vaccinated for Covid. At surgeon discretion if preop Covid testing being done. I&D Left Ankle Wound 09/27/21= Done under GA with LMA #4. History Surgery Operation Date: 01/28/22 13:50 Proposed Procedures p Split Thickness Skin Graft Application to Wound on Left Achilles, Donor Site Thight Left - Flores Larios MD Height/Weight Height: 6 ft 1.5 in Weight: 97.522 kg Allergies Allergy/AdvReac Type Severity Reaction Status Date / Time No Known Allergies Allergy Verified 01/23/22 16:01 Medications Home Medications Medication Instructions Recorded Confirmed Last Taken empagliflozin 25 mg tablet 25 mg PO QAM 09/26/21 01/23/22 Unknown (Jardiance) lisinopril 5 mg tablet 5 mg PO QAM 09/26/21 01/23/22 Unknown metformin 500 mg tablet,extended 500 mg PO DAILY 09/26/21 01/23/22 Unknown release 24 hr methadone 40 mg soluble tablet 164 mg PO QAM 09/26/21 01/23/22 Unknown multivitamin 1 tab PO QAM 09/26/21 01/23/22 Unknown Past Medical History Medical History Diabetes Diabetic ulcer of ankle LEFT FOOT OPEN WOUND - REASON FOR UPCOMING PROCEDURE History of pneumonia 2008 H[facility]PITALIZED [facility]/INDUCED COMA FOR 7 WEEKS...REHAB HTN (hypertension) Neuropathy Opiate dependence, continuous HX - INTERMITTENTLY FOR PAST 21 YRS CURRENT ON METHADONE Poor historian Scoliosis Past Surgical History Surgical History History of foot surgery MULTIPLE History of hernia surgery History of rotator cuff surgery X4 History of surgery INJECTIONS IN BACK / PAIN MGMT / UOC Social History Smoking Status: Former smoker tobacco type: cigarettes Do You Dip or Chew Tobacco: No Smoking End Date: 35 YR AGO Hx Alcohol Use: Yes (HX , NONE CURRENT) Hx Substance Use: Yes (HX OPIATE USE , METHADONE THERAPY FOR 6 YRS NOW) substance use type: other Substance Use Type Other:: CURRENT METHADONE Lab Results Anesthesia Preop Results Results Anesthesia Widget: WBC 6.49 K/ul (4.8-10.8) 01/21/22 Hgb 14.6 g/dl (14.0-18.0) 01/21/22 Hct 44.6 % (40.1-51.0) 01/21/22 Plt 283 K/uL (130-400) 01/21/22 Na 141 mmol/L (136-145) 01/21/22 K 4.3 mmol/L (3.5-5.1) 01/21/22 Cl 104 mmol/L (98-107) 01/21/22 CO2 27 mmol/L (21-32) 01/21/22 BUN 18 mg/dl (6-23) 01/21/22 Creat 0.93 mg/dl (0.6-1.4) 01/21/22 Glucose Level 183 mg/dl (70-99(Fasting)) H 01/21/22 PT 10.0 Seconds (9.0-12.0) 01/21/22 PTT 22.9 Seconds (21.0-31.0) 01/21/22 INR 0.9 (0.9-1.1) 01/21/22 Testing Laboratory Results 09/27/21= HGB A1C: 7.6 Electrocardiogram Date: 01/21/22 Findings: + SB @ (58bpm ) Otherwise normal EKG per cardio.
[~2022-01-28 12:04] MED LIST changes: -AMLO-110 PO; -ATROPINE SULFATE 0.1 MG/ML 5ML SYR IV PRN; -BACITRACIN 50000 UNIT VIAL ONE; -BACITRACIN OINT 15 GM TUBE ONE; -BUPIVACAINE 0.5 % 5 MG/1 ML MPF 30ML VIAL ONE; -CLINDAMYCIN 600 MG/54 ML D5W IV SCH; -EpHEDrine SULFATE INJ 50 MG/ML AMP IV PRN; -FENTANYL CITRATE INJ 50 MCG/1 ML 2 ML VIAL IV PRN; -FENTANYL CITRATE INJ 50 MCG/1 ML 2 ML VIAL ONE; -HYDROmorphone INJ 1 MG/ML SYR IV PRN; -LABETALOL HCL IV 5 MG/ML 20ML IV PRN; -LACTATED RINGER'S 1000ML 1,000 ML IV SCH; -LIDOCAINE HCL 1% 20 ML VIAL ONE; +LR 15ML/HR IV SCH; -MEPERIDINE HCL 25 MG/ML CARP IV PRN; -METHADONE PO; -MIDAZOLAM HCL 1 MG/ML 2ML VIAL ONE; -MIRT30TA2 PO; -MULT-506 PO; -ONDANSETRON INJ 2 MG/ML 2 ML VIAL IV PRN; -PROPOFOL IV EMULSION 10 MG/ML 20 ML VIAL IV ONE; +ceFAZolin 2000MG 2,000 MG/15 ML SYR IV SCH
[2022-01-28] MEDS ORDERED: FLUMAZENIL 0.1 MG/1 ML 10 ML VIAL IV PRN (13:27)
[2022-01-28] MEDS ORDERED: fentaNYL citrate 100 MCG/2 ML VIAL IV PRN (13:27)
[2022-01-28] MEDS ORDERED: fentaNYL citrate 100 MCG/2 ML VIAL ONE (13:27)
[2022-01-28] MEDS ORDERED: NALOXONE HCL 0.4 MG/1 ML VIAL/CARP IV PRN (13:27)
[2022-01-28] MEDS ORDERED: ONDANSETRON INJ 2 MG/ML 2 ML VIAL ONE (13:27)
[2022-01-28] MEDS ORDERED: GLYCOPYRROLATE 0.2 MG/ML VIAL ONE ×2 (13:27→14:59)
[2022-01-28] MEDS ORDERED: MIDAZOLAM HCL 1 MG/ML 2ML VIAL ONE (13:27)
[2022-01-28] MEDS ORDERED: HYDROmorphone INJ 1 MG/ML SYRINGE IV PRN (13:27)
[2022-01-28] MEDS ORDERED: PROPOFOL IV EMULSION 10 MG/ML 20 ML VIAL IV ONE (13:27)
[2022-01-28] MEDS ORDERED: ATROPINE SULFATE 0.1 MG/ML 10ML SYR IV PRN (13:27)
[2022-01-28] MEDS ORDERED: ePHEDrine sulfate 50 MG/ML AMP IV PRN (13:27)
[2022-01-28] MEDS ORDERED: ONDANSETRON INJ 2 MG/ML 2 ML VIAL IV PRN ×2 (13:27→16:47)
[2022-01-28] MEDS ORDERED: NEOSTIGMINE METHYLSULFATE 1 MG/ML 10ML VIAL ONE ×2 (13:27→14:59)
[2022-01-28] MEDS ORDERED: LABETALOL HCL IV 5 MG/ML 20ML IV PRN (13:27)
[2022-01-28] MEDS ORDERED: PROMETHAZINE HCL 12.5 MG in SODIUM CHLORIDE 0.9% 50 ML IV PRN ×2 (13:27→16:47)
[2022-01-28] MEDS ORDERED: EpINEphrine HCL INJ 1 MG/ML 1ML SYRINGE ONE (13:43)
--- NOTE | 2022-01-28 13:50 | History & Physical Bridge Note ---
Date of Service January 28, 2022 History & Physical Bridge Note I have examined the patient, reviewed the History & Physical and in the interval since the performance of the History & Physical I have noted the following changes of clinical significance: no changes noted
[2022-01-28] MEDS ORDERED: ACETAMINOPHEN 1000 MG/100 ML IV IV ONE (14:27)
--- NOTE | 2022-01-28 15:20 | Post Operative Brief Note ---
PG Immediate Post Op with CF Date of Surgery January 28, 2022 Pre & Post Diagnosis Operation Date: 01/28/22 13:50 <No data on this case meets the specified criteria> I identified the patient and participated in the time-out.: Yes Procedure Operation Date: 01/28/22 13:50 <No data on this case meets the specified criteria> Surgeon Flores Larios MD Tong Hooker Anushka Martinez PA-C Estimated Blood Loss 5 Findings Consistent with Post-Op Diagnosis completely granulated left achilles tendon Anesthesia Type General Complications none
--- NOTE | 2022-01-28 16:18 | Anesthesiology Progress Note ---
Date of Service January 28, 2022 Anesthesia Post Procedure Vital Signs Vital Signs: Temp Pulse Resp BP Pulse Ox O2 Del Method O2 Flow Rate 01/28/22 16:15 36.5 C 61 16 152/86 H 98 Oxymask 8 01/28/22 16:05 61 16 147/81 H 100 Oxymask 8 01/28/22 15:55 61 16 172/79 H 100 Oxymask 8 01/28/22 15:45 62 16 169/97 H 95 Oxymask 8 01/28/22 15:35 57 L 16 146/85 H 95 Oxymask 8 01/28/22 15:27 36.3 C L 59 L 18 141/85 H 98 Oxymask 8 01/28/22 13:00 36.9 C 65 20 151/95 H 95 Room Air Pain Intensity Left Foot: Pain Intensity: 2 Transfer of Care Handoff Completed per policy Notes Mental Status: alert / awake / arousable Patient Amnestic to Procedure: Yes Nausea / Vomiting: adequately controlled Pain: adequately controlled Airway Patency, RR, SpO2: stable & adequate BP & HR: stable & adequate Hydration State: stable & adequate Anesthetic Complications: no major complications apparent and Pt Satisfied with anesthetic care
--- NOTE | 2022-01-28 16:25 | Operative Report ---
PG Post Operative Report Pre & Post Diagnosis Operation Date: 01/28/22 13:50 Pre-Op Diagnosis: Non Healing Surgical Wound Post-Op Diagnosis: Non Healing Surgical Wound I identified the patient and participated in the time-out.: Yes Procedure Operation Date: 01/28/22 13:50 Actual Procedures p Left Achilles Split Thickness Skin Graft Application to Wound, Left Thigh Donor Site(Left) - Flores Larios MD Surgeon Flores Larios MD Stripping Shovel Operator Anushka Martinez PA-C Estimated Blood Loss 5 Findings Consistent with Post-Op Diagnosis Specimens none Anesthesia Type General Complications none Indications Status post incision and drainage, infected left Achilles tendon, chronic nonhealing wound Description of Procedure The risks, benefits, terms of procedure were explained the patient agreed and signed consent. He was identified and marked in the preoperative holding area. He was brought to the operating room where he was placed under general anesthesia, positioned prone. The wound was located on the left heel, over thinning the Achilles tendon, measuring 5 x 1.5 x 0.4 cm. Periwound had some desquamated skin, wound itself was completely covered in granulation with some minimal slough. Wound was prepped and draped sterilely. Timeout procedure was performed. I began by debriding the left posterior heel wound, using a curette to debride the wound base, scissor and forcep to remove desquamated skin and some slough. No tendon was noted to be exposed. I then harvested a split- thickness skin graft from the left posterior heel. A 1 inch dermatome blade was used to harvest a split-thickness graft 0.014 of an inch inch thick from the left posterior thigh, using surgilube and epinephrine as lubricant for the dermatome. Graft was then meshed 1-1-1/2, inset and stapled into the recipient wound bed. Tisseel was sprayed over the graft and donor site for hemostasis. Wound was dressed using conformant, single-layer Acticoat, wound VAC. Left posterior thigh donor site was dressed using Kaltostat and Aquacel. Left foot was splinted, dressed using an ABD pad to protect the heel, Kerlix, cast padding, fiberglass splint and Yves wraps. Estimated blood loss 5 cc. Procedure was tolerated well. Anushka Martinez PA-C was present and scrubbed throughout the procedure, prepared the skin graft and placed wound VAC. I attest to the content of the Intraoperative Record and any orders documented therein. Any exceptions are noted below.
[2022-01-28] MEDS ORDERED: LORazepam 0.5 MG TAB PO PRN (16:47)
[2022-01-28] MEDS ORDERED: oxyCODONE/ACETAMINOPHEN 5mg/325mg TAB PO PRN ×2 (16:47)
[2022-01-28] MEDS ORDERED: MoRPHine SULFATE 2 MG/ML CARP IV PRN (16:47)
[2022-01-28] MEDS ORDERED: MoRPHine SULFATE 4 MG/ML 1 ML CARP\\VIAL IV PRN (16:47)
[2022-01-28] MEDS ORDERED: diphenhydrAMINE Capsule 25 MG CAP PO PRN (16:47)
[2022-01-28] MEDS ORDERED: diphenhydrAMINE 50 MG/ML VIAL IV PRN (16:47)
[2022-01-28] MEDS: LACTATED RINGER'S 1,000 ML IV SCH (17:17)
--- NOTE | 2022-01-28 17:48 | Anesthesiology Progress Note ---
Date of Service January 28, 2022 Anesthesia Post Procedure Vital Signs Vital Signs: Temp Pulse Resp BP Pulse Ox O2 Del Method O2 Flow Rate 01/28/22 17:25 Nasal Cannula 2 01/28/22 17:39 36.9 C 73 16 165/93 H 94 Nasal Cannula 2 01/28/22 17:02 36.8 C 69 16 161/93 H 95 Nasal Cannula 2 01/28/22 16:35 37 C 74 16 157/88 H 95 Nasal Cannula 2 01/28/22 16:25 61 16 148/82 H 98 Oxymask 8 01/28/22 16:15 36.5 C 61 16 152/86 H 98 Oxymask 8 01/28/22 16:05 61 16 147/81 H 100 Oxymask 8 01/28/22 15:55 61 16 172/79 H 100 Oxymask 8 01/28/22 15:45 62 16 169/97 H 95 Oxymask 8 01/28/22 15:35 57 L 16 146/85 H 95 Oxymask 8 01/28/22 15:27 36.3 C L 59 L 18 141/85 H 98 Oxymask 8 01/28/22 13:00 36.9 C 65 20 151/95 H 95 Room Air Pain Intensity Left Foot: Pain Intensity: 2 Transfer of Care Handoff Completed per policy Notes Mental Status: alert / awake / arousable Patient Amnestic to Procedure: Yes Nausea / Vomiting: adequately controlled Pain: adequately controlled Airway Patency, RR, SpO2: stable & adequate BP & HR: stable & adequate Hydration State: stable & adequate Anesthetic Complications: no major complications apparent
[2022-01-28] MEDS: ACETAMINOPHEN 325 MG TAB PO PRN (21:13)
[2022-01-28] MEDS: ceFAZolin 2000MG 2,000 MG/15 ML SYR IV SCH (21:13)
[2022-01-29] MEDS: LACTATED RINGER'S 1,000 ML IV SCH (05:09)
[2022-01-29] MEDS: ceFAZolin 2000MG 2,000 MG/15 ML SYR IV SCH (05:09)
[2022-01-29] MEDS ORDERED: lisinopril 5 MG TAB PO SCH (09:00)
[2022-01-29] MEDS ORDERED: METHADONE ORAL SOLN 2 MG/ML PO SCH (09:00)
[2022-01-29] MEDS ORDERED: MULTIVITAMIN TAB PO SCH (09:00)
[2022-01-29] MEDS ORDERED: EMPAGLIFLOZIN 25 MG TAB PO SCH (09:00)
[2022-01-29] MEDS ORDERED: PATIENT'S OWN CONTROLLED MED 1 PO SCH (09:00)
--- NOTE | 2022-01-29 10:41 | Surgery Progress Note ---
Date of Service January 29, 2022 Assessment & Plan (1) Surgical wound, non healing: Plan: Luigi is doing well. We reviewed discharge instructions. He is aware that he is not allowed to walk on his left leg- completely non-weightbearing. He was not able to get the knee scooter to help with mobility. New script was sent to [facility] on [address]. Daisy from case management called [facility] and they do have 1 scooter available. Luigi is aware that he is to keep wound vac and splint in place until he is seen in the office next Friday. He is not allowed to get left lower extremity wet. Per case management, we are still waiting for insurance approval for wound vac. I will call and touch base with Luigi's , Felecia. We reviewed that he is to begin is antibiotic when he is discharged home from the hospital. Plan is to discharge to home today if wound vac approval comes back in time. Admission and Anticipated Discharge Date Admission Date: January 28, 2022 Subjective Luigi is resting comfortably in bed. He reports that his pain is minimal. He did have an elevated temperature overnight, but has been afebrile for the last 12 hrs. He reports that he is feeling much better this morning. Wound vac in place and holding suction. He is tolerating wound vac. Review of Systems Constitutional: no fever and no chills Cardiovascular: no chest pain and no chest pain at rest Physical Exam Constitutional: WD/WN, vitals as above Respiratory: normal respiratory effort; no respiratory distress and no labored breathing Skin: Left lower extremity- splint in place with KENTRELL wrap. Wound vac in place and holding excellent suction. Left posterior thigh donor site dressing removed and new dressing place. Minimal drainage with no signs of infection on exam. Results & Data ([facility]) Vital Signs (Past 12 Hours) Vital Signs Temp Pulse Resp BP Pulse Ox O2 Del Method O2 Flow Rate 01/29/22 08:50 93 Nasal Cannula 2 01/29/22 08:07 92 Nasal Cannula 2 01/29/22 08:05 36.9 C 65 18 127/78 91 Nasal Cannula 2 01/29/22 04:01 37 C 75 16 136/74 93 Nasal Cannula 2 01/29/22 00:00 37.4 C 75 92 Nasal Cannula 2 PG Care Time/CCT Total # of Minutes Spent Total Time Spent with Patient: Total time spent is greater than 50% in coordination of care (as documented) at patient's floor/unit and/or counseling patient: Coding Level of Care Code None Diagnoses Surgical wound, non healing T81.89XA
[2022-01-29] MEDS: ACETAMINOPHEN 325 MG TAB PO PRN (15:43)
--- NOTE | 2022-01-30 13:54 | Discharge Summary ---
Date of Service January 30, 2022 Admission HPI Per Admitting Provider Please see admission History and Physical. Admission Exam Per Admitting Provider Please see admission History and Physical. Principal Diagnosis Non-healing surgiacal wound. 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 He was taken to the OR for Left Achilles Split Thickness Skin Graft Application to Wound, Left Thigh Donor Site. Wound vac and lower extremity splint placed. There were no intraoperative complications. Following surgery, patient was taken to the recovery area and then transferred to Med/Surg for observation. Overnight, he did developed an elevated temperature. On POD#1, when I arrived to evaluate him, he had been afebrile for 12 hours. He was feeling much improved. On physical exam- vital signs were stable. He was feeling well and denied pain. His left lower extremity had wound vac and splint in place. Donor site of posterior left thigh was evaluated. Surgical dressing removed and new Aquacel Ag and tegaderm placed. We discussed that it is crucial that he remain non-weightbearing on his left leg. He was provided with a prescription for a knee scooter, which he was planning to obtain from [facility]. He is aware that he is not allowed to get his surgical site wet. Insurance approval was obtained and his nurse was able to switch vac to home vac. Luigi was discharged to home. Return precautions were reviewed. I was able to speak with his , Felecia, and reviewed all post-op instructions. He will return in 1 week for wound vac removal. All questions were answered. Total Time Total Time Spent Total Time Spent (In Minutes): 10 Discharge Plan Discharge Items Patient Disposition: Home - Self-Care Reason For Visit: Non Healing Surgical Wound Discharge Diagnosis: Non-Healing Surgical Wound Activity: As commented below Weightbearing: Left non-weightbearing Non-emergency contact: Surgeon Call non-emergency contact if: you have any medication questions, your pain is not controlled, your temperature is above 101.5, your wound has increased redness and your wound has increased drainage Follow-up/Referrals: Mariposa Quan PA-C [Primary Care Provider] - Diet: Regular Addtl Attending Provider Instructions: ACTIVITY RECOMMENDATIONS: __Normal activities __No bending, lifting or straining __No driving __Driving allowed when you are off pain medications __Walking permitted __You should have help at home for ___ days DRESSINGS: __No dressings required __Keep dressings dry/in place until first office visit __Remove dressings ___ and leave dressings off __Apply ice ___ days __Remove dressings and reapply garment __Apply antibiotic ointment (Bacitracin, Neosporin, etc) to wounds 3-4 times/day for 10 days BATHING: _X_Keep dressings dry X__Sponge bathing permitted __Showering permitted X__No swimming, hot tubs or soaking in a tub MEDICATIONS: Resume previous medications unless instructed otherwise by your surgeon. X__Do not use aspirin, Motrin, Advil or Ibuprofen as these may promote bleeding. Please use Tylenol. _X_Prescription(s) provided: Prescription for post-op antibiotic and post-op pain medication provided from [facility] office. Please begin antibiotic when you get home from surgery. SPECIAL CARE INSTRUCTIONS: * It is normal to have a mild fever after surgery. If your temperature is higher than 101.5 degrees F, please call the office at [phone]. * Constipation is a typical side effect of pain medication. An [id number] stool softener will help relieve this. * Leaking around surgical drains may occur and should not cause concern. Sometimes these drains become clogged. If this happens, remove the bulb and milk the clot out of the tube, then replace the bulb. * Drainage from wounds after liposuction is normal and should be expected. Garments will become soiled. You should protect furniture and bedding. This drainage should mostly subside within 2-3 days. Leave garments in place unless instructed to remove them. * If you have unusual drainage from a wound or are concerned you have an infection or have any questions or concerns, please call the office at [phone]. FOLLOW UP VISIT: If not already scheduled, please call the office, , when you return home after surgery to schedule an appointment to be seen in __8_ days. Pending Studies at Discharge: Yes Studies:: Pathology report. Stand-Alone Forms: My [facility], Pain - Opioid Pain Management, Smok ing Cessation Medications and DC Order Prescriptions: Continued oxycodone-acetaminophen [Percocet] 5-325 mg tablet 1 tab PO Q4H PRN (Reason: pain) 3 Days Qty: 10 0RF Rx Instructions: Initial therapy. lisinopril 5 mg tablet 5 mg PO QAM metformin 500 mg tablet extended release 24 hr 500 mg PO DAILY Rx Instructions: 4 tabs daily w meals Jardiance 25 mg tablet 25 mg PO QAM multivitamin Tablet 1 tab PO QAM methadone 40 mg Tablet,Soluble 164 mg PO QAM Discharge Orders: Discharge Order (Routine); Ordered 01/29/22 Ordered By: Argenis Vásquez/Other Patient Handouts: Nutrition and MyPlate Protein, Negative Pressure Wound Therapy Admission Data Admit Date/Time: 01/28/22 15:26 Attending Provider: Flores Larios Admit Provider: Flores Larios Primary Care Provider: Mariposa Quan Other Interventions: Discharge Summary Assessment (RN) Last Done: 01/29/22 17:44 Coding Level of Care Code 15815 OBS Care - Discharge Diagnoses Surgical wound, non healing T81.89XA
== END 2022-01-29 18:32 | disposition home or self-care (01) ==
LOC: 3E 12:04 → ASU 12:04

== ENCOUNTER 2024-03-25 14:21 | Observation (INO) ==
[2024-03-25 14:42] VITALS: RESP 22; TEMP 98.2
--- NOTE | 2024-03-25 14:59 | Emergency Department Note ---
Impression & Plan Osteomyelitis of great toe of left foot, Pain and swelling of left lower extremity, Diabetes, Diabetic peripheral neuropathy associated with type 2 diabetes mellitus, Diabetic foot ulcer associated with type 2 diabetes mellitus, Redness and swelling of lower leg, Left knee pain, Abnormal finding on ultrasound ED Provider Note CHIEF COMPLAINT: Left knee pain HISTORY OF PRESENTING ILLNESS: This 63-year-old male patient presents to the emergency department with his for evaluation of left knee pain and swelling extending into his lower leg. The patient first noticed a wound to the left foot 4 days ago. He states that he was seen by [facility] 2 days ago with the foot wound debrided and he was started on Bactrim. However, the symptoms do not seem to be getting better. He has also had pressure and swelling in his left knee for the past 3 days. The pressure, pain, and swelling in the left knee has progressively gotten worse and now extends down the left leg. Today the pain is 10/10. He is now unable to walk without crutches because of the pain. No fevers. No known tick bites. No previous problems with his knee other than mild arthritis. He is not on any blood thinners. He denies chest pain or SOB. Denies abdominal pain, nausea, or vomiting. No symptoms of the right leg. He is a diabetic and had a previous toe amputation to the left foot and has diabetic neuropathy. REVIEW OF SYSTEMS: See HPI for pertinent positives and pertinent negatives. ALLERGIES: NKDA MEDICATIONS: See below PAST MEDICAL HISTORY: See below PHYSICAL EXAM: VITALS: Vitals are noted on the nurse's note and reviewed by myself. GENERAL: Non toxic, in no acute distress, non-diaphoretic. SKIN: There is a debrided wound to the plantar aspect of the left foot at the base of the toes with evidence for prior toe amputations. No active discharge. Mild surrounding erythema. No fluctuance or induration. The patient also has an erythematous macular rash on the left upper thigh and groin area. See musculoskeletal exam. HEART: Regular rate and rhythm without murmurs gallops or rubs. LUNGS: Clear to auscultation bilaterally without wheezes, rales or rhonchi. No retractions or accessory muscle use. MUSCULOSKELETAL: The patient has erythema, edema, warmth, and tautness of the skin from the left foot to the left mid thigh. The amount of edema appears the same in severity from the foot all the way up to the thigh with no significant increase around the left knee. It is difficult to determine if there is a true joint effusion as there is significant edema externally to the joint and the exam is somewhat difficult due to the amount of edema and discomfort. The patient does have erythema, edema, and warmth to the left calf. No obvious fluctuance noted. No obvious pointing or discharge noted. No obvious cording felt. The patient has difficulty moving the left knee and ankle due to the pain and swelling. Full range of motion of the left hip, but range of motion of the left hip causes pain in the left knee and left lower extremity. The patient has a history of neuropathy, but states sensation to light and sharp touch of the left lower extremity is at his baseline. Dorsalis pedis and posterior tibial pulse 2+. No erythema, edema, warmth, or pain/tenderness of the right lower extremity. NEURO: Patient was alert and oriented. No focal neurological deficits. DIFFERENTIAL DIAGNOSIS: Differential diagnosis includes cellulitis, abscess, DVT, SVT, Lyme disease, tickborne illness, gout, osteomyelitis, septic arthritis, sepsis, necrotizing fasciitis, CHF, fluid overload, or others. ED COURSE AND MEDICAL DECISION MAKING: HISTORY FROM INDEPENDENT HISTORIAN: Additional history obtained from the patient's MEDICATIONS GIVEN: Tylenol 1000 mg IV. Zosyn 4.5 g IV. Vancomycin 2 g IV. MONITOR: Continuous detention attendant: Order was placed for continuous detention attendant. Patient was placed on the detention attendant and continuous pulse ox. Patient was noted to be in normal sinus rhythm at an initial rate of 70 bpm per my interpretation. INTERPRETATION OF LABS: I interpreted the labs with full lab results as below in the lab section of this note. Laboratory results pertinent to the emergent complaint are discussed in the MDM section below. The patient was advised to follow up with their PCP and/or specialist(s) for further outpatient monitoring and management of any abnormal results. INTERPRETATION OF IMAGING: Imaging studies were interpreted by myself and read by radiology as per the imaging section of this note. The patient was advised to follow up with their PCP and/or specialist(s) for further outpatient management of any non-emergent abnormal findings. X-rays of the left knee showed a joint effusion and minimal tricompartment primary osteoarthritis, but no acute osseous abnormality. X-rays of the left foot show suspected osteomyelitis of the first interphalangeal joint. Venous Doppler of the left lower extremity showed no evidence for DVT, but did show a large fluid collection in the left calf which could represent a hematoma. CHRONIC MEDICAL/SOCIAL CONDITIONS AFFECTING CARE: Diabetes CONSULTATIONS: On-call hospitalist. ED pharmacist. [facility] SUMMARY: I examined the patient. The patient had a wound to the bottom of the left foot debrided by [facility] 2 days ago. The patient states the land leasing information clerk did not think it was infected, but started him on Bactrim "just in case" per patient. The patient has also had pressure in the left knee for the past 3 days with significant increase in the amount of pressure, pain, redness, and swelling to most of the left lower extremity over the past 1 to 2 days. The patient is now having difficulty walking because of the pain and needs to use crutches. He has not had any fevers. The patient has a history of diabetes. An IV lock was placed and labs were drawn. White blood cell count elevated at 12.50. Hemoglobin low at 13.4. Platelet count elevated 467. ESR elevated at 54 and CRP elevated at 27.39. Coags normal. Glucose 156 and BUN 27, but CMP otherwise without concerning abnormalities. Uric acid normal. Lactate normal. Procalcitonin normal. Lyme disease screen negative. Anaplasma and Babesia smear negative with DNA PCR still pending. Blood cultures are pending. X-rays of the left knee showed a joint effusion and minimal tricompartment primary osteoarthritis, but no acute osseous abnormality. X-rays of the left foot show suspected osteomyelitis of the first interphalangeal joint. Venous Doppler of the left lower extremity showed no evidence for DVT, but did show a large fluid collection in the left calf which could represent a hematoma. However, the patient denies any history of trauma. I spoke with the ED pharmacist who recommended starting the patient on Zosyn and vancomycin. The patient has been afebrile, his vital signs are normal, and lactate and procalcitonin are normal. Low suspicion for sepsis at this time. Blood cultures are pending. There is concern due to the significant amount of erythema, edema, and tenderness of the left leg on exam with osteomyelitis on x- ray and fluid collection of the calf on ultrasound without known trauma. I spoke with the on-call hospitalist who agreed to admit the patient for further evaluation and treatment. Please refer to their dictation for further details. The on-call hospitalist reached out to Dr. Vásquez of orthopedics for further evaluation of the patient as well. Dr. Vásquez evaluated the patient in the ER at the time of admission. Please refer to his dictation for further details. The patient's care was transferred to the hospitalist while awaiting further workup. DIAGNOSIS: Left lower extremity erythema, edema, and pain Osteomyelitis of the left foot Large fluid collection of the left calf Left knee pain Diabetes Past Med/Surg History Problem List (Updated 03/26/24 @ 01:08 by Fabiana Mcdonough PA-C) Abnormal finding on ultrasound (Acute) Left knee pain (Acute) Redness and swelling of lower leg (Acute) Pain and swelling of left lower extremity (Acute) Necrotizing fasciitis of lower leg Diabetes mellitus type 2, insulin dependent Cellulitis of left lower extremity Septic joint of left knee joint Osteomyelitis of great toe of left foot (Acute) Effusion, left knee Abscess of left lower extremity Personal history of diabetic foot ulcer Status post partial amputation of foot Diabetic foot ulcer associated with type 2 diabetes mellitus (Acute) Diabetic peripheral neuropathy associated with type 2 diabetes mellitus (Acute) HTN (hypertension) Diabetes (Acute) Medical History Scoliosis History of pneumonia 2008 [facility]ITAL[facility]ED [facility]/INDUCED COMA FOR 7 WEEKS...REHAB Opiate dependence, continuous HX - INTERMITTENTLY FOR PAST 21 YRS CURRENT ON METHADONE Lumbosacral neuritis Biceps tendon rupture Sciatica Surgical History History of surgery INJECTIONS IN BACK / PAIN MGMT / UOC History of hernia surgery History of foot surgery MULTIPLE History of rotator cuff surgery X4 S/P rotator cuff repair Social History Smoking Status: Never smoker Do You Dip or Chew Tobacco: No; Hx Alcohol Use: Yes (HX , NONE CURRENT) Hx Substance Use: Yes (HX OPIATE USE , METHADONE THERAPY FOR 6 YRS NOW) Substance Use Type Other:: CURRENT METHADONE Preferred Language: Maldivian Communication Ability: Effective Communication Tools: Facial Expression, Sign Language and Lip Movement/Reading Visual Impairment: Limited Hearing Ability: Hard of Hearing Client Coordinator Required: No Beliefs That Will Affect Care: None Current Living Situation: Spouse and Family Feels Safe at Home: Yes Assistive Devices: Cane Allergies Allergies Allergy/AdvReac Type Severity Reaction Status Date / Time No Known Allergies Allergy Verified 05/29/22 10:04 Home Meds Home Medications Medication Instructions Recorded Confirmed empagliflozin 25 mg tablet 25 mg PO QAM 09/26/21 03/25/24 (Jardiance) lisinopril 5 mg tablet 2.5 mg PO QAM 09/26/21 03/25/24 metformin 500 mg tablet,extended 2,000 mg PO DAILY 09/26/21 03/25/24 release 24 hr methadone 40 mg soluble tablet 164 mg PO UD 09/26/21 03/25/24 multivitamin 1 tab PO QAM 09/26/21 03/25/24 atorvastatin 40 mg tablet 40 mg PO DAILY 03/25/24 03/25/24 insulin glargine 100 unit/mL (3 10 unit subcut HS 03/25/24 03/25/24 mL) subcutaneous pen (Lantus Solostar U-100 Insulin) oxycodone-acetaminophen 5 mg-325 1 tab PO UD PRN pain 03/25/24 03/25/24 mg tablet (Percocet) semaglutide 2 mg/dose (8 mg/3 mL) 2 mg subcut WK 03/25/24 03/25/24 subcutaneous pen injector (Ozempic) silver sulfadiazine 1 % topical 1 applic topical DIRECTED 03/25/24 03/25/24 cream sulfamethoxazole 800 1 tab PO BID 03/25/24 03/25/24 mg-trimethoprim 160 mg tablet Results & Data (ED) Vital Signs Vital Signs - 24 hr 03/25/24 14:37 Temperature 36.8 C Temperature Source Skin Pulse Rate 79 Respiratory Rate 22 Respiratory Effort / Characteristics Non-Labored Spontaneous Respiratory Depth Normal Respiratory Pattern Regular Blood Pressure 139/75 Blood Pressure Mean 96 Pulse Oximetry 95 Oxygen Delivery Method Room Air Sepsis Recent Fever Within 48 Hours No Sepsis New/Unexplained Change in Mental Status N/A Sepsis Action Taken by Nursing No Action Required Laboratory Data 03/25/24 15:25 03/25/24 15:25 Lab Results 03/25/24 03/25/24 Range/Units 15: 16:44 WBC 12.50 H (4.8-10.8) K/ul RBC 4.75 (4.70-6.10) M/uL Hgb 13.4 L (14.0-18.0) g/dl Hct 40.3 L (42.0-52.0) % MCV 84.8 (80.0-100.0) fL MCH 28.2 (25.0-34.0) pg MCHC 33.3 (32.0-36.0) g/dL RDW Std Deviation 39.3 (36.4-46.3) fL RDW Coeff of Mp 12.8 (11.5-14.5) % Plt Count 467 H (130-400) K/uL MPV 10.1 (9.4-12.4) fL Immature Gran % (Auto) 0.4 % Neut % (Auto) 84.4 % Lymph % (Auto) 8.0 % Sampson % (Auto) 6.7 % Eos % (Auto) 0.3 % Baso % (Auto) 0.2 % Neut # (Auto) 10.54 H (1.40-6.50) K/uL Lymph # (Auto) 1.00 L (1.20-3.40) K/uL Sampson # (Auto) 0.84 H (0.11-0.59) K/uL Eos # (Auto) 0.04 (0.00-0.50) K/uL Baso # (Auto) 0.03 (0.00-0.20) K/uL Immature Gran # (Auto) 0.05 (0.01-0.20) K/uL ESR 54 H (0-20) mm/hr PT 10.6 (9.0-12.0) Seconds INR 1.0 (0.9-1.1) APTT 27 (21-31) Seconds PTT Ratio 1.0 Sodium 136 (136-145) mmol/L Potassium 4.1 (3.5-5.1) mmol/L Chloride 97 L (98-107) mmol/L Carbon Dioxide 30 (21-32) mmol/L Anion Gap 9 (3-11) BUN 27 H (6-23) mg/dl Creatinine 1.01 (0.6-1.4) mg/dl Est Cr Clr Drug Dosing Not Reportable eGFR 84.09 BUN/Creatinine Ratio 26.7 H (10-20) Glucose 156 H (70-99(Fasting)) mg/dl Lactate 1.6 (0.4-2.0) mmol/L Uric Acid 5.1 (2.6-7.2) mg/dl Calcium 9.4 (8.6-10.3) mg/dl Total Bilirubin 0.4 (0.2-1.0) mg/dl AST 21 (13-39) U/L ALT 19 (7-52) U/L Alkaline Phosphatase 68 (34-104) U/L C-Reactive Protein 27.39 H (0-0.5) mg/dl Total Protein 7.5 (6.0-8.3) gm/dl Albumin 3.4 (3.4-5.0) gm/dl Globulin 4.1 H (2.5-4.0) gm/dl Albumin/Globulin Ratio 0.8 L (0.9-2) Procalcitonin 0.29 (0-0.5) ng/ml Anaplasma Smear See Comment Babesia Smear See Comment Lyme Disease Screen Negative (Negative) Administered Medications Discontinued Medications Enoxaparin Sodium (Enoxaparin Inj 40 Mg/0.4 Ml Syr) 40 mg SQ Q24H [facility] Stop: 04/24/24 19:56 Last Admin: 03/25/24 21:30 Dose: Not Given Documented By: LONDON Acetaminophen (Ofirmev) 1,000 mg in 100 mls @ 400 mls/hr IV NOW STA Stop: 03/25/24 15:24 Last Infusion: 03/25/24 16:11 Dose: Infused Documented By: Admin: 03/25/24 15:31 Dose: 400 mls/hr Documented By: YANG Piperacillin Sod/Tazobactam Sod (Zosyn) 4.5 gm in 100 mls @ 200 mls/hr IV NOW ONE; Protocol Stop: 03/25/24 16:50 Last Infusion: 03/25/24 17:19 Dose: Infused Documented By: Admin: 03/25/24 16:44 Dose: 200 mls/hr Documented By: ROSA Vancomycin HCl 2,000 mg/ (Sodium Chloride) 540 mls @ 200 mls/hr IV NOW ONE Stop: 03/25/24 19:20 Last Infusion: 03/25/24 20:27 Dose: Infused Documented By: Admin: 03/25/24 17:21 Dose: 200 mls/hr Documented By: ISABELLE Lactated Ringer's (Lr) 1,000 mls @ 80 mls/hr IV .[id number] MARILYN Stop: 03/26/24 19:56 Last Admin: 03/25/24 21:30 Dose: Not Given Documented By: LONDON Lidocaine HCl (Lidocaine 1% Local 20 Ml Vial) Confirm Administered Dose 1 ml .ROUTE .STK-MED ONE Stop: 03/25/24 18:23 Last Admin: 03/25/24 19:25 Dose: Not Given Documented By: CLARE Lidocaine HCl (Lidocaine 1% Local 20 Ml Vial) 5 ml INJ ONCE ONE Stop: 03/25/24 18:29 Last Admin: 03/25/24 18:29 Dose: 5 ml Documented By: ISABELLE Morphine Sulfate (Morphine Sulfate 4 Mg/Ml 1 Ml Carp\\Vial) 4 mg IV NOW STA Stop: 03/25/24 17:26 Last Admin: 03/25/24 17:36 Dose: 4 mg Documented By: ISABELLE Morphine Sulfate (Morphine Sulfate 4 Mg/Ml 1 Ml Carp\\Vial) 4 mg IV Q3H PRN PRN Reason: Severe Pain (Scale 7, 8, 9,10) Stop: 04/08/24 19:56 Last Admin: 03/25/24 20:52 Dose: 4 mg Documented By: CLARE Imaging Data Radiologist's Impression: Foot X-Ray 03/25/24 15:10 EXAM: Radiographs of the Left Foot Complete 3 Views INDICATION: Pain and swelling. TECHNIQUE: Frontal, lateral and oblique views of the left foot. COMPARISON: No relevant prior studies available. FINDINGS: Bones/joints: Much of the second metatarsal has been amputated. Well-corticated amputation margin. All third phalanges have been removed. Deformity of the interphalangeal joint of the first toe likely related to partial resection of the distal aspect of the first proximal phalanx. There is mild lucency at the margin without periosteal reaction. There is subchondral lucency in the base of the first distal phalanx. Small plantar calcaneal spur noted. Soft tissues: There is diffuse soft tissue swelling. No soft tissue gas or radiopaque foreign body. IMPRESSION: Suspect osteomyelitis of the first interphalangeal joint. ACT 112: Negative or not required by law. Electronically signed by Avril Calderon 03-25-2024 4:15 PM Knee X-Ray 03/25/24 15:10 EXAM: Radiographs of the Left Knee 2 Views INDICATION: Pain and swelling. TECHNIQUE: Frontal and lateral views of the left knee. COMPARISON: No relevant prior studies available. FINDINGS: Bones/joints: There is minimal medial and lateral joint line spurring. There is minimal cortical surface degenerative change of the posterior patella at the patellofemoral joint. There is a joint effusion. Soft tissues: No abnormality noted. No radiopaque foreign body noted. IMPRESSION: Joint effusion and minimal tricompartment primary osteoarthritis. No acute osseous abnormality. ACT 112: Negative or not required by law. Electronically signed by Avril Calderon 03-25-2024 4:18 PM Venous Doppler Study 03/25/24 15:10 Clinical History: Pain and swelling Technique: Venous ultrasound evaluation was performed utilizing grayscale, color Doppler and wave form evaluation. Images were also obtained with and without compression Findings: The left common femoral, superficial femoral, popliteal, and visualized calf veins demonstrate normal anechoic lumens with full compressibility. Normal flow is seen on color Doppler images. Expected waveforms were produced with augmentation maneuvers There is a large complex fluid collection in the left calf, measuring approximately 21.8 x 5 x 2.6 cm Impression: 1. No evidence of left leg deep venous thrombosis 2. Large fluid collection in the left calf that could represent a hematoma Electronically signed by Geoff Shaw 03-25-2024 4:33 PM Discharge Plan Visit Data Chief Complaint: Knee Injury/Pain Stated Complaint: LT KNEE SWOLLEN AND PAINFUL ED Provider: Franko Wahl ED Midlevel Provider: Fabiana Mcdonough Discharge Problem: Osteomyelitis of great toe of left foot, Pain and swelling of left lower extremity, Diabetes, Diabetic peripheral neuropathy associated with type 2 diabetes mellitus, Diabetic foot ulcer associated with type 2 diabetes mellitus, Redness and swelling of lower leg, Left knee pain, Abnormal finding on ultrasound Patient Disposition: Admitted As Inpatient Condition: Fair Discharge Instructions Interventions: ED Discharge Assessment Last Done: 03/25/24 19:58 Discharge Problem: Left knee pain Qualifiers: Chronicity: acute Qualified Code(s): M25.562 - Pain in left knee
[2024-03-25] MEDS: ACETAMINOPHEN 1,000 MG/100 ML VIAL IV STA (15:31)
[2024-03-25 15:56] LABS: Basophils # (auto) 0.03 K/uL (0.00-0.20); Basophils % (auto) 0.2 %; Eosinophils # (auto) 0.04 K/uL (0.00-0.50); Eosinophils % (auto) 0.3 %; Hematocrit (blood only) 40.3 % (42.0-52.0); Hemoglobin 13.4 g/dl (14.0-18.0); Immature Granulocytes # (auto) 0.05 K/uL (0.01-0.20); Immature Granulocytes % (auto) 0.4 %; Mean Corpuscular Hemoglobin 28.2 pg (25.0-34.0); Mean Corpuscular Hgb Conc 33.3 g/dL (32.0-36.0); Mean Corpuscular Volume 84.8 fL (80.0-100.0); Mean Platelet Volume 10.1 fL (9.4-12.4); Monocytes # (auto) 0.84 K/uL (0.11-0.59); Monocytes % (auto) 6.7 %; Neutrophils # (auto) 10.54 K/uL (1.40-6.50); Neutrophils % (auto) 84.4 %; Platelet Count 467 K/uL (130-400); RDW Coefficient of Variation 12.8 % (11.5-14.5); RDW Standard Deviation 39.3 fL (36.4-46.3); Red Blood Count 4.75 M/uL (4.70-6.10)
[2024-03-25 16:08] LABS: Anion Gap 9 (3-11); BUN Creatinine Ratio 26.7 (10-20); Blood Urea Nitrogen 27 mg/dl (6-23); C Reactive Protein 27.39 mg/dl (0-0.5); Calcium 9.4 mg/dl (8.6-10.3); Carbon Dioxide 30 mmol/L (21-32); Chloride 97 mmol/L (98-107); Glucose 156 mg/dl (70-99(Fasting)); Potassium 4.1 mmol/L (3.5-5.1); Sodium 136 mmol/L (136-145)
--- NOTE | 2024-03-25 16:15 | XRay Report ---
EXAM: Radiographs of the Left Foot Complete 3 Views INDICATION: Pain and swelling. TECHNIQUE: Frontal, lateral and oblique views of the left foot. COMPARISON: No relevant prior studies available. FINDINGS: Bones/joints: Much of the second metatarsal has been amputated. Well-corticated amputation margin. All third phalanges have been removed. Deformity of the interphalangeal joint of the first toe likely related to partial resection of the distal aspect of the first proximal phalanx. There is mild lucency at the margin without periosteal reaction. There is subchondral lucency in the base of the first distal phalanx. Small plantar calcaneal spur noted. Soft tissues: There is diffuse soft tissue swelling. No soft tissue gas or radiopaque foreign body. IMPRESSION: Suspect osteomyelitis of the first interphalangeal joint. ACT 112: Negative or not required by law. Electronically signed by Avril Calderon 03-25-2024 4:15 PM
--- NOTE | 2024-03-25 16:19 | XRay Report ---
EXAM: Radiographs of the Left Knee 2 Views INDICATION: Pain and swelling. TECHNIQUE: Frontal and lateral views of the left knee. COMPARISON: No relevant prior studies available. FINDINGS: Bones/joints: There is minimal medial and lateral joint line spurring. There is minimal cortical surface degenerative change of the posterior patella at the patellofemoral joint. There is a joint effusion. Soft tissues: No abnormality noted. No radiopaque foreign body noted. IMPRESSION: Joint effusion and minimal tricompartment primary osteoarthritis. No acute osseous abnormality. ACT 112: Negative or not required by law. Electronically signed by Avril Calderon 03-25-2024 4:18 PM
--- NOTE | 2024-03-25 16:20 | Emergency Department Note ---
ED Visit Note I was consulted by the Advanced Practice Provider. I personally made/approved the management plan and take responsibility for the patient management. I performed a substantive portion of the visit. This includes the aspects of: -History/Physical -MDM .
[2024-03-25 16:22] LABS: Partial Thromboplastin Time 27 Seconds (21-31); Prothrombin Time 10.6 Seconds (9.0-12.0)
[2024-03-25 16:28] LABS: Alanine Aminotransferase 19 U/L (7-52); Albumin Globulin Ratio 0.8 (0.9-2); Albumin Level 3.4 gm/dl (3.4-5.0); Alkaline Phosphatase 68 U/L (34-104); Aspartate Aminotransferase 21 U/L (13-39); Bilirubin,Total 0.4 mg/dl (0.2-1.0); Globulin 4.1 gm/dl (2.5-4.0); Total Protein 7.5 gm/dl (6.0-8.3); Uric Acid 5.1 mg/dl (2.6-7.2)
--- NOTE | 2024-03-25 16:34 | Ultrasound Report ---
Clinical History: Pain and swelling Technique: Venous ultrasound evaluation was performed utilizing grayscale, color Doppler and wave form evaluation. Images were also obtained with and without compression Findings: The left common femoral, superficial femoral, popliteal, and visualized calf veins demonstrate normal anechoic lumens with full compressibility. Normal flow is seen on color Doppler images. Expected waveforms were produced with augmentation maneuvers There is a large complex fluid collection in the left calf, measuring approximately 21.8 x 5 x 2.6 cm Impression: 1. No evidence of left leg deep venous thrombosis 2. Large fluid collection in the left calf that could represent a hematoma Electronically signed by Geoff Shaw 03-25-2024 4:33 PM
[2024-03-25] MEDS ORDERED: VANCOMYCIN CONSULT ACTIVE PRN (16:39)
[2024-03-25] MEDS: PIPERACILLIN/TAZOBACTAM 4.5 GM/100 ML BAG IV ONE (16:44)
[2024-03-25] MEDS: VANCOMYCIN HCL 2,000 MG in SODIUM CHLORIDE 0.9% 500 ML IV ONE (17:21)
[2024-03-25] MEDS: MoRPHine SULFATE 4 MG/ML 1 ML CARP\\VIAL IV STA (17:36)
--- NOTE | 2024-03-25 18:07 | History & Physical Report ---
Date of Service March 25, 2024 Assessment & Plan (1) Abscess of left lower extremity: (2) Osteomyelitis of great toe of left foot: (3) Septic joint of left knee joint: (4) Cellulitis of left lower extremity: (5) Diabetic foot ulcer associated with type 2 diabetes mellitus: (6) Effusion, left knee: (7) Diabetic peripheral neuropathy associated with type 2 diabetes mellitus: (8) Status post partial amputation of foot: (9) Diabetes mellitus type 2, insulin dependent: Plan Patient 63-year-old diabetic male who presents to the emergency room with a extremely painful, swollen, red, hot left lower extremity with evidence of fluid collection in the left calf as well as osteomyelitis. Raises significant concern for severe infection and possibly early developing compartment syndrome. Patient is critically ill and requires hospital level care and interventions. Admit to the hospital in a monitored setting Continue broad-spectrum IV antibiotics, Zosyn and vancomycin Culture foot wound Consult orthopedics, communication with Dr. Vásquez will plan to see tonight Consult podiatry, Dr. Velasquez aware Continue monitor glucose with sliding scale insulin, pharmacy diabetes management consultation MRI of the left lower extremity and foot Monitor laboratory studies Pain control Maintain n.p.o. Gentle IV hydration at bedside and updated to plan of care History of Present Illness Chief Complaint: Painful, swollen left lower extremity Primary Care Provider: Dimitris Hughes MD Patient is a 63-year-old gentleman with known diabetes mellitus type 2 insulin requiring noted a wound on his left toe and foot this past Friday. Also noted the swelling of his left knee. Was seen by his information security architect on Friday. Had in the office debridement of the ulceration and was empirically put on some Bactrim. Since then he has had increasing swelling increasing pain and increasing redness of the left lower extremity. He went to see his primary care provider earlier today who sent him to the emergency room for evaluation. In the emergency room had a slightly elevated white blood cell count CRP and ESR we re elevated. He had significant pain in the leg. Ultrasound of the lower extremity showed a large fluid collection in the lower leg, x-rays were consistent with osteomyelitis of the foot. He was referred to our service for further evaluation. Time of my evaluation the patient was significantly uncomfortable due to pain in the leg. He has noticed the redness creeping up over the knee joint and also noted a rash in his groin. He is not since also noted some purulent drainage from his foot wound. Did admits to some chills but no documented fever. No chest pain, no shortness of breath. No new problems with the bowels or bladder. Reviewing outside EMR he reported to the information security architect that he had been redoing a bathroom and was on his hands and knees. Had a blister on his foot that he initially thought was the issue. Noticed the knee swelling on Friday as well. Allergies Allergy/AdvReac Type Severity Reaction Status Date / Time No Known Allergies Allergy Verified 05/29/22 10:04 Home Medications Medication Instructions Recorded Confirmed Type empagliflozin 25 mg tablet 25 mg PO QAM 09/26/21 01/28/22 History (Jardiance) lisinopril 5 mg tablet 5 mg PO QAM 09/26/21 01/28/22 History metformin 500 mg tablet,extended 500 mg PO DAILY 09/26/21 01/28/22 History release 24 hr methadone 40 mg soluble tablet 164 mg PO QAM 09/26/21 01/28/22 History multivitamin 1 tab PO QAM 09/26/21 01/28/22 History oxycodone-acetaminophen 5 mg-325 1 tab PO Q4H PRN pain 3 days #10 01/25/22 01/28/22 Rx mg tablet (Percocet) tabs Past Med/Surg History Problem List (Updated 03/25/24 @ 18:05 by Kristopher Granados DO) Diabetes mellitus type 2, insulin dependent Cellulitis of left lower extremity Septic joint of left knee joint Osteomyelitis of great toe of left foot Effusion, left knee Abscess of left lower extremity Personal history of diabetic foot ulcer Status post partial amputation of foot Diabetic foot ulcer associated with type 2 diabetes mellitus Diabetic peripheral neuropathy associated with type 2 diabetes mellitus HTN (hypertension) Diabetes Medical History (Updated 03/25/24 @ 18:05 by Kristopher Granados DO) Scoliosis History of pneumonia 2008 H[facility]PITALIZED [facility]/INDUCED COMA FOR 7 WEEKS...REHAB Opiate dependence, continuous HX - INTERMITTENTLY FOR PAST 21 YRS CURRENT ON METHADONE Lumbosacral neuritis Biceps tendon rupture Sciatica Surgical History (Updated 05/20/22 @ 16:48 by Chris Bailon MD) History of surgery INJECTIONS IN BACK / PAIN MGMT / UOC History of hernia surgery History of foot surgery MULTIPLE History of rotator cuff surgery X4 S/P rotator cuff repair Social History Smoking Status: Never smoker Do You Dip or Chew Tobacco: No; Hx Alcohol Use: Yes (HX , NONE CURRENT) Hx Substance Use: Yes (HX OPIATE USE , METHADONE THERAPY FOR 6 YRS NOW) Substance Use Type Other:: CURRENT METHADONE Preferred Language: German Communication Ability: Effective Communication Tools: Facial Expression, Sign Language and Lip Movement/Reading Visual Impairment: Limited Hearing Ability: Hard of Hearing Layout Operator Required: No Beliefs That Will Affect Care: None Current Living Situation: Spouse and Family Feels Safe at Home: Yes Assistive Devices: Cane Review of Systems Review of Systems: Pertinent positive and negative review of systems as mentioned in the HPI Extremely hard of hearing, reads lips Physical Exam Physical Exam: Constitutional: Alert, mildly ill in appearance, nontoxic, moderate distress due to pain HEENT: Mucous membranes moist. Sclera clear Neck: Soft, no adenopathy Lungs: Clear to auscultation, decreased, no wheezes rales or rhonchi CV: S1-S2, regular no definite murmur Abdomen: Soft, nontender, nondistended Extremities: Left lower extremity is circumferentially swollen, red, warm, painful to touch, tight skin extending from above the knee down to the foot. Has evidence of some redness and venous streaking posteriorly in the upper thigh over the hamstrings. The left knee is swollen, painful, evidence of effusion. He has amputations on both feet of several toes. On the left foot there is a purulent draining ulceration on the plantar surface of the second metatarsal phalangeal joint. There is surrounding redness and evidence of cellulitis. Right lower extremity no evidence of edema, no redness. Musculoskeletal: Left knee as above Derm: Macular rash in the left upper thigh and inguinal area. Consistent with streptococcal versus staphylococcal infection Neuro: No focal deficits, extremely hard of hearing Psych: Cooperative, normal mood Results & Data Results & Data Vital Signs (Past 12 Hours) Vital Signs Temp Pulse Resp BP Pulse Ox O2 Del Method 03/25/24 14:37 36.8 C 79 22 139/75 95 Room Air Diagnostic Findings Reviewed imaging, laboratory and diagnostic studies. Pertinent findings as below. WBCs 12.5 Hemoglobin 13.4 Platelets of 467 ESR 54 Coagulation studies within normal range BUN 27 Creatinine 1.01 Glucose 156 CRP 27.3 Procalcitonin 0.29 Lactate 1.6 Uric acid 5.1 Venous Doppler study of the left lower extremity shows large fluid collection of left calf measuring 21.8 x 5 x 2.6 cm Knee x-ray shows evidence of a joint effusion and osteoarthritis Foot x-ray shows suspected osteomyelitis of the first interphalangeal joint Code Status & VTE Plan VTE Prophylaxis Plan VTE Prophylaxis will be ordered: Yes
[2024-03-25] MEDS: LIDOCAINE 1% LOCAL 20 ML VIAL INJ ONE (18:29)
--- NOTE | 2024-03-25 18:45 | Orthopedic Consultation ---
Date of Consultation March 25, 2024 Assessment & Plan (1) Septic joint of left knee joint: (2) Cellulitis of left lower extremity: (3) Osteomyelitis of great toe of left foot: (4) Diabetic foot ulcer associated with type 2 diabetes mellitus: (5) HTN (hypertension): (6) Diabetic peripheral neuropathy associated with type 2 diabetes mellitus: (7) Diabetes mellitus type 2, insulin dependent: Sulema Meyers is a 63-year-old gentleman who presents to the emergency department today for evaluation of his left lower extremity. The patient's troubles initially started on Friday when he noticed pain and swelling and redness around a wound on his left foot. The patient does have a history of prior second ray resection for nonhealing diabetic wound on that foot. The patient did see his senior program manager who placed him on Bactrim empirically and then presented to his primary care provider today who referred him to the emergency department. While in the emergency department, the patient had an ultrasound study of his left lower extremity which demonstrated a fluid collection in his calf, but no DVT was seen. The patient was admitted to the medicine service and medicine was concerned about the possibility of compartment syndrome as such I was called for rapid evaluation. On my evaluation, the patient shows no signs or symptoms consistent with compartment syndrome. His compartments are soft and easily compressible, he has no pain with passive range of motion of his ankle or his toes. The patient's primary source of pain appears to be his left knee. he does not appear to be significantly tender over the fluid collection in his calf. I did explain to the patient that given his elevated white blood cell count, ESR, CRP, I do believe that arthrocentesis of the left knee to rule out septic joint is required. Please see separate procedure note for full details, but I did perform an arthrocentesis of the left knee this evening. I sent the fluid for analysis in the lab to include a cell count with differential, crystal analysis, Gram stain and culture, Lyme analysis. I explained to the patient that based on his history of diabetes, the pain he is in, as well as the fluid collection seen on his ultrasound of the leg, I am concerned for necrotizing fasciitis and I have ordered a CT scan to further evaluate. In calculating his LRINEC score, he scores a 5 which has been shown to be a "low risk" for necrotizing fasciitis, however I do think this merits an evaluation by the general surgery team as necrotizing fasciitis is not something that I am confident in managing. I pesonally called the general surgery team and they are going to evaluate the patient now. Should they agree that his calf needs to be irrigated and feel confident in managing this, we can peform cases in tandem for I+D of his leg and I+D of his knee for septic arthritis. Further recommendations to follow. History of Present Illness Reason for Consultation: Left knee pain Requesting Physician: Dr. Granados History of Present Illness Luigi is 63-year-old gentleman who presents to the emergency department today for evaluation of pain in his left lower extremity. The patient's troubles initially started a few days ago when he noticed a wound opened up on his foot on friday. He has a history of T2DM, insulin requiring and has had previous toe amputations in the past for this. He noted a wound on his left toe and foot this past Friday. Also noted the swelling of his left knee at that time. Was seen by his senior program manager on Friday and had in the office debridement of the ulceration and was empirically put on some Bactrim. Since then he has had increasing swelling increasing pain and increasing redness of the left lower extremity. He went to see his primary care provider earlier today who sent him to the emergency room for evaluation. In the emergency room had a slightly elevated white blood cell count CRP and ESR were elevated. He had significant pain in the leg. Ultrasound of the lower extremity showed a large fluid collection in the lower leg, x-rays were consistent with osteomyelitis of the foot. the hospitalist team was consulted for admission and I was contacted by the hospitalist with regards to the swelling in his lower extremity. When I saw the patient in the emergency department, he admits to some chills but no fever. No chest pain, no shortness of breath. No problems with the bowels or bladder. Reviewing outside EMR he reported to the senior program manager that he had been redoing a bathroom and was on his hands and knees. Had a blister on his foot that he initially thought was the issue. At current, the primary source of pain is his left knee. Allergies Allergy/AdvReac Type Severity Reaction Status Date / Time No Known Allergies Allergy Verified 05/29/22 10:04 Home Medications Medication Instructions Recorded Confirmed Type empagliflozin 25 mg tablet 25 mg PO QAM 09/26/21 03/25/24 History (Jardiance) lisinopril 5 mg tablet 2.5 mg PO QAM 09/26/21 03/25/24 History metformin 500 mg tablet,extended 2,000 mg PO DAILY 09/26/21 03/25/24 History release 24 hr methadone 40 mg soluble tablet 164 mg PO UD 09/26/21 03/25/24 History multivitamin 1 tab PO QAM 09/26/21 03/25/24 History atorvastatin 40 mg tablet 40 mg PO DAILY 03/25/24 03/25/24 History insulin glargine 100 unit/mL (3 10 unit subcut HS 03/25/24 03/25/24 History mL) subcutaneous pen (Lantus Solostar U-100 Insulin) oxycodone-acetaminophen 5 mg-325 1 tab PO UD PRN pain 03/25/24 03/25/24 History mg tablet (Percocet) semaglutide 2 mg/dose (8 mg/3 mL) 2 mg subcut WK 03/25/24 03/25/24 History subcutaneous pen injector (Ozempic) silver sulfadiazine 1 % topical 1 applic topical DIRECTED 03/25/24 03/25/24 History cream sulfamethoxazole 800 1 tab PO BID 03/25/24 03/25/24 History mg-trimethoprim 160 mg tablet Patient History Medical History (Updated 03/25/24 @ 18:05 by Kristopher Granados DO) Scoliosis History of pneumonia 2007 H[facility]PITALIZED [facility]/INDUCED COMA FOR 7 WEEKS...REHAB Opiate dependence, continuous HX - INTERMITTENTLY FOR PAST 21 YRS CURRENT ON METHADONE Lumbosacral neuritis Biceps tendon rupture Sciatica Surgical History (Updated 05/20/22 @ 16:48 by Chris Bailon MD) History of surgery INJECTIONS IN BACK / PAIN MGMT / UOC History of hernia surgery History of foot surgery MULTIPLE History of rotator cuff surgery X4 S/P rotator cuff repair Social History Smoking Status: Never smoker Do You Dip or Chew Tobacco: No; Hx Alcohol Use: Yes (HX , NONE CURRENT) Hx Substance Use: Yes (HX OPIATE USE , METHADONE THERAPY FOR 6 YRS NOW) Substance Use Type Other:: CURRENT METHADONE Preferred Language: [place]guill[place] Communication Ability: Effective Communication Tools: Facial Expression, Sign Language and Lip Movement/Reading Visual Impairment: Limited Hearing Ability: Hard of Hearing Manager Relocation Required: No Beliefs That Will Affect Care: None Current Living Situation: Spouse and Family Feels Safe at Home: Yes Assistive Devices: Cane Review of Systems Review of Systems: All systems reviewed & are unremarkable except as noted in HPI & below Physical Exam Physical Exam: On physical examination, the patient has significant swelling about his left knee. He has a knee effusion noted. There is mild erythema surrounding his knee, as well. He has pain with any attempted motion of the knee. Patient has soft and easily compressible compartments in his lower extremity. He has no pain with ankle range of motion in his leg. His foot is warm and well-perfused. With regards to his foot, the patient has history of prior toe amputations and that there is a small wound located at the site of his previous second toe removal. Results & Data Vital Signs (Past 12 Hours) Vital Signs Temp Pulse Resp BP Pulse Ox O2 Del Method 03/25/24 14:37 36.8 C 79 22 139/75 95 Room Air Laboratory Results WBC 12.5 Hemoglobin 13.4 ESR13.454 Creatinine 1.01 CRP 27.39 Sodium 136 Glucose 156 Diagnostic Findings X-rays of the knee, tib-fib were personally interpreted and reviewed. These demonstrate no acute osseous abnormalities. There is a knee joint effusion present CT scan of the left lower extremity personally interpreted and reviewed. This demonstrates fluid collection with gas in the soft tissues within the medial aspect of the gastrocnemius muscle
[2024-03-25 19:21] LABS: Appearance Synovial Fluid Turbid; Color Synovial Fluid Pink; Mononuclear WBC Synovial 1.7 %; Polynuclear WBC Synovial 98.3 %; RBC Synovial Fluid Auto 40000 /uL; Source Synovial Fluid Left Knee; WBC Synovial Fluid Auto 37210 /ul (0-200)
[2024-03-25] MEDS: LIDOCAINE 1% LOCAL 20 ML VIAL ONE (19:25)
--- NOTE | 2024-03-25 19:26 | XRay Report ---
EXAM: Radiographs of the Left Tibia and Fibula 2 Views INDICATION: Pain. TECHNIQUE: Frontal and lateral views of the left tibia and fibula. COMPARISON: No relevant prior studies available. FINDINGS: Bones/joints: No fracture. No dislocation. No erosion or loose body. There is prominent calcification of the distal Achilles tendon. Small plantar calcaneal spur noted. Soft tissues: Diffuse soft tissue swelling noted. No soft tissue gas collection or radiopaque foreign body. IMPRESSION: 1. Soft tissue swelling without fracture. 2. There is prominent calcification of the distal Achilles tendon consistent with chronic tendinitis. ACT 112: Negative or not required by law. Electronically signed by Avril Calderon 03-25-2024 7:26 PM
--- NOTE | 2024-03-25 19:47 | CT Scan Report ---
CT extremity, left tib-fib without contrast History: Pain/weakness Comparison: None Technique: CT performed of the extremity without IV contrast. Dose reduction techniques were achieved by using automatic exposure control and/or adjustment of mA and/or kV according to patient size and/or use of iterative reconstruction technique. Findings: No fracture or dislocation. Joint spaces are normally aligned. There is a partially visualized left knee joint effusion, which is moderate in size. Diffuse subcutaneous edema throughout the left lower leg, and about the left ankle. Within the intramuscular compartment posteriorly about the medial gastrocnemius, is a loculated appearing collection, in the axial plane measuring up to 8.6 x 3.6 cm, series 2 image 40, with cranial extension into the popliteal fossa, and caudal extension to the level of the Achilles tendons superficially. Scattered areas of high density material noted, as well as mild scattered foci of gas within the collection. No aggressive osseous lesion. Impression: Loculated collection within the gastrocnemius muscular compartment medially, extending from the popliteal fossa, to the level of the distal Achilles tendon. This contains internal foci of gas, and in the absence of a history of trauma, is concerning for gas-forming bacterial infection and necrotizing fasciitis. Electronically signed by Nii Lindo 03-25-2024 7:46 PM
[2024-03-25] MEDS ORDERED: GLUCAGON FOR INJ 1 MG VIAL SQ PRN (19:57)
[2024-03-25] MEDS ORDERED: PHARMACY GLYCEMIC MGMT CONSULT PRN (19:57)
[2024-03-25] MEDS ORDERED: CARBOHYDRATES FOR HYPOGLYCEMIA PO PRN (19:57)
[2024-03-25] MEDS ORDERED: GLUCOSE 40% GEL 15 GM TUBE PO PRN (19:57)
[2024-03-25] MEDS ORDERED: ALUMINUM/MAGNESIUM SUSP 30 ML UDC PO PRN (19:57)
[2024-03-25] MEDS ORDERED: oxyCODONE HCL IR 5 MG TAB (IMMEDIATE RELEASE) PO PRN (19:57)
[2024-03-25] MEDS ORDERED: DEXTROSE 50% 50 ML SYRINGE IV PRN (19:57)
[2024-03-25] MEDS ORDERED: ACETAMINOPHEN 325 MG TAB PO PRN (19:57)
[2024-03-25] MEDS ORDERED: ONDANSETRON INJ 2 MG/ML 2 ML VIAL IV PRN (19:57)
[2024-03-25] MEDS ORDERED: GLUCOSE 10 TAB/TUBE PO PRN (19:57)
--- NOTE | 2024-03-25 20:40 | Surgery Consultation ---
Date of Consultation March 25, 2024 Assessment & Plan (1) Cellulitis of left lower extremity: Prior to my encounter with the patient he had been admitted on the hospitalist service but he remains in the emergency department on a bed hold. After orthopedic evaluation there was concern the patient had necrotizing fasciitis prompting general surgery evaluation. Orthopedic attending, Dr. Vásquez has spoken directly with Dr. Miguel Weems of general surgery and due to the complex nature of the fluid collection and concern for necrotizing fasciitis is felt the patient would be best served with transfer to a tertiary care center for treatment of this wound. Dr. Manzanares has notified the attending hospitalist and they are in the process of arranging transfer Would recommend keeping patient n.p.o. for the present time Broad-spectrum antibiotics in form of vancomycin and Zosyn have been initiated which should continue Intravenous fluids have been initiated which should continue As stated above the patient is pending transfer to a tertiary care facility due to the complex nature of his lower extremity infection. Supervising Physician Co-Signing Physician Notes I did review the images of the CT scan and agree there is at least a large intramuscular abscess within the gastrocnemius muscle extending into the popliteal fossa I participated in a call with transfer center that included hospitalist and general surgery in [place] who was concerned due to the extent of the infection/abscess, AKA would be a possibility We all agreed the patient should be transferred to tertiary care center for further treatment History of Present Illness Reason for Consultation: Left lower extremity infection, possible necrotizing fasciitis Attending Physician: Kristopher Granados, DO History of Present Illness This is a 63-year-old male we are asked to see by orthopedic surgery, Dr. Maik Vásquez. This man initially presented to the emergency department secondary to pain and swelling of his left lower extremity that the patient reports that been present for approximately 3 to 4 days. He specifically denies any trauma to his affected leg however he did notice that he had a wound opened up on his foot the day prior to his swelling and pain beginning. Concerning the wound the patient noticed a wound on his left toe and he was seen by a lollypop machine operator in the office where he had debridement of an ulceration and was empirically placed on Bactrim. Despite this modality the patient notes increased pain, swelling, and redness of the leg. He went to see his primary care physician today and was referred to the emergency department for further evaluation. At the time of my interview the patient denied any fevers or shakes but did admit to occasional chills. He also just reports some generalized throbbing pain of his left lower extremity extending from the knee to his foot. The patient does report that he has diabetes and he is required multiple toe amputations on each foot for this problem. This is a test since arrival to the hospital patient has had multiple images and labs which I independently reviewed. Patient had a tib/fib x-ray of the left leg that showed soft tissue swelling without fractures. He had a lower extremity CT scan that showed he had a loculated fluid collection in the gastrocnemius muscle compartment medially which extended from the popliteal fossa all the way down to the level of the distal Achilles tendon which cont ained at some internal foci of gas. The interpreting radiologist did raise a concern for possible necrotizing fasciitis on this study. A lower extremity venous Doppler showed no evidence of DVT and the fluid collection noted on the above-noted CT scan was also noted on this study. A left knee x-ray was performed that showed a joint effusion of the left knee with no other acute osseous abnormalities. Finally, he had a left foot x-ray that showed diffuse soft tissue swelling but no soft tissue gas was noted on this study. There was concern however the patient had osteomyelitis of the first interphalangeal joint. Labs included a CBC with a white blood cell count of slight elevation at 12.5. His hemoglobin and hematocrit were 13.4 and 40.3. Platelet count 467,000. Coagulation studies were normal. An erythrocyte sedimentation rate was 54. Chemistry profile showed sodium and potassium were normal. The BUN is elevated 27 but his creatinine was normal. Lactic acid level was not elevated at 1.6. C-reactive protein was elevated 27.3. There is no elevation of patient's LFTs. Procalcitonin level was not elevated. The patient was seen in the emergency department by Dr. Vásquez of the [facility] as there is concern the patient may have had compartment syndrome. After orthopedic evaluation it was felt that the patient was not suffering from compartment syndrome but there was concern that patient may have had a septic arthritis so an arthrocentesis of the left knee was performed. The fluid was sent for appropriate analysis which is pending. After orthopedics reviewed available imaging and performed arthrocentesis there was concern the patient may have had a necrotizing fasciitis which prompted general surgery consultation. At the time of my interview the patient was resting comfortably bed and he was in no distress. Allergies Allergy/AdvReac Type Severity Reaction Status Date / Time No Known Allergies Allergy Verified 05/29/22 10:04 Home Medications Medication Instructions Recorded Confirmed Type empagliflozin 25 mg tablet 25 mg PO QAM 09/26/21 03/25/24 History (Jardiance) lisinopril 5 mg tablet 2.5 mg PO QAM 09/26/21 03/25/24 History metformin 500 mg tablet,extended 2,000 mg PO DAILY 09/26/21 03/25/24 History release 24 hr methadone 40 mg soluble tablet 164 mg PO UD 09/26/21 03/25/24 History multivitamin 1 tab PO QAM 09/26/21 03/25/24 History atorvastatin 40 mg tablet 40 mg PO DAILY 03/25/24 03/25/24 History insulin glargine 100 unit/mL (3 10 unit subcut HS 03/25/24 03/25/24 History mL) subcutaneous pen (Lantus Solostar U-100 Insulin) oxycodone-acetaminophen 5 mg-325 1 tab PO UD PRN pain 03/25/24 03/25/24 History mg tablet (Percocet) semaglutide 2 mg/dose (8 mg/3 mL) 2 mg subcut WK 03/25/24 03/25/24 History subcutaneous pen injector (Ozempic) silver sulfadiazine 1 % topical 1 applic topical DIRECTED 03/25/24 03/25/24 History cream sulfamethoxazole 800 1 tab PO BID 03/25/24 03/25/24 History mg-trimethoprim 160 mg tablet Patient History Medical History Scoliosis History of pneumonia 2007 HOSPITALIZED [facility]/INDUCED COMA FOR 7 WEEKS...REHAB Opiate dependence, continuous HX - INTERMITTENTLY FOR PAST 21 YRS CURRENT ON METHADONE Lumbosacral neuritis Biceps tendon rupture Sciatica Surgical History History of surgery INJECTIONS IN BACK / PAIN MGMT / UOC History of hernia surgery History of foot surgery MULTIPLE History of rotator cuff surgery X4 S/P rotator cuff repair Social History Smoking Status: Never smoker Do You Dip or Chew Tobacco: No; Hx Alcohol Use: Yes (HX , NONE CURRENT) Hx Substance Use: Yes (HX OPIATE USE , METHADONE THERAPY FOR 6 YRS NOW) Substance Use Type Other:: CURRENT METHADONE Preferred Language: [place] Communication Ability: Effective Communication Tools: Facial Expression, Sign Language and Lip Movement/Reading Visual Impairment: Limited Hearing Ability: Hard of Hearing Plastic Technician Required: No Beliefs That Will Affect Care: None Current Living Situation: Spouse and Family Feels Safe at Home: Yes Assistive Devices: Cane Review of Systems Review of Systems: All systems reviewed & are unremarkable except as noted in HPI & below Physical Exam Constitutional: WD/WN, vitals as above Eyes: Wears glasses ENMT: Ears: no hearing impairment and no external ear abnormality Mouth: no oropharynx abnormality Neck: trachea midline Respiratory: normal respiratory effort; no respiratory distress and no labored breathing Cardiovascular: Rate/Rhythm: regular rate and regular rhythm Gastrointestinal (Abdomen): Soft and nontender to palpation Musculoskeletal: The patient's left lower extremity was noted to be markedly erythematous from the ankle to the level of the knee. There is a Band-Aid in place on the lateral aspect of left knee where arthrocentesis was performed. The area of redness of his lower extremity was warm to touch. I do not appreciate any open areas or areas of drainage. There is no crepitus noted in the soft tissue. On the patient's left lower extremity there were amputations noted of the patient's second and third toes. Pedal pulses were not palpable however his dorsalis pedis and posterior tibial pulse were dopplerable. I was also able to Doppler his peroneal pulse. Popliteal pulse was not palpable. The patient did have a 2+ and bounding femoral pulse of this extremity. Skin: Erythema noted on the left lower extremity extending from the ankle to the knee Neurologic: moves all extremities Results & Data Vital Signs (Past 12 Hours) Vital Signs Temp Pulse Resp BP Pulse Ox O2 Del Method 03/25/24 19:40 68 03/25/24 14:37 36.8 C 79 22 139/75 95 Room Air PG Care Time/CCT Total # of Minutes Spent Total Time Spent with Patient: Total time spent is greater than 50% in coordination of care (as documented) at patient's floor/unit and/or counseling patient: Coding Level of Care Code 46954 IN/OBS CONSULT LVL 5,80M Diagnoses Cellulitis of left lower extremity L03.116
[2024-03-25] MEDS: MoRPHine SULFATE 4 MG/ML 1 ML CARP\\VIAL IV PRN (20:52)
[2024-03-25] MEDS ORDERED: INSULIN ASPART PER UNIT CHARGE SC SCH (21:00)
[2024-03-25] MEDS: ENOXAPARIN INJ 40 MG/0.4 ML SYR SQ SCH (21:30)
[2024-03-25] MEDS: LACTATED RINGER'S 1,000 ML IV SCH (21:30)
--- NOTE | 2024-03-25 21:35 | Discharge Summary ---
Discharge Summary Date of Service March 25, 2024 Principal Dx & Hospital Course #1 = Principal Diagnosis (1) Necrotizing fasciitis of lower leg: (2) Abscess of left lower extremity: (3) Septic joint of left knee joint: (4) Osteomyelitis of great toe of left foot: (5) Cellulitis of left lower extremity: (6) Diabetic foot ulcer associated with type 2 diabetes mellitus: (7) Diabetic peripheral neuropathy associated with type 2 diabetes mellitus: (8) Status post partial amputation of foot: (9) Diabetes mellitus type 2, insulin dependent: Plan Patient presented to the emergency room with pain and swelling and redness of his left lower extremity. Patient was referred to hospital medicine service to manage with IV antibiotics. Patient was admitted to the hospital into a monitored unit. He is given broad-spectrum IV antibiotics Zosyn and vancomycin. Significant concern for severe infection or even possible compartment syndrome of the left lower extremity. Orthopedic surgery, Dr. Vásquez was contacted. He evaluated patient and proceeded to perform a arthrocentesis of the left knee and CT of the lower extremity was performed. Synovial fluid was highly consistent with a septic arthritis. CT scan of the left lower extremity was concerning for deep abscess throughout the lower extremity with gas formation consistent with necrotizing fasciitis. Dr. Vásquez was made aware, he contacted general surgery, Dr. Weems. Case was reviewed with Dr. Weems. And both surgical specialties recommended transfer to another center for surgical intervention. Transfer center was contacted. Was able to discuss and reviewed the case with Dr. Hoffman at [facility]. Dr. Hoffman was able to review the CT images. He agrees that the patient has severe infection of the leg with deep abscess that is surrounding the neurovascular bundle in the popliteal fossa. Patient most likely will need [id number] amputation and certainly needs some type of surgical intervention as soon as possible. Dr. Hoffman graciously accepted the patient to [facility]. Will continue with antibiotics and pain control. I had a long bedside conversation with the patient explaining him the need for transfer. I also explained to him that the most likely outcome for him is an [id number] amputation. Patient understands that this is the most likely outcome and is agreeable to transfer understand that it is his only viable option at this point because he is a risk for severe sepsis. At the time of discharge the patient is mentating well. He is did not displaying any cardiovascular instability. Heart rate and blood pressures are stable. His pain is being controlled with IV morphine. He has notified his and she is aware that he will need transfer. Patient will be transferred to [facility] as soon as a bed and transportation is arranged under the service of Dr. Hoffman. Notes For Next Care Provider Medication Changes From Visit Patient treated with Zosyn, vancomycin, morphine for pain control Admission HPI Per Admitting Provider Patient is a 63-year-old gentleman with known diabetes mellitus type 2 insulin requiring noted a wound on his left toe and foot this past Friday. Also noted the swelling of his left knee. Was seen by his advice nurse on Friday. Had in the office debridement of the ulceration and was empirically put on some Bactrim. Since then he has had increasing swelling increasing pain and increasing redness of the left lower extremity. He went to see his primary care provider earlier today who sent him to the emergency room for evaluation. In the emergency room had a slightly elevated white blood cell count CRP and ESR were elevated. He had significant pain in the leg. Ultrasound of the lower extremity showed a large fluid collection in the lower leg, x-rays were consistent with osteomyelitis of the foot. He was referred to our service for further evaluation. Time of my evaluation the patient was significantly uncomfortable due to pain in the leg. He has noticed the redness creeping up over the knee joint and also noted a rash in his groin. He is not since also noted some purulent drainage from his foot wound. Did admits to some chills but no documented fever. No chest pain, no shortness of breath. No new problems with the bowels or bladder. Reviewing outside EMR he reported to the advice nurse that he had been redoing a bathroom and was on his hands and knees. Had a blister on his foot that he initially thought was the issue. Noticed the knee swelling on Friday as well. Admission Exam Per Admitting Provider See H&P Discharge Exam Constitutional: Alert, mildly ill in appearance. Nontoxic, not as much distress due to improved pain control HEENT: Mucous membranes moist. Lungs: Clear to auscultation, decreased, no wheezes rales or rhonchi CV: S1-S2, regular, no murmur Abdomen: Soft, nontender, nondistended Left lower extremity is circumferentially swollen, red, warm, painful to touch, tight skin extending from above the knee down to the foot. Has evidence of some redness and venous streaking posteriorly in the upper thigh over the hamstrings. The left knee is swollen, painful, evidence of effusion. He has amputations on both feet of several toes. On the left foot there is a purulent draining ulceration on the plantar surface of the second metatarsal phalangeal joint. There is surrounding redness and evidence of cellulitis. Right lower extremity no evidence of edema, no redness. No significant change in the physical exam findings of the left lower extremity from the time of admission. Musculoskeletal: Left knee as above Derm: Macular rash in the left upper thigh and inguinal area. Consistent with streptococcal versus staphylococcal infection Neuro: No focal deficits, peripheral neuropathy Psych: Cooperative, normal mood Updated Medication List Medication Instructions Recorded Confirmed Type empagliflozin 25 mg tablet 25 mg PO QAM 09/26/21 03/25/24 History (Jardiance) lisinopril 5 mg tablet 2.5 mg PO QAM 09/26/21 03/25/24 History metformin 500 mg tablet,extended 2,000 mg PO DAILY 09/26/21 03/25/24 History release 24 hr methadone 40 mg soluble tablet 164 mg PO UD 09/26/21 03/25/24 History multivitamin 1 tab PO QAM 09/26/21 03/25/24 History atorvastatin 40 mg tablet 40 mg PO DAILY 03/25/24 03/25/24 History insulin glargine 100 unit/mL (3 10 unit subcut HS 03/25/24 03/25/24 History mL) subcutaneous pen (Lantus Solostar U-100 Insulin) oxycodone-acetaminophen 5 mg-325 1 tab PO UD PRN pain 03/25/24 03/25/24 History mg tablet (Percocet) semaglutide 2 mg/dose (8 mg/3 mL) 2 mg subcut WK 03/25/24 03/25/24 History subcutaneous pen injector (Ozempic) silver sulfadiazine 1 % topical 1 applic topical DIRECTED 03/25/24 03/25/24 History cream sulfamethoxazole 800 1 tab PO BID 03/25/24 03/25/24 History mg-trimethoprim 160 mg tablet Hospital Stay Data Consultations 03/25/24 17:50 ED Decision to Admit Stat 03/25/24 17:50 Consult Orthopedic Surgery Routine Consult Podiatry Routine 03/25/24 20:08 Consult General Surgery Stat Diagnostic Imagining Performed 03/25/24 15:10 US venous doppler LE LT Stat 03/25/24 18:52 CT tib/fib LT wo con Stat Reviewed imaging, laboratory and diagnostic studies. Pertinent findings as below. WBCs 12.5 Hemoglobin 13.4 Platelets of 467 ESR 54 Coagulation studies within normal range BUN 27 Creatinine 1.01 Glucose 156 CRP 27.3 Procalcitonin 0.29 Lactate 1.6 Uric acid 5.1 Venous Doppler study of the left lower extremity shows large fluid collection of left calf measuring 21.8 x 5 x 2.6 cm Knee x-ray shows evidence of a joint effusion and osteoarthritis Foot x-ray shows suspected osteomyelitis of the first interphalangeal joint CT left lower extremity: Loculated collection within the gastrocnemius muscular compartment extending to the popliteal fossa and to the level of the Achilles tendon there are internal foci of gas and significant concern for gas-forming bacterial infection and necrotizing fasciitis. X-ray of the tibia-fibula showed soft tissue swelling but no fracture Pending Results Patient Have Any Pending Studies at Discharge: Yes Discharge Instructions Given to Patient (Per Discharging Provider) You are being transferred to [facility] under the service of general surgeon Dr. Hoffman. He will discuss plans for surgical intervention with you. You have an extensive abscess throughout almost your entire left lower leg from the knee down Total Time Total Time Spent Total Time Spent (In Minutes): 75
--- OUTSIDE RECORDS SUMMARY | 2024-03-25 21:39 | External Medical Summary | Summary of Care ---
Author Name Unknown Organization [facility] Address [address] [place] [address] Phone [phone] Care Team Providers Care System Sales Consultant Name Role Phone Juventino Hughes MD Primary Care Provi kelly Reason for Visit * Reason Onset Date Comments Medication Refill 02/20/2024 Encounter Details Date Type Department Care Team ([facility] st Contact Info) Description 02/20/2024 Refill [facility] [address] [place] [address] Juventino Hughes MD [address] [place] [phone] Type 2 diabetes mellitus with hemoglobin A1c goal of less than 8.0% ([facility] Allergies Active Allergy Reactions Criticality Noted Date Comments Nutritional Supplements Anaphylaxis High 02/05/2008 Pt denies documented as of this encounter (statuses as of 02/21/2024) Medications methADONE CONCentrated 10 mg/mL CONC Take 16.4 mL by mouth. Active Blood Glucose Monitoring Suppl (ONETOUCH VERIO) w/Device KITIndications:T ype 2 diabetes mellitus with hemoglobin A1c goal of less than 8.0% (HCC) Use up to 2 times a day E11.9 1 Kit 0 Active Multiple Vitamin Oral Tablet Take 1 Tablet by mouth in the morning. Active OneTouch Verio In Vitro Strip (Glucose Blood)Indication s:Type 2 diabetes mellitus with hemoglobin A1c goal of less than 8.0% (HCC) Use up to 2 times a day E11.9 100 Strip 5 1 Active OneTouch UltraSoft LancetsIndicatio ns:Type 2 diabetes mellitus with hemoglobin A1c goal of less than 8.0% (HCC) Use up to twice times a day as directed 100 Each 5 1 Active Lisinopril 2.5 MG Oral Tablet (Prinivil) Take 1 Tablet by mouth in the morning. 90 Tablet 3 4 Active Insulin Glargine Solostar 100 UNIT/ML Subcutaneous Solution Pen-injector (Lantus SoloStar)Indicat ions:Type 2 diabetes mellitus with hemoglobin A1c goal of less than 8.0% (HCC) Inject 10 Units under the skin at bedtime. 15 mL 1 4 Active Pen Burt 32G X 4 MMIndications:Ty pe 2 diabetes mellitus with hemoglobin A1c goal of less than 8.0% (HCC) Use as directed. Once daily to inject insulin 100 Each 3 4 Active Empagliflozin 25 MG Oral Tablet (Jardiance)Indic ations:Type 2 diabetes mellitus with hemoglobin A1c goal of less than 8.0% (HCC) Take 1 Tablet by mouth in the morning. 90 Tablet 2 4 Active Atorvastatin Calcium 40 MG Oral Tablet (Lipitor)Indicat ions:Hyperlipide kelley with target LDL less than 100 TAKE 1 TABLET BY MOUTH EVERY DAY IN THE MORNING 30 Tablet 5 Active Ozempic (2 MG/DOSE) 8 MG/3ML Subcutaneous Solution Pen-injector (Semaglutide (2 MG/DOSE))Indicat ions:Type 2 diabetes mellitus with hemoglobin A1c goal of less than 8.0% (HCC) Inject 2 mg under the skin once a week. 9 mL 1 5 Active metFORMIN HCl ER 500 MG Oral Tablet Extended Release 24 Hour (Glucophage XR)Indications:T ype 2 diabetes mellitus with hemoglobin A1c goal of less than 8.0% (HCC) Take 4 tablets by mouth daily with a meal 360 Tablet 3 5 Active metFORMIN HCl ER 500 MG Oral Tablet Extended Release 24 Hour (Glucophage XR)Indications:T ype 2 diabetes mellitus with hemoglobin A1c goal of less than 8.0% (HCC) Take 4 tablets by mouth daily with a meal 360 Tablet 3 3 02/19/19 25 Discontinu ed(Refill) documented as of this encounter (statuses as of 02/21/2024) Active Problems Problem Noted Date Diagnosed Date Type 2 diabetes mellitus wit h diabetic neuropathy, without long-term current use of insulin 04/15/2023 Diabetic peripheral neuropat hy associated with type 2 diabetes mellitus 09/26/2022 Diabetic ankle ulcer 09/26/2022 Diabetic foot ulcer associat ed with type 2 diabetes mellitus 09/26/2022 Rupture of biceps tendon 09/26/2022 Continuous opioid dependence 09/26/2022 Prolonged Q-T interval on ECG 09/26/2022 History of partial ray amput ation of second toe of right foot 06/14/2021 Overweight (BMI 25.0-29.9) 09/15/2020 Hyperlipidemia with target LDL less than 100 07/2020 Type 2 diabetes mellitus wit h hemoglobin A1c goal of less than 8.0% 09/06/2019 Diabetic ulcer of right great toe 09/06/2019 HTN, goal below 140/90 12/29/2008 Overview (12/29/2008): Modified per HTN protocol #16. Thoracic and lumbosacral neuritis 12/30/2007 Disorder of intervertebral disc 12/30/2007 documented as of this encounter (statuses as of 02/21/2024) Resolved Problems Problem Noted Date Diagnosed Date Resolved Date Osteomyelitis 09/26/2022 01/02/2024 Poorly controlled diabetes mellitus 10/23/2020 06/14/2021 Subacute osteomyelitis of right foot 08/23/2020 09/07/2020 Abscess, toe, right 08/23/2020 09/08/19 Type 2 diabetes mellitus wit h diabetic neuropathy, unspecified 09/06/2019 09/26/2022 Acquired absence of other right toe(s) 08/03/2018 09/06/2019 Amputation of toe of right foot 07/03/2017 06/14/2021 Recurrent aspiration pneumonia 08/09/2016 07/03/2017 Other constipation 06/16/2007 0 Backache 06/16/2007 09/06/2019 Polyneuropathy in other dise ases classified elsewhere 06/16/2007 09/23/2019 Overview (06/16/2007): Critical Illness Neuropathy Diarrhea 06/10/2007 06/16/2007 Other specified prophylactic or treatment measure 05/31/2007 09/23/2019 Drug dependence 05/20/2007 09/26/2022 Protein-calorie malnutrition 05/19/2007 07/03/2017 Electrolyte and fluid disorder 05/18/2007 09/23/2019 Respiratory failure, acute 05/17/2007 0 06/16/2007 ARF (acute renal failure) 05/17/2007 Septicemia 05/17/2007 06/16/2007 Hyperpotassemia 05/17/2007 06/16/2007 ADVANCE DIRECTIVE INFORMATION 02/05/2006 09/06/2019 Overview (02/05/2006): No, Advance Directive brochure given to patient at prior appointment. documented as of this encounter (statuses as of 02/21/2024) Immunizations Name Administration Dates Next Due COVID-19 mRNA, LNP-s, No Pre serve, 2-Dose Series (Moderna) 06/08/2020,05/09/2020 COVID-19, MRNA-LNP, PF, 30 M CG/0.3 mL, 12 YRS AND ABOVE, IM (PFIZER-Comirnaty) 01/02/2024 Hepatitis B, 20+ yrs 12/18/2020,09/16/19 21(Deferred: Patient Refused),09/06/2019 01/17/2021 Pneumococcal Conjugate Vacci ne, 20-valent ([id number]) 01/28/2023,09/19/2021(Deferred: Had Clinical Disease) Pneumococcal Polysaccharide PPV23 (Pneumovax) 02/17/2012 Season Influenza, Quad, PF, Adjuvanted, 65+ Yrs, IM (FLUAD) 12/09/2019 Seasonal Influenza Vac., MDV , IM, 0.5 mL (Fluzone) 02/17/2012,11/17/2008 Seasonal Influenza, PF, 6 M & above, IM , (FluLaval or Fluzone) 11/12/2022,12/19/2021,11/10/2020,1004/2017 Seasonal Influenza, Trivalen t, (IIV3), PF, (Fluzone) 01/02/2024 TDAP (age 10 and older)(Boostrix) 09/06/2019, TDAP, Age 7 and older, IM (Adacel) 09/25/2009 Zoster Vaccine Recombinant (Shingrix) 09/09/2019 documented as of this encounter Social History Tobacco Use Types Packs/Day Years Used Date Smoking Tobacco: Former Cigarettes 1.5 10 1 985 - 1994 Smokeless Tobacco: Former Alcohol Use Standard Drinks/Week Comments No 0 (1 standard drink = 0.6 oz pur e alcohol) PHQ-2 Answer Date Recorded PHQ-2 Score 0 12/09/2019 Hunger Vital Sign Answer Date Recorded Worried About Running Out of Food in the Last Ye ar Never true 09/06/2019 Ran Out of Food in the Last Year Never true 09/06/2019 Sex and Gender Information Value Date Recorded Sex Assigned at Male 09/06/2019 1:45 PM EDT Legal Sex Male 5:07 AM EST Gender Identity Male 09/06/2019 1:45 PM EDT Sexual Orientation Straight 09/06/2019 1: 45 PM EDT documented as of this encounter Functional Status * Are you deaf or do you have serious difficulty hearing? Answer Date of Assessment Author Yes 08/22/2020 3:57 PM EDT Susie Roberto RN * Are you blind or do you have serious difficulty seeing, even when wearing glasses? Answer Date of Assessment Author No 08/22/2020 3:57 PM EDT Susie Roberto RN * Do you have serious difficulty walking or climbing stairs? (5 years old or older) Answer Date of Assessment Author No 08/24/2020 1:57 PM EDT Bhakti Smith RN * Do you have difficulty dressing or bathing? (5 years old or older) Answer Date of Assessment Author No 08/22/2020 3:57 PM EDT Susie Roberto RN * Because of a physical, mental, or emotional condition, do you have difficulty doing errands alone such as visiting a doctors office or shopping? (15 years old or older) Answer Date of Assessment Author No 08/22/2020 3:57 PM EDT Susie Roberto RN documented as of this encounter Mental Status * Because of a physical, mental, or emotional condition, do you have serious difficulty concentrating, remembering, or making decisions? (5 years old or older) Answer Entry Date Author No 08/22/2020 3:57 PM EDT Susie Roberto RN documented in this encounter Miscellaneous Notes * Telephone Encounter - Racheal Pollock [facility] ED - 02/21/2024 5:53 AM ESTSigned Prescriptions: Disp Refills metFORMIN HCl ER 500 MG Oral Tablet Extend*360 Ta*3 Sig: Take 4 tablets by mouth daily with a meal Authorizing Provider: JUVENTINO HUGHES Ordering User: RACHEAL POLLOCK * Telephone Encounter - Rosy Hollins CPhT - 02/20/2024 1:47 PM EST Did you pend patient's preferred pharmacy and medication before forwarding?yes Pharmacy: [id number] [address] [place] [address] Pending Prescriptions: Disp Refills metFORMIN HCl ER 500 MG Oral Tablet Exten*360 Ta*3 Sig: Take 4 tablets by mouth daily with a meal Last Visit: 01/02/2024 (in office), Visit date not found (telemedicine) Next Visit: 04/13/2024 If no future appointments scheduled, and last appointment is greater than a year ago, please schedule patient for a follow-up appointment Last date the medication was ordered: 12/02/22 Is this request for a controlled substance?No Urine Drug Screen: Results for orders placed or performed during the hospital encounter of 05/17/07 TOX SCREEN, URINE Result Value NOTE: + Screening results are presumptive unless specimen is NOTE: retested by a confirmatory method. Contact Toxicology NOTE: Service for information on confirmatory testing. NOTE: + Screening results qualitatively identify drugs listed NOTE: in the [facility] user's manual for the specimen type indicated. Amphetamine NOT DETECTED Barbiturates NOT DETECTED Benzodiazepines POSITIVE (A) Cannabinoids NOT DETECTED Cocaine Metabolite NOT DETECTED Morphine / Codeine NOT DETECTED PCP NOT DETECTED ACETAMINOPHEN, QUAL NOT DETECTED SALICYLATES, QUAL NOT DETECTED DRUGS (HPLC) Tocainide/Glycinexylidide DRUGS (HPLC) MEGX [-me-LIDOCAINE] DRUGS (HPLC) PHENYLPROPANOLAMINE/Norpseudoephedrine) DRUGS (HPLC) EPHEDRINE/PSEUDOEPHEDRINE/(Phenmetrazine) DRUGS (HPLC) METHADONE/(Atropine)/(Mirtazepine) DRUGS (HPLC) Atracurium DRUGS (HPLC) METHADONE METABOLITE[EDDP] DRUGS (HPLC) Vancomycin DRUGS (HPLC) Atracurium Metab. 3 DETECTION LIMIT DETECTION LIMIT AMPHETAMINES 1000 ng/mL DETECTION LIMIT BARBITURATES 200 ng/mL DETECTION LIMIT BENZODIAZEPINES 300 ng/mL DETECTION LIMIT CANNABINOIDS 50 ng/mL DETECTION LIMIT COCAINE METABOLITE 300 ng/mL DETECTION LIMIT OPIATES 300 ng/mL DETECTION LIMIT PCP 25 ng/mL DETECTION LIMIT ACETAMINOPHEN 10 ug/mL DETECTION LIMIT SALICYLATES 1.0 mg/mL Patient Phone Numbers Labs: Lab Results Component Value Date/Time CREAT 0.9 11/17/2023 11:13 AM CREAT 1.19 09/23/2021 12:00 AM CREAT 0.8 12/10/2019 04:25 PM POTASSIUM 5.3 (H) 11/17/2023 11:13 AM POTASSIUM 4.0 09/23/2021 12:00 AM POTASSIUM 4.4 12/10/2019 04:25 PM TSH 2.15 01/13/2009 12:03 PM LDL 74 12/30/2022 10:07 AM LDL 61 12/10/2019 04:25 PM LDL NOT APPLICABLE 12/10/2019 04:25 PM ALT 24 08/19/2023 11:08 AM ALT 46 12/10/2019 04:25 PM HGBA1C 7.3 (H) 11/17/2023 11:13 AM HGBA1C 7.6 (H) 09/26/2022 05:45 PM HGBA1C 9.9 (H) 12/10/2019 04:25 PM documented in this encounter Plan of Treatment Upcoming Encounters Date Type Department Care Team (Late st Contact Info) Description 02/26/2024 1:00 PM EST Laboratory Laboratory, [address] [place] [address] [facility], [facility] [address] [place] [address] 03/04/2024 10:30 AM EST Office Visit Pharmacy, [address] [place] [phone] [facility] [address] [facility] [place] [address] 03/23/2024 10:40 AM EST Office Visit Podiatry [facility] [address] [place] [phone] Annalise Macedo DPM [address] [place] [address] 04/13/2024 11:00 AM EST Office Visit Family [address] [phone] Juventino Hughes MD [address] [place] [phone] Health Maintenance Due Date Last Done Comments Fecal Occult Blood Test 2006 Sigmoidoscopy 2006 Colonoscopy 05/31/2017 06/01/2007 Zoster Vaccines (2 of 2) 11/04/2019 09/09/2019 Depression Screening 12/08/2020 12/09/2019 Hepatitis B Vaccine (3 of 3 - 19+ 3-dose series) 02/12/2021 12/18/2020, 09/06/2019 Diabetic Eye Exam 05/11/2023 05/10/2022, , 02/23/2019 B-12 04/07/2024 04/07/2023, 11/0 04/2021, 10/20/2020, Additional history exists HbA1c 05/17/2024 11/17/2023, 07/0 10/2023, 04/07/2023, Additional history exists Albumin/Creatinine Ratio 11/16/2024 024, 09/27/2022, 09/19/2021, Additional history exists GFR 11/16/2024 11/17/2023, 07/0 10/2023, 12/30/2022, Additional history exists Cologuard 12/12/2024 12/12/2021 Colorectal Cancer Screening 12/12/2024 Diabetic Foot Exam 12/15/2024 12/16/2023, 0 09/26/2022, 06/14/2021, Additional history exists Lipid Panel 12/31/2027 12/30/2022, 09/10, 05/01/2021, Additional history exists DTap/Tdap Vaccines (4 - Td or Tdap) 09/05/2029 09/06/2019, 02/27/2017, 09/25/2009 Pneumococcal Vaccine: 50+ Years Completed 01/28/2023, 02/17/2012 COVID-19 Vaccine Completed 01/02/2024, , 05/09/2020 Influenza Vaccine (FLU shot) Completed , 11/12/2022, 12/19/2021, Additional history exists HPV (Gardasil) Vaccine Aged Out No lo nger eligible based on patient's age to complete this topic MENINGOCOCCAL (MENACTRA/MENVEO) Aged Out No longer eligible based on patient's age to complete this topic documented as of this encounter Medical Devices Implanted Type Area Warehouseman Device Identifier Shelf Expiration Date Model / Serial / Lot Patch Mesh Pre-W/Cord Opening - [id number] Implanted:Qty: 1 on 03/22/2014 by Aryan Rios MD at OR [facility] Right: Groin CR BARD : DAVOL 09/09/2018 [id number] / / [id number] documented as of this encounter Visit Diagnoses Diagnosis Type 2 diabetes mellitus with hemoglobin A1c goal of less than 8.0% (HCC) documented in this encounter Advance Directives * Full Code (Latest Code Status on File) Date Activated Date Inactivated Comments 08/22/2020 3:14 PM 08/26/2020 6:10 PM This order r eflects the patients wishes and were consensually agreed upon. Question Answer Comments Discussion of Advance Directives occurred with: Patient * Full Code Date Activated Date Inactivated Comments 05/17/2007 12:52 AM 06/16/2007 4:20 PM Care Teams System Sales Consultant Relationship Specialty Start Date End Date Juventino Hughes MD [address] [place] [phone] PCP - General Family Medicine 06/06/22 documented as of this encounter
--- OUTSIDE RECORDS SUMMARY | 2024-03-25 21:39 | External Medical Summary | Summary of Care ---
Author Name Unknown Organization [facility] Address [address] [place] [address] Phone [phone] Care Team Providers Care Roll Machine Operator Name Role Phone Dimitris Hughes MD Primary Care Provi kelly Reason for Visit * Reason Onset Date Comments Call Back 03/22/2024 Encounter Details Date Type Department Care Team (Late st Contact Info) Description 03/22/2024 Telephone Podiatry, [facility] [address] [place] [address] Services, Scheduling [address] [place] [address] Call Back Allergies Active Allergy Reactions Criticality Noted Date Comments Nutritional Supplements Anaphylaxis High 02/05/2008 Pt denies documented as of this encounter (statuses as of 03/22/2024) Medications methADONE CONCentrated 10 mg/mL CONC Take 16.4 mL by mouth. Active Blood Glucose Monitoring Suppl (ONETOUCH VERIO) w/Device KITIndications:Ty pe 2 diabetes mellitus with hemoglobin A1c goal of less than 8.0% (HCC) Use up to 2 times a day E11.9 1 Kit 0 Active Multiple Vitamin Oral Tablet Take 1 Tablet by mouth in the morning. Active OneTouch Verio In Vitro Strip (Glucose Blood)Indications :Type 2 diabetes mellitus with hemoglobin A1c goal of less than 8.0% (HCC) Use up to 2 times a day E11.9 100 Strip 5 1 Active OneTouch UltraSoft LancetsIndication s:Type 2 diabetes mellitus with hemoglobin A1c goal of less than 8.0% (HCC) Use up to twice times a day as directed 100 Each 5 1 Active Lisinopril 2.5 MG Oral Tablet (Prinivil) Take 1 Tablet by mouth in the morning. 90 Tablet 3 4 Active Pen Garland 32G X 4 MMIndications:Typ e 2 diabetes mellitus with hemoglobin A1c goal of less than 8.0% (HCC) Use as directed. Once daily to inject insulin 100 Each 3 4 Active Empagliflozin 25 MG Oral Tablet (Jardiance)Indica tions:Type 2 diabetes mellitus with hemoglobin A1c goal of less than 8.0% (HCC) Take 1 Tablet by mouth in the morning. 90 Tablet 2 4 Active Atorvastatin Calcium 40 MG Oral Tablet (Lipitor)Indicati ons:Hyperlipidemi a with target LDL less than 100 TAKE 1 TABLET BY MOUTH EVERY DAY IN THE MORNING 30 Tablet 5 Active Ozempic (2 MG/DOSE) 8 MG/3ML Subcutaneous Solution Pen-injector (Semaglutide (2 MG/DOSE))Indicati ons:Type 2 diabetes mellitus with hemoglobin A1c goal of less than 8.0% (HCC) Inject 2 mg under the skin once a week. 9 mL 1 5 Active metFORMIN HCl ER 500 MG Oral Tablet Extended Release 24 Hour (Glucophage XR)Indications:Ty pe 2 diabetes mellitus with hemoglobin A1c goal of less than 8.0% (HCC) Take 4 tablets by mouth daily with a meal 360 Tablet 3 5 Active Insulin Glargine Solostar 100 UNIT/ML Subcutaneous Solution Pen-injector (Lantus SoloStar)Indicati ons:Type 2 diabetes mellitus with hemoglobin A1c goal of less than 8.0% (HCC) Inject 14 Units under the skin at bedtime. 15 mL 1 5 Active documented as of this encounter (statuses as of 03/22/2024) Active Problems Problem Noted Date Diagnosed Date [...] as of this encounter (statuses as of 03/22/2024) Resolved Problems Problem Noted Date Diagnosed Date Resolved Date Osteomyelitis 09/26/2022 01/02/2024 Poorly controlled diabetes mellitus 10/23/2020 06/14/2021 Subacute osteomyelitis of right foot 08/23/2020 09/07/2020 Abscess, toe, right 08/23/2020 09/08/19 21 Type 2 diabetes mellitus wit h diabetic [...] as of this encounter (statuses as of 03/22/2024) Immunizations Name Administration Dates Next Due COVID-19 mRNA, LNP-s, No Pre serve, 2-Dose Series (Moderna) 06/08/2020,05/09/2020 COVID-19, MRNA-LNP, PF, 30 M CG/0.3 mL, 12 YRS AND ABOVE, IM (PFIZER-Comirnaty) 01/02/2024 Hepatitis B, 20+ yrs 12/18/2020,09/16/19 21(Deferred: Patient Refused),09/06/2019 01/17/2021 Pneumococcal Conjugate Vacci ne, 20-valent ([id number]) 01/28/2023,09/19/2021(Deferred: Had Clinical Disease) Pneumococcal Polysaccharide PPV23 (Pneumovax) 02/17/2012 Season Influenza, Quad, PF, Adjuvanted, 65+ Yrs, IM (FLUAD) 12/09/2019 Seasonal Influenza Vac., MDV , IM, 0.5 mL (Fluzone) 02/17/2012,11/17/2008 Seasonal Influenza, PF, 6 M & above, IM , (FluLaval or Fluzone) 11/12/2022,12/19/2021,11/10/2020,04/2017 Seasonal Influenza, Trivalen t, (IIV3), PF, (Fluzone) [...] Entry Date Author No 08/22/2020 3:57 PM SHAET Susie Roberto RN documented in this encounter Miscellaneous Notes * Telephone Encounter - Annalise Macedo DPM - 03/22/2024 8:51 AM EST She was advised to take him to the ED. * Telephone Encounter - Shereen Arriaga OSA - 03/22/2024 8:05 AM EST Patients called to get a sooner appointment. The bottom of the patients toes are infected and it is spreading up his leg, he needs to be seen [facility]. He can't wait until his appointment tomorrow 05/21/24. The sent a text message directly to Dr Macedo this morning. Please call [phone]. documented in this encounter Plan of Treatment Upcoming Encounters Date Type Department Care Team ([facility] st Contact Info) Description 03/23/2024 10:40 AM EST Office Visit Podiatry [facility] [address] [place] [address] Annalise Macedo DPM [address] [facility] [place] [address] 04/13/2024 11:00 AM EST Office Visit [address] [phone] Dimitris Hughes MD [address] [place] [phone] 06/09/2024 10:30 AM EDT [facility] [address] [place] [address] [facility] [address] [place] [phone] Health Maintenance Due Date Last Done Comments Fecal Occult Blood Test 2006 Sigmoidoscopy 2006 Colonoscopy 05/31/2017 06/01/2007 Zoster Vaccines (2 of 2) 11/04/2019 09/09/2019 Depression Screening 12/08/2020 12/09/2019 Hepatitis B Vaccine (3 of 3 - 19+ 3-dose series) 02/12/2021 12/18/2020, 09/06/2019 Diabetic Eye Exam 05/11/2023 05/10/2022, , 02/23/2019 B-12 04/07/2024 04/07/2023, 11/0 04/2021, 10/20/2020, Additional history exists HbA1c 08/25/2024 02/26/2024, 100 08/2023, 08/19/2023, Additional history exists Albumin/Creatinine Ratio 11/16/2024 024, 09/27/2022, 09/19/2021, Additional history exists GFR 11/16/2024 11/17/2023, 0 10/2023, 12/30/2022, Additional history exists Cologuard 12/12/2024 12/12/2021 Colorectal Cancer Screening 12/12/2024 Diabetic Foot Exam 12/15/2024 12/16/2023, 0 09/26/2022, 06/14/2021, Additional history exists Lipid Panel 02/25/2029 02/26/2024, 12/12, 09/19/2021, Additional history exists DTap/Tdap Vaccines (4 - [...] this encounter Medical Devices Implanted Type Area Impregnator And Drier Device Identifier Shelf Expiration Date Model / Serial / Lot Patch Mesh Pre-W/Cord Opening - [id number] Implanted:Qty: 1 on 03/22/2014 by Aryan Rios MD at OR [facility] Right: Kimi MCCLELLAND BARD : RASHI 09/09/2018 [id number] / / [id number] documented as of this encounter Advance Directives * Full Code (Latest Code Status on File) Date Activated Date Inactivated Comments 08/22/2020 3:14 PM 08/26/2020 6:10 PM This order r eflects the patients wishes and were consensually agreed upon. Question Answer Comments Discussion of Advance Directives occurred with: Patient * Full Code Date Activated Date Inactivated Comments 05/17/2007 12:52 AM 06/16/2007 4:20 PM Care Teams Roll Machine Operator Relationship Specialty Start Date End Date Dimitris Hughes MD [address] [place] [phone] PCP - General Family Medicine 06/06/22 documented as of this encounter
--- OUTSIDE RECORDS SUMMARY | 2024-03-25 21:39 | External Medical Summary | Summary of Care ---
Author Name Unknown Organization [facility] Address [address] [facility] [place] [address] Phone [phone] Care Team Providers Care Fat Purification Worker Name Role Phone Dimitris Hughes MD Primary Care Provi kelly Reason for Visit * Reason Comments Diabetic Foot Care Encounter Details Date Type Department Care Team (Late st Contact Info) Description 03/23/2024 10:40 AM EST Office Visit Podiatry [facility] [address] [place] [phone] Annalise Macedo DPM [address] [place] [phone] Wound of left foot*; Type 2 diabetes mellitus with diabetic neuropathy, without long-term current use of insulin ([facility]); 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 Active Blood Glucose Monitoring Suppl ([employer] VERIO) w/Device KITIndications:Ty pe 2 diabetes mellitus with hemoglobin A1c goal of less than 8.0% ([facility]) Use up to 2 times a day [...] morning. 90 Tablet 3 4 Active Pen [place] 32G X 4 MMIndications:Typ e 2 diabetes [...] at bedtime. 15 mL 1 5 Active Sulfamethoxazole- Trimethoprim 800-160 MG Oral Tablet (Bactrim DS) Take 1 Tablet by mouth in the morning and 1 Tablet before bedtime. 20 Tablet 5 Active Silver sulfADIAZINE 1 % External Cream (Silvadene) Apply to the left foot daily 50 g 1 5 Active documented as of this encounter (statuses as of 03/23/2024) Active Problems Problem Noted Date Diagnosed Date [...] as of this encounter (statuses as of 03/23/2024) Resolved Problems Problem Noted Date Diagnosed Date [...] as of this encounter (statuses as of 03/23/2024) Immunizations Name Administration Dates Next Due COVID-19 mRNA, LNP-s, No Pre serve, 2-Dose Series (Moderna) 06/08/2020,05/09/2020 COVID-19, MRNA-LNP, PF, 30 M CG/0.3 mL, 12 YRS AND ABOVE, IM ([facility]) 01/02/2024 Hepatitis B, 20+ yrs 12/18/2020,09/16/19 21(Deferred: Patient Refused),09/06/2019 01/17/2021 Pneumococcal Conjugate Vacci ne, 20-valent ([id number]) 01/28/2023,09/19/2021(Deferred: Had Clinical Disease) Pneumococcal Polysaccharide PPV23 [...] Date Smoking Tobacco: Former Cigarettes 1.5 10 985 - 1994 Smokeless Tobacco: Former Alcohol [...] PM EDT documented as of this encounter Last Filed Vital Signs Vital Sign Reading Time Taken Comments Blood Pressure - - Pulse - - Temperature 37.3 C (99.2 F) 03/23/2024 10:[address] Respiratory Rate - - Oxygen Saturation - - Inhaled Oxygen Concentration - - Weight - - Height - - Body Mass Index - - documented in this encounter Functional Status * Are you [...] Susie Roberto RN documented in this encounter Progress Notes * Annalise Macedo DPM - 03/23/2024 2:21 PM EST Podiatry Established Note [facility] Name: Luigi Sotomayor : 1960 Date: 03/23/2024 REASON FOR VISIT: Open wound, left foot SUBJECTIVE: This patient is a 63 year old male who presents today for a new left foot wound. Presents with . States this started last week. He is redoing a bathroom and it started as a blister. Does not have a swollen foot, but does have a swollen left knee and per has blood in urine. Denies any N/V/F/C, SOB or chest pain. Past Medical History: Diagnosis Date DRUG DEPEND NEC-UNSPEC 05/20/2007 HTN, goal to be determined 06/08/2007 Does not require medication at present LUMBOSACRAL NEURITIS NOS 12/30/2007 ALLERGIES: Review of patient's allergies indicates: Allergen Reactions Nutritional Supplements Anaphylaxis Pt denies REVIEW OF SYSTEMS: CONSTITUTIONAL: No change in weight, No weakness, No fatigue, and No fevers, sweats, or chills EYE: No recent significant change in vision and No eye pain, redness, discharge EARS: No ear pain and No recent change in hearing NOSE: No history of frequent colds or sinusitis and No nasal stuffiness PULMONARY: No cough, sputum, or hemoptysis and No recent change in breathing CARDIOVASCULAR: No chest pain and No shortness of breath EXTREMITIES: Routine nail care SKIN/INTEGUMENTARY: No edema, No rash, and No itching NEUROLOGIC: Normal balance, No headaches, No seizures, and No weakness PSYCHIATRIC: No depression, No anxiety, and No psychosis FOCUSED PODIATRIC EXAM: Vitals: Filed Vitals: 03/23/24 1040 Temp: 37.3 C (99.2 F) TempSrc: Tympanic General: Patient is awake alert oriented to person place time. No apparent distress. Vascular: DP/PT pulses palpable, hardy. CFT < 3 sec 1-5, hardy. No edema noted, hardy. Temperature gradient is normal warm to cold, hardy. Neurologic: Protective sensation intact to light touch, hardy. Sensation to sharp/dull is intact, hardy. There is no babinski response elicited, hardy. Ankle clonus is absent, hardy. Dermatological: Skin is normal in appearance with no open lesions or interdigital macerations, hardy. Nails 1, 4 and 5 left and 1, 4 and 5, right are normal in thickness, but elongated. Pedal hair is noted, hardy. Well healed surgical scars noted. No active signs of infection noted. Open wound, left foot. Musculoskeletal: No POP noted, hardy. Partial 3rd toe amputation, right foot. 2nd and 3rd partial ray amputations, left foot. 2nd ray amputation, right foot. No pain with active or passive ROM of the digits or ankle joint, hardy. Muscle strength is 5/5 for all muscle groups of the lower extremity, hardy. Wound Profile - Wound # 1 Wound Location: Left plantar foot Character of Wound/Ulcer Pre Debridement: New Lidocaine: none Indication for Debridement: Abnormal Wound Edge, Abnormal Wound Base, and Slough, Exudate Instrument Used: Scalpel Tissue and/or Material Removed: Non-Viable, Slough, and Subcutaneous Tissue Bleeding: Minimal Bleeding Controlled with: Pressure Specimen Taken: None Type of Debridement: Excisional: Subcutaneous Tissue Level of Debridement: Skin Epidermis, Skin Dermis, and Subcutaneous Tissue Bioengineered Tissue/Dermal Substrate Applied: No Character of Wound/Ulcer Post Debridement: Improved Total Measurement: Length 2.0 Width 1.0 Depth 0.3 cm Total sq cm 2.0 Procedure Tolerated: Yes DIAGNOSTIC STUDIES: None ASSESSMENT: Onychomycosis DM2 with neuropathy Hx of amputation, hardy Left foot wound PLAN: - Discussed with pt the importance of maintaining a controlled blood sugar and checking his feet daily. - Wound debrided to appropriate level with the use of a 15 blade. - Post op shoe dispensed. Instructed to WBAT to the LLE in this shoe. - Rx for Bactrim and Silvadene sent to pharmacy. - Advised pt to see PCP for left knee and blood in urine - Go to ED with any worsening symptoms. - Continue with Silvadene and DSD to the left foot. - Pt to RTC in 1 week for wound check. Instructed pt to call sooner with any problems or questions. Annalise Macedo DPM documented in this encounter Nursing Notes * Azalea Otrez LPN - 03/23/2024 11:00 AM EST * Azalea Ortez LPN - 03/23/2024 10:35 AM EST Pt presents with his for follow up visit, wound on bottom of L foot, noticed last week Friday or . Began as a blister. + painful. documented in this encounter Plan of Treatment Upcoming Encounters Date Type Department Care Team (Late st Contact Info) Description 03/30/2024 12:40 PM EST Office Visit Podiatry [facility] [address] [place] [phone] Annalise Macedo DPM [address] [place] [address] 04/13/2024 11:00 AM EST Office Visit [address] [phone] Dimitris Hughes MD [address] [place] [phone] 06/09/2024 10:30 AM EDT Office Visit Pharmacy, [address] [place] [phone] [facility] [address] [place] [address] Health Maintenance Due Date Last Done Comments Fecal Occult Blood Test 2006 Sigmoidoscopy 2006 Colonoscopy 05/31/2017 06/01/2007 Zoster Vaccines (2 of 2) 11/04/2019 09/09/2019 Depression Screening 12/08/2020 12/09/2019 Hepatitis B Vaccine (3 of 3 - 19+ 3-dose series) 02/12/2021 12/18/2020, 09/06/2019 Diabetic Eye Exam 05/11/2023 05/10/2022, , 02/23/2019 B-12 04/07/2024 04/07/2023, 110 04/2021, 10/20/2020, Additional history exists HbA1c 08/25/2024 02/26/2024, 100 08/2023, 08/19/2023, Additional history exists Albumin/Creatinine Ratio 11/16/2024 024, 09/27/2022, 09/19/2021, Additional history exists GFR 11/16/2024 11/17/2023, 070 10/2023, 12/30/2022, Additional history exists Cologuard 12/12/2024 12/12/2021 Colorectal Cancer Screening 12/12/2024 Diabetic Foot Exam 12/15/2024 12/16/2023, 0 09/26/2022, 06/14/2021, Additional history exists Lipid Panel 02/25/2029 02/26/2024, 11, 09/19/2021, Additional history exists DTap/Tdap Vaccines (4 [...] this encounter Medical Devices Implanted Type Area Fashion Patternmaker Device Identifier Shelf Expiration Date Model / Serial / Lot Patch Mesh Pre-W/Cord Opening - [id number] Implanted:Qty: 1 on 03/22/2014 by Aryan Rios MD at OR [facility] Right: Groin CR BARD : DAVOL 09/09/2018 [id number] / / [id number] documented as of this encounter Visit Diagnoses Diagnosis Wound of left foot- Primary Type 2 diabetes mellitus with diabetic neuropathy, without long-term current use of insulin (HCC) 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 Question Answer Comments Discussion of Advance Directives occurred with: Patient * Full Code Date Activated Date Inactivated Comments 05/17/2007 12:52 AM 06/16/2007 4:20 PM Care Teams Fat Purification Worker Relationship Specialty Start Date End Date Dimitris Hughes MD [address] [place] [phone] PCP - General Family Medicine 06/06/22 documented as of this encounter
--- OUTSIDE RECORDS SUMMARY | 2024-03-25 21:39 | External Medical Summary ---
Author Name Unknown Address Unknown Organization K01:LABORATORY C - [address] [facility] [place] [address] Laboratory Report Ordering Provider Test Date Status YADIRA HUGHES 02/26/2024 13:14:25 Final Observation Date Value Abnormality Reference (Units ) Status Triglyceride 02/26/2024 13:14:25 124 <=174 ( mg/dL) Final Triglyceride Reference Range s (mg/dL):
<150 Acceptable
150-174 Borderline high
175-499 High
>=500 Very high Cholesterol 02/26/2024 13:14:25 171 <200 (mg /dL) Final Total Cholesterol Reference Ranges (mg/dL):
<200 Desirable
200-239 Borderline high
>=240 High HDL 02/26/2024 13:14:25 69 >39 (mg/dL ) Final HDL Cholesterol Reference Ra nges (mg/dL):
>=60 High (Desirable)
<50 Low (Undesirable) For Females
<40 Low (Undesirable) For Males NON-HDL CHOLESTEROL 02/26/2024 13:14:25 102 <=159 (mg/dL) Final Non-HDL Cholesterol Referenc e Range (mg/dL):
<100 Target level for high risk ASCVD patient
<130 Optimal for general population
130-159 Near optimal for general population
160-189 Borderline High
190-219 High
>=220 Very High LDL, (calculated) 02/26/2024 13:14:25 77 <= 129 (mg/dL) Final LDL Cholesterol Reference Ra nges (mg/dL):
<70 Target level for high risk ASCVD patient
<100 Optimal for general population
100-129 Near optimal for general population
130-159 Borderline high
160-189 High
>=190 Very high Performing Location [place] [place] [address] [facility] [address]
--- OUTSIDE RECORDS SUMMARY | 2024-03-25 21:39 | External Medical Summary | Summary of Care ---
Author Name Unknown Organization [facility] Address [address] [place] [address] Phone [phone] Care Team Providers Care Sugar Boiler Name Role Phone Dimitris Hughes MD Primary Care Provi kelly Reason for Visit * Reason Comments Outpatient Testing Encounter Details Date Type Department Care Team (Late st Contact Info) Description 02/26/2024 1:00 PM EST Laboratory Laboratory, [place] [facility] [address] [place] [phone] [place] [address] [facility] Center[facility] InnovationsRowe, [place] [id number] Type 2 diabetes mellitus with hemoglobin A1c goal of less than 8.0% ([facility]) Allergies Active Allergy Reactions Criticality Noted Date Comments Nutritional Supplements Anaphylaxis High 02/05/2008 Pt denies documented as of this encounter (statuses as of 02/26/2024) Medications methADONE CONCentrated 10 mg/mL CONC Take [...] bedtime. 15 mL 1 4 Active Pen [place] 32G X 4 MMIndications:Typ e 2 diabetes [...] a meal 360 Tablet 3 5 Active documented as of this encounter (statuses as of 02/26/2024) Active Problems Problem Noted Date Diagnosed Date [...] as of this encounter (statuses as of 02/26/2024) Resolved Problems Problem Noted Date Diagnosed Date [...] as of this encounter (statuses as of 02/26/2024) Immunizations Name Administration Dates Next Due COVID-19 mRNA, LNP-s, No Pre serve, 2-Dose Series (Moderna) 06/08/2020,05/09/2020 COVID-19, MRNA-LNP, PF, 30 M CG/0.3 mL, 12 YRS AND ABOVE, IM ([facility] 01/02/2024 Hepatitis B, 20+ yrs 12/18/2020,09/16/19 21(Deferred: Patient Refused),09/06/2019 01/17/2021 Pneumococcal Conjugate Vacci ne, 20-valent ([id number]) 01/28/2023,09/19/2021(Deferred: Had Clinical Disease) Pneumococcal Polysaccharide PPV23 [...] Author No 08/22/2020 3:57 PM EDT Susie Roberto, RN * Because of a physical, mental, [...] Author No 08/22/2020 3:57 PM EDT Susie Roberto, RN documented in this encounter Plan of Treatment Upcoming Encounters Date Type Department Care Team (Late st Contact Info) Description 03/04/2024 10:30 AM EST [facility] [place] [facility] [address] [facility] [place] [phone] [facility] [address] [place], [place] [address] [phone] 03/23/2024 10:40 AM EST Office Visit Podiatry [facility] [address] [place] [phone] Annalise Macedo DPM [address] [place] [address] 04/13/2024 11:00 AM EST Office Visit [address] [phone] Dimitris Hughes MD [address] [place] [phone] Pending Results Name Type Priority Associated Diagnoses Date /Time HEMOGLOBIN A1C Lab Routine Type 2 diabetes mellitus with hemoglobin A1c goal of less than 8.0% ([facility]) 02/26/2024 1:14 PM EST LIPID PANEL WITH DIRECT LDL IF TG IS HIGH Lab Routine Type 2 diabetes mellitus with hemoglobin A1c goal of less than 8.0% ([facility]) 02/26/2024 1:14 PM EST Health Maintenance Due Date Last Done Comments [...] this encounter Medical Devices Implanted Type Area Fur Mixer Operator Device Identifier Shelf Expiration Date Model / Serial / Lot Patch Mesh Pre-W/Cord Opening - [id number] Implanted:Qty: 1 on 03/22/2014 by Aryan Rios MD at OR [facility] Right: Groin CR BARD : DAVOL 09/09/2018 [id number] / / [id number] documented as of this encounter Visit Diagnoses [...] 12:52 AM 06/16/2007 4:20 PM Care Teams Sugar Boiler Relationship Specialty Start Date End Date Dimitris Hughes MD [address] [place] [phone] PCP - General Family Medicine 06/06/22 documented as of this encounter
--- OUTSIDE RECORDS SUMMARY | 2024-03-25 21:39 | External Medical Summary | Summary of Care ---
Author Name Unknown Organization [facility] Address [address] [place] [address] Phone [phone] Care Team Providers Care Android Framework Developer Name Role Phone Juventino Frazier MD Primary Care Provi kelly Reason for Visit * Reason Comments eRx-Medication Refill Encounter Details Date Type Department Care Team ([facility] st Contact Info) Description 02/10/2024 Refill Family [address] [phone] Juventino Frazier MD [address] [place] [phone] Hyperlipidemia with target LDL less than 100 Allergies Active Allergy Reactions Criticality Noted Date Comments Nutritional Supplements Anaphylaxis High 02/05/2008 Pt denies documented as of this encounter (statuses as of 02/12/2024) Medications methADONE CONCentrated 10 mg/mL CONC Take 16.4 mL by mouth. Active Blood Glucose Monitoring Suppl ([employer] VERIO) w/Device KITIndications:T ype 2 diabetes mellitus with hemoglobin A1c goal of less than 8.0% (HCC) Use up to 2 times a day E11.9 1 Kit 09/06/19 20 Active Multiple Vitamin Oral Tablet Take 1 Tablet by mouth in the morning. Active OneTouch Verio In Vitro Strip (Glucose Blood)Indication s:Type 2 diabetes mellitus with hemoglobin A1c goal of less than 8.0% (HCC) Use up to 2 times a day E11.9 100 Strip 5 08/27/19 21 Active OneTouch UltraSoft LancetsIndicatio ns:Type 2 diabetes mellitus with hemoglobin A1c goal of less than 8.0% (HCC) Use up to twice times a day as directed 100 Each 5 08/27/19 21 Active metFORMIN HCl ER 500 MG Oral Tablet Extended Release 24 Hour (Glucophage XR)Indications:T ype 2 diabetes mellitus with hemoglobin A1c goal of less than 8.0% (HCC) Take 4 tablets by mouth daily with a meal 360 Tablet 3 12/03/19 23 Active Lisinopril 2.5 MG Oral Tablet (Prinivil) Take 1 Tablet by mouth in the morning. 90 Tablet 3 08/22/19 24 Active Insulin Glargine Solostar 100 UNIT/ML Subcutaneous Solution Pen-injector (Lantus SoloStar)Indicat ions:Type 2 diabetes mellitus with hemoglobin A1c goal of less than 8.0% (HCC) Inject 10 Units under the skin at bedtime. 15 mL 1 11/20/19 24 Active Pen [place] 32G X 4 MMIndications:Ty pe 2 diabetes mellitus with hemoglobin A1c goal of less than 8.0% (HCC) Use as directed. Once daily to inject insulin 100 Each 3 11/20/19 24 Active Empagliflozin 25 MG Oral Tablet (Jardiance)Indic ations:Type 2 diabetes mellitus with hemoglobin A1c goal of less than 8.0% (HCC) Take 1 Tablet by mouth in the morning. 90 Tablet 2 12/22/19 24 Active Atorvastatin Calcium 40 MG Oral Tablet (Lipitor)Indicat ions:Hyperlipide kelley with target LDL less than 100 TAKE 1 TABLET BY MOUTH EVERY DAY IN THE MORNING 30 Tablet 02/11/19 25 Active Ozempic (2 MG/DOSE) 8 MG/3ML Subcutaneous Solution Pen-injector (Semaglutide (2 MG/DOSE))Indicat ions:Type 2 diabetes mellitus with hemoglobin A1c goal of less than 8.0% (HCC) Inject 2 mg under the skin once a week. 9 mL 1 02/11/19 25 Active Atorvastatin Calcium 40 MG Oral Tablet (Lipitor)Indicat ions:Hyperlipide kelley with target LDL less than 100 TAKE 1 TABLET BY MOUTH EVERY DAY IN THE MORNING 90 Tablet 3 03/31/19 24 025 Discontinued documented as of this encounter (statuses as of 02/12/2024) Active Problems Problem Noted Date Diagnosed Date [...] as of this encounter (statuses as of 02/12/2024) Resolved Problems Problem Noted Date Diagnosed Date [...] as of this encounter (statuses as of 02/12/2024) Immunizations Name Administration Dates Next Due COVID-19 mRNA, LNP-s, No Pre serve, 2-Dose Series (Moderna) 06/08/2020,05/09/2020 COVID-19, MRNA-LNP, PF, 30 M CG/0.3 mL, 12 YRS AND ABOVE, IM ([facility]) 01/02/2024 Hepatitis B, 20+ yrs 12/18/2020,09/16/19 21(Deferred: Patient Refused),09/06/2019 01/17/2021 Pneumococcal Conjugate Vacci ne, 20-valent ([id number]) 01/28/2023,09/19/2021(Deferred: Had Clinical Disease) Pneumococcal Polysaccharide PPV23 [...] Date Author No 08/22/2020 3:57 PM EDT [place] m, Susie M, RN documented in this encounter Miscellaneous Notes * Telephone Encounter - Yvonne Lowery [facility] - 02/12/2024 1:23 PM ESTSigned Prescriptions: Disp Refills Atorvastatin Calcium 40 MG Oral Tablet (Li*30 Tab*0 Sig: TAKE 1 TABLET BY MOUTH EVERY DAY IN THE MORNINGAuthorizing Provider: JUVENTINO FRAZIER User: YVONNE LOWERY * Telephone Encounter - Yvonne Lowery [facility] - 02/12/2024 1:20 PM EST 1 refill approved as pt will be due for lab work within 3 months. Thank you, Yvonne Lowery, PharmD Clinical Pharmacist [facility] [phone] 02/12/2024, 1:22 PM documented in this encounter Plan of Treatment Upcoming Encounters Date Type Department Care Team (Late st Contact Info) Description 02/26/2024 1:00 PM EST Laboratory Laboratory, [place] [phone] [facility] [place] [address] 03/04/2024 10:30 AM EST Office Visit Pharmacy, [place] [phone] [facility] [address] [facility] [place] [address] 03/23/2024 10:40 AM EST Office Visit Podiatry [facility] [address] [place] [address] Annalise Macedo, ASHLEIGH [address] [place] [phone] 04/13/2024 11:00 AM EST Office Visit [facility] [address] [place] [phone] Juventino Frazier MD [address] [place] [phone] Health Maintenance Due Date Last Done [...] 10/2023, 04/07/2023, Additional history exists Albumin/Creatinine Ratio 11/16/20242 024, 09/27/2022, 09/19/2021, Additional history exists GFR [...] this encounter Medical Devices Implanted Type Area Aircraft Time Clerk Device Identifier Shelf Expiration Date Model / Serial / Lot Patch Mesh Pre-W/Cord Opening - [id number] Implanted:Qty: 1 on 03/22/2014 by Aryan Rios MD at OR [facility] Right: Groin CR BARD : DAVOL 09/09/2018 [id number] / / [id number] documented as of this encounter Visit Diagnoses Diagnosis Hyperlipidemia with target LDL less than 100 Other and unspecified hyperlipidemia documented in this encounter Advance Directives * Full Code (Latest Code Status on File) Date Activated Date Inactivated Comments 08/22/2020 3:14 PM 08/26/2020 6:10 PM This order r eflects the patients wishes and were consensually agreed upon. Question Answer Comments Discussion of Advance Directives occurred with: Patient * Full Code Date Activated Date Inactivated Comments 05/17/2007 12:52 AM 06/16/2007 4:20 PM Care Teams Android Framework Developer Relationship Specialty Start Date End Date Juventino Frazier MD [address] [place] [phone] PCP - General Family Medicine 06/06/22 documented as of this encounter
--- OUTSIDE RECORDS SUMMARY | 2024-03-25 21:39 | External Medical Summary ---
Author Name Unknown Address Unknown Organization K01:LAB[facility]ATORY [facility] [place] - [address] [facility] [facility] [address] Laboratory Report Ordering Provider Test Date Status YADIRA HUGHES 02/26/2024 13:14:25 Final Observation Date Value Abnormality Reference (Units ) Status HbA1C 02/26/2024 13:14:25 7.5 Above high normal 4. 0-5.6 (%) Final The use of HbA1c to monitor glycemic status is based on normal hemoglobin and HbA composition. This test should not be used in patients with abnormal hemoglobin that affects the half life of the red blood cell or the in vivo glycation rates. Glucose, estimated average 02/26/2024 13:14:25 169 Above high normal <126 (mg/dL) Germán regan Performing Location LAB[facility]ATORY [facility] [place] - [address] [facility] [address]
--- OUTSIDE RECORDS SUMMARY | 2024-03-25 21:40 | External Medical Summary | Summary of Care ---
Author Name Unknown Organization [facility] Address [address] [place] [address] Phone [phone] Care Team Providers Care Client Solutions Specialist Name Role Phone Dimitris Hughes MD Primary Care Provi kelly Reason for Visit * Reason Comments Diabetic Foot Care * Evaluate & Treat - Unlimited Visits (Within 10 days (routine)) - Pending Review Specialty Diagnoses / Procedures Referred By Contac t Referred To Contact Podiatry Diagnoses Type 2 diabetes mellitus with hemoglobin A1c goal of less than 8.0% ([facility]) Hx MRSA infection Diabetic peripheral neuropathy associated with type 2 diabetes mellitus ([facility]) 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 ([facility]) Dimitris Hughes MD [address] [place] [phone] Referral ID Status Reason Start Date Expiration Date Visits Requested Visits Authorized [id number] Pending Review Specialty Services Required 07/24/[phone] Encounter Details Date Type Department Care Team ([facility] Contact Info) Description 12/16/2023 1:20 PM EST Office Visit Podiatry [facility] [address] [place] [address] Annalise Macedo DPM [address] [place] [address] Onychomycosis*; Type 2 diabetes mellitus with diabetic neuropathy, without long-term current use of insulin (HCC); 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 Active Blood Glucose Monitoring Suppl (ONETOUCH VERIO) w/Device KITIndications:Type 2 diabetes mellitus with hemoglobin A1c goal of less than 8.0% (HCC) Use up to 2 times a day E11.9 1 Kit 09/06/2019 Active Multiple Vitamin Oral Tablet Take 1 Tablet by mouth in the morning. Active OneTouch Verio In Vitro Strip (Glucose Blood)Indications:Typ e 2 diabetes mellitus with hemoglobin A1c goal of less than 8.0% (HCC) Use up to 2 times a day E11.9 100 Strip 5 08/26/2020 Active iAcademicTouch UltraSoft LancetsIndications:Ty pe 2 diabetes mellitus with hemoglobin A1c goal of less than 8.0% (HCC) Use up to twice times a day as directed 100 Each 5 08/26/2020 Active metFORMIN HCl ER 500 MG Oral Tablet Extended Release 24 Hour (Glucophage XR)Indications:Type 2 diabetes mellitus with hemoglobin A1c goal of less than 8.0% (HCC) Take 4 tablets by mouth daily with a meal 360 Tablet 3 12/02/2022 Active Empagliflozin 25 MG Oral Tablet (Jardiance)Indication s:Type 2 diabetes mellitus with hemoglobin A1c goal of less than 8.0% (HCC) Take 1 Tablet by mouth in the morning. 90 Tablet 3 12/02/2022 Active Atorvastatin Calcium 40 MG Oral Tablet (Lipitor)Indications: Hyperlipidemia with target LDL less than 100 TAKE 1 TABLET BY MOUTH EVERY DAY IN THE MORNING 90 Tablet 3 03/31/2023 Active Lisinopril 2.5 MG Oral Tablet (Prinivil) Take 1 Tablet by mouth in the morning. 90 Tablet 3 08/22/2023 Active Insulin Glargine Solostar 100 UNIT/ML Subcutaneous Solution Pen-injector (Lantus SoloStar)Indications: Type 2 diabetes mellitus with hemoglobin A1c goal of less than 8.0% (HCC) Inject 10 Units under the skin at bedtime. 15 mL 1 11/20/2023 Active Pen Jones 32G X 4 MMIndications:Type 2 diabetes mellitus with hemoglobin A1c goal of less than 8.0% ([facility]) Use as directed. Once daily to inject insulin 100 Each 3 11/20/2023 Active Ozempic (2 MG/DOSE) 8 MG/3ML Subcutaneous Solution Pen-injector (Semaglutide (2 MG/DOSE))Indications: Type 2 diabetes mellitus with hemoglobin A1c goal of less than 8.0% ([facility]) Inject 2 mg under the skin once a week. 9 mL 1 11/20/2023 Active documented as of this encounter (statuses as of 12/16/2023) Active Problems Problem Noted Date Diagnosed Date Type 2 diabetes mellitus wit h diabetic neuropathy, without long-term current use of insulin 04/15/2023 Diabetic peripheral neuropat hy associated with type 2 diabetes mellitus 09/26/2022 Diabetic ankle ulcer 09/26/2022 Diabetic foot ulcer associat ed with type 2 diabetes mellitus 09/26/2022 Rupture of biceps tendon 09/26/2022 Continuous opioid dependence 09/26/2022 Pyogenic inflammation of bone 09/26/2022 Prolonged Q-T interval on ECG 09/26/2022 History of partial ray amput ation of second toe of right foot 06/14/2021 Overweight (BMI 25.0-29.9) 09/15/2020 Hyperlipidemia with target LDL less than 100 07/2020 Type 2 diabetes mellitus wit h hemoglobin A1c goal of less than 8.0% 09/06/2019 Diabetic ulcer of right great toe 09/06/2019 HTN, goal below 140/90 12/29/2008 Overview: Modified per HTN protocol #16. Thoracic and lumbosacral neuritis 12/30/2007 Disorder of intervertebral disc 12/30/2007 documented as of this encounter (statuses as of 12/16/2023) Resolved Problems Problem Noted Date Diagnosed Date Resolved Date Poorly controlled diabetes mellitus 10/23/2020 06/14/2021 Subacute [...] other dise ases classified elsewhere 06/16/2007 09/23/2019 Overview: Critical Illness Neuropathy Diarrhea 06/10/2007 06/16/2007 Other specified prophylactic or treatment measure 05/31/2007 09/23/2019 Drug dependence 05/20/2007 09/26/2022 Protein-calorie malnutrition 05/19/2007 07/03/2017 Electrolyte and fluid disorder 05/18/2007 09/23/2019 Respiratory failure, acute 05/17/2007 0 06/16/2007 ARF (acute renal failure) 05/17/2007 Septicemia 05/17/2007 06/16/2007 Hyperpotassemia 05/17/2007 06/16/2007 ADVANCE DIRECTIVE INFORMATION 02/05/2006 09/06/2019 Overview: No, Advance Directive brochure given to patient at prior appointment. documented as of this encounter (statuses as of 12/16/2023) Immunizations Name Administration Dates Next Due COVID-19 mRNA, LNP-s, No Pre serve, 2-Dose Series (Moderna) 06/08/2020,05/09/2020 Hepatitis B, 20+ yrs 12/18/2020,09/16/19 21(Deferred: Patient Refused),09/06/2019 01/17/2021 Pneumococcal Conjugate Vacci ne, 20-valent ([id number]) 01/28/2023,09/19/2021(Deferred: Had Clinical Disease) Pneumococcal Polysaccharide PPV23 (Pneumovax) 02/17/2012 Season Influenza, Quad, PF, Adjuvanted, 65+ Yrs, IM (FLUAD) 12/09/2019 Seasonal Influenza Vac., MDV , IM, 0.5 mL (Fluzone) 02/17/2012,11/17/2008 Seasonal Influenza, PF, 6 M & above, IM , (FluLaval or Fluzone) 11/12/2022,12/19/2021,11/10/2020,10/0 04/2017 TDAP (age 10 and older)(Boostrix) 09/06/2019, TDAP, [...] in the Last Year Never true 09/06/2019 Utilities Answer Date Recorded Do you have trouble paying y our heating, water, or electric bill? (Adult - for ages 18 years and over) Not on file 07/29/2023 Is your family able to pay t he heat, water, or electric bill? (Household - for ages 0-17 years) Not on file 07/29/2023 Does your family have access to good internet? (Household - for ages 0-17 years) Not on file 07/29/2023 Social Connections Answer Date Recorded How often do you feel lonely or isolated from those around you? (Adult - for ages 18 years and over) Not on file 07/29/2023 Sex and Gender Information Value Date Recorded Sex Assigned at Male 09/06/2019 1:45 PM EDT Gender Identity Male 09/06/2019 1:45 PM EDT Sexual Orientation Straight 09/06/2019 1: 45 PM EDT Job Start Date Occupation Industry Not on file Not on file Not on file documented as of this encounter Functional Status Functional Status Response Date of Assess ment Are you deaf or do you have serious difficulty h earing? Yes 08/22/2020 Are you blind or do you have serious difficulty seeing, even when wearing glasses? No 08/22/2020 Do you have serious difficul ty walking or climbing stairs? (5 years old or older) No 08/24/2020 Do you have difficulty dress ing or bathing? (5 years old or older) No 08/22/2020 Because of a physical, menta l, or emotional condition, do you have difficulty doing errands alone such as visiting a doctor s office or shopping? (15 years old or older) No 08/23/19 21 Cognitive Status Response Date of Assessm ent Because of a physical, menta l, or emotional condition, do you have serious difficulty concentrating, remembering, or making decisions? (5 years old or older) No 08/22/2020 documented as of this encounter Progress Notes * Annalise Macedo, DPM - 12/16/2023 1:20 PM EST Podiatry Established Note [facility] Name: Luigi Sotomayor : 1960 Date: 12/16/2023 REASON FOR VISIT: Routine nail care SUBJECTIVE: This patient is a 63 year old male who presents today for routine nail care. Pt states he has been doing well. Denies any new complaints. Remains healed with no active signs of infection. Past Medical History: Diagnosis Date DRUG DEPEND [...] and No psychosis FOCUSED PODIATRIC EXAM: Vitals: There were no vitals filed for this visit. General: Patient is awake alert oriented to [...] noted. No active signs of infection noted. Musculoskeletal: No POP noted, hardy. Partial 3rd toe amputation, right foot. 2nd and 3rd partial ray amputations, left foot. 2nd ray amputation, right foot. No pain with active or passive ROM of the digits or ankle joint, hardy. Muscle strength is 5/5 for all muscle groups of the lower extremity, hardy. DIAGNOSTIC STUDIES: None ASSESSMENT: Onychomycosis DM2 with neuropathy Hx of amputation, hardy PLAN: - Discussed with pt the importance of maintaining a controlled blood sugar and checking his feet daily. - Nails 1, 4 and 5, hardy were trimmed with a nail nipper. - Continue wearing good, supportive shoes. - Pt to RTC in 3 months for further care. Instructed pt to call sooner with any problems or questions. Annalise Macedo DPM documented in this encounter Nursing Notes * Azalea Ortez LPN - 12/16/2023 1:05 PM EST Pt presents for routine diabetic nail care, no pain in feet. States A1c is 7.2 documented in this encounter Plan of Treatment Upcoming Encounters Date Type Department Care Team (Late st Contact Info) Description 01/02/2024 11:40 AM EST Office Visit [address] [phone] Dimitris Hughes MD [address] [place] [phone] 01/22/2024 11:00 AM EST [facility] [place] [address] [facility] [address] [facility] [address] [facility] [place] [address] 03/23/2024 10:40 AM EST Office Visit Podiatry [facility] [address] [place] [address] Annalise Macedo DPM [address] [place] [address] Health Maintenance Due Date Last Done Comments Fecal Occult Blood Test 2006 Sigmoidoscopy 2006 Colonoscopy 05/31/2017 06/01/2007 Zoster Vaccines (2 of 2) 11/04/2019 09/09/2019 Depression Screening 12/08/2020 12/09/2019 Hepatitis B Vaccine (3 of 3 - 19+ 3-dose series) 02/12/2021 12/18/2020, 09/06/2019 Diabetic Eye Exam 05/11/2023 05/10/2022, , 02/23/2019 Diabetic Foot Exam 09/27/2023 09/26/2022, 0 06/14/2021, 09/07/2020, Additional history exists COVID-19 Vaccine ( - 2023- season) 2023 06/08/2020, 05/09/2020 Influenza Vaccine (FLU shot) (#1) 2023 11/12/2022, 12/19/2021, 11/10/2020, Additional history exists B-12 04/07/2024 04/07/2023, 04/2021, 10/20/2020, Additional history exists HbA1c 05/17/2024 11/17/2023, 070 10/2023, 04/07/2023, Additional history exists Albumin/Creatinine Ratio 11/16/20242 024, 09/27/2022, 09/19/2021, Additional history exists GFR 11/16/2024 11/17/2023, 07/0 10/2023, 12/30/2022, Additional history exists Cologuard 12/12/2024 12/12/2021 Colorectal Cancer Screening 12/12/2024 Lipid Panel 12/31/2027 12/30/2022, 08/1 , 05/01/2021, Additional history exists DTap/Tdap Vaccines (4 - Td or Tdap) 09/05/2029 09/06/2019, 02/27/2017, 09/25/2009 Pneumococcal Vaccine: Pediatrics (0 to 5 Years) and At-Risk Patients (6 to 64 Years) Completed 01/28/2023, 02/17/2012 HPV (Gardasil) Vaccine Aged Out No lo nger eligible based on patient's age to complete this topic MENINGOCOCCAL (MENACTRA/MENVEO) Aged Out No longer eligible based on patient's age to complete this topic documented as of this encounter Medical Devices Implanted Type Area Talking Books Library Clerk Device Identifier Shelf Expiration Date Model / Serial / Lot Patch Mesh Pre-W/Cord Opening - [id number] Implanted:Qty: 1 on 03/22/2014 by Aryan Rios MD at OR [facility] Right: Groin CR BARD : DAVOL 09/09/2018 [id number] / / [id number] documented as of this encounter Visit Diagnoses Diagnosis Onychomycosis- Primary Dermatophytosis of nail Type 2 diabetes mellitus with diabetic neuropathy, without long-term current use of insulin (HCC) 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 Question Answer Comments Discussion of Advance Directives occurred with: Patient * Full Code Date Activated Date Inactivated Comments 05/17/2007 12:52 AM 06/16/2007 4:20 PM Care Teams Client Solutions Specialist Relationship Specialty Start Date End Date Dimitris Hughes MD [address] [place] [address] [place] [phone] PCP - General Family Medicine 06/06/22 documented as of this encounter
--- OUTSIDE RECORDS SUMMARY | 2024-03-25 21:40 | External Medical Summary | Summary of Care ---
Author Name Unknown Organization [facility] Address [address] [place] [address] Phone [phone] Care Team Providers Care Bibliographic Services Specialist Name Role Phone Juventino Hughes MD Primary Care Provi kelly Reason for Visit * Reason Onset Date Comments Medication Refill 02/10/2024 Encounter Details Date Type Department Care Team ([facility] st Contact Info) Description 02/10/2024 Refill [facility]ized [facility], [place] [facility] [address] [place] [address] [place] [address] [place], [facility] [address] [place] [address] Type 2 diabetes mellitus with hemoglobin A1c goal of less than 8.0% ([facility]) Allergies Active Allergy Reactions Criticality Noted Date [...] times a day E11.9 100 Strip 5 07/17/202 1 Active OneTouch UltraSoft LancetsIndicatio ns:Type 2 diabetes mellitus with hemoglobin A1c goal of less than 8.0% (HCC) Use up to twice times a day as directed 100 Each 5 1 Active metFORMIN HCl ER 500 MG Oral Tablet Extended Release 24 Hour (Glucophage XR)Indications:T ype 2 diabetes mellitus with hemoglobin A1c goal of less than 8.0% (HCC) Take 4 tablets by mouth daily with a meal 360 Tablet 3 3 Active Atorvastatin Calcium 40 MG Oral Tablet (Lipitor)Indicat ions:Hyperlipide kelley with target LDL less than 100 TAKE 1 TABLET BY MOUTH EVERY DAY IN THE MORNING 90 Tablet 3 4 Active Lisinopril 2.5 MG Oral Tablet (Prinivil) Take 1 Tablet by mouth in the morning. 90 Tablet 3 4 Active Insulin Glargine Solostar 100 UNIT/ML Subcutaneous Solution Pen-injector (Lantus SoloStar)Indicat ions:Type 2 diabetes mellitus with hemoglobin A1c goal of less than 8.0% (HCC) Inject 10 Units under the skin at bedtime. 15 mL 1 4 Active Pen Paoli 32G X 4 MMIndications:Ty pe 2 diabetes mellitus with hemoglobin A1c goal of less than 8.0% (HCC) Use as directed. Once daily to inject insulin 100 Each 3 4 Active Empagliflozin 25 MG Oral Tablet (Jardiance)Indic ations:Type 2 diabetes mellitus with hemoglobin A1c goal of less than 8.0% (HCC) Take 1 Tablet by mouth in the morning. 90 Tablet 2 4 Active Ozempic (2 MG/DOSE) 8 MG/3ML Subcutaneous Solution Pen-injector (Semaglutide (2 MG/DOSE))Indicat ions:Type 2 diabetes mellitus with hemoglobin A1c goal of less than 8.0% (HCC) Inject 2 mg under the skin once a week. 9 mL 1 5 Active Ozempic (2 MG/DOSE) 8 MG/3ML Subcutaneous Solution Pen-injector (Semaglutide (2 MG/DOSE))Indicat ions:Type 2 diabetes mellitus with hemoglobin A1c goal of less than 8.0% (HCC) Inject 2 mg under the skin once a week. 9 mL 1 4 02/10/20 24 Discontinu ed(Refill) documented as of this encounter [...] CG/0.3 mL, 12 YRS AND ABOVE, IM ([facility]) 01/02/2024 Hepatitis B, 20+ yrs 12/18/2020,09/16/19 21(Deferred: Patient Refused),09/06/2019 01/17/2021 Pneumococcal Conjugate Vacci ne, 20-valent ([id number]) 01/28/2023,09/19/2021(Deferred: Had Clinical Disease) Pneumococcal Polysaccharide PPV23 [...] Entry Date Author No 08/22/2020 3:57 PM Susie Aguillon RN documented in this encounter Miscellaneous Notes * Telephone Encounter - Saul May [facility] - 02/12/2024 7:19 AM EST Signed Prescriptions: Disp Refills Ozempic (2 MG/DOSE) 8 MG/3ML Subcutaneous *9 mL 1 Sig: Inject 2 mg under the skin once a week. Authorizing Provider: JUVENTINO HUGHES Ordering User: SALU MAY * Telephone Encounter - Daisy Ramírez, lift team technician - 02/10/2024 2:53 PM EST Did you pend patient's preferred pharmacy and medication before forwarding?no Pharmacy: [id number] [address] [place] [address] Pending Prescriptions: Disp Refills Ozempic (2 MG/DOSE) 8 MG/3ML Subcutaneous*9 mL 1 Sig: Inject 2 mg under the skin once a week. Last Visit: Visit date not found (in office), Visit date not found (telemedicine) Next Visit: Visit date not found If no future appointments scheduled, and last appointment is greater than a year ago, please schedule patient for a follow-up appointment Last date the medication was ordered: 11/20/23 Is this request for a controlled substance?No Urine Drug Screen: Results for orders placed or performed during the hospital encounter of 05/17/07 TOX SCREEN, URINE Result Value NOTE: + Screening results are presumptive unless specimen is NOTE: retested by a confirmatory method. Contact Toxicology NOTE: Service for information on confirmatory testing. NOTE: + Screening results qualitatively identify drugs listed NOTE: in the GML user's manual for the specimen type indicated. [...] Laboratory, [address] [place] [phone] [facility] [address] [place] [address] 03/04/2024 10:30 AM EST Office Visit Pharmacy, [place] [address] [place] [phone] [facility] [address] [place] [address] [place] [address] 03/23/2024 10:40 AM EST Office Visit Podiatry [facility] [address] [facility] [place] [address] Annalise Macedo DPM [facility] [place] [address] 04/13/2024 11:00 AM EST Office Visit [address] [phone] Juventino Hughes MD [address] [place] [phone] Health Maintenance Due Date Last Done [...] Additional history exists Lipid Panel 12/31/2027 12/30/2022, 08/1 , 05/01/2021, [...] this encounter Medical Devices Implanted Type Area Splicing Technician Device Identifier Shelf Expiration Date Model / Serial / Lot Patch Mesh Pre-W/Cord Opening - [id number] Implanted:Qty: 1 on 03/22/2014 by Aryan Rios MD at OR [facility] Right: Groin CR BARD : DAVOL 09/09/2018 [id number] / / [id number] documented as of this encounter Visit Diagnoses [...] 12:52 AM 06/16/2007 4:20 PM Care Teams Bibliographic Services Specialist Relationship Specialty Start Date End Date Juventino Hughes MD [address] [place] [phone] PCP - General Family Medicine 06/06/22 documented as of this encounter
--- OUTSIDE RECORDS SUMMARY | 2024-03-25 21:40 | External Medical Summary | Summary of Care ---
Author Name Unknown Organization [facility] [address] [address] Phone [phone] Care Team Providers Care Case Supervisor Name Role Phone Dimitris Hughes MD Primary Care Provi kelly Reason for Visit * Reason Comments Dosage Adjustment In Person (Anticoag Cl inic) Diabetes Management Encounter Details Date Type Department Care Team (Late st Contact Info) Description 11/20/2023 11:30 AM EDT Office Visit Pharmacy, [address] [address] [facility] [address] [place] [address] Type 2 diabetes mellitus with hemoglobin A1c goal of less than 8.0% ([facility])* Allergies Active Allergy Reactions Criticality Noted Date Comments Nutritional Supplements Anaphylaxis High 02/05/2008 Pt denies documented as of this encounter (statuses as of 11/20/2023) Medications Medication Sig Dispensed Refills Start Date End Date Status methADONE CONCentrated 10 mg/mL CONC Take 16.4 mL by mouth. Active Blood Glucose Monitoring Suppl (ONETOUCH VERIO) w/Device KITIndications:Typ e 2 diabetes mellitus with hemoglobin A1c goal of less than 8.0% (HCC) Use up to 2 times a day E11.9 1 Kit 09/06/2019 Active Multiple Vitamin Oral Tablet Take 1 Tablet by mouth in the morning. Active OneTouch Verio In Vitro Strip (Glucose Blood)Indications: Type 2 diabetes mellitus with hemoglobin A1c goal of less than 8.0% (HCC) Use up to 2 times a day E11.9 100 Strip 5 08/26/2020 Active OneTouch UltraSoft LancetsIndications :Type 2 diabetes mellitus with hemoglobin A1c goal of less than 8.0% (HCC) Use up to twice times a day as directed 100 Each 08/26/2020 Active metFORMIN HCl ER 500 MG Oral Tablet Extended Release 24 Hour (Glucophage XR)Indications:Typ e 2 diabetes mellitus with hemoglobin A1c goal of less than 8.0% (HCC) Take 4 tablets by mouth daily with a meal 360 Tablet 3 12/02/2022 Active Empagliflozin 25 MG Oral Tablet (Jardiance)Indicat ions:Type 2 diabetes mellitus with hemoglobin A1c goal of less than 8.0% (HCC) Take 1 Tablet by mouth in the morning. 90 Tablet 3 12/02/2022 Active Atorvastatin Calcium 40 MG Oral Tablet (Lipitor)Indicatio ns:Hyperlipidemia with target LDL less than 100 TAKE 1 TABLET BY MOUTH EVERY DAY IN THE MORNING 90 Tablet 3 03/31/2023 Active Lisinopril 2.5 MG Oral Tablet (Prinivil) Take 1 Tablet by mouth in the morning. 90 Tablet 3 08/22/2023 Active Insulin Glargine Solostar 100 UNIT/ML Subcutaneous Solution Pen-injector (Lantus SoloStar)Indicatio ns:Type 2 diabetes mellitus with hemoglobin A1c goal of less than 8.0% (HCC) Inject 10 Units under the skin at bedtime. 15 mL 1 11/20/2023 Active Pen [place] 32G X 4 MMIndications:Type 2 diabetes mellitus with hemoglobin A1c goal of less than 8.0% (HCC) Use as directed. Once daily to inject insulin 100 Each 3 11/20/2023 Active Ozempic (2 MG/DOSE) 8 MG/3ML Subcutaneous Solution Pen-injector (Semaglutide (2 MG/DOSE))Indicatio ns:Type 2 diabetes mellitus with hemoglobin A1c goal of less than 8.0% (HCC) Inject 2 mg under the skin once a week. 9 mL 1 11/20/2023 Active glipiZIDE ER 10 MG Oral Tablet Extended Release 24 Hour (glipiZIDE XL)Indications:Typ e 2 diabetes mellitus with hemoglobin A1c goal of less than 8.0% (HCC) Take 2 Tablets by mouth in the morning. 30 minutes before a meal.. 180 Tablet 04/07/2023 4 Discontinue d(Medicatio n/Dose Changed) Ozempic (2 MG/DOSE) 8 MG/3ML Subcutaneous Solution Pen-injector (Semaglutide (2 MG/DOSE))Indicatio ns:Type 2 diabetes mellitus with hemoglobin A1c goal of less than 8.0% ([facility]) Inject 2 mg under the skin once a week. Replaces Trulicity 4.5 mg 9 mL 1 06/24/2023 4 Discontinue d(Refill) documented as of this encounter (statuses as of 11/20/2023) Active Problems Problem Noted Date Diagnosed Date [...] as of this encounter (statuses as of 11/20/2023) Resolved Problems Problem Noted Date Diagnosed Date [...] as of this encounter (statuses as of 11/20/2023) Immunizations Name Administration Dates Next Due COVID-19 mRNA, LNP-s, No Pre serve, 2-Dose Series (Moderna) 06/08/2020,05/09/2020 Hepatitis B, 20+ yrs 12/18/2020,09/16/19 21(Deferred: Patient Refused),09/06/2019 01/17/2021 Pneumococcal Conjugate Vacci ne, 20-valent ([id number]) 01/28/2023,09/19/2021(Deferred: Had Clinical Disease) Pneumococcal Polysaccharide PPV23 (Pneumovax) 02/17/2012 Season Influenza, Quad, PF, Adjuvanted, 65+ Yrs, IM (FLUAD) 12/09/2019 Seasonal Influenza Vac., MDV , IM, 0.5 mL (Fluzone) 02/17/2012,11/17/2008 Seasonal Influenza, PF, 6 M & above, IM , (FluLaval or Fluzone) 11/12/2022,12/19/2021,11/10/2020,100 04/2017 TDAP (age 10 and older)(Boostrix) 09/06/2019, [...] as of this encounter Progress Notes * Bel Mancia, [facility] - 11/20/2023 11:21 AM EDT Medication Therapy Disease Management Clinic - Diabetes Management Progress Note Luigi Sotomayor, identified by name and date of , is a 63 year old male being seen for diabetes management/education. Patient presents for return diabetic visit. DIABETES: Current diabetic medications: Metformin ER 500 mg - 4 tablets daily Jardiance 25 mg daily in AM Glipizide ER 10 mg - 2 tablets in AM Ozempic 2 mg once weekly (replaces Trulicity 4.5 mg due to backorder) eGFR > 90 mL/min as of 08/19/23 Medication Injection Site: Abdomen Lifestyle: Diet: improved. Trying to eat more vegetables. Stays active with gardening. Does eat cookies and cake on occasion. Glucose Review/SMBG: Not available. Patient did not bring any readings for he feels that machine iswrong and does not like sticking his fingers. Hypoglycemia: Does your blood sugar go below 70 mg/dL? No. When describing what lows may feel like to him, he states that he has not experienced that from what he recalls. Hyperglycemia symptoms present: none Recent Labs Units 11/17/23 1113 08/19/23 1108 04/07/23 1127 HEMOGLOBIN A1C - [facility] % 7.3* 7.2* 8.0* Recent Labs Units 11/17/23 1113 08/19/23 1108 12/30/22 1007 ESTIMATED GLOMERULAR FILTRATION RATE - [facility] mL/min >90 >90 >90 CREATININE - [facility] mg/dL 0.9 0.8 0.9 HYPERTENSION: Patient on ACEi/ARB: yes BP Readings from Last 3 Encounters: 04/15/23 122/74 01/28/23 132/88 10/20/23 152/90 Blood pressure at goal: yes HYPERLIPIDEMIA: Recent Labs Units 12/30/22 1007 LDL CHOLESTEROL (CALCULATED) - [facility] mg/dL 74 Does patient have clinical ASCVD? No, LDL 74. Close to goal but lab is from Dec 2022. HEALTH MAINTENANCE REVIEW: Health Maintenance Due Topic Date Due Zoster Vaccines (2 of 2) 11/04/2019 Depression Screening 12/08/2020 Hepatitis B Vaccine (3 of 3 - 19+ 3-dose series) 02/12/2021 Diabetic Eye Exam 05/11/2023 Diabetic Foot Exam 09/27/2023 Influenza Vaccine (FLU shot) (1) 10/12/2023 COVID-19 Vaccine ( season) 2023 ASSESSMENT & PLAN: ICD-10-CM 1. Type 2 diabetes mellitus with hemoglobin A1c goal of less than 8.0% ([facility]) E11.9 Considerations: - hearing issues- he can reads lips (or read from a microsoft word document on second screen in office if you are wearing a mask) - multiple toe amputations, mobility is limited BG Readings - Blood sugars controlled. Based on the patient's goal A1c < 8%, patient is at goal as the past few A1c readings have been below this goal. I advised him that he is stable on his regimen and we do not need to make any further changes if he does not want to. However, patient would like to be more aggressive with his blood sugar lowering. Therefore, will plan to alter his medication regimen. Reports no lows but has not been checking his blood sugars recently as he has been going based on A1c results. Medications - Reviewed current regimen, patient is adherent to regimen. Patient does not have any issues with getting or tolerating his medications. Since patient would like to be more aggressive with his regimen due to past complications with diabetes. Will plan to stop Glipizide 10 mg (2 tablets in AM) and start Lantus 10 units once a day. Educated the patient on how to use the Lantus pen and demonstrated with a demo pen. Patient verbalized understanding and feels comfortable since it is similar to his Ozempic injections. Advised the patient that this medication can cause low blood sugar and encouraged him to start checking again. Diet, Exercise, Lifestyle - Patient reports that he has been trying to eat better with more proteins and vegetables . Reports that he tries to cut out cookies and cake and rarely eats candy or chocolate. He also states that he tries to keep up with an exercise routine and stays active with gardening. Patient is agreeable to SMBG 1 time(s) daily. Is to bring readings to the next appointment Patient aware to contact clinic if any hypoglycemia before next visit. MEDICATION CHANGES: yes, see below; preferred pharmacy: [facility] Diabetic Medications: Metformin ER 500 mg - 4 tablets daily Jardiance 25 mg daily in AM STOP: Glipizide ER 10 mg - 2 tablets in AM Ozempic 2 mg once weekly (replaces Trulicity 4.5 mg due to backorder) START: Lantus 10 units once a day eGFR > 90 mL/min as of 08/19/23 HEALTH MAINTENANCE INTERVENTIONS: Labs: Up to Date Immunizations: Due for flu and covid Foot Exam: Follows with Podiatry Eye Exam: Due Annual Wellness Visit: N/A FOLLOW UP: Return to clinic in 8 weeks 01/22/2024 I spent a total of 30-39 minutes (exact time 32 mins) on the date of service in preparation, delivery, and documentation of the care provided to Luigi Sotomayor excluding any time spent in the performance of separately billed services. Bel Mancia RP Clinical Pharmacist - Paraffin Plant Operator Medication Therapy Management Clinic 11/20/2023, 11:22 AM documented in this encounter Plan of Treatment Upcoming Encounters Date Type Department Care Team (Late st Contact Info) Description 11/27/2023 11:00 AM EDT Office Visit Podiatry [facility] [address] [address] Annalise Macedo DPM [address] [phone] 01/22/2024 11:00 AM EST [facility] [place] [address] [facility] [address] [facility] [address] [facility] [address] Health Maintenance Due Date Last Done Comments Fecal Occult Blood Test 2006 Sigmoidoscopy 2006 Colonoscopy 05/31/2017 06/01/2007 Zoster Vaccines (2 of 2) 11/04/2019 09/09/2019 Depression Screening 12/08/2020 12/09/2019 Hepatitis B Vaccine (3 of 3 - 19+ 3-dose series) 02/12/2021 12/18/2020, 09/06/2019 Diabetic Eye Exam 05/11/2023 05/10/2022, , 02/23/2019 Diabetic Foot Exam 09/27/2023 09/26/2022, 0 06/14/2021, 09/07/2020, Additional history exists COVID-19 Vaccine ( season) 2023 06/08/2020, 05/09/2020 Influenza Vaccine (FLU shot) (#1) 2023 11/12/2022, 12/19/2021, 11/10/2020, Additional history exists B-12 04/07/2024 04/07/2023, 11/0 04/2021, 10/20/2020, Additional [...] this encounter Medical Devices Implanted Type Area Ibm Mainframe Systems Programmer Device Identifier Shelf Expiration Date Model / Serial / Lot Patch Mesh Pre-W/Cord Opening - [id number] Implanted:Qty: 1 on 03/22/2014 by Aryan Rios MD at [facility] Right: Groin CR BARD : DAVOL 09/09/2018 [id number] / / [id number] documented as of this encounter Visit Diagnoses Diagnosis Type 2 diabetes mellitus with hemoglobin A1c goal of less than 8.0% ([facility])- Primary documented in this encounter Advance Directives * Full Code (Latest Code Status on File) Date Activated Date Inactivated Comments 08/22/2020 3:14 PM 08/26/2020 6:10 PM This order r eflects the patients wishes and were consensually agreed upon. Question Answer Comments Discussion of Advance Directives occurred with: Patient * Full Code Date Activated Date Inactivated Comments 05/17/2007 12:52 AM 06/16/2007 4:20 PM Care Teams Case Supervisor Relationship Specialty Start Date End Date Dimitris Hughes MD [address] [place] [phone] PCP - General Family Medicine 06/06/22 documented as of this encounter
--- OUTSIDE RECORDS SUMMARY | 2024-03-25 21:40 | External Medical Summary | Summary of Care ---
Author Name Unknown Organization [facility] Address [address] [place] [address] Phone [phone] Care Team Providers Care Screen Writer Name Role Phone Dimitris Hughes MD Primary Care Provi kelly Reason for Visit * Reason Comments Dosage Adjustment In Person (Anticoag Cl inic) Diabetes Follow-Up Encounter Details Date Type Department Care Team (Late st Contact Info) Description 01/22/2024 11:00 AM EST Office Visit Pharmacy, [facility] [address] [place] [address] Branch, [facility] [address], [place] [id number] Type 2 diabetes mellitus with hemoglobin A1c goal of less than 8.0% ([facility])* Allergies Active Allergy Reactions Criticality Noted Date Comments Nutritional Supplements Anaphylaxis High 02/05/2008 Pt denies documented as of this encounter (statuses as of 01/22/2024) Medications methADONE CONCentrated 10 mg/mL CONC Take [...] bedtime. 15 mL 1 4 Active Pen [place] 32G X 4 MMIndications:Typ e 2 diabetes mellitus with hemoglobin A1c goal of less than 8.0% (HCC) Use as directed. Once daily to inject insulin 100 Each 3 4 Active Ozempic (2 MG/DOSE) 8 MG/3ML Subcutaneous Solution Pen-injector (Semaglutide (2 MG/DOSE))Indicati ons:Type 2 diabetes mellitus with hemoglobin A1c goal of less than 8.0% (HCC) Inject 2 mg under the skin once a week. 9 mL 1 4 Active Empagliflozin 25 MG Oral Tablet (Jardiance)Indica tions:Type 2 diabetes mellitus with hemoglobin A1c goal of less than 8.0% (HCC) Take 1 Tablet by mouth in the morning. 90 Tablet 2 4 Active documented as of this encounter (statuses as of 01/22/2024) Active Problems Problem Noted Date Diagnosed Date [...] as of this encounter (statuses as of 01/22/2024) Resolved Problems Problem Noted Date Diagnosed Date [...] as of this encounter (statuses as of 01/22/2024) Immunizations Name Administration Dates Next Due COVID-19 mRNA, LNP-s, No Pre serve, 2-Dose Series (Moderna) 06/08/2020,05/09/2020 COVID-19, MRNA-LNP, PF, 30 M CG/0.3 mL, 12 YRS AND ABOVE, IM ([employer]) 01/02/2024 Hepatitis B, 20+ yrs 12/18/2020,09/16/19 21(Deferred: Patient Refused),09/06/2019 01/17/2021 Pneumococcal Conjugate Vacci ne, 20-valent ([id number]) 01/28/2023,09/19/2021(Deferred: Had Clinical Disease) Pneumococcal Polysaccharide PPV23 [...] documented in this encounter Progress Notes * Ginny Moran, [facility] 01/22/2024 11:05 AM EST Medication Therapy Disease Management Clinic - Diabetes [...] 08/19/23 Medication Injection Site: Abdomen Lifestyle: Diet: improved Glucose Review/SMBG: Readings obtained from patient documented BG logbook Pre am Post am Pre Lunch Post Lunch Pre pm Post pm HS 135 177 159 162 185 177 163 159 140 138 198 181 153 176 101 109 111 100 105 134 121 129 113 98 123 109 115 121 116 103 113 109 121 119 Average 135 #DIV/0! #DIV/0! #DIV/0! #DIV/0! #DIV/0! #DIV/0! Hi 198 0 0 0 0 0 0 Lo 98 0 [address]6563 0 0 0 0 0 0 Range 100 0 0 0 0 0 0 Hypoglycemia: Does your blood sugar go below 70 mg/dL? No Hyperglycemia symptoms present: none Recent Labs Units 11/17/23 1113 08/19/23 1108 04/07/23 1127 HEMOGLOBIN A1C - [facility] % 7.3* 7.2* 8.0* Recent Labs Units 11/17/23 1113 08/19/23 1108 12/30/22 1007 ESTIMATED GLOMERULAR FILTRATION RATE - [facility] mL/min >90 >90 >90 CREATININE - [facility] mg/dL 0.9 0.8 0.9 HYPERTENSION: Patient on ACEi/ARB: yes BP Readings from Last 3 Encounters: 01/02/24 146/78 04/15/23 122/74 01/28/23 132/88 Blood pressure at goal: yes HYPERLIPIDEMIA: Recent Labs Units 12/30/22 1007 LDL CHOLESTEROL (CALCULATED) - [facility] mg/dL 74 Does patient have clinical ASCVD? No, is patient LDL less than 70mg/dL? No: repeat FLP before next MTM visit HEALTH MAINTENANCE REVIEW: Health Maintenance Due Topic Date Due Zoster Vaccines (2 of 2) 11/04/2019 Depression Screening 12/08/2020 Hepatitis B Vaccine (3 of 3 - 19+ 3-dose series) 02/12/2021 Diabetic Eye Exam 05/11/2023 ASSESSMENT & PLAN: ICD-10-CM 1. Type 2 diabetes mellitus with hemoglobin A1c goal of less than 8.0% (HCC) E11.9 Considerations: - hearing issues- he can reads lips (or read from a microsoft word document on second screen in office if you are wearing a mask) - multiple toe amputations, mobility is limited - not interested in CGM as of 01/22/24 BG Readings - Blood sugars controlled. No low blood sugars reported. Patient not interested in CGM at this time. Medications - Reviewed current regimen, patient is adherent to regimen. Accidentally went without ozempic for 2 weeks. Otherwise back on track. Reviewed his full medication regimen. Diet, Exercise, Lifestyle - patient making improvements as best as he can . Patient is agreeable to SMBG 1 time(s) daily. Patient aware to contact clinic if any hypoglycemia before next visit. MEDICATION CHANGES: no change Diabetic Medications: Metformin ER 500 mg - 4 tablets daily Jardiance 25 mg daily in AM Ozempic 2 mg once weekly Lantus 10 units once a day eGFR > 90 mL/min as of 08/19/23 HEALTH MAINTENANCE INTERVENTIONS: Labs: Ordered & Scheduled: HgA1c and Lipid Panel Immunizations: Up to Date Foot Exam: Up to Date Eye Exam: due Annual Wellness Visit: Up to Date FOLLOW UP: Return to clinic in 6 weeks 03/04/2024 I spent a total of 30-39 minutes (exact time 32 mins) on the date of service in preparation, delivery, and documentation of the care provided to Luigi Sotomayor excluding any time spent in the performance of separately billed services. Ginny Moran RPh Clinical Pharmacist - Congressional Aide Medication Therapy Management Clinic 01/22/2024, 11:05 AM documented in this encounter Plan of Treatment Upcoming Encounters Date Type Department Care Team (Late st Contact Info) Description 02/26/2024 1:00 PM EST Laboratory [facility] [address] [place] [phone] [place], Laboratory [address] [place] [address] 03/04/2024 10:30 AM EST [facility]acy, [facility] [address] [place] [phone] [place] [facility] [address] [place] [address] 03/23/2024 10:40 AM EST Office Visit Podiatry [facility] [address] [facility] [place] [address] Annalise Macedo DPM [address] [facility] [place] [address] 04/13/2024 11:00 AM EST Office Visit [address] [phone] Dimitris Hughes MD [address] [place] [phone] Scheduled Orders Name Type Priority Associated Diagnoses Orde r Schedule HEMOGLOBIN A1C Lab Routine Type 2 diabetes mellitus with hemoglobin A1c goal of less than 8.0% (HCC) Expected: 02/22/2024 (Approximate), Expires: 01/21/2025 LIPID PANEL WITH DIRECT LDL IF TG IS HIGH Lab Routine Type 2 diabetes mellitus with hemoglobin A1c goal of less than 8.0% (HCC) Expected: 02/22/2024 (Approximate), Expires: 01/21/2025 Health Maintenance Due Date Last Done Comments [...] (6 to 64 Years) Completed 01/28/2023, 02/17/2012 COVID-19 Vaccine Completed 01/02/2024, , 05/09/2020 Influenza Vaccine (FLU shot) Completed , 11/12/2022, 12/19/2021, Additional history exists HPV (Gardasil) Vaccine Aged Out No lo nger eligible based on patient's age to complete this topic MENINGOCOCCAL (MENACTRA/MENVEO) Aged Out No longer eligible based on patient's age to complete this topic documented as of this encounter Medical Devices Implanted Type Area Sales Contracts Analyst Device Identifier Shelf Expiration Date Model / Serial / Lot Patch Mesh Pre-W/Cord Opening - [id number] Implanted:Qty: 1 on 03/22/2014 by Aryan Rios MD at [facility] Right: Kimi MCCLELLAND BARD : RASHI 09/09/2018 [id number] / / [id number] documented as of this encounter Visit Diagnoses Diagnosis Type 2 diabetes mellitus with hemoglobin A1c goal of less than 8.0% ([facility])- Primary documented in this encounter Advance Directives [...] 12:52 AM 06/16/2007 4:20 PM Care Teams Screen Writer Relationship Specialty Start Date End Date Dimitris Hughes MD [address] [place] [phone] PCP - General Family Medicine 06/06/22 documented as of this encounter
--- OUTSIDE RECORDS SUMMARY | 2024-03-25 21:40 | External Medical Summary | Summary of Care ---
Author Name Unknown Organization [facility] Address [address] [facility] [address] Phone [phone] Care Team Providers Care Assurance Manager Name Role Phone Dimitris Hughes MD Primary Care Provi kelly Reason for Visit * Reason Comments Outpatient Testing Encounter Details Date Type Department Care Team (Late st Contact Info) Description 11/17/2023 11:00 AM EDT Laboratory Laboratory, [place] [address] [place] [address] [place] [address] [place] [address] Type 2 diabetes mellitus with hemoglobin A1c goal of less than 8.0% (HCC) Allergies Active Allergy Reactions Criticality Noted Date Comments Nutritional Supplements Anaphylaxis High 02/05/2008 Pt denies documented as of this encounter (statuses as of 11/17/2023) Medications Medication Sig Dispensed Refills Start Date [...] Active OneTouch Verio In Vitro Strip (Glucose Blood)Indications:Ty pe 2 diabetes mellitus with hemoglobin A1c goal of less than 8.0% (HCC) Use up to 2 times a day E11.9 100 Strip 5 08/26/2020 Active OneTouch UltraSoft LancetsIndications:T ype 2 diabetes mellitus with hemoglobin A1c [...] 12/02/2022 Active Empagliflozin 25 MG Oral Tablet (Jardiance)Indicatio ns:Type 2 diabetes mellitus with hemoglobin A1c goal of less than 8.0% (HCC) Take 1 Tablet by mouth in the morning. 90 Tablet 3 12/02/2022 Active Atorvastatin Calcium 40 MG Oral Tablet (Lipitor)Indications :Hyperlipidemia with target LDL less than 100 TAKE 1 TABLET BY MOUTH EVERY DAY IN THE MORNING 90 Tablet 3 03/31/2023 Active glipiZIDE ER 10 MG Oral Tablet Extended Release 24 Hour (glipiZIDE XL)Indications:Type 2 diabetes mellitus with hemoglobin A1c goal of less than 8.0% (HCC) Take 2 Tablets by mouth in the morning. 30 minutes before a meal.. 180 Tablet 04/07/2023 Active Ozempic (2 MG/DOSE) 8 MG/3ML Subcutaneous Solution Pen-injector (Semaglutide (2 MG/DOSE))Indications :Type 2 diabetes mellitus with hemoglobin A1c goal of less than 8.0% (HCC) Inject 2 mg under the skin once a week. Replaces Trulicity 4.5 mg 9 mL 1 06/24/2023 Active Lisinopril 2.5 MG Oral Tablet (Prinivil) Take 1 Tablet by mouth in the morning. 90 Tablet 3 08/22/2023 Active documented as of this encounter (statuses as of 11/17/2023) Active Problems Problem Noted Date Diagnosed Date [...] as of this encounter (statuses as of 11/17/2023) Resolved Problems Problem Noted Date Diagnosed Date [...] as of this encounter (statuses as of 11/17/2023) Immunizations Name Administration Dates Next Due COVID-19 mRNA, LNP-s, No Pre serve, 2-Dose Series (Moderna) 06/08/2020,05/09/2020 Hepatitis B, 20+ yrs 12/18/2020,09/16/19 21(Deferred: Patient Refused),09/06/2019 01/17/2021 Pneumococcal Conjugate Vacci ne, 20-valent ([id number]) 01/28/2023,09/19/2021(Deferred: Had Clinical Disease) Pneumococcal Polysaccharide PPV23 (Pneumovax) 02/17/2012 Season Influenza, Quad, PF, Adjuvanted, 65+ Yrs, IM (FLUAD) 12/09/2019 Seasonal Influenza Vac., MDV , IM, 0.5 mL (Fluzone) 02/17/2012,11/17/2008 Seasonal Influenza, PF, 6 M & above, IM , (FluLaval or Fluzone) 11/12/2022,12/19/2021,11/10/2020,04/2017 TDAP (age 10 and older)(Boostrix) 09/06/2019, TDAP, [...] (15 years old or older) No 08/23/19 Cognitive Status Response Date of Assessm ent Because of a physical, menta l, or emotional condition, do you have serious difficulty concentrating, remembering, or making decisions? (5 years old or older) No 08/22/2020 documented as of this encounter Plan of Treatment Upcoming Encounters Date Type Department Care Team (Late st Contact Info) Description 11/20/2023 11:30 AM EDT Office Visit Pharmacy, [place] [address] [place] [phone] [facility] [address] [place] [address] 11/27/2023 11:00 AM EDT Office Visit Podiatry [address] [place] [address] Annalise Macedo, DPM [address] [place] [address] 12/11/2023 11:00 AM EDT Office Visit Pharmacy, [place] [address] [place] [address] [facility] [address] [place] [address] Pending Results Name Type Priority Associated Diagnoses Date /Time BASIC METABOLIC PANEL Lab Routine Type 2 diabetes mellitus with hemoglobin A1c goal of less than 8.0% ([facility]) 11/17/2023 11:13 AM EDT HEMOGLOBIN A1C Lab Routine Type 2 diabetes mellitus with hemoglobin A1c goal of less than 8.0% ([facility]) 11/17/2023 11:13 AM EDT ALBUMIN / CREATININE RATIO, URINE Lab Routine Type 2 diabetes mellitus with hemoglobin A1c goal of less than 8.0% ([facility]) 11/17/2023 11:22 AM EDT Health Maintenance Due Date Last Done Comments Fecal Occult Blood Test 2006 Sigmoidoscopy 2006 Colonoscopy 05/31/2017 06/01/2007 Zoster Vaccines (2 of 2) 11/04/2019 09/09/2019 Depression Screening 12/08/2020 12/09/2019 Hepatitis B Vaccine (3 of 3 - 19+ 3-dose series) 02/12/2021 12/18/2020, 09/06/2019 Diabetic Eye Exam 05/11/2023 05/10/2022, , 02/23/2019 Diabetic Foot Exam 09/27/2023 09/26/2022, 0 06/14/2021, 09/07/2020, Additional history exists Albumin/Creatinine Ratio 09/28/2023 023, 09/19/2021, 09/06/2019 COVID-19 Vaccine ( - season) 2023 06/08/2020, 05/09/2020 Influenza Vaccine (FLU shot) (#1) 2023 11/12/2022, 12/19/2021, 11/10/2020, Additional history exists HbA1c 02/19/2024 08/19/2023, 03/14, 12/30/2022, Additional history exists B-12 04/07/2024 04/07/2023, 110 04/2021, 10/20/2020, Additional history exists GFR 08/18/2024 08/19/2023, 12/12, 09/27/2022, Additional history exists Cologuard 12/12/2024 12/12/2021 Colorectal Cancer Screening 12/12/2024 Lipid Panel 12/31/2027 12/30/2022, 09/10, 05/01/2021, Additional [...] this encounter Medical Devices Implanted Type Area Food Beverage Attendant Device Identifier Shelf Expiration Date Model / Serial / Lot Patch Mesh Pre-W/Cord Opening - [id number] Implanted:Qty: 1 on 03/22/2014 by Aryan Rios MD at OR [facility] Right: Groin CR BARD : DAVOL 09/09/2018 [id number] / / [id number] documented as of this encounter Visit Diagnoses Diagnosis Type 2 diabetes mellitus with hemoglobin A1c goal of less than 8.0% ([facility]) documented in this encounter Advance Directives * Full Code (Latest Code Status on File) Date Activated Date Inactivated Comments 08/22/2020 3:14 PM 08/26/2020 6:10 PM This order r eflects the patients wishes and were consensually agreed upon. Question Answer Comments Discussion of Advance Directives occurred with: Patient * Full Code Date Activated Date Inactivated Comments 05/17/2007 12:52 AM 06/16/2007 4:20 PM Care Teams Assurance Manager Relationship Specialty Start Date End Date Dimitris [place] [address] PCP - General Family Medicine 06/06/22 documented as of this encounter
--- OUTSIDE RECORDS SUMMARY | 2024-03-25 21:40 | External Medical Summary | Summary of Care ---
Author Name Unknown Organization [facility] Address [address] [facility] [place] [address] Phone [phone] Care Team Providers Care Analytics Developer Name Role Phone Dimitris Hughes MD Primary Care Provi kelly Reason for Visit * Reason Onset Date Comments No Show 11/30/2023 [facility] No Show Auto mation Encounter Details Date Type Department Care Team (Late st Contact Info) Description 11/30/2023 Telephone Podiatry [facility] [address] [place] [address] Annalise Stevenson DPM [address] [place] [phone] No Show ([place] No Show Automation) Allergies Active Allergy Reactions Criticality Noted Date Comments Nutritional Supplements Anaphylaxis High 02/05/2008 Pt denies documented as of this encounter (statuses as of 11/30/2023) Medications Medication Sig Dispensed Refills Start Date End Date Status methADONE CONCentrated 10 mg/mL CONC Take 16.4 mL by mouth. Active Blood Glucose Monitoring Suppl (ONETOUCH VERIO) w/Device KITIndications:Type 2 diabetes mellitus with hemoglobin A1c goal of less than 8.0% ([facility]) Use up to 2 times a day E11.9 1 Kit 09/06/2019 Active Multiple Vitamin Oral Tablet Take 1 Tablet by mouth in the morning. Active OneTouch Verio In Vitro Strip (Glucose Blood)Indications:Typ e 2 diabetes mellitus with hemoglobin A1c goal of less than 8.0% ([facility]) Use up to 2 times a day E11.9 100 Strip 5 08/26/2020 Active OneTouch UltraSoft LancetsIndications:Ty pe 2 diabetes mellitus with [...] bedtime. 15 mL 1 11/20/2023 Active Pen [place] 32G X 4 MMIndications:Type 2 diabetes mellitus [...] as of this encounter (statuses as of 11/30/2023) Active Problems Problem Noted Date Diagnosed Date [...] as of this encounter (statuses as of 11/30/2023) Resolved Problems Problem Noted Date Diagnosed Date [...] as of this encounter (statuses as of 11/30/2023) Immunizations Name Administration Dates Next Due COVID-19 mRNA, LNP-s, No Pre serve, 2-Dose Series (Moderna) 06/08/2020,05/09/2020 Hepatitis B, 20+ yrs 12/18/2020,09/16/19 21(Deferred: Patient Refused),09/06/2019 01/17/2021 Pneumococcal Conjugate Vacci ne, 20-valent ([id number]) 01/28/2023,09/19/2021(Deferred: Had Clinical Disease) Pneumococcal Polysaccharide PPV23 [...] No 08/22/2020 documented as of this encounter Miscellaneous Notes * Telephone Encounter - [place], No Show - 11/30/2023 9:40 AM EDT Dear Luigi Sotomayor, Looks like you missed an appointment with ANNALISE STEVENSON on 11/27/2023 at 11:00 AM. If you haven't already rescheduled, you have a couple of options: Reschedule in MyChart [email or web address] Call us at [phone] Can't make a future appointment? Cancel and let someone else have your spot! It's easy to do via Lovely or by calling us. Thanks for trusting [facility] with your care. We hope to see you back in our office soon. Sincerely, ANNALISE STEVENSON documented in this encounter Plan of Treatment Upcoming Encounters Date Type Department Care Team (Late st Contact Info) Description 12/16/2023 1:20 PM EST Office Visit Podiatry [facility] [address] [place] [address] Annalise Stevenson, [facility] [address] [place] [address] 01/22/2024 11:00 AM EST [facility] [place] [address] [address] [facility] [address] [place] [address] Health Maintenance Due Date Last Done Comments Fecal Occult Blood Test 2006 Sigmoidoscopy 2006 Colonoscopy 05/31/2017 06/01/2007 Zoster Vaccines (2 of 2) 11/04/2019 09/09/2019 Depression Screening 12/08/2020 12/09/2019 Hepatitis B Vaccine (3 of 3 - 19+ 3-dose series) 02/12/2021 12/18/2020, 09/06/2019 Diabetic Eye Exam 05/11/2023 05/10/2022, , 02/23/2019 Diabetic Foot Exam 09/27/2023 09/26/2022, 0 06/14/2021, 09/07/2020, Additional history exists COVID-19 Vaccine ( - season) 2023 06/08/2020, [...] Cancer Screening 12/12/2024 Lipid Panel 12/31/2027 12/30/2022, 081 , 05/01/2021, Additional history exists DTap/Tdap Vaccines [...] this encounter Medical Devices Implanted Type Area Urgent Care Physician Assistant Device Identifier Shelf Expiration Date Model / Serial / Lot Patch Mesh Pre-W/Cord Opening - [id number] Implanted:Qty: 1 on 03/22/2014 by Aryan Rios MD at OR [facility] Right: Groin CR BARD : DAVOL 09/09/2018 [id number] / / [id number] documented as of this encounter Advance Directives [...] 12:52 AM 06/16/2007 4:20 PM Care Teams Analytics Developer Relationship Specialty Start Date End Date Dimitris Hughes MD [address] [place] [address] [place] [phone] PCP - General Family Medicine 06/06/22 documented as of this encounter
--- OUTSIDE RECORDS SUMMARY | 2024-03-25 21:40 | External Medical Summary | Summary of Care ---
Author Name Unknown Organization [facility] Address [address] [place] [address] Phone [phone] Care Team Providers Care Rolling Mill Operator Name Role Phone Juventino Frazier MD Primary Care Provi kelly Reason for Visit * Reason Onset Date Comments Medication Refill 12/22/2023 Encounter Details Date Type Department Care Team ([facility] st Contact Info) Description 12/22/2023 Refill [facility] [address] [place] [address] Juventino Frazier MD [address] [place] [phone] Type 2 diabetes mellitus with hemoglobin A1c goal of less than 8.0% ([facility]) Allergies Active Allergy Reactions Criticality Noted Date Comments Nutritional Supplements Anaphylaxis High 02/05/2008 Pt denies documented as of this encounter (statuses as of 12/22/2023) Medications methADONE CONCentrated 10 mg/mL CONC Take [...] bedtime. 15 mL 1 4 Active Pen [place] 32G X 4 MMIndications:Ty pe 2 diabetes [...] the morning. 90 Tablet 2 4 Active Empagliflozin 25 MG Oral Tablet (Jardiance)Indic ations:Type 2 diabetes mellitus with hemoglobin A1c goal of less than 8.0% (HCC) Take 1 Tablet by mouth in the morning. 90 Tablet 3 3 12/22/19 24 Discontinu ed(Refill) documented as of this encounter (statuses as of 12/22/2023) Active Problems Problem Noted Date Diagnosed Date [...] as of this encounter (statuses as of 12/22/2023) Resolved Problems Problem Noted Date Diagnosed Date [...] as of this encounter (statuses as of 12/22/2023) Immunizations Name Administration Dates Next Due COVID-19 mRNA, LNP-s, No Pre serve, 2-Dose Series (Moderna) 06/08/2020,05/09/2020 Hepatitis B, 20+ yrs 12/18/2020,09/16/19 21(Deferred: Patient Refused),09/06/2019 01/17/2021 Pneumococcal Conjugate Vacci ne, 20-valent ([id number]) 01/28/2023,09/19/2021(Deferred: Had Clinical Disease) Pneumococcal Polysaccharide PPV23 [...] No 08/22/2020 3:57 PM EDT Susie Roberto, EUGENIO * Because of a physical, mental, or [...] encounter Miscellaneous Notes * Telephone Encounter - Zuly Krishna formerly [facility] - 12/22/2023 3:53 PM ESTSigned Prescriptions: Disp Refills Empagliflozin 25 MG Oral Tablet (Jardiance)90 Tab*2 Sig: Take 1 Tablet by mouth in the morning. Authorizing Provider: JUVENTINO FRAZIER Ordering User: ZULY KRISHNA * Telephone Encounter - Lotus Ji PHARM Tech - 12/22/2023 3:46 PM EST Pt out of medication Did you pend patient's preferred pharmacy and medication before forwarding?yes Pharmacy: [id number] [address] [facility] Pending Prescriptions: Disp Refills Empagliflozin 25 MG Oral Tablet (Jardianc*90 Tab*3 Sig: Take 1 Tablet by mouth in the morning. Last Visit: 04/15/2023 (in office), Visit date not found (telemedicine) Next Visit: 01/02/2024 If no future appointments scheduled, and last [...] qualitatively identify drugs listed NOTE: in the L user's manual for the specimen type indicated. [...] Upcoming Encounters Date Type Department Care Team ([facility] st Contact Info) Description 01/02/2024 11:40 AM EST Office Visit [address] [phone] Juventino Frazier MD [address] [place] [phone] 01/22/2024 11:00 AM EST Office Visit Pharmacy, [place] [address] [place] [facility] [place] [address] [facility] [address] [place] [facility] [place] [address] 03/23/2024 10:40 AM EST Office Visit Podiatry [facility] [address] [place] [address] Annalise Macedo [address] [place] [address] Health Maintenance Due Date Last Done Comments [...] 11/10/2020, Additional history exists B-12 04/07/2024 04/07/2023, 1104/2021, 10/20/2020, Additional history exists HbA1c 05/17/2024 11/17/2023, 10/2023, 04/07/2023, Additional history exists Albumin/Creatinine Ratio 11/16/202411/16/2 024, 09/27/2022, 09/19/2021, Additional history exists GFR 11/16/2024 11/17/2023, 07/0 10/2023, 12/30/2022, Additional history exists Cologuard 12/12/2024 12/12/2021 Colorectal Cancer Screening 12/12/2024 Lipid Panel 12/31/2027 12/30/2022, 08/, 05/01/2021, Additional history exists DTap/Tdap Vaccines (4 [...] this encounter Medical Devices Implanted Type Area Telephone Solicitor Device Identifier Shelf Expiration Date Model / Serial / Lot Patch Mesh Pre-W/Cord Opening - [id number] Implanted:Qty: 1 on 03/22/2014 by Aryan Rios MD at OR [facility] Right: Groin CR BARD : DAVOL 09/09/2018 [id number] / / [id number] documented as of this encounter Visit Diagnoses Diagnosis Type 2 diabetes mellitus with hemoglobin A1c goal of less than 8.0% ([facility]) documented in this encounter Advance Directives * Full Code (Latest Code Status on File) Date Activated Date Inactivated Comments 08/22/2020 3:14 PM 08/26/2020 6:10 PM This order r eflects the patients wishes and were consensually agreed upon. Question Answer Comments Discussion of Advance Directives occurred with: Patient * Full Code Date Activated Date Inactivated Comments 05/17/2007 12:52 AM 06/16/2007 4:20 PM Care Teams Rolling Mill Operator Relationship Specialty Start Date End Date Juventino Frazier MD [address] [place] [phone] PCP - General Family Medicine 06/06/22 documented as of this encounter
--- OUTSIDE RECORDS SUMMARY | 2024-03-25 21:40 | External Medical Summary | Summary of Care ---
Author Name Unknown Organization [facility] Address [address] [place] [address] Phone [phone] Care Team Providers Care Insect Control Aide Name Role Phone Dimitris Hughes MD Primary Care Provi kelly Reason for Referral * Ancillary Services (Within 10 days (routine)) - Authorized Specialty Diagnoses / Procedures Referred By Contac t Referred To Contact Audiology Diagnoses Bilateral hearing loss, unspecified hearing loss type Dimitris Hughes MD [address] [place] [phone] Phone: tel: fax: Referral ID Status Reason Start Date Expiration Date Visits Requested Visits Authorized [id number] Authorized Ancillary Services Required 4 999 999 Question Answer Referral Priority Within 10 days (routine) Where should this appointment be scheduled? [facility] Reason for Referral: Hearing Loss Is this sudden hearing loss or post chemotherapy hearing loss? No Reason for Visit * Reason Onset Date Comments Status Check Hx of DM Medication Administration 01/02/2024 Flu an d/or Pneumo Inj Encounter Details Date Type Department Care Team ([facility] Contact Info) Description 01/02/2024 11:40 AM EST Office Visit [address] [phone] Dimitris Hughes MD [address] [place] [phone] Type 2 diabetes mellitus with diabetic neuropathy, without long-term current use of insulin (HCC)*; Type 2 diabetes mellitus with hemoglobin A1c goal of less than 8.0% (HCC); Hyperlipidemia with target LDL less than 100; Bilateral hearing loss, unspecified hearing loss type; HTN, goal below 140/90; COVID-19 vaccine administered; Need for prophylactic vaccination and inoculation against influenza Allergies Active Allergy Reactions Criticality Noted Date Comments Nutritional Supplements Anaphylaxis High 02/05/2008 Pt denies documented as of this encounter (statuses as of 01/13/2024) Medications methADONE CONCentrated 10 mg/mL CONC Take [...] bedtime. 15 mL 1 4 Active Pen [place] 32G X 4 MMIndications:Typ e 2 diabetes [...] as of this encounter (statuses as of 01/13/2024) Active Problems Problem Noted Date Diagnosed Date [...] as of this encounter (statuses as of 01/13/2024) Resolved Problems Problem Noted Date Diagnosed Date [...] as of this encounter (statuses as of 01/13/2024) Immunizations Name Administration Dates Next Due COVID-19 mRNA, LNP-s, No Pre serve, 2-Dose Series (Moderna) 06/08/2020,05/09/2020 COVID-19, MRNA-LNP, PF, 30 M CG/0.3 mL, 12 YRS AND ABOVE, IM ([employer]) 01/02/2024 Hepatitis B, 20+ yrs 12/18/2020,09/16/19 21(Deferred: Patient Refused),09/06/2019 01/17/2021 Pneumococcal Conjugate Vacci ne, 20-valent ([id number]) 01/28/2023,09/19/2021(Deferred: Had Clinical Disease) Pneumococcal Polysaccharide PPV23 [...] Sign Reading Time Taken Comments Blood Pressure 146/78 01/02/2024 11:47 AM EST Pulse 75 01/02/2024 11:47 AM EST Temperature 36.2 C (97.2 F) 01/02/2024 11:[address] Respiratory Rate 17 01/02/2024 11:47 AM EST Oxygen Saturation 94% 01/02/2024 11:47 AM EST Inhaled Oxygen Concentration - - Weight 95.5 kg (210 lb 8 oz) 01/02/2024 11:47 AM EST Height - - Body Mass Index 27.4 11/29/2022 9:27 AM EDT documented in this encounter Functional Status * [...] of Assessment Author No 08/22/2020 3:57 PM SHAET Susie Roberto RN documented as of this encounter Mental Status * Because of a physical, mental, or emotional condition, do you have serious difficulty concentrating, remembering, or making decisions? (5 years old or older) Answer Entry Date Author No 08/22/2020 3:57 PM EDT Susie Roberto RN documented in this encounter Progress Notes * Dimitris Hughes MD - 01/02/2024 12:03 PM EST Images from the original note were not included. History of Present Illness Luigi Sotomayor is a 63 year old male that presents for Status Check (Hx of DM /) and Medication Administration (Flu and/or Pneumo Inj) 63-year-old male presenting for follow-up History of type 2 diabetes, variable control in the past, as of late it has been fairly well controlled by MTM. 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 Last podiatry visit was yesterday with no significant findings. Nail care was performed. Patient complains of significant worsening of hearing. He currently wears hearing aids. Requesting audiology referral. He saw MTM last month, but there appears to be some confusion about his medications. According to the patient he has stopped Ozempic. When I looked at the note he was supposed to stop glipizide. 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 Physical Exam Vitals: 01/02/24 1147 Temp: 97.2 F (36.2 C) Pulse: 75 Resp: 17 SpO2: 94% BP: 146/78 BP Readings from Last 3 Encounters: 01/02/24 146/78 04/15/23 122/74 01/28/23 132/88 Wt Readings from Last 3 Encounters: 01/02/24 210 lb 8 oz (95.5 kg) 04/15/23 216 lb (98 kg) 01/28/23 219 lb 6.4 oz (99.5 kg) BMI Readings from Last 3 Encounters: 01/02/24 27.40 kg/m 04/15/23 28.11 kg/m 01/28/23 28.55 kg/m Ht Readings from Last 3 Encounters: 11/29/22 6' 1.5" (1.867 m) 11/12/22 6' 1" (1.854 m) 09/26/22 6' 1" (1.854 m) General; Normal cephalic, atraumatic Cardiology; Regular rate and rhythm, normal S1 S2, no murmurs, rubs or gallops, no peripheral edema Pulmonary; Clear to auscultation bilaterally, no rales, rhonchi or wheezing Neuro/psych; CN grossly intact, normal gait, answering questions appropriately, normal mood/affect I have reviewed the following results: CMP, Lipid Panel, and Hemoglobin A1C Assessment and Plan Type 2 diabetes mellitus with diabetic neuropathy, without long-term current use of insulin ([facility]) (Primary) - TELEMEDICINE DIABETIC EYE Type 2 diabetes mellitus with hemoglobin A1c goal of less than 8.0% ([facility]) - HEMOGLOBIN A1C; Future; Expected date: 07/01/2024 Hyperlipidemia with target LDL less than 100 - LIPID PANEL WITH DIRECT LDL IF TG IS HIGH; Future; Expected date: 07/01/2024 Bilateral hearing loss, unspecified hearing loss type - AUDIOLOGY REFERRAL OP HTN, goal below 140/90 - COMPREHENSIVE METABOLIC PANEL; Future; Expected date: 07/01/2024 COVID-19 vaccine administered - COVID-19, MRNA-LNP, PF, 24-25, 30MCG/0.3ML, IM, 12YRS AND ABOVE ([facility]ER) Need for prophylactic vaccination and inoculation against influenza - INFLUENZA VAC, TRIVALENT, (IIV3), PF, 0.5 ML (FLUZONE) Follow Up: Return in about 6 months (around 07/01/2024) for Return with Physician, Fasting Labs 2-5 Days Before Next Visit. | For: Return with Physician, Fasting Labs 2-5 Days Before Next Visit Blood pressure mildly elevated, has been historically well-controlled, only on renal dose of lisinopril. We will continue to watch over the next 3 months. Communicated the patient that he should go back on Ozempic, continue follow-up with MTM. Perhaps some confusion of his regimen due to his hearing issues Repeat labs before his three-month follow-up with [place] Flu and COVID shot provided today Diabetic eye exam ordered today Audiology referral placed No foot exam performed today since the patient was seen by Podiatry yesterday Wrap-Up Follow Up: Return in about 6 months (around 07/01/2024) for Return with Physician, Fasting Labs 2-5 Days Before Next Visit. | For: Return with Physician, Fasting Labs 2-5 Days Before Next Visit Time: I spent a total of 30-39 minutes (exact time 33 mins) on the date of service in preparation, delivery, and documentation of the care provided to Luigi Sotomayor excluding any time spent in the performance of separately billed services. * Manjeet Pitts LPN - 01/02/2024 11:47 AM EST Images from the original note were not included. The importance of having a yearly diabetic eye exam has been discussed with patient. Order and/or Referral placed along with patient instructions. Provider made aware. Manjeet Pitts LPN Diabetic Retinopathy: Evaluating Your Eyes Diabetic retinopathy is a condition that happens when diabetes damages blood vessels in the rear ofthe eye. It can lead to vision loss. To help catch it early, have a complete dilated eye exam at least once a year. During the exam, the eye healthcare provider will review your medical history, examine your eyes, and check your vision. Women who are and have pre-existing type 1 or type 2 diabetes have an increased risk of retinopathy. Women with diabetes should have an eye exam before or in the first trimester. They should continue to be monitored every trimester and for 1 year after delivery, depending on the severity of the retinopathy. The retina is the light-sensitive part of the eye that allows you to see. High blood sugar can damage blood vessels of the retina and cause them to leak or bleed. This damage can lead to abnormal blood vessel growth. This condition is called diabetic retinopathy. You may not have symptoms early in the disease. Later, there may be floaters, blurred vision, or poor night vision. There may also be partial or complete vision loss. Early cases of diabetic retinopathy can be treated by carefully controlling blood sugar, blood pressure, and cholesterol. Surgery or laser treatments may help restore lost vision. Laser surgery can shrink abnormal blood vessels or close ones that are leaking. Medicines injected in the eye can help decrease swelling of the retina. Home care Take all medicines, including insulin or oral diabetic medicine, exactly as prescribed. Follow the diet advised by your healthcare provider. If you have high cholesterol, follow a low-fat, low-cholesterol diet. Monitor blood sugars as advised. Try to achieve your ideal weight. If you smoke, quit smoking. Tobacco use worsens the effect of diabetes on your blood vessels. If you have high blood pressure, consider buying an automatic blood pressure machine. These are available at most pharmacies. Use this to monitor your blood pressure. Report your blood pressure readings to your healthcare provider. Exercise regularly. Follow-up care Follow up with your healthcare provider, or as advised. You must have a complete eye exam at least once a year, more often if needed. Untreated diabetic retinopathy can lead to complete loss of vision. Occupational therapists can help you adapt to any vision loss you have, including learning techniques to safely administer insulin. When to seek medical advice Call your healthcare provider right away if any of these occur. Increasing blurriness or any sudden changes in your vision Sudden flashes of light inside your eye New floaters (small dots or strings that seem to be moving across your field of vision) Eye pain, redness, or discharge from your eyelid New dark spots appearing in your field of vision Halos around lights Dimness of vision Partial or complete loss of vision Women with diabetes should have a complete eye exam before becoming , or as soon as possible when they find out they are . Retinopathy sometimes worsens during . Your eye exam Your eye healthcare provider uses an eye chart and other tools to check your vision. Then he or sheexamines your eyes for signs of disease. You are given eye drops to widen (dilate) your pupils. Youmay have one or more of the following tests: Tonometry to measure fluid pressure inside the eye. Slit lamp exam to allow the healthcare provider to view the structures of your eye. Ultrasound to create an image of the eye using sound waves. Ultrasound may be used if blood is found in the clear gel that fills the eye (vitreous). Ocular coherence tomography (OCT) to create an image of the retina using light waves. This shows ifthere is fluid leaking into certain parts of the eye. It can also measure the thickness of the retina. Fluorescein angiography This test may be done to check the health of the inside lining of the eye (retina). It also checks the tiny blood vessels (capillaries) that carry blood to the retina. During the test: Photographs are taken of the retina. A dye is then injected into the bloodstream through the arm or hand. The dye travels to the capillaries in the eye. More photographs are taken of the retina. The dye causes the capillaries to stand out on the photographs. You may feel brief nausea during the procedure. For a few hours after the test, your skin, eyes, and urine may appear yellow. Talk with your healthcare provider for more information about this test. Date Last Reviewed: 07/12/201519992976-5475 [employer]. [address] [place] [address], [place] [address]. All rights reserved. This information is not intended as a substitute for professional medical care. Always follow your healthcare professional's instructions. documented in this encounter Nursing Notes * Manjeet Pitts LPN - 01/02/2024 12:18 PM EST Pre-Administration Time Out Procedure Performed: Yes Patient Identified (Ask Name/Date of ): Yes Does the patient have a fever greater than 101 degrees today? No Patient allergic to latex? No Has the patient ever fainted after receiving an injection? No VFC Stock: No Immunization(s) verified: Yes, Immunization Name: COVID and Flu, VIS Sheet(s) given: Yes Verified Side and Site: Yes Verified Shot(s) with Parent(s)/Patient: Yes * Manjeet Pitts LPN - 01/02/2024 11:40 AM EST The patient has been properly identified by confirmation of name and date of . Chief Complaint Patient presents with Status Check Hx of DM Would like to referral for hearing problem/tinnitus. Had routine foot care at [facility] on 12/16/2023. documented in this encounter Miscellaneous Notes * Addendum Note - Evi Alfredo OSA - 01/13/2024 10:16 AM ESTAddended by: EVI ALFREDO on: 01/13/2024 10:16 AM Modules accepted: Orders documented in this encounter Plan of Treatment Upcoming Encounters Date Type Department Care Team (Late st Contact Info) Description 01/22/2024 11:00 AM EST [facility] [address] [facility] [phone] [facility] [address] [facility] [place] [phone] 03/23/2024 10:40 AM EST Office Visit Podiatry [facility] [address] [place] [address] Annalise Macedo DPM [address] [facility] [place] [address] 04/13/2024 11:00 AM EST Office Visit [facility] [address] [place] [phone] Dimitris Hughes MD [address] [place] [phone] Scheduled Orders Name Type Priority Associated Diagnoses Orde r Schedule LIPID PANEL WITH DIRECT LDL IF TG IS HIGH Lab Routine Hyperlipidemia with target LDL less than 100 Expected: 04/03/2024, Expires: 01/01/2025 HEMOGLOBIN A1C Lab Routine Type 2 diabetes mellitus with hemoglobin A1c goal of less than 8.0% (HCC) Expected: 04/03/2024 (Approximate), Expires: 01/01/2025 COMPREHENSIVE METABOLIC PANEL Lab Routine HTN, goal below 140/90 Expected: 04/03/2024 (Approximate), Expires: 01/01/2025 Scheduled Referrals Name Type Priority Associated Diagnoses Orde r Schedule AUDIOLOGY REFERRAL OP Referral Within 10 days (routine) Bilateral hearing loss, unspecified hearing loss type Ordered: 01/02/2024 Health Maintenance Due Date Last Done Comments Fecal Occult Blood Test 2006 Sigmoidoscopy 2006 Colonoscopy 05/31/2017 06/01/2007 Zoster Vaccines (2 of 2) 11/04/2019 09/09/2019 Depression Screening 12/08/2020 12/09/2019 Hepatitis B Vaccine (3 of 3 - 19+ 3-dose series) 02/12/2021 12/18/2020, 09/06/2019 Diabetic Eye Exam 05/11/2023 05/10/2022, , 02/23/2019 B-12 04/07/2024 04/07/2023, 1104/2021, 10/20/2020, Additional history exists HbA1c 05/17/2024 11/17/2023, 070 10/2023, 04/07/2023, Additional history exists Albumin/Creatinine Ratio 11/16/20242 024, 09/27/2022, 09/19/2021, Additional history exists GFR 11/16/2024 11/17/2023, 070 10/2023, 12/30/2022, Additional history exists Cologuard 12/12/2024 12/12/2021 Colorectal Cancer Screening 12/12/2024 Diabetic Foot Exam 12/15/2024 12/16/2023, 0 09/26/2022, 06/14/2021, Additional history exists Lipid Panel 12/31/2027 12/30/2022, 08/, 05/01/2021, Additional [...] this encounter Medical Devices Implanted Type Area Drill Press Operator Device Identifier Shelf Expiration Date Model / Serial / Lot Patch Mesh Pre-W/Cord Opening - [id number] Implanted:Qty: 1 on 03/22/2014 by Aryan Rios MD at [facility] Right: Groin CR BARD : DAVOL 09/09/2018 [id number] / / [id number] documented as of this encounter Visit Diagnoses Diagnosis Type 2 diabetes mellitus with diabetic neuropathy, without long-term current use of insulin (HCC)- Primary Type 2 diabetes mellitus with hemoglobin A1c goal of less than 8.0% (HCC) Hyperlipidemia with target LDL less than 100 Other and unspecified hyperlipidemia Bilateral hearing loss, unspecified hearing loss type HTN, goal below 140/90 Unspecified essential hypertension COVID-19 vaccine administered Need for prophylactic vaccination and inoculation against influenza documented in this encounter Advance Directives * Full Code (Latest Code Status on File) Date Activated Date Inactivated Comments 08/22/2020 3:14 PM 08/26/2020 6:10 PM This order r eflects the patients wishes and were consensually agreed upon. Question Answer Comments Discussion of Advance Directives occurred with: Patient * Full Code Date Activated Date Inactivated Comments 05/17/2007 12:52 AM 06/16/2007 4:20 PM Care Teams Insect Control Aide Relationship Specialty Start Date End Date Dimitris Hughes MD [address] [place] [phone] PCP - General Family Medicine 06/06/22 documented as of this encounter
--- OUTSIDE RECORDS SUMMARY | 2024-03-25 21:40 | External Medical Summary | Summary of Care ---
Author Name Unknown Organization [facility] Address [address] [place] [address] Phone [phone] Care Team Providers Care Hooker Inspector Name Role Phone Dimitris Hughes MD Primary Care Provi kelly Reason for Referral * Ancillary Services (Within 10 days (routine)) - Authorized Specialty Diagnoses / Procedures Referred By Contac t Referred To Contact Audiology Diagnoses Bilateral hearing loss, unspecified hearing loss type Dimitris Hughes MD [address] [place] [phone] Phone: tel: fax: Referral ID Status Reason Start Date Expiration Date Visits Requested Visits Authorized [id number] Authorized Ancillary Services Required 4 [phone] [...] Encounter Details Date Type Department Care Team ([facility] Contact Info) Description 01/02/2024 11:40 AM EST Office Visit [address] [phone] Dimitris Hughes MD [address] [place] [phone] Type 2 diabetes mellitus with diabetic [...] as of this encounter (statuses as of 01/02/2024) Medications methADONE CONCentrated 10 mg/mL CONC Take [...] bedtime. 15 mL 1 4 Active Pen [place] 32G X 4 MMIndications:Typ e 2 diabetes [...] as of this encounter (statuses as of 01/02/2024) Active Problems Problem Noted Date Diagnosed Date [...] as of this encounter (statuses as of 01/02/2024) Resolved Problems Problem Noted Date Diagnosed Date [...] as of this encounter (statuses as of 01/02/2024) Immunizations Name Administration Dates Next Due COVID-19 mRNA, LNP-s, No Pre serve, 2-Dose Series (Moderna) 06/08/2020,05/09/2020 COVID-19, MRNA-LNP, PF, 30 M CG/0.3 mL, 12 YRS AND ABOVE, IM ([facility]) 01/02/2024 Hepatitis B, 20+ yrs 12/18/2020,09/16/19 21(Deferred: Patient Refused),09/06/2019 01/17/2021 Pneumococcal Conjugate Vacci ne, 20-valent ([id number]) 01/28/2023,09/19/2021(Deferred: Had Clinical Disease) Pneumococcal Polysaccharide PPV23 [...] neuropathy, without long-term current use of insulin ([facility]) (Primary) - TELEMEDICINE DIABETIC EYE Type 2 diabetes mellitus with hemoglobin A1c goal of less than 8.0% ([facility]) - HEMOGLOBIN A1C; Future; Expected date: [...] Repeat labs before his three-month follow-up with [place] Flu and COVID shot provided today Diabetic [...] information about this test. Date Last Reviewed: 07/12/201519994978-9686 [employer]. [address] [place] [address], [place] [address]. All rights reserved. This information is not [...] hearing problem/tinnitus. Had routine foot care at [facility] on 12/16/2023. documented in this encounter Plan of Treatment Upcoming Encounters Date Type Department Care Team (Late st Contact Info) Description 01/22/2024 11:00 AM EST Office Visit Pharmacy, [place] [address] [place] [address] [facility] [address] [place] [address] 03/23/2024 10:40 AM EST [facility] [place] [address] Annalise Macedo DPM [address] [place] [address] 04/13/2024 11:00 AM EST Office Visit [address] [phone] Dimitris Hughes MD [address] [place] [phone] Scheduled Orders Name Type Priority Associated [...] this encounter Medical Devices Implanted Type Area In Home Baby Sitter Device Identifier Shelf Expiration Date Model / Serial / Lot Patch Mesh Pre-W/Cord Opening - [id number] Implanted:Qty: 1 on 03/22/2014 by Aryan Rios MD at OR [facility] Right: Groin CR BARD : DAVOL 09/09/2018 [id number] / / [id number] documented as of this encounter Visit Diagnoses [...] 12:52 AM 06/16/2007 4:20 PM Care Teams Hooker Inspector Relationship Specialty Start Date End Date Dimitris Hughes MD [address] [place] [phone] PCP - General Family Medicine 06/06/22 documented as of this encounter
--- OUTSIDE RECORDS SUMMARY | 2024-03-25 21:40 | External Medical Summary | Summary of Care ---
Author Name Unknown Organization [facility] Address [address] [place] [facility] [place] [address] Phone [phone] Care Team Providers Care Purchase Order Checker Name Role Phone Dimitris Hughes MD Primary Care Provi kelly Reason for Visit * Reason Comments Outpatient Testing Encounter Details Date Type Department Care Team (Late st Contact Info) Description 11/17/2023 11:00 AM EDT Laboratory Laboratory, [facility] [address] [place] [address] [facility] [address] [place] [address] Type 2 diabetes mellitus with [...] Refused),09/06/2019 01/17/2021 Pneumococcal Conjugate Vacci ne, 20-valent ([id number]) 01/28/2023,09/19/2021(Deferred: Had Clinical Disease) Pneumococcal Polysaccharide PPV23 [...] Visit Pharmacy, [facility] [address] [place] [address] [facility] [address] [place] [address] 11/27/2023 11:00 AM EDT Office Visit Podiatry [address] [place] [address] Annalise Macedo, DPM [address] [place] [address] 12/11/2023 11:00 AM EDT Office Visit Pharmacy, [place] [address] [place] [address] [facility] [address] [place] [address] Pending Results Name Type Priority Associated Diagnoses Date /Time BASIC METABOLIC PANEL Lab Routine Type 2 diabetes mellitus with hemoglobin A1c goal of less than 8.0% ([facility]) 11/17/2023 11:13 AM EDT HEMOGLOBIN A1C Lab Routine Type 2 diabetes mellitus with hemoglobin A1c goal of less than 8.0% ([facility]) 11/17/2023 11:13 AM EDT ALBUMIN / CREATININE RATIO, URINE Lab Routine Type 2 diabetes mellitus with hemoglobin A1c goal of less than 8.0% ([facility]) 11/17/2023 11:22 AM EDT Health Maintenance Due [...] this encounter Medical Devices Implanted Type Area Train Engineer Device Identifier Shelf Expiration Date Model / Serial / Lot Patch Mesh Pre-W/Cord Opening - [id number] Implanted:Qty: 1 on 03/22/2014 by Aryan Rios MD at OR [facility] Right: Groin CR BARD : DAVOL 09/09/2018 [id number] / / [id number] documented as of this encounter Visit Diagnoses Diagnosis Type 2 diabetes mellitus with hemoglobin A1c goal of less than 8.0% ([facility]) documented in this encounter Advance Directives * Full Code (Latest Code Status on File) Date Activated Date Inactivated Comments 08/22/2020 3:14 PM 08/26/2020 6:10 PM This order r eflects the patients wishes and were consensually agreed upon. Question Answer Comments Discussion of Advance Directives occurred with: Patient * Full Code Date Activated Date Inactivated Comments 05/17/2007 12:52 AM 06/16/2007 4:20 PM Care Teams Purchase Order Checker Relationship Specialty Start Date End Date Dimit[place] [phone] PCP - General Family Medicine 06/06/22 documented as of this encounter
--- OUTSIDE RECORDS SUMMARY | 2024-03-25 21:40 | External Medical Summary ---
Author Name Unknown Address Unknown Organization K01:[facility]ORY [facility] [place] - [facility] [address] [place] [address] Laboratory Report Ordering Provider Test Date Status YADIRA HUGHES 11/17/2023 11:13:03 Final Observation Date Value Abnormality Reference (Units ) Status BUN 11/17/2023 11:13:03 18 6-20 (mg/dL) Final Creatinine 11/17/2023 11:13:03 0.9 0.6-1.2 (mg/dL) Final Glomerular filtration rate/1.73 sq M.predicted [Volume Rate/Area] in Serum, Plasma or Blood by Creatinine-based formula (CKD-EPI) 11/17/2023 11:13:03 >90 >=60 (mL/min) Final eGFR is calculated based on the CKD-EPI 2020 equation. Sodium 11/17/2023 11:13:03 136 135-146 (m mol/L) Final Potassium 11/17/2023 11:13:03 5.3 Above high normal 3. 5-5.1 (mmol/L) Final Cl 11/17/2023 11:13:03 96 Below low normal 98- 107 (mmol/L) Final CO2 11/17/2023 11:13:03 26 22-32 (mmo l/L) Final Anion gap 11/17/2023 11:13:03 14 7-15 (mmol /L) Final Glucose 11/17/2023 11:13:03 105 70-120 (mg /dL) Final Calcium 11/17/2023 11:13:03 10.1 8.4-10.2 ( mg/dL) Final Performing Location LAB[facility]ATORY [facility] [place] - [address] [place] [address]
--- OUTSIDE RECORDS SUMMARY | 2024-03-25 21:40 | External Medical Summary | Summary of Care ---
Author Name Unknown Organization [facility] Address [address] [place] [address] Phone [phone] Care Team Providers Care Director [employer] Name Role Phone Dimitris Hughes MD Primary Care Provi kelly Encounter Details Date Type Department Care Team (Late st Contact Info) Description 02/02/2024 Orders Only Outcomes Research Department [address] [place] [address] Jaclyn Mohamud CHRA [employer] Other*[id number] Allergies Active Allergy Reactions Criticality Noted Date Comments Nutritional Supplements Anaphylaxis High 02/05/2008 Pt denies documented as of this encounter (statuses as of 02/02/2024) Medications methADONE CONCentrated 10 mg/mL CONC Take [...] bedtime. 15 mL 1 4 Active Pen [place] 32G X 4 MMIndications:Typ e 2 diabetes [...] as of this encounter (statuses as of 02/02/2024) Active Problems Problem Noted Date Diagnosed Date [...] as of this encounter (statuses as of 02/02/2024) Resolved Problems Problem Noted Date Diagnosed Date [...] as of this encounter (statuses as of 02/02/2024) Immunizations Name Administration Dates Next Due COVID-19 mRNA, LNP-s, No Pre serve, 2-Dose Series (Moderna) 06/08/2020,05/09/2020 COVID-19, MRNA-LNP, PF, 30 M CG/0.3 mL, 12 YRS AND ABOVE, IM (PFIZER-Comirnaty) 01/02/2024 Hepatitis B, 20+ yrs 12/18/2020,09/16/19(Deferred: Patient Refused),09/06/2019 01/17/2021 Pneumococcal Conjugate Vacci ne, 20-valent ([id number]) 01/28/2023,09/19/2021(Deferred: Had Clinical Disease) Pneumococcal Polysaccharide PPV23 [...] Date Smoking Tobacco: Former Cigarettes 1.5 10 5 - 1994 Smokeless Tobacco: Former Alcohol Use [...] Author Yes 08/22/2020 3:57 PM EDT Susie Roberto, EUGENIO * Are you blind or do you [...] 3:57 PM EDT Susie Roberto, RN documented as of this encounter Mental [...] 02/26/2024 1:00 PM EST Laboratory Laboratory, [facility] [address] [address] Julio C Wilcox [address] [place] [address] 03/04/2024 10:30 AM EST Office Visit Pharmacy, [facility] [address] [facility] [phone] [facility] [address] [place] [address] 03/23/2024 10:40 AM EST Office Visit Podiatry [facility] [address] [place] [address] Annalise Macedo DPM [address] [place] [address] 04/13/2024 11:00 AM EST Office Visit [address] [phone] Dimitris Hughes MD [address] [place] [phone] Scheduled Orders Name Type Priority Associated Diagnoses Orde r Schedule MYCODE SUBSEQUENT ADULT Lab Routine [facility] Other*[id number] Every 6 Months for 2 Occurrences starting 02/02/2024 until 02/21/2025 Health Maintenance Due Date Last Done Comments [...] this encounter Medical Devices Implanted Type Area Vision Impaired Teacher Device Identifier Shelf Expiration Date Model / Serial / Lot Patch Mesh Pre-W/Cord Opening - [id number] Implanted:Qty: 1 on 03/22/2014 by Aryan Rios MD at OR [facility] Right: Groin CR BARD : DAVOL 09/09/2018 [id number] / / [id number] documented as of this encounter Visit Diagnoses Diagnosis [facility] Other*[id number] documented in this encounter Advance Directives * Full Code (Latest Code Status on File) Date Activated Date Inactivated Comments 08/22/2020 3:14 PM 08/26/2020 6:10 PM This order r eflects the patients wishes and were consensually agreed upon. Question Answer Comments Discussion of Advance Directives occurred with: Patient * Full Code Date Activated Date Inactivated Comments 05/17/2007 12:52 AM 06/16/2007 4:20 PM Care Teams Director [employer] Relationship Specialty Start Date End Date Dimitris Hughes MD [address] [place] [address] [place] [phone] PCP - General Family Medicine 06/06/22 documented as of this encounter
--- OUTSIDE RECORDS SUMMARY | 2024-03-25 21:40 | External Medical Summary ---
Author Name Unknown Address Unknown Organization K01:LABORATORY [facility] [place] - [address] [facility] [address] [facility] [address] Laboratory Report Ordering Provider Test Date Status YADIRA HUGHES 11/17/2023 11:13:03 Final Observation Date Value Abnormality Reference (Units ) Status HbA1C 11/17/2023 11:13:03 7.3 Above high normal 4. 0-5.6 (%) Final The use of HbA1c to monitor glycemic status is based on normal hemoglobin and HbA composition. This test should not be used in patients with abnormal hemoglobin that affects the half life of the red blood cell or the in vivo glycation rates. Glucose, estimated average 11/17/2023 11:13:03 163 Above high normal <126 (mg/dL) Germán regan Performing Location LABORATORY [facility] [place] - [address] [facility] [address]
[2024-03-25] MEDS ORDERED: PIPERACILLIN/TAZOBACTAM 4.5 GM/100 ML BAG IV SCH ×2 (22:00)
[2024-03-25 22:12] VITALS: BP 163/83; PULSE 63; O2SAT 96
--- OUTSIDE RECORDS SUMMARY | 2024-03-25 23:45 | External Medical Summary | Summary of Care ---
Author Name Unknown Organization [facility] Address [address] [facility] [place] [address] Phone [phone] Care Team Providers Care Oil Pipe Inspector Name Role Phone Dimitris Hughes MD Primary Care Provi kelly Reason for Visit * Reason Comments Diabetic Foot Care Encounter Details Date Type Department Care Team (Late st Contact Info) Description 03/23/2024 10:40 AM EST Office Visit Podiatry [facility] [address] [place] [phone] Annalise Macedo DPM [address] [place] [address] Wound of left foot*; Type 2 diabetes mellitus with diabetic neuropathy, without long-term current use of insulin ([facility]); 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 Active Blood Glucose Monitoring Suppl (Fix That BugTOLet it Wave VERIO) w/Device KITIndications:Ty pe 2 diabetes mellitus with hemoglobin A1c goal of less than 8.0% ([facility]) Use up to 2 times a day [...] morning. 90 Tablet 3 4 Active Pen [place] 32G X 4 MMIndications:Typ e 2 diabetes [...] as of this encounter (statuses as of 03/25/2024) Active Problems Problem Noted Date Diagnosed Date [...] as of this encounter (statuses as of 03/25/2024) Resolved Problems Problem Noted Date Diagnosed Date [...] as of this encounter (statuses as of 03/25/2024) Immunizations Name Administration Dates Next Due COVID-19 mRNA, LNP-s, No Pre serve, 2-Dose Series (Moderna) 06/08/2020,05/09/2020 COVID-19, MRNA-LNP, PF, 30 M CG/0.3 mL, 12 YRS AND ABOVE, IM ([employer]) 01/02/2024 Hepatitis B, 20+ yrs 12/18/2020,09/16/19 21(Deferred: Patient Refused),09/06/2019 01/17/2021 Pneumococcal Conjugate Vacci ne, 20-valent ([id number]) 01/28/2023,09/19/2021(Deferred: Had Clinical Disease) Pneumococcal Polysaccharide PPV23 [...] 03/23/2024 2:21 PM EST Podiatry Established Note [facility] Name: Luigi Sotomayor : 1960 Date: 03/23/2024 [...] Nursing Notes * Azalea Ortez LPN - 03/23/2024 11:00 AM EST * Azalea Ortez LPN - 03/23/2024 10:35 AM EST Pt presents with his for follow up visit, wound on bottom of L foot, noticed last week Friday or . Began as a blister. + painful. documented in this encounter Miscellaneous Notes * Addendum Note - Rehana Morales CMA - 03/25/2024 12:31 PM ESTAddended by: REHANA MORALES on: 03/25/2024 12:31 PM Modules accepted: Orders documented in this encounter Plan of Treatment Upcoming Encounters Date Type Department Care Team (Late st Contact Info) Description 03/30/2024 12:40 PM EST Office Visit Podiatry [facility] [address] [place] [phone] Annalise Macedo DPM [address] [place] [address] 04/13/2024 11:00 AM EST Office Visit Family [facility] [address] [place] [address] Dimitris Hughes MD [address] [place], [place] [address], [place] [phone] 06/09/2024 10:30 AM EDT Office Visit [facility], [place] [facility] [address] [facility] [place] [phone] [facility] [address] [place] [address] Health Maintenance Due Date Last Done Comments Fecal Occult Blood Test 2006 Sigmoidoscopy 2006 Colonoscopy 05/31/2017 06/01/2007 Zoster Vaccines (2 of 2) 11/04/2019 09/09/2019 Depression Screening 12/08/2020 12/09/2019 Hepatitis B Vaccine (3 of 3 - 19+ 3-dose series) 02/12/2021 12/18/2020, 09/06/2019 Diabetic Eye Exam 05/11/2023 05/10/2022, , 02/23/2019 B-12 04/07/2024 04/07/2023, 110 04/2021, 10/20/2020, Additional history exists HbA1c 08/25/2024 02/26/2024, 10/0 08/2023, 08/19/2023, Additional history exists Albumin/Creatinine Ratio 11/16/20242 024, [...] this encounter Medical Devices Implanted Type Area Stake Setter Device Identifier Shelf Expiration Date Model / Serial / Lot Patch Mesh Pre-W/Cord Opening - [id number] Implanted:Qty: 1 on 03/22/2014 by Aryan Rios MD at OR [facility] Right: Groin CR BARD : DAVOL 09/09/2018 [id number] / / [id number] documented as of this encounter Visit Diagnoses [...] 3:14 PM 08/26/2020 6:10 PM This order reflects the patients wishes and were consensually agreed upon. Question Answer Comments Discussion of Advance Directives occurred with: Patient * Full Code Date Activated Date Inactivated Comments 05/17/2007 12:52 AM 06/16/2007 4:20 PM Care Teams Oil Pipe Inspector Relationship Specialty Start Date End Date Dimitris Hughes MD [address] [place] [phone] PCP - General Family Medicine 06/06/22 documented as of this encounter
[2024-03-26] MEDS ORDERED: INSULIN ASPART PER UNIT CHARGE SC SCH
[2024-03-26] MEDS ORDERED: VANCOMYCIN HCL 1,250 MG in SODIUM CHLORIDE 0.9% 250 ML IV SCH (04:00)
[2024-03-26] MEDS ORDERED: lisinopril 5 MG TAB PO SCH (09:00)
[2024-03-31 15:12] LABS: Lyme DNA PCR CSF or Synovial Not Detected (Not Detected); Lyme DNA Source SYNOVIAL FLUID
[2024-03-31 15:40] LABS: Babesia microti DNA Not Detected (Not Detected)
== END 2024-03-25 21:50 | disposition short-term general hospital (02) | DRG 637 ==
LOC: ED 14:21 → EDINP 17:50 → INTOOBSV 17:50 → EDINP 19:58